=== PATIENT | female | born 1940 | race Caucasian/White ===

== ENCOUNTER 2022-11-11 03:11 | Observation (INO) | payer MEDICARE, SELFPAY ==
[2022-11-11] VITALS (31 sets, daily range): BP systolic 125–215; BP diastolic 50–88; PULSE 70–85; RESP 12–20; TEMP 35.8–36.8; O2SAT 92–98; BMI 27.1
--- NOTE | ~2022-11-11 | XR_ITS ---
EXAMINATION: XR knee RT min 4V DATE: 11/11/2022 03:37 INDICATION: Right knee injury and pain. TECHNIQUE: 4 views of right knee were obtained. COMPARISON: None. FINDINGS: Bone alignment is normal. No fracture. There is severe osteoarthritis of medial and patello femoral compartments and moderate osteoarthritis of lateral compartment. There is a large knee joint effusion. IMPRESSION: 1. Severe right knee osteoarthritis. 2. Large right knee joint effusion. Reviewed, dictated and finalized at location E.
--- NOTE | ~2022-11-11 | CT_ITS ---
EXAMINATION: CT knee RT wo con DATE: 11/11/2022 04:10 INDICATION: Right knee pain. TECHNIQUE: Computed tomography (CT) of the right knee was performed without intravenous contrast. Aut omated exposure control and iterative reconstruction technique were employed. The dose-length product was 524.06 mGy-cm. COMPARISON: Right knee radiographs 11/11/2022 FINDINGS: Bone alignment is normal. No fracture. There is severe osteoarthritis of medial and patello femoral compartments and moderate osteoarthritis of lateral compartment. There is a large knee joint effusion. There are dystrophic calcifications of the joint capsule. IMPRESSION: 1. Severe right knee osteoarthritis. 2. Large right knee joint effusion. Reviewed, dictated and finalized at location E.
--- NOTE | 2022-11-11 03:40 | ED.GENADULT ---
HPI - General Adult General Chief complaint: Extremity Injury, Lower Stated complaint: RIGHT KNEE PAIN S/P FALL 2 DAYS AGO Time Seen by Provider: 11/11/22 03:14 History of Present Illness HPI narrative: 81-year-old female presented to the emergency department for evaluation of right knee pain. Patient reports 2 days ago patient was getting in the car and twisted her right knee. Patient states she did hear a popping sound. Patient reports since then she has had increased difficulty with ambulation. Patient denies any other pain or injury. Related Data Home Medications Medication Instructions Recorded Confirmed cholecalciferol (vitamin D3) 25 25 mcg PO DAILY 09/13/21 11/11/22 mcg (1,000 unit) capsule clonidine HCl 0.1 mg tablet 0.1 mg PO BID 09/13/21 11/11/22 metformin 500 mg tablet 500 mg PO BID 09/13/21 11/11/22 meclizine 12.5 mg tablet 12.5 mg PO PRN PRN dizziness 11/11/22 11/11/22 Allergies Allergy/AdvReac Type Severity Reaction Status Date / Time No Known Allergies Allergy Verified 08/21/22 13:58 Review of Systems Review of Systems: All systems reviewed & are unremarkable except as noted in HPI and below PMFSH Past Medical History Medical History Arthritis Diabetes Hypertension Surgical History Surgical History History of parotidectomy Status post complete hysterectomy Family History Family History Mother Diabetes mellitus Hypertension Cancer Social History Social History (Updated 11/11/22 @ 09:29 by Angus Ramirez MD) Social History: Lifelong nonsmoker. Rare alcohol use. No drug use. Lives with her . She wishes to be a DNR. Smoking status: Never smoker Tobacco type: cigarettes Alcohol intake: current Substance use: never Lack of Transportation: No Lack of Food: Sometimes True Current Housing: I Have Housing Concerned About Future Housing: No Difficulty Paying Gas/Electric Bills: YES Difficulty Paying for Meds: No Currently Unemployed: No Education: High School Diploma/GED Difficulty w/ Childcare or Family Care: No Spiritual care concerns: No Exam Narrative: APPEARANCE: Well appearing, no pain, no distress, well-nourished. HEAD: normocephalic, atraumatic. EYES: PERRLA/EOMI, conjunctivae clear. NOSE: Normal no drainage NECK: Supple. No adenopathy, no masses. RESPIRATORY: Airway patent, respirations nonlabored. Clear to auscultation bilaterally, no rales, rhonchi, wheezing. CARDIOVASCULAR: Regular rate and rhythm without murmurs rubs or gallops. ABDOMINAL: Soft, nontender, nondistended, normal bowel sounds MUSCULOSKELETAL: Right knee effusion with tenderness, no deformity, no erythema. Neurovascular intact NEURO: Alert. Cranial nerves II through XII intact. Grossly intact SKIN: Warm, dry. Normal Color Course Course Emergency Course: 81-year-old female complaining of right knee pain. X-rays were negative for acute fracture or dislocation. Patient was placed in a knee immobilizer and ambulated with a walker. Patient was unable to ambulate and is requesting admission. Ordered to evaluate for occult fracture. Patient is having some hypertension but patient was doing her morning meds. Patient was treated with her home dose of lisinopril, felodipine, metoprolol and clonidine. Patient's blood pressure was significantly improved with her morning meds. Patient will need to be admitted due to inability to ambulate. Hospitalist prefers to wait for the CT scan to be resulted. CT showed no acute fracture or dislocation. Case was discussed with the hospitalist and patient was accepted for admission. Patient and family were updated on the results of the x-ray and CT. All questions concerns were addressed and patient was resting company at time of admission. Vital Signs Vital
--- NOTE | 2022-11-11 03:58 | PC.NURSE ---
knee immobilizer placed on patient, patient unable to bear weight on right knee and walk; notified
[2022-11-11] MEDS: HYDROcodone/acetaminophen (*CRX) 5-325 MG TABLET 1 TAB PO ×2 (04:12→14:17)
[2022-11-11] MEDS: FELODIPINE 5 MG TAB CR PO (04:38)
[2022-11-11] MEDS: lisinopriL 20 MG TABLET PO (04:38)
[2022-11-11] MEDS: cloNIDine HCL 0.1 MG TABLET PO ×2 (04:39→17:11)
[2022-11-11] MEDS: METOPROLOL SUCCINATE EXT REL 100 MG TABCR PO (04:39)
[2022-11-11 04:41] LABS: Basophils Percent Auto 0.3 % (0.2-1.2); Eosinophils Percent Auto 0.1 % (0-4.4); Hematocrit 35.1 % (37.0-47.0); Hemoglobin 11.2 g/dL (12.0-15.0); Immature Granulocyte Absolute 0.03 K/mm3 (0.00-0.031); Immature Granulocyte Percent A 0.3 % (0-0.5); Lymphocytes Absolute Auto 0.76 K/mm3 (0.9-3.2); Lymphocytes Percent Auto 8.1 % (18.3-44.2); Mean Corpuscular HGB Conc 31.9 g/dl (32-36); Mean Corpuscular Hemoglobin 28.9 pg (26-34); Mean Corpuscular Volume 90.5 fl (80-100); Mean Platelet Volume 10.3 fl (7.4-10.4); Monocytes Absolute Auto 0.9 K/mm3 (0.1-0.6); Monocytes Percent Auto 9.3 % (2.6-8.5); Neutrophils Absolute Auto 7.7 K/mm3 (1.3-6.7); Neutrophils Percent Auto 81.9 % (45.5-73.1); Platelet Count Result 224 k/mm3 (150-375); Red Blood Count 3.88 M/mm3 (4.2-5.4); White Blood Count 9.4 K/mm3 (4.5-10.0)
[2022-11-11 04:52] LABS: Alanine Aminotransferase 14 U/L (6-35); Albumin Level 4.1 g/dL (3.5-5.1); Alkaline Phosphatase 81 U/L (38-126); Anion Gap 8 mmol/L (8-16); Aspartate Amino Transferase 22 U/L (14-36); Bilirubin,Total 0.7 mg/dL (0.2-1.3); Blood Urea Nitrogen 22 mg/dL (7-17); Calcium 8.8 mg/dL (8.4-10.2); Carbon Dioxide 25 mmol/L (22-30); Chloride 105 mmol/L (98-107); Estimated CRCL calculation 52 ml/min; Estimated Glomerular Filt Rate > 60; Glucose 171 mg/dL (65-110); INR 1.1; Potassium 4.1 mmol/L (3.4-5.0); Prothrombin Time 14.6 Seconds (11.1-14.7); Sodium 138 mmol/L (137-145)
[2022-11-11 04:53] LABS: Partial Thromboplastin Time 23.9 SECONDS (22.3-36.8)
--- NOTE | 2022-11-11 08:03 | ADMGEN ---
This patient, Aria Garcia, was admitted to Medical Room 252-01. Patient/family oriented to hospital policies and general routines including ID bracelet, bed and alarms, visiting hours, pain management, procedures, bathroom and other care routines, personal items, smoking policy, room service/diet, and visiting hours. Information on how to activate the Rapid Response Team has been discussed. Patient/Family are encouraged to report perceived risks to care and to ask questions if they do not understand what they are told or what they should do.
--- NOTE | 2022-11-11 08:05 | PM.IMHP ---
H&P: HPI History of Present Illness Date/Time: 11/11/22 08:05 Chief Complaint: Knee pain after a fall Narrative: 81yo female with DM, HTN and osteoarthritis presents to the emergency department for evaluation of right knee pain.? Patient fell while trying to get up into a car on 11/09. She was at the [employer] to get her license. Patient has chronic bilateral knee osteoarthritis right worse than left. She normally has to step up with her left leg because of the pain. Patient however used her right leg when stepping up onto the running board of the car when she fell. She is vague on the details but states that she went straight down . She does not remember how she landed but possibly on her knees. She does complain of right recinos pain as well as right knee pain. She denies any other joint pain. There was no head injury or loss of consciousness. She did not have any lightheadedness, dizziness, chest pain or palpitations prior to the event. She was able to get herself up and actually finished the evaluation and was able to get her license. She normally walks with a cane. She states that she has chronic vertigo but she describes this as feeling off balanced. She denies any chronic room spinning or lightheadedness symptoms. She did well initially but her knee pain symptoms worsened that evening and throughout the day on 11/10. She was using a walker to ambulate but even then it was becoming difficult. On the early morning babysitter hours, patient was trying to be up to void when she had difficulty getting to the bathroom because of the right knee pain. No numbness or tingling in the hands or feet. No fever or chills. She has urine incontinence which is chronic but no dysuria, hematuria or frequency. Patient presented to the emergency room for evaluation. In the ED, blood pressure was as high as 215/88. Lab values were unrevealing. Knee x-ray shows severe right knee osteoarthritis with large right knee joint effusion. CT of the right knee shows similar findings. No fractures noted. Patient was placed in a knee immobilizer and it was attempted to walk her with a walker but she was unable to ambulate. She was given 1 dose of her home medications and her blood pressure did improve. She did receive one dose of [place]. She was admitted for further care. Review of Systems Review of Systems: All systems reviewed & are unremarkable except as noted in HPI and below PMFSH Past Medical History Medical History Arthritis Diabetes Hypertension Surgical History Surgical History History of parotidectomy Status post complete hysterectomy Family History Family History Mother Diabetes mellitus Hypertension Cancer Social History Social History (Updated 11/11/22 @ 09:29 by Angus Ramirez MD) Social History: Lifelong nonsmoker. Rare alcohol use. No drug use. Lives with her . She wishes to be a DNR. Smoking status: Never smoker Tobacco type: cigarettes Alcohol intake: current Substance use: never Lack of Transportation: No Lack of Food: Sometimes True Current Housing: I Have Housing Concerned About Future Housing: No Difficulty Paying Gas/Electric Bills: YES Difficulty Paying for Meds: No Currently Unemployed: No Education: High School Diploma/GED Difficulty w/ Childcare or Family Care: No Spiritual care concerns: No Meds Home Medications and Allergies Home Medications Medication Instructions Recorded Confirmed Type cholecalciferol (vitamin D3) 25 25 mcg PO DAILY 09/13/21 11/11/22 History mcg (1,000 unit) capsule clonidine HCl 0.1 mg tablet 0.1 mg PO BID 09/13/21 11/11/22 History metformin 500 mg tablet 500 mg PO BID 09/13/21 11/11/22 History metoprolol succinate 100 mg 100 mg PO DAILY #90 tabs 05/22/22 11/11/22 Rx t
--- NOTE | 2022-11-11 08:09 | PCPTNOTE ---
patient has ortho consult. Has ortho consult will wait until seen by them for potential weightbearing status.
[2022-11-11 09:06] LABS: Glucose Point of Care 151 mg/dl (65-105)
--- NOTE | 2022-11-11 10:52 | PCPTNOTE ---
talked to nurse and patient and they agree better to wait until after the knee aspiration, planned for tomorrow.
[2022-11-11] MEDS: ROSUVASTATIN 5 MG TABLET PO (11:55)
[2022-11-11] MEDS: CHOLECALCIFEROL 1,000 UNITS TABLET 1000 UNITS PO (11:56)
[2022-11-11] MEDS: metFORMIN HCL 500 MG TABLET PO ×2 (11:56→17:11)
[2022-11-11 12:11] LABS: Glucose Point of Care 177 mg/dl (65-105)
--- NOTE | 2022-11-11 13:37 | PCOTNOTE ---
Spoke with RN and reported to wait until after ortho consult and the knee aspiration, planned for tomorrow 11/12.
[2022-11-11 17:07] LABS: Glucose Point of Care 162 mg/dl (65-105)
[2022-11-11 20:16] LABS: Glucose Point of Care 180 mg/dl (65-105)
[2022-11-12 05:16] VITALS: BP 203/60; PULSE 66; RESP 19; TEMP 36.4; O2SAT 98
[2022-11-12 05:48] VITALS: BP 182/62
[2022-11-12] MEDS: HYDROcodone/acetaminophen (*CRX) 5-325 MG TABLET 1 TAB PO (06:26)
--- NOTE | 2022-11-12 07:14 | PCOTNOTE ---
Will complete OT evaluation following ortho consult. Will follow.
--- NOTE | 2022-11-12 07:25 | PCPTNOTE ---
Will complete PT evaluation following ortho consult. Will follow.
[2022-11-12 08:35] LABS: Glucose Point of Care 124 mg/dl (65-105)
[2022-11-12] MEDS: CHOLECALCIFEROL 1,000 UNITS TABLET 1000 UNITS PO (08:59)
[2022-11-12] MEDS: metFORMIN HCL 500 MG TABLET PO ×2 (08:59→17:30)
[2022-11-12 09:00] VITALS: PULSE 72
[2022-11-12] MEDS: cloNIDine HCL 0.1 MG TABLET PO ×2 (09:00→17:30)
[2022-11-12] MEDS: METOPROLOL SUCCINATE EXT REL 100 MG TABCR PO (09:00)
[2022-11-12] MEDS: lisinopriL 20 MG TABLET PO (09:00)
[2022-11-12] MEDS: FELODIPINE 5 MG TAB CR PO (09:00)
[2022-11-12] MEDS: ROSUVASTATIN 5 MG TABLET PO (09:01)
--- NOTE | 2022-11-12 10:24 | PM.IMPN ---
Progress Note: A&P Assessment and Plan (1) Acute pain of right knee: Code(s): M25.561 - Pain in right knee Status: Acute Assessment and Plan: Patient with acute right knee pain after a fall. X-ray showing severe right knee OA and large joint effusion. CT right knee showing similar findings and no fracture. WBC normal. Hgb unchanged so doubt hemarthrosis (and fluid not hyperdense by CT). CMP essentially normal. B12 and TSH normal in July. No urinary symptoms to suggest UTI. No evidence of acute infection. Ortho consult with plans for injection. May need placement. Start PT/OT after knee injected. (2) Fall: Code(s): W19.XXXA - Unspecified fall, initial encounter Status: Acute Assessment and Plan: As above. The etiology for her fall is related to her stepping up with the right leg. Continue fall precautions. (3) Hypertension: Code(s): I10 - Essential (primary) hypertension Status: Acute Assessment and Plan: BP elevated at times felt related to pain. Home medications resumed. Continue to follow. (4) Diabetes: Code(s): E11.9 - Type 2 diabetes mellitus without complications Status: Acute Assessment and Plan: A1c 6.6 in July. The patient's blood glucose was reviewed on 11/12 Glucose remains well controlled. Continue AccuCheks covering with sliding scale. Hypoglycemia protocol available as needed. Continue current medications. (5) Arthritis: Code(s): M19.90 - Unspecified osteoarthritis, unspecified site Status: Acute Assessment and Plan: Patient with chronic OA. Symptomatic care. Plan Murmur - defer to PCP DVT prophylaxis - SCDs Code status - DNR Subjective Date/time seen: 11/12/22 10:24 Interval history: 81yo female with DM, HTN and osteoarthritis presents to the emergency department for evaluation of right knee pain.?? Knee pain without change. She feels well. Exam Narrative: AF 97.6 182/62 72 19 98% ra Gen - NARD Chest - CTA bilaterally, nml RR CV - RRR S1/S2 Abd - soft, NT/ND Ext - no pedal edema. right knee edema Psych - normal mood and affect. Skin - warm and dry. Objective Data Vital Signs Vital Signs: Vital Signs - 24 hr 11/11/22 14:00 11/11/22 19:24 11/11/22 20:00 Temperature 98.3 F 96.5 F L Pulse Rate 80 70 Respiratory Rate 20 18 Blood Pressure 179/67 H 133/50 L Pulse Oximetry 97 98 Oxygen Delivery Room Air 11/12/22 05:16 11/12/22 05:48 11/12/22 09:00 Temperature 97.6 F Pulse Rate 66 72 Respiratory Rate 19 Blood Pressure 203/60 H 182/62 H Pulse Oximetry 98 Oxygen Delivery Intake/Output Intake/Output: Intake & Output 11/09/22 11/10/22 11/11/22 11/12/22 23:59 23:59 23:59 23:59 Intake Total 950 640 Output Total 150 100 Balance 800 540 Meds/Results Medications: Active Medications Generic Name Dose Route Start Last Admin Trade Name Freq PRN Reason Stop Dose Admin Acetaminophen 650 mg 11/11/22 14:00 Acetaminophen 325 Mg Tablet PO Q6H PRN Mild Pain (1-3) Or Fever Hydrocodone Bitart/Acetaminophen 1 tab 11/11/22 14:00 11/12/22 06:26 Hydrocodone/Acetaminophen (*Crx) 5-325 Mg Tablet PO 1 tab Q6H PRN Administration Pain Rated 4-6 Clonidine HCl 0.1 mg 11/11/22 17:00 11/12/22 09:00 Clonidine Hcl 0.1 Mg Tablet PO 0.1 mg BID SHANNAN Administration Dextrose 12.5 gm 11/11/22 08:20 Dextrose 50% 25 Gm/50 Ml Syringe IV PUSH PRN PRN Hypoglycemia Protocol Felodipine 5 mg 11/12/22 09:00 11/12/22 09:00 Felodipine 5 Mg Tab Cr PO 5 mg DAILY SHANNAN Administration Glucagon 1 mg 11/11/22 08:20 Glucagon For Inj 1 Mg Vial IM PRN PRN Hypoglycemia Protocol Glucose 15 gm 11/11/22 08:20 Glucose Oral Gel 15 Gm Of Glucse In 37.5 Gm Tube PO PRN PRN Hypoglycemia Protocol Dextrose 1,000 mls @ 100 mls/hr
--- NOTE | 2022-11-12 10:33 | PM.CNOR ---
Assessment and Plan Assessment and plan (1) Acute pain of right knee: Code(s): M25.561 - Pain in right knee Status: Acute (2) Effusion, right knee: Code(s): M25.461 - Effusion, right knee Status: Acute (3) Arthritis of right knee: Code(s): M17.11 - Unilateral primary osteoarthritis, right knee Status: Chronic Plan 81-year-old female who has got radiographically severe arthritis in her right knee. She has a large effusion. I discussed this with her. The knee was aspirated and injected. See note below. She tolerated the aspiration and injection just fine. It was bloody synovial fluid rather than reena hemarthrosis, and there was no fat-fluid level in the aspirate. I suspect that she had effusion and then with this injury bled into her knee causing the symptoms. I told her that she can follow with me in the office as she saw fit. Thank you for the consultation. Procedure note: With the patient's permission and using sterile technique from a superolateral approach and with the patient supine, 80 milliliters of bloody joint fluid was aspirated from the knee. The knee was then injected intra-articularly with 2 milliliters of 1% lidocaine and 20 milligrams of Kenalog without incident. Sterile dressing was applied. History of Present Illness HPI Consult date: 11/12/22 Chief complaint: Right Knee Pain Narrative: 81-year-old female who has got pain and swelling in her right knee. She had a mishap a few days ago coming down hard on the right knee. It gradually started to swell to the point where she was so uncomfortable that she came to the emergency room. Has arthritis in the knee but it is manageable with [id number] analgesics. Review of Systems Constitutional: Constitutional: Denies anorexia Eyes: Eyes: Denies irritation and Denies loss of vision ENT: Denies Normal hearing present ( Hard of hearing) Cardiovascular: Cardiovascular: Denies chest pain and Denies dyspnea on exertion Respiratory: Respiratory: Denies cough and Denies dyspnea on exertion Gastrointestinal: Gastrointestinal: Denies abdominal pain and Denies bloating Genitourinary: Genitourinary: Denies dysuria Musculoskeletal: Musculoskeletal: Reports as per HPI Integumentary/Breasts: Skin/Breast: Denies skin ulcer Neurologic: Denies Normal hearing present and Denies loss of vision Hematologic/Lymphatic: Hematologic/Lymphatic: Denies easy bleeding [facility] Past Medical History Medical History (Updated 11/12/22 @ 10:37 by Enrrique Pope MD) Arthritis Arthritis of right knee Diabetes Hypertension Surgical History Surgical History History of parotidectomy Status post complete hysterectomy Family History Family History Mother Diabetes mellitus Hypertension Cancer Social History Social History Social History: Lifelong nonsmoker. Rare alcohol use. No drug use. Lives with her . She wishes to be a DNR. Smoking status: Never smoker Tobacco type: cigarettes Alcohol intake: current Substance use: never Lack of Transportation: No Lack of Food: Sometimes True Current Housing: I Have Housing Concerned About Future Housing: No Difficulty Paying Gas/Electric Bills: YES Difficulty Paying for Meds: No Currently Unemployed: No Education: High School Diploma/GED Difficulty w/ Childcare or Family Care: No Spiritual care concerns: No Meds Home Medications and Allergies Home Medications Medication Instructions Recorded Confirmed Type cholecalciferol (vitamin D3) 25 25 mcg PO DAILY 09/13/21 11/11/22 History mcg (1,000 unit) capsule clonidine HCl 0.1 mg tablet 0.1 mg PO BID 09/13/21 11/11/22 History metformin 500 mg tablet 500 mg PO BID 09/13/21 11/11/22 History metoprolol succina
[2022-11-12 11:59] LABS: Glucose Point of Care 120 mg/dl (65-105)
[2022-11-12 14:00] VITALS: BP 139/52; PULSE 68; RESP 16; TEMP 37.1; O2SAT 95
[2022-11-12 16:55] LABS: Glucose Point of Care 157 mg/dl (65-105)
[2022-11-12] MEDS: LIDOCAINE HCL 1% LOCAL INJ 10 ML VIAL INFILTRATE (17:31)
[2022-11-12] MEDS: TRIAMCINOLONE ACET INJ SUSP 50 MG/5 ML VIAL 10 MG XX (17:32)
--- NOTE | 2022-11-12 17:53 | PC.NURSE ---
Pt is A&O 4 female. Pt has participated and contributed in plan of care. Pt had knee aspirated today and tolerated well. Pt has reported no pain and has tolerated ambulation since then. Pt does not express any needs at this time. Pt anticipating working with therapy tomorrow. Will continue to monitor pt.
[2022-11-12 19:55] VITALS: BP 142/56; PULSE 63; RESP 16; TEMP 36.6; O2SAT 100
[2022-11-12 20:00] VITALS: PULSE 63; RESP 16; O2SAT 100
[2022-11-12 20:54] LABS: Glucose Point of Care 207 mg/dl (65-105)
[2022-11-13 06:38] VITALS: BP 154/59; PULSE 65; RESP 16; TEMP 36.9; O2SAT 95
[2022-11-13 08:23] LABS: Glucose Point of Care 132 mg/dl (65-105)
[2022-11-13] MEDS: FELODIPINE 5 MG TAB CR PO (08:41)
[2022-11-13] MEDS: cloNIDine HCL 0.1 MG TABLET PO (08:41)
[2022-11-13] MEDS: lisinopriL 20 MG TABLET PO (08:41)
[2022-11-13] MEDS: metFORMIN HCL 500 MG TABLET PO (08:41)
[2022-11-13] MEDS: ROSUVASTATIN 5 MG TABLET PO (08:41)
[2022-11-13] MEDS: CHOLECALCIFEROL 1,000 UNITS TABLET 1000 UNITS PO (08:41)
[2022-11-13 08:42] VITALS: PULSE 78
[2022-11-13] MEDS: METOPROLOL SUCCINATE EXT REL 100 MG TABCR PO (08:42)
--- NOTE | 2022-11-13 12:13 | PM.DS ---
DS: Admitting Diagnosis Discharge Date 11/13/22 Admitting Diagnosis Knee pain DS: Discharge Diagnosis Discharge Diagnosis (1) Acute pain of right knee: Code(s): M25.561 - Pain in right knee Status: Acute (2) Fall: Code(s): W19.XXXA - Unspecified fall, initial encounter Status: Acute (3) Hypertension: Code(s): I10 - Essential (primary) hypertension Status: Acute (4) Diabetes: Code(s): E11.9 - Type 2 diabetes mellitus without complications Status: Acute (5) Arthritis: Code(s): M19.90 - Unspecified osteoarthritis, unspecified site Status: Acute DS: Summary Hospital Course Reason for hospitalization: 81yo female with DM, HTN and osteoarthritis presents to the emergency department for evaluation of right knee pain.?Please see H&P for details Hospital Course: Patient with acute right knee pain after a fall. X-ray showing severe right knee OA and large joint effusion. CT right knee showing similar findings and no fracture. WBC normal. Hgb unchanged so doubt hemarthrosis (and fluid not hyperdense by CT).? CMP essentially normal. B12 and TSH normal in July. No urinary symptoms to suggest UTI. No evidence of acute infection. Ortho consulted and patient underwent arthrocentesis with removal of fluid and steroid injection. She was started on PT/OT. She states her pain has resolved. She was walking to the bathroom independently. Therapist recommended outpatient therapy but patient states she feels fine and declines this for now. She was told that she can call her doctor to have this arranged if she changes her mind later. She overall did well and was able to be discharged home on 11/13/2022. Status at Discharge Cognitive/behavioral status at discharge: stable Time Spent with Patient Time attestation: Total time spent providing and/or coordinating discharge services: 32 minutes Time spent: Greater than 30 minutes Exam Narrative: AF 98.5 154/59 78 16 95% ra Gen - NARD Chest - CTA bilaterally, nml RR CV - RRR S1/S2 Abd - soft, NT/ND Ext - no pedal edema. Psych - normal mood and affect. Skin - warm and dry. DS: Data Data Completed and Pending Labs on day of discharge: Labs from last 24 hours 11/13/22 11/12/22 11/12/22 08:14 20:22 16:51 POC Capillary Glucose 132 H 207 H 157 H Discharge Plan Discharge Attending physician on discharge: Angus Ramirez Consulting providers: Enrrique Pope Discharging Clinician: Angus Ramirez Anticipated Discharge Date/Time: 11/13/22 12:18 Patient Disposition: Home, Self-Care Activity: as tolerated Diet: diabetic Discharge Instructions: You can follow-up with Dr. Pope as needed. [phone] Check blood pressure 1 to 2 times a day. Record and bring into your doctor for review. Call your doctor if your blood pressure is greater than 180/110. Walk with cane or walker. Take precautions to avoid falls. Rise slowly from a lying or sitting position. Pause before standing or walking. Contact your doctor or call 911 and come to the Emergency Room if you have fevers or other worrisome symptoms. Avoid NSAIDs (ibuprofen, naproxen, Aleve). Tylenol is safe to take. Follow-up with your primary care provider in 1-2 weeks. Please call for appointment. Thank you for using [facility] for your health care needs. Patient Instructions: Antibiotic Form Stand Alone Forms: General Discharge Information Follow-up/Referrals: Brent Martínez, DO [Primary Care Provider] - Call for Appointment Discharge Medications: Continued clonidine HCl 0.1 mg tablet 0.1 mg PO BID Rx Instructions: Take one tablet twice a day metformin 500 mg tablet 500 mg PO BID cholecalciferol (vitamin D3) 25 mcg (1,000 unit) capsule 25 mcg PO DAILY meclizine 12.5 mg tablet 12.5 mg PO PRN PRN (Reason: dizziness) metoprolol succinate 100 mg table
--- NOTE | 2022-11-13 13:07 | PCPTNOTE ---
Addendum entered by Guera Chappell, PT 11/13/22 13:07: the student, [Araseli Hahn], Original Note: On 11/13/22, the student, [ ], provided care and completed [facility] documentation on this patient. I have reviewed the student's documentation and agree with the findings.
== END 2022-11-13 12:40 | disposition home or self-care (01) ==
LOC: ANHED 06:12 → ANH2MED 07:50
PROVIDERS: Internal Medicine; Admitting Provider Internal Medicine; Emergency Provider Emergency Medicine; PCP Internal Medicine; Visit Provider Internal Medicine
DX: M25.561 Pain in right knee (principal); W19.XXXA Unspecified fall, initial encounter; I10 Essential (primary) hypertension; E11.9 Type 2 diabetes mellitus without complications; M17.0 Bilateral primary osteoarthritis of knee; M25.461 Effusion, right knee; F10.90 Alcohol use, unspecified, uncomplicated; Z79.84 Long term (current) use of oral hypoglycemic drugs; Z79.899 Other long term (current) drug therapy; Z83.3 Family history of diabetes mellitus; Z82.49 Family history of ischemic heart disease and other diseases of the circulatory system
CPT/HCPCS: 20610; 36415; 73564; 73700; 80053; 82948; 85025; 85610; 85730; 97161; 97165; 99285; A9270; G0378; J3301

== ENCOUNTER 2023-02-01 12:34 | Outpatient (CLI) | payer MEDICARE, SELFPAY ==
[2023-02-01 13:07] LABS: Appearance Urine Turbid (Clear); Bacteria Urine 4+ /hpf; Bilirubin Urine Negative (Negative); Blood Urine 1+ (Negative); Color Urine Yellow (Yellow); Glucose Urine UA Negative (Negative); Ketones Urine Trace mg/dL (Negative); Leukocyte Esterase Ur 3+ LEU/UL (Negative); Nitrate Urine Positive (Negative); Protein Urine Trace mg/dL (Negative); RBC Urine 0-2 /hpf (0-2); Specific Grav Ur 1.018 (1.001-1.035); Squamous Epithelial Cell Urine Occasional /hpf (Few); WBC Urine >100 /hpf; pH Urine 5.5 (5.0-9.0)
[2023-02-01 14:17] LABS: Add Urine Microscopic? YES
== END 2023-02-01 12:35 | disposition home or self-care (01) ==
PROVIDERS: PCP Internal Medicine; Visit Provider Internal Medicine
DX: R30.0 Dysuria (principal)
CPT/HCPCS: 81001; 87077; 87086; 87186

== ENCOUNTER 2023-04-04 13:37 | Outpatient (CLI) | payer MEDICARE, SELFPAY ==
--- NOTE | 2023-04-04 13:59 | ECHO_ITS ---
Patient Info Name: Aria Garcia Age: 82 years : 1940 Gender: Female Ht: 66 in Wt: 175 lbs BSA: 1.94 m2 HR: 71 bpm BP: 210 / 91 mmHg Technical Quality: Fair Exam Date: 04/04/2023 2:27 PM Exam Location: [facility] Patient Status: Outpatient Admit Date: 04/04/2023 Staff Ordering Physician: Brent Martínez DO E Commerce Developer: Zehra Davis RDCS Attending Provider: Brent Martínez DO Referring Physician: Mauricio LYON; Exam Type: CA echo doppler color flow Study Info Indications R01.1 - Cardiac murmur, unspecified Complete two-dimensional, color flow and Doppler transthoracic echocardiogram is performed. Summary 1. Complete two-dimensional, color flow and Doppler transthoracic echocardiogram is performed. 2. Left ventricular chamber dimension is mildly enlarged. 3. Left ventricular systolic function is normal, estimated at 60-65%. 4. The left ventricular diastolic function is abnormal. 5. E/e' 19 is elevated. 6. Global longitudinal strain is abnormal at -15.6%. 7. Left atrial chamber dimension is moderately enlarged. 8. There is moderate aortic valve sclerosis. 9. There is very mild aortic valve stenosis with a peak velocity of 157 cm/s, mean gradient of 6 mmHg, and aortic valve area of 2.1 cm2. 10. The mitral valve has moderately calcified annulus. 11. There is trace mitral valve regurgitation. 12. There is trace tricuspid valve regurgitation. 13. Mild pulmonary hypertension, estimated pulmonary arterial systolic pressure is 48 mmHg. Left Ventricle E/e' 19 is elevated. Global longitudinal strain is abnormal at -15.6%. Left ventricular chamber dimension is mildly enlarged. Left ventricular systolic function is normal, estimated at 60-65%. The left ventricular diastolic function is abnormal. Right Ventricle Right ventricular systolic function is normal and with normal TAPSE 2.6 cm. Right ventricular chamber dimension is normal. Left Atria Left atrial chamber dimension is moderately enlarged. Right Atria Right atrial chamber dimension is normal. Aortic Valve There is very mild aortic valve stenosis with a peak velocity of 157 cm/s, mean gradient of 6 mmHg, and aortic valve area of 2.1 cm2. The aortic valve is trileaflet. There is moderate aortic valve sclerosis. There is no aortic valve regurgitation. Pulmonic Valve There is no pulmonic regurgitation. Mitral Valve The mitral valve has moderately calcified annulus. There is no mitral valve stenosis. There is trace mitral valve regurgitation. Tricuspid Valve There is trace tricuspid valve regurgitation. Mild pulmonary hypertension, estimated pulmonary arterial systolic pressure is 48 mmHg. Pericardium/Pleural There is no pericardial effusion. Inferior Vena Cava Normal inferior vena cava with >50% collapse upon inspiration consistent with normal right atrial pressure, 5 mmHg. Aorta The aortic root size at the sinus of Valsalva is normal. Left Ventricular Outflow Tract Name Value Normal LVOT 2D LVOT Diameter 2.0 cm LVOT Doppler LVOT Peak Gradient 4 mmHg LVOT Mean Gradient 2 mmHg LVOT VTI 25 cm LVOT VTI/AV VTI
== END 2023-04-04 13:38 | disposition home or self-care (01) ==
PROVIDERS: PCP Internal Medicine; Visit Provider Internal Medicine
DX: R01.1 Cardiac murmur, unspecified (principal); I35.8 Other nonrheumatic aortic valve disorders
CPT/HCPCS: 93306

== ENCOUNTER 2023-05-13 00:29 | Day surgery (SDC) | payer MEDICARE, SELFPAY ==
[2023-05-01 11:22] VITALS: BMI 27.8
--- NOTE | 2023-05-08 09:49 | SUR.PREOP ---
Patient called regarding upcoming procedure. Reviewed preop instructions, appointment times, and procedure prep.
[2023-05-13 13:01] VITALS: BP 154/71; PULSE 74; RESP 20; TEMP 36.2; O2SAT 100
[2023-05-13] MEDS: LACTATED RINGERS 1,000 ML 150 ML IV CONT (13:21)
[2023-05-13 13:27] LABS: Glucose Point of Care 124 mg/dl (65-105)
--- NOTE | 2023-05-13 13:33 | WPDANESEPPF ---
Anes - Initial Pre Proc Eval Procedure: Operation Date: 05/13/23 14:30 Proposed Procedures p Colonoscopy - Florentin Luna MD Date/Time: 05/13/23 13:33 Surgeon: Florentin Luna MD Pre Op Diagnosis: other fecal abnormalities Patient Data Age: 82 Gender: F Height: 1.69 m Weight: 78.1 kg Last Vital Signs Temp 97.1 F L 05/13/23 13:01 Pulse 74 05/13/23 13:01 Resp 20 05/13/23 13:01 BP 154/71 H 05/13/23 13:01 Pulse Ox 100 05/13/23 13:01 O2 Del Method Room Air 05/13/23 13:01 Allergies Allergy/AdvReac Type Severity Reaction Status Date / Time No Known Allergies Allergy Verified 05/13/23 13:01 Home Medications Medication Instructions Recorded Confirmed Type cholecalciferol (vitamin D3) 25 25 mcg PO DAILY 09/13/21 05/01/23 History mcg (1,000 unit) capsule metoprolol succinate 100 mg 100 mg PO DAILY #90 tabs 05/22/22 05/01/23 Rx tablet,extended release 24 hr metformin 500 mg tablet 500 mg PO BID #180 tabs 12/07/22 05/01/23 Rx felodipine 5 mg tablet,extended 5 mg PO DAILY #90 tabs 02/16/23 05/01/23 Rx release 24 hr lisinopril 20 mg tablet 20 mg PO DAILY #90 tabs 03/04/23 05/01/23 Rx rosuvastatin 5 mg tablet 5 mg PO DAILY #90 tabs 03/04/23 05/01/23 Rx clonidine HCl 0.1 mg tablet 0.1 mg PO BID #180 tabs 03/08/23 05/01/23 Rx Laboratory Tests 05/13/23 13:25 POC Capillary Glucose 124 H mg/dl (65-105) Patient hx anesthesia problems: none Family hx anesthesia problems: none Results Review: All pre-operative results and documents have been reviewed as part of the pre-operative evaluation. [facility] Past Medical History Medical History Arthritis Arthritis of right knee Diabetes Hypertension Surgical History Surgical History History of parotidectomy Status post complete hysterectomy Family History Family History Mother Diabetes mellitus Hypertension Cancer Social History Social History Social History: Lifelong nonsmoker. Rare alcohol use. No drug use. Lives with her . She wishes to be a DNR. Smoking status: Never smoker Tobacco type: cigarettes Alcohol intake: never Substance use: never Substance use type: does not use Lack of Transportation: No Lack of Food: Sometimes True Current Housing: I Have Housing Concerned About Future Housing: No Difficulty Paying Gas/Electric Bills: YES Difficulty Paying for Meds: No Currently Unemployed: No Education: High School Diploma/GED Difficulty w/ Childcare or Family Care: No Living arrangements: with family Spiritual care concerns: No Anes - Eval Final PreProcedure Day of Procedure 05/13/23 13:33 Patient weight: normal Heart: regular rate and rhythm Lungs: clear to auscultation Airway: Mallampati scale class II Neurological: alert and oriented Last oral intake: >/= 8 hours ASA classification: III Emergent: no Anesthetic plan: proceed Anesthesia type and monitoring: general GIVS and standard monitoring Results Review: All pre-operative results and documents have been reviewed as part of the pre-operative evaluation. Informed Consent: The patient's anesthetic plan and its attendant risks and benefits were discussed with the patient/family/POA. Questions were solicited and answers provided to the satisfaction of the patient/family/POA.
--- NOTE | 2023-05-13 13:36 | PM.HPGS ---
History of Present Illness History of Present Illness Consent: Risks, benefits, and alternatives have been discussed and questions answered. Patient agrees to proceed with procedure. Chief complaint: other fecal abnormalities Narrative: Aria Garcia is a 82 year old female with + cologuard, had colonoscopy but more than 10 years ago- does not remember exactly how long ago. Review of Systems Constitutional: Constitutional: Denies headache(s) and Denies weakness Eyes: Eyes: Denies blurry vision ENT: Reports Normal hearing present, Denies headache(s) and Denies neck pain Cardiovascular: Cardiovascular: Denies chest pain and Denies dyspnea Respiratory: Respiratory: Denies dyspnea Gastrointestinal: Gastrointestinal: Reports no additional gastrointestinal complaints Genitourinary: Genitourinary: Denies dysuria Musculoskeletal: Musculoskeletal: Denies neck pain Integumentary/Breasts: Skin/Breast: Denies dry skin Neurologic: Reports Normal hearing present, Denies headache(s) and Denies weakness Psychiatric: Psychiatric: Denies anxiety Endocrine: Endocrine: Denies change in body appearance Hematologic/Lymphatic: Hematologic/Lymphatic: Denies easy bleeding Allergic/Immunologic: Allergic/Immunologic: Denies urticaria PMFSH Past Medical History Medical History (Updated 05/13/23 @ 13:36 by Florentin Luna MD) Arthritis Arthritis of right knee Diabetes Hypertension Positive colorectal cancer screening using Cologuard test Surgical History Surgical History History of parotidectomy Status post complete hysterectomy Family History Family History Mother Diabetes mellitus Hypertension Cancer Social History Social History Social History: Lifelong nonsmoker. Rare alcohol use. No drug use. Lives with her . She wishes to be a DNR. Smoking status: Never smoker Tobacco type: cigarettes Alcohol intake: never Substance use: never Substance use type: does not use Lack of Transportation: No Lack of Food: Sometimes True Current Housing: I Have Housing Concerned About Future Housing: No Difficulty Paying Gas/Electric Bills: YES Difficulty Paying for Meds: No Currently Unemployed: No Education: High School Diploma/GED Difficulty w/ Childcare or Family Care: No Living arrangements: with family Spiritual care concerns: No Meds Home Medications and Allergies Home Medications Medication Instructions Recorded Confirmed Type cholecalciferol (vitamin D3) 25 25 mcg PO DAILY 09/13/21 05/01/23 History mcg (1,000 unit) capsule metoprolol succinate 100 mg 100 mg PO DAILY #90 tabs 05/22/22 05/01/23 Rx tablet,extended release 24 hr metformin 500 mg tablet 500 mg PO BID #180 tabs 12/07/22 05/01/23 Rx felodipine 5 mg tablet,extended 5 mg PO DAILY #90 tabs 02/16/23 05/01/23 Rx release 24 hr lisinopril 20 mg tablet 20 mg PO DAILY #90 tabs 03/04/23 05/01/23 Rx rosuvastatin 5 mg tablet 5 mg PO DAILY #90 tabs 03/04/23 05/01/23 Rx clonidine HCl 0.1 mg tablet 0.1 mg PO BID #180 tabs 03/08/23 05/01/23 Rx Allergies Allergy/AdvReac Type Severity Reaction Status Date / Time No Known Allergies Allergy Verified 05/13/23 13:01 Vital Signs Vital Signs - 24 hr 05/13/23 13:01 Temperature 97.1 F L Pulse Rate 74 Respiratory Rate 20 Blood Pressure 154/71 H Pulse Oximetry 100 Oxygen Delivery Room Air Exam Const: General: comfortable and no acute distress HENMT: Face/Nose/Sinus: Normal nares present Eyes: General: appearance normal, both eyes and all related structures Neck: Neck: no JVD Resp: Auscultation: clear to auscultation bilaterally Cardio: Rate: regular rate Rhythm: regular rhythm GI: Inspection: non-distended GI Palp: Yes Soft to palpation Skin: General skin exam: no
--- NOTE | 2023-05-13 13:59 | SUR.OPER ---
unable to retrieve sigmoid polyp. Dr Johnson made aware no orders received.
[2023-05-13 14:01] VITALS: BP 144/55; PULSE 68; RESP 33; O2SAT 97
[2023-05-13 14:11] VITALS: BP 164/60; PULSE 69; RESP 18; O2SAT 99
[2023-05-13 14:21] VITALS: BP 179/74; PULSE 70; RESP 20; O2SAT 100
== END 2023-05-13 14:26 | disposition home or self-care (01) ==
PROVIDERS: PCP Internal Medicine; Visit Provider Internal Medicine Gastroenterology
PROC: 0DJD8ZZ Inspection of Lower Intestinal Tract, Via Natural or Artificial Opening Endoscopic (ICD-10-PCS; CPT 45378; principal; 2023-05-13 14:30)
DX: D12.2 Benign neoplasm of ascending colon (principal); K63.5 Polyp of colon; E11.9 Type 2 diabetes mellitus without complications; I10 Essential (primary) hypertension; Z66 Do not resuscitate
CPT/HCPCS: 45380; 45385; 82948; 88305; J2001; J2704; J7120

== ENCOUNTER 2025-03-29 12:03 | Emergency (ER) | payer MEDICARE, SELFPAY ==
--- NOTE | ~2025-03-29 | XR_ITS ---
EXAMINATION: XR chest 2V, 03/29/2025 13:10 CDT HISTORY: sob, cough COMPARISON: No comparisons available. Technique: 2 views obtained. Findings: The lungs are clear, no effusion. No pneumothorax. Heart is normal size. Mediastinal and hilar contours are within normal limits. Bony thorax no acute abnormality. Impression: No acute cardiopulmonary abnormality. Reviewed, dictated and finalized at location P. Impression: No acute cardiopulmonary abnormality.
[2025-03-29 12:37] VITALS: BP 267/97; PULSE 73; RESP 16; TEMP 36.9; O2SAT 99
--- NOTE | 2025-03-29 12:44 | ECG_ITS ---
Test Date: 2025-03-29 12:49:20 Measurements Intervals [place] Rate: 72 P: 32 IA: 155 QRS: 12 QRSD: 125 T: 6 QT: 393 QTc: 433 Interpretive Statements SINUS RHYTHM RIGHT BUNDLE BRANCH BLOCK BASELINE ARTIFACT- V5 ABNORMAL ECG No previous ECG available for comparison Electronically Signed On 03-29-2025 15:41:04 CDT by Jay Rodriguez D.O.
--- NOTE | 2025-03-29 12:45 | PC.NURSE ---
EFRAIN Camargo notified of pt. htn in triage.
[2025-03-29 13:08] LABS: Hematocrit 35.6 % (37.0-47.0); Hemoglobin 11.4 g/dL (12.0-15.0); Immature Granulocyte Percent A 0.8 % (0-0.5); Lymphocytes Absolute Auto 0.95 K/mm3 (0.9-3.2); Mean Corpuscular HGB Conc 32.0 g/dl (32-36); Mean Corpuscular Hemoglobin 28.9 pg (26-34); Mean Corpuscular Volume 90.4 fl (80-100); Nucleated Red Blood Cells Absolute Auto 0.000 K/mm3 (0.0-0.012); Nucleated Red Blood Cells Perc 0.0 % (0.0-0.2); Platelet Count Result 215 k/mm3 (150-375); Red Blood Count 3.94 M/mm3 (4.2-5.4); White Blood Count 11.7 K/mm3 (4.5-10.0)
[2025-03-29 13:25] LABS: Alanine Aminotransferase 14 U/L (6-35); Albumin Level 4.4 g/dL (3.5-5.1); Alkaline Phosphatase 112 U/L (38-126); Anion Gap 11 mmol/L (4-12); Aspartate Amino Transferase 25 U/L (14-36); Bilirubin,Total 1.0 mg/dL (0.2-1.3); Blood Urea Nitrogen 20 mg/dL (7-17); Calcium 9.5 mg/dL (8.4-10.2); Carbon Dioxide 23 mmol/L (22-30); Chloride 104 mmol/L (98-107); Estimated Glomerular Filt Rate 56; Glucose 156 mg/dL (65-110); Potassium 3.9 mmol/L (3.4-5.0); Sodium 138 mmol/L (137-145); Total Protein 8.4 g/dL (6.3-8.2)
[2025-03-29 13:41] LABS: Influenza A QL RT-PCR Negative (Negative); Influenza B QL RT-PCR Negative (Negative); RSV RNA, RT-PCR Negative (Negative); SARS-CoV-2 RNA PCR Negative (Negative)
[2025-03-29 14:30] VITALS: PULSE 82; RESP 19; TEMP 36.7; O2SAT 98
[2025-03-29 15:00] VITALS: O2SAT 100
--- NOTE | 2025-03-29 15:01 | PC.NURSE ---
Notified EDP of patients BP.
[2025-03-29 15:43] VITALS: PULSE 74; RESP 16
[2025-03-29] MEDS: IPRATROPIUM 0.5 MG/ALBUTEROL SULFATE 2.5 MG (BASE) AMPUL.NEB 3 ML INHALATION (15:43)
[2025-03-29 16:06] VITALS: BP 250/92; PULSE 77; RESP 17; O2SAT 100
--- NOTE | 2025-03-29 17:08 | ED.GENADULT ---
HPI - General Adult General Chief complaint: Upper Respiratory Infection Stated complaint: productive cough Time Seen by Provider: 03/29/25 14:45 History of Present Illness HPI narrative: Patient is an 84-year-old female who presents ER with sinus congestion. Ongoing for 3 days. Associated with productive cough. Is having trouble swelling to sore throat related to cough and postnasal drip. No chest pain or chest pressure. Patient takes clonidine and lisinopril at home as well as Lasix. She is not taking any of her blood pressure medication for the last week because she has not gone to the pharmacy to fill anything. No chest pain. In no headache or change in vision. No fevers or chills. Related Data Home Medications ?Medication ?Instructions ?Recorded ?Confirmed ?Last Taken ?Type cholecalciferol (vitamin D3) 25 25 mcg PO DAILY 09/13/21 11/20/24 Unknown History mcg (1,000 unit) capsule Allergies Allergy/AdvReac Type Severity Reaction Status Date / Time No Known Allergies Allergy Verified 03/29/25 12:04 Review of Systems Review of Systems: All systems reviewed & are unremarkable except as noted in HPI and below Constitutional: Constitutional: Reports no additional constitutional complaints ENT: Reports system reviewed and no additional complaints, except as documented Cardiovascular: Cardiovascular: Reports no additional cardiovascular complaints Respiratory: Respiratory: Reports no additional respiratory complaints Musculoskeletal: Musculoskeletal: Reports no additional musculoskeletal complaints Neurologic: Reports system reviewed and no additional complaints, except as documented [facility] Past Medical History Medical History Positive colorectal cancer screening using Cologuard test Arthritis of right knee Hypertension Diabetes Arthritis Surgical History Surgical History Status post complete hysterectomy History of parotidectomy Family History Family History Mother Diabetes mellitus Hypertension Cancer Father Heart disease Social History Social History Social History: Lifelong nonsmoker. Rare alcohol use. No drug use. Lives with her . She wishes to be a DNR. Smoking status: Former smoker Tobacco type: cigarettes Second hand tobacco smoke exposure: No Alcohol intake: current Substance use: never Substance use type: does not use Do You Feel Safe in your Home?: Yes Lack of Transportation: No Lack of Food: Sometimes True Current Housing: I Have Housing Concerned About Future Housing: No Difficulty Paying Gas/Electric Bills: YES Difficulty Paying for Meds: No Currently Unemployed: No Education: High School Diploma/GED Difficulty w/ Childcare or Family Care: No Living arrangements: with family Occupation/Education: retired Additional occupation/education comments: Medical records/XR Gender identity (if verbalized by the patient): Female Spiritual care concerns: No Exam Narrative: GENERAL: Well-appearing, well-nourished, and in no acute distress. HEAD: Normocephalic, atraumatic. ENT: Mucous membranes moist. Normal appearing posterior oropharynx. CHEST: Clear to auscultation. No respiratory distress. HEART: Regular rate and rhythm. Normal peripheral pulses. ABDOMEN: Soft, nontender, nondistended. EXTREMITIES: Normal range of motion. No edema. SKIN: Warm, dry, no rash. NEURO: Alert and oriented x3. PSYCH: Normal mood and affect. Course Course Emergency Course: Patient has asymptomatic hypertension that is decreased 50 points after being given a few of her home medications. She still has a metoprolol and Lasix that she may take. She received a breathing treatment which helped with coughing. Discharge home with albuterol. Recommend in sore throat lozenges. No steroids recommend due to elevated blood pressures. Educated importance on taking hypertensive medication as prescribed. Vital Signs Vital signs: Vital Signs Temperature 98.4 F 03/29/25 12:37 Pulse Rate 73 03/29/25 12:37 Respiratory Rate 16 03/29/25 12:37 Blood Pressure 267/97 H 03/29/25 12:37 Pulse Oximetry 99 03/29/25 12:37 Oxygen Delivery Room Air 03/29/25 12:37 Temperature 98.1 F 03/29/25 14:30 Pulse Rate 77 03/29/25 16:06 Respiratory Rate 17 03/29/25 16:06 Blood Pressure 250/92 H 03/29/25 16:06 Pulse Oximetry 100 03/29/25 16:06 Oxygen Delivery Room Air 03/29/25 15:00 Medical Decision Making Vital Signs Vital Signs: Vital Signs Temperature 98.4 F 03/29/25 12:37 Pulse Rate 73 03/29/25 12:37 Respiratory Rate 16 03/29/25 12:37 Blood Pressure 267/97 H 03/29/25 12:37 Pulse Oximetry 99 03/29/25 12:37 Oxygen Delivery Room Air 03/29/25 12:37 Temperature 98.1 F 03/29/25 14:30 Pulse Rate 77 03/29/25 16:06 Respiratory Rate 17 03/29/25 16:06 Blood Pressure 250/92 H 03/29/25 16:06 Pulse Oximetry 100 03/29/25 16:06 Oxygen Delivery Room Air 03/29/25 15:00 Lab Data 03/29/25 12:54 03/29/25 12:54 Labs: Lab Results 03/29/25 Range/Units 12:54 WBC 11.7 H (4.5-10.0) K/mm3 RBC 3.94 L (4.2-5.4) M/mm3 Hgb 11.4 L (12.0-15.0) g/dL Hct 35.6 L (37.0-47.0) % MCV 90.4 (80-100) fl MCH 28.9 (26-34) pg MCHC 32.0 (32-36) g/dl RDW 13.6 (11.5-14.5) % Plt Count 215 (150-375) k/mm3 MPV 10.6 H (7.4-10.4) fl Immature Gran % (Auto) 0.8 H (0-0.5) % Neut % (Auto) 83.3 H (45.5-73.1) % Lymph % (Auto) 8.1 L (18.3-44.2) % Collier % (Auto) 7.4 (2.6-8.5) % Eos % (Auto) 0.1 (0-4.4) % Baso % (Auto) 0.3 (0.2-1.2) % Lymph # (Auto) 0.95 (0.9-3.2) K/mm3 Collier # (Auto) 0.9 H (0.1-0.6) K/mm3 Eos # (Auto) 0.0 (0-0.3) K/mm3 Baso # (Auto) 0.0 (0.0-0.1) K/mm3 Abs Immat Gran (auto) 0.09 H (0.00-0.031) K/mm3 Absolute Neuts (auto) 9.8 H (1.3-6.7) K/mm3 Absolute Nucleated RBC 0.000 (0.0-0.012) K/mm3 Nucleated RBC % 0.0 (0.0-0.2) % Sodium 138 (137-145) mmol/L Potassium 3.9 (3.4-5.0) mmol/L Chloride 104 (98-107) mmol/L Carbon Dioxide 23 (22-30) mmol/L Anion Gap 11 (4-12) mmol/L BUN 20 H (7-17) mg/dL Creatinine 0.94 (0.7-1.0) mg/dL Estim Creat Clear Calc Not Reportable Estimated GFR 56 L (59 - ) Glucose 156 H (65-110) mg/dL Calcium 9.5 (8.4-10.2) mg/dL Total Bilirubin 1.0 (0.2-1.3) mg/dL AST 25 (14-36) U/L ALT 14 (6-35) U/L Alkaline Phosphatase 112 (38-126) U/L Total Protein 8.4 H (6.3-8.2) g/dL Albumin 4.4 (3.5-5.1) g/dL Influenza A (RT-PCR) Negative (Negative) Influenza B (RT-PCR) Negative (Negative) RSV (RT-PCR) Negative (Negative) SARS-CoV-2 RNA (RT-PCR) Negative (Negative) Imaging Data Radiologist's impression: ITS Impressions Chest X-Ray 03/29/25 13:19 Impression: No acute cardiopulmonary abnormality. ECG Data EKG #1: ECG completion date: 03/29/25 ECG completion time: 12:49 EKG Interpretation: normal rate (72), sinus rhythm, widened QRS and RBBB Discharge Plan Discharge Clinical Impression: Hypertension, URI (upper respiratory infection) Patient Disposition: Home Condition: Stable Instructions: Chronic Hypertension (ED), Viral Syndrome (ED) Additional Instructions: As discussed you have a viral illness. Unfortunately there are no specific medications we can give you to make the illness end faster. Antibiotics do not work for viral illnesses. However, you can take Acetaminophen or Ibuprofen to help with fevers and pain. Stay well hydrated and rested. Return to the emergency department if your fevers and chills continue to worse after 5 days, if you develop worsening cough with thick sputum, or are unable to stay hydrated. Contact your primary care provider in the next few days for a re-evaluation and to make sure your symptoms are improving. Take your blood pressure medicine at home. Do not use any [id number] decongestants that contain pseudoephedrine. Patient Language: Ukrainian Prescriptions: New albuterol sulfate 90 mcg/actuation HFA aerosol inhaler 2 puff inhalation QID PRN (Reason: shortness of breath or wheezing) Qty: 8.5 0RF No Action cholecalciferol (vitamin D3) 25 mcg (1,000 unit) capsule 25 mcg PO DAILY clonidine HCl 0.1 mg tablet 0.1 mg PO BID Qty: 180 3RF Rx Instructions: Take one tablet twice a day felodipine 5 mg tablet extended release 24 hr 5 mg PO DAILY Qty: 90 3RF furosemide 20 mg tablet 20 mg PO QAM Qty: 90 1RF lisinopril 20 mg tablet 20 mg PO DAILY Qty: 90 3RF metformin 500 mg tablet 500 mg PO BID Qty: 180 3RF metoprolol succinate 100 mg tablet extended release 24 hr 100 mg PO DAILY Qty: 90 3RF rosuvastatin 5 mg tablet 5 mg PO DAILY Qty: 90 3RF Follow-up/Referrals: Sven Arias DO [Primary Care Provider, Internal Medicine] - 1 Week
[2025-03-29 18:16] VITALS: BP 203/91; PULSE 75; RESP 18; O2SAT 97
== END 2025-03-29 18:52 | disposition home or self-care (01) ==
PROVIDERS: Student in an Organized Health Care Education/Training Program; Emergency Provider Emergency Medicine; PCP Internal Medicine
DX: J06.9 Acute upper respiratory infection, unspecified (principal); I10 Essential (primary) hypertension; Z20.822 Contact with and (suspected) exposure to COVID-19; R94.31 Abnormal electrocardiogram [ECG] [EKG]; M19.90 Unspecified osteoarthritis, unspecified site; E11.9 Type 2 diabetes mellitus without complications
CPT/HCPCS: 36415; 71046; 80053; 85025; 87637; 93005; 94640; 99284; A9270

== ENCOUNTER 2025-03-30 09:05 | Inpatient (IN) | payer MEDICARE, SELFPAY ==
[2025-03-30] VITALS (26 sets, daily range): BP systolic 149–204; BP diastolic 63–100; PULSE 71–136; RESP 14–27; TEMP 36.6–37.5; O2SAT 92–98; BMI 27.5
--- NOTE | ~2025-03-30 | CT_ITS ---
EXAMINATION:CT diagnostic chest w con DATE: 03/30/2025 13:37 INDICATION: Cough. TECHNIQUE: Computed tomography (CT) of the chest was performed with 75 mL Omnipaque 350 intravenous contrast. Automated exposure control and iterative reconstruction technique were employed. The dose-length product (DLP) was 202.95 mGy-cm. COMPARISON: Chest 2 views 03/29/2025 FINDINGS: There are patchy airspace and groundglass opacities in right middle lobe and right lower lobe, consistent with pneumonia. There is minimal atelectasis in left lung. No pleural effusion. Cardiomegaly is noted. There is a trace pericardial effusion. There are cysts in the kidneys measuring up to 6.0 cm on the left. 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 There is moderate thoracic spondylosis. IMPRESSION: 1. Pneumonia involving right middle lobe and right lower lobe. Reviewed, dictated and finalized at location E.
--- NOTE | 2025-03-30 12:16 | ED.NAVMDI ---
HPI - Nausea/Vomiting/Diarrhea General Chief complaint: Nausea/Vomiting/Diarrhea Stated complaint: n/v Time Seen by Provider: 03/30/25 11:58 Source: patient Mode of arrival: EMS Limitations: no limitations History of Present Illness HPI Narrative: Patient presents with nausea and vomiting x3 days. Has also had a productive cough of clear /white sputum, seemingly every 5-10 minutes. No hemoptysis. Subjective low grade fever; temperature not measured. Seen in the ED yesterday and diagnosed with a viral illness. Negative CXR. No underlying GI or respiratory conditions. Feels like she is unable to swallow given the sputum. Can't take her meds as a result and has had decreased PO intake. Does not feel SOB or have CP. Bowel movements last night and this AM. Does not think bloody; not black. No sick contacts. Having chills. Stool has been a little loose. Concerned for dehydration. No abdominal pain. Related Data Home Medications ?Medication ?Instructions ?Recorded ?Confirmed ?Last Taken ?Type cholecalciferol (vitamin D3) 25 25 mcg PO DAILY 09/13/21 03/30/25 Unknown History mcg (1,000 unit) capsule Allergies Allergy/AdvReac Type Severity Reaction Status Date / Time No Known Allergies Allergy Verified 03/30/25 16:59 [facility] Past Medical History Medical History Primary osteoarthritis of knees, bilateral Arthritis Hyperlipidemia Positive colorectal cancer screening using Cologuard test Hypertension Diabetes Surgical History Surgical History Status post complete hysterectomy History of parotidectomy Family History Family History Mother Diabetes mellitus Hypertension Cancer Father Heart disease Social History Social History Social History: Lifelong nonsmoker. Rare alcohol use. No drug use. Lives with her . She wishes to be a DNR. Smoking packs per day: 1 Smoking cigarettes per day: 20.0 Years smoked: 3 Smoking pack-years: 3.00 Smoking status: Former smoker Tobacco type: cigarettes Second hand tobacco smoke exposure: No Additional smoking assessment comments: quit Alcohol intake: never Substance use: never Substance use type: does not use Do You Feel Safe in your Home?: Yes Lack of Transportation: No Lack of Food: Never True Current Housing: I Have Housing Concerned About Future Housing: No Difficulty Paying Gas/Electric Bills: No Difficulty Paying for Meds: No Currently Unemployed: No Education: High School Diploma/GED Difficulty w/ Childcare or Family Care: No Living arrangements: with family Occupation/Education: retired Additional occupation/education comments: Medical records/XR Gender identity (if verbalized by the patient): Female Spiritual care concerns: No Exam Const: General: cooperative, well developed, alert, awake, Physically active and well groomed; No anxious, combative, confusion, diaphoretic, intoxicated appearing or obese Limitations: no limitations HENMT: Head: normal to inspection, normocephalic, atraumatic and no acral cyanosis Ears: hearing grossly normal bilaterally Face and sinus: normal facial exam Mouth: No trismus Eyes: Periorbital: periorbital findings normal Conjunctivae: conjunctivae normal Neck: Neck: no meningeal signs and no torticollis Resp: Effort & Inspection: able to speak in complete sentences and no use of accessory muscles Auscultation: other (coarse b/l breath sounds with significant upper and lower airway secretions) Cardio: Rate: regular rate, not bradycardic and not tachycardic Rhythm: regular rhythm Skin: General skin exam: normal color and no ecchymosis Neuro: General: oriented to person, oriented to place, oriented to time and moves all extremities Speech: normal speech, No Expressive aphasia present and No Receptive aphasia present Psych: Appearance: grossly normal Mental Status: mental status grossly normal Affect: normal affect Attitude: cooperative Thought process: Normal thought process present Course Vital Signs Vital signs: Vital Signs Temperature 97.9 F 03/30/25 09:09 Pulse Rate 79 03/30/25 09:09 Respiratory Rate 20 03/30/25 09:09 Blood Pressure 166/63 H 03/30/25 09:09 Pulse Oximetry 97 03/30/25 09:09 Oxygen Delivery Room Air 03/30/25 09:09 Temperature 98.2 F 04/02/25 20:00 Pulse Rate 96 04/02/25 20:00 Respiratory Rate 17 04/02/25 20:00 Blood Pressure 154/78 H 04/02/25 20:00 Pulse Oximetry 97 04/02/25 20:00 Oxygen Delivery Room Air 04/02/25 20:00 Fraction of Inspired Oxygen 21 03/30/25 13:18 MDM - Nausea/Vomiting/Diarrhea MDM Narrative Medical decision making narrative: Patient presents with nausea and vomiting of 3 days duration. Has had a cough productive of clear/white sputum. Seen yesterday and diagnosed with viral illness. Negative CXR> In the emergency department she is afebrile vital signs notable for hypertension. She has a leukocytosis and a normocytic anemia. Both were present yesterday although the leukocytosis is slightly worsened. Given negative chest x-ray yesterday, will proceed with CT imaging. Will defer CTA imaging as otherwise patient appears low risk for pulmonary embolism given absence of shortness of breath, chest pain, not tachycardic, and not hypoxic on room air. Mild elevation in creatinine. Patient had been given 500 cc IV fluids after she was unable to initially urinate. Tessalon Perles, glycopyrrolate, and ondansetron are ordered in addition to albuterol treatment. BNP is elevated without prior for comparison. It is greater than 5000. Some abnormalities on urinalysis however without marked signs of infection. Microscopic hematuria, possibly due to a traumatic insertion given the patient required straight catheterization. CURB-65 score Confusion (No 0, Yes +1): 0 BUN >19mg/dl (No 0, Yes +1): 1 RR >/= 30 (No 0, Yes +1): 0 SBP <90mmHg or DBP </=60mmHg (No 0, Yes +1): 0 Age >/=65 (No 0, Yes +1) 1 2?points Moderate risk group: 6.8% 30-day mortality. Consider inpatient treatment or outpatient with close followup. == Suspect/probable simple pneumonia [versus complex = aspiration, gram negative, staphylococcal, legionnaire's, TB, fungal, empyema, abscess] Patient was given the option discharge that patient follow-up versus admission and she would prefer to be admitted. This is reasonable given her age and the fact that she has now presented to the emergency department twice within a short time period. Also, because she now has tachycardia and the degree of her secretions and how coarse she was. 1 dose Lasix ordered for the BNP although does not appear volume overloaded. IP Score - predicts risk for CAP d/t drug-resistant pathogens Antibiotic use within 60 days (No 0, Yes +2): 0 terminal press operator care resident (No 0, Yes +2):0 Tube feeding (No 0, Yes +2)0 Prior drug-resistant pneumonia Dx within 1 year (No 0, Yes +2)0 Hospitalization within 60 days (No 0, Yes +1):0 Chronic pulmonary disease (No 0, Yes +1):0 Poor functional status (No 0, Yes +1):0 H2 cathy or PPI within 14 days (No 0, Yes +1):0 Active wound care at time of admission (No 0, Yes +1):0 MRSA colonization within 1 year (No 0, Yes +1):0 Total: 0 Given this will be an inpatient/floor patient, will start ceftriaxone for potential drug resistant strep + doxycycline (given low DRIP). IV ceftriaxone was ordered. Initially ordered p.o. doxycycline however she had difficulty swallowing this and thus this was changed IV. Spoke with Josefina BORDEN who accepts admission. Requests blood cultures (ordered) and recommends medical-surgical bed with telemetry given patient remains tachycardic. Differential Diagnosis Differential diagnosis: Likely gastroenteritis, drug-induced nausea and vomiting, dehydration and other (viral syndrome; pneumonia; esophageal stricture; malignancy) Medical Records Attestation: I reviewed the patient's medical records. Medical records narrative: Viral swab negative yesterday Lab Data 04/02/25 06:28 04/02/25 06:28 Labs: Lab Results 03/30/25 03/30/25 03/30/25 Range/Units 12:05 12:53 15:32 WBC 14.7 H (4.5-10.0) K/mm3 RBC 3.83 L (4.2-5.4) M/mm3 Hgb 11.0 L (12.0-15.0) g/dL Hct 34.7 L (37.0-47.0) % MCV 90.6 (80-100) fl MCH 28.7 (26-34) pg MCHC 31.7 L (32-36) g/dl RDW 13.7 (11.5-14.5) % Plt Count 212 (150-375) k/mm3 MPV 10.8 H (7.4-10.4) fl Immature Gran % (Auto) 0.3 (0-0.5) % Neut % (Auto) 87.6 H (45.5-73.1) % Lymph % (Auto) 4.7 L (18.3-44.2) % [place] % (Auto) 7.2 (2.6-8.5) % Eos % (Auto) 0.0 (0-4.4) % Baso % (Auto) 0.2 (0.2-1.2) % Lymph # (Auto) 0.69 L (0.9-3.2) K/mm3 [place] # (Auto) 1.1 H (0.1-0.6) K/mm3 Eos # (Auto) 0.0 (0-0.3) K/mm3 Baso # (Auto) 0.0 (0.0-0.1) K/mm3 Abs Immat Gran (auto) 0.05 H (0.00-0.031) K/mm3 Absolute Neuts (auto) 12.8 H (1.3-6.7) K/mm3 Absolute Nucleated RBC 0.000 (0.0-0.012) K/mm3 Nucleated RBC % 0.0 (0.0-0.2) % PT (11.1-14.7) Seconds INR APTT (22.3-36.8) Seconds Sodium 138 (137-145) mmol/L Potassium 3.4 (3.4-5.0) mmol/L Chloride 104 (98-107) mmol/L Carbon Dioxide 23 (22-30) mmol/L Anion Gap 11 (4-12) mmol/L BUN 28 H (7-17) mg/dL Creatinine 1.09 H (0.7-1.0) mg/dL Estim Creat Clear Calc 31 ml/min Estimated GFR 48 L (59 - ) Glucose 199 H (65-110) mg/dL POC Capillary Glucose (65-105) mg/dl Hemoglobin A1c (<5.7) % Lactic Acid (0.7-2.0) mmol/L Calcium 9.4 (8.4-10.2) mg/dL Phosphorus (2.5-4.5) mg/dL Magnesium (1.6-2.3) mg/dL Total Bilirubin 1.1 (0.2-1.3) mg/dL AST 33 (14-36) U/L ALT 18 (6-35) U/L Alkaline Phosphatase 96 (38-126) U/L NT-Pro-B Natriuret Pep 5380 H (19.9-100) pg/mL Total Protein 7.7 (6.3-8.2) g/dL Albumin 4.0 (3.5-5.1) g/dL Lipase 35 (23-300) U/L Procalcitonin 12.0 ng/mL Urine Color Dark yellow (Yellow) Urine Appearance Cloudy H (Clear) Urine pH 5.0 (5.0-9.0) Ur Specific [place] 1.025 (1.001-1.035) Urine Protein 2+ H (Negative) mg/dL Urine Glucose (UA) 1+ H (Negative) mg/dL Urine Ketones 1+ H (Negative) mg/dL Ur Blood (Man) Negative (Negative) Urine Nitrate Negative (Negative) Urine Bilirubin Negative (Negative) Urine Urobilinogen 1.0 (<2.0) mg/dL Add Ur Microanalysis Reviewed Leukocyte Esterase Rfl Negative (Negative) ASH/UL Urine RBC 3-5 H (0-2) /hpf Urine WBC 0-5 (0-3) /hpf Ur Squamous Epith Cells Occasional (Few) /hpf Urine Bacteria None seen /hpf Urine Casts >20 Granular Casts Present (None) /lpf 03/30/25 03/30/25 03/30/25 Range/Units 16:24 16:40 18:50 WBC (4.5-10.0) K/mm3 RBC (4.2-5.4) M/mm3 Hgb (12.0-15.0) g/dL Hct (37.0-47.0) % MCV (80-100) fl MCH (26-34) pg MCHC (32-36) g/dl RDW (11.5-14.5) % Plt Count (150-375) k/mm3 MPV (7.4-10.4) fl Immature Gran % (Auto) (0-0.5) % Neut % (Auto) (45.5-73.1) % Lymph % (Auto) (18.3-44.2) % [place] % (Auto) (2.6-8.5) % Eos % (Auto) (0-4.4) % Baso % (Auto) (0.2-1.2) % Lymph # (Auto) (0.9-3.2) K/mm3 [place] # (Auto) (0.1-0.6) K/mm3 Eos # (Auto) (0-0.3) K/mm3 Baso # (Auto) (0.0-0.1) K/mm3 Abs Immat Gran (auto) (0.00-0.031) K/mm3 Absolute Neuts (auto) (1.3-6.7) K/mm3 Absolute Nucleated RBC (0.0-0.012) K/mm3 Nucleated RBC % (0.0-0.2) % PT (11.1-14.7) Seconds INR APTT (22.3-36.8) Seconds Sodium (137-145) mmol/L Potassium (3.4-5.0) mmol/L Chloride (98-107) mmol/L Carbon Dioxide (22-30) mmol/L Anion Gap (4-12) mmol/L BUN (7-17) mg/dL Creatinine (0.7-1.0) mg/dL Estim Creat Clear Calc ml/min Estimated GFR (59 - ) Glucose (65-110) mg/dL POC Capillary Glucose 180 H (65-105) mg/dl Hemoglobin A1c (<5.7) % Lactic Acid 2.3 H 1.7 (0.7-2.0) mmol/L Calcium (8.4-10.2) mg/dL Phosphorus (2.5-4.5) mg/dL Magnesium (1.6-2.3) mg/dL Total Bilirubin (0.2-1.3) mg/dL AST (14-36) U/L ALT (6-35) U/L Alkaline Phosphatase (38-126) U/L NT-Pro-B Natriuret Pep (19.9-100) pg/mL Total Protein (6.3-8.2) g/dL Albumin (3.5-5.1) g/dL Lipase (23-300) U/L Procalcitonin ng/mL Urine Color (Yellow) Urine Appearance (Clear) Urine pH (5.0-9.0) Ur Specific [place] (1.001-1.035) Urine Protein (Negative) mg/dL Urine Glucose (UA) (Negative) mg/dL Urine Ketones (Negative) mg/dL Ur Blood (Man) (Negative) Urine Nitrate (Negative) Urine Bilirubin (Negative) Urine Urobilinogen (<2.0) mg/dL Add Ur Microanalysis Leukocyte Esterase Rfl (Negative) ASH/UL Urine RBC (0-2) /hpf Urine WBC (0-3) /hpf Ur Squamous Epith Cells (Few) /hpf Urine Bacteria /hpf Urine Casts Granular Casts (None) /lpf 03/30/25 03/31/25 03/31/25 Range/Units 19:53 05:15 06:52 WBC 8.8 (4.5-10.0) K/mm3 RBC 3.98 L (4.2-5.4) M/mm3 Hgb 11.4 L (12.0-15.0) g/dL Hct 35.6 L (37.0-47.0) % MCV 89.4 (80-100) fl MCH 28.6 (26-34) pg MCHC 32.0 (32-36) g/dl RDW 13.9 (11.5-14.5) % Plt Count 205 (150-375) k/mm3 MPV 10.3 (7.4-10.4) fl Immature Gran % (Auto) 0.1 (0-0.5) % Neut % (Auto) 83.3 H (45.5-73.1) % Lymph % (Auto) 7.2 L (18.3-44.2) % [place] % (Auto) 9.2 H (2.6-8.5) % Eos % (Auto) 0.0 (0-4.4) % Baso % (Auto) 0.2 (0.2-1.2) % Lymph # (Auto) 0.64 L (0.9-3.2) K/mm3 [place] # (Auto) 0.8 H (0.1-0.6) K/mm3 Eos # (Auto) 0.0 (0-0.3) K/mm3 Baso # (Auto) 0.0 (0.0-0.1) K/mm3 Abs Immat Gran (auto) 0.01 (0.00-0.031) K/mm3 Absolute Neuts (auto) 7.4 H (1.3-6.7) K/mm3 Absolute Nucleated RBC 0.000 (0.0-0.012) K/mm3 Nucleated RBC % 0.0 (0.0-0.2) % PT 16.0 H (11.1-14.7) Seconds INR 1.3 APTT 29.3 (22.3-36.8) Seconds Sodium 138 (137-145) mmol/L Potassium 3.5 (3.4-5.0) mmol/L Chloride 106 (98-107) mmol/L Carbon Dioxide 21 L (22-30) mmol/L Anion Gap 11 (4-12) mmol/L BUN 30 H (7-17) mg/dL Creatinine 0.99 (0.7-1.0) mg/dL Estim Creat Clear Calc 34 ml/min Estimated GFR 53 L (59 - ) Glucose 200 H (65-110) mg/dL POC Capillary Glucose 174 H (65-105) mg/dl Hemoglobin A1c 6.4 H (<5.7) % Lactic Acid (0.7-2.0) mmol/L Calcium 9.2 (8.4-10.2) mg/dL Phosphorus 3.7 (2.5-4.5) mg/dL Magnesium 1.8 (1.6-2.3) mg/dL Total Bilirubin (0.2-1.3) mg/dL AST (14-36) U/L ALT (6-35) U/L Alkaline Phosphatase (38-126) U/L NT-Pro-B Natriuret Pep (19.9-100) pg/mL Total Protein (6.3-8.2) g/dL Albumin (3.5-5.1) g/dL Lipase (23-300) U/L Procalcitonin ng/mL Urine Color (Yellow) Urine Appearance (Clear) Urine pH (5.0-9.0) Ur Specific [place] (1.001-1.035) Urine Protein (Negative) mg/dL Urine Glucose (UA) (Negative) mg/dL Urine Ketones (Negative) mg/dL Ur Blood (Man) (Negative) Urine Nitrate (Negative) Urine Bilirubin (Negative) Urine Urobilinogen (<2.0) mg/dL Add Ur Microanalysis Leukocyte Esterase Rfl (Negative) ASH/UL Urine RBC (0-2) /hpf Urine WBC (0-3) /hpf Ur Squamous Epith Cells (Few) /hpf Urine Bacteria /hpf Urine Casts Granular Casts (None) /lpf 03/31/25 03/31/25 Range/Units 07:57 11:28 WBC (4.5-10.0) K/mm3 RBC (4.2-5.4) M/mm3 Hgb (12.0-15.0) g/dL Hct (37.0-47.0) % MCV (80-100) fl MCH (26-34) pg MCHC (32-36) g/dl RDW (11.5-14.5) % Plt Count (150-375) k/mm3 MPV (7.4-10.4) fl Immature Gran % (Auto) (0-0.5) % Neut % (Auto) (45.5-73.1) % Lymph % (Auto) (18.3-44.2) % [place] % (Auto) (2.6-8.5) % Eos % (Auto) (0-4.4) % Baso % (Auto) (0.2-1.2) % Lymph # (Auto) (0.9-3.2) K/mm3 [place] # (Auto) (0.1-0.6) K/mm3 Eos # (Auto) (0-0.3) K/mm3 Baso # (Auto) (0.0-0.1) K/mm3 Abs Immat Gran (auto) (0.00-0.031) K/mm3 Absolute Neuts (auto) (1.3-6.7) K/mm3 Absolute Nucleated RBC (0.0-0.012) K/mm3 Nucleated RBC % (0.0-0.2) % PT (11.1-14.7) Seconds INR APTT (22.3-36.8) Seconds Sodium (137-145) mmol/L Potassium (3.4-5.0) mmol/L Chloride (98-107) mmol/L Carbon Dioxide (22-30) mmol/L Anion Gap (4-12) mmol/L BUN (7-17) mg/dL Creatinine (0.7-1.0) mg/dL Estim Creat Clear Calc ml/min Estimated GFR (59 - ) Glucose (65-110) mg/dL POC Capillary Glucose 180 H 163 H (65-105) mg/dl Hemoglobin A1c (<5.7) % Lactic Acid (0.7-2.0) mmol/L Calcium (8.4-10.2) mg/dL Phosphorus (2.5-4.5) mg/dL Magnesium (1.6-2.3) mg/dL Total Bilirubin (0.2-1.3) mg/dL AST (14-36) U/L ALT (6-35) U/L Alkaline Phosphatase (38-126) U/L NT-Pro-B Natriuret Pep (19.9-100) pg/mL Total Protein (6.3-8.2) g/dL Albumin (3.5-5.1) g/dL Lipase (23-300) U/L Procalcitonin ng/mL Urine Color (Yellow) Urine Appearance (Clear) Urine pH (5.0-9.0) Ur Specific [place] (1.001-1.035) Urine Protein (Negative) mg/dL Urine Glucose (UA) (Negative) mg/dL Urine Ketones (Negative) mg/dL Ur Blood (Man) (Negative) Urine Nitrate (Negative) Urine Bilirubin (Negative) Urine Urobilinogen (<2.0) mg/dL Add Ur Microanalysis Leukocyte Esterase Rfl (Negative) ASH/UL Urine RBC (0-2) /hpf Urine WBC (0-3) /hpf Ur Squamous Epith Cells (Few) /hpf Urine Bacteria /hpf Urine Casts Granular Casts (None) /lpf Imaging Data Radiologist's impression: IMPRESSION: 1. Pneumonia involving right middle lobe and right lower lobe. Discharge Plan Discharge Clinical Impression: Increased tracheal secretions, Leukocytosis, Normocytic anemia, Elevated brain natriuretic peptide (BNP) level, Abnormal urinalysis Nausea and vomiting Qualifiers: Vomiting type: unspecified Qualified Code(s): R11.2 - Nausea with vomiting, unspecified Pneumonia involving right lung Qualifiers: Pneumonia type: due to unspecified organism Lung location: unspecified part of lung Qualified Code(s): J18.9 - Pneumonia, unspecified organism Patient Disposition: Still a Patient Condition: Stable Time of Disposition: 14:59
[2025-03-30] MEDS: SODIUM CHLORIDE 0.9% IV 500 ML 999 ML IV CONT ×2 (12:17→14:18)
[2025-03-30 12:31] LABS: Hematocrit 34.7 % (37.0-47.0); Hemoglobin 11.0 g/dL (12.0-15.0); Immature Granulocyte Percent A 0.3 % (0-0.5); Lymphocytes Absolute Auto 0.69 K/mm3 (0.9-3.2); Mean Corpuscular HGB Conc 31.7 g/dl (32-36); Mean Corpuscular Hemoglobin 28.7 pg (26-34); Mean Corpuscular Volume 90.6 fl (80-100); Nucleated Red Blood Cells Absolute Auto 0.000 K/mm3 (0.0-0.012); Nucleated Red Blood Cells Perc 0.0 % (0.0-0.2); Platelet Count Result 212 k/mm3 (150-375); Red Blood Count 3.83 M/mm3 (4.2-5.4); White Blood Count 14.7 K/mm3 (4.5-10.0)
[2025-03-30 12:43] LABS: Alanine Aminotransferase 18 U/L (6-35); Albumin Level 4.0 g/dL (3.5-5.1); Alkaline Phosphatase 96 U/L (38-126); Anion Gap 11 mmol/L (4-12); Aspartate Amino Transferase 33 U/L (14-36); Bilirubin,Total 1.1 mg/dL (0.2-1.3); Blood Urea Nitrogen 28 mg/dL (7-17); Calcium 9.4 mg/dL (8.4-10.2); Carbon Dioxide 23 mmol/L (22-30); Chloride 104 mmol/L (98-107); Estimated CRCL calculation 31 ml/min; Estimated Glomerular Filt Rate 48; Glucose 199 mg/dL (65-110); Lipase 35 U/L (23-300); Potassium 3.4 mmol/L (3.4-5.0); Sodium 138 mmol/L (137-145); Total Protein 7.7 g/dL (6.3-8.2)
[2025-03-30] MEDS: BENZONATATE 100 MG CAPSULE PO (13:02)
[2025-03-30] MEDS: ALBUTEROL SULFATE NEB 2.5 MG/3 ML INH INHALATION (13:18)
[2025-03-30 13:26] LABS: Add Urine Microscopic? YES; Appearance Urine Cloudy (Clear); Glucose Urine UA 1+ mg/dL (Negative); Leukocyte Esterase Ur Negative LEU/UL (Negative); Need Manual Microscopic Reviewed; Nitrate Urine Negative (Negative); Non Pathogenic Casts >20; Specific Grav Ur 1.025 (1.001-1.035)
[2025-03-30 13:26] LABS: NT Pro B Type Natriuretic Pept 5380 pg/mL (19.9-100)
[2025-03-30] MEDS: ONDANSETRON INJ 4 MG/2 ML VIAL IV PUSH (13:44)
[2025-03-30] MEDS: GLYCOPYRROLATE INJ (*SP) 0.2 MG/ML VIAL IV PUSH (13:49)
[2025-03-30] MEDS: cefTRIAXone 1 GM in SODIUM CHLORIDE 0.9% IV 50 ML 100 ML IVPB (14:57)
[2025-03-30] MEDS: FUROSEMIDE INJ 40 MG/4 ML VIAL 20 MG IV PUSH (14:58)
--- NOTE | 2025-03-30 15:01 | PM.IMHP ---
H&P: HPI History of Present Illness Date/Time: 03/30/25 15:01 Chief Complaint: Nausea/Vomiting, Cough Narrative: 84 y/o F with PMH of diabetes and hypertension presents here with nausea, vomiting, cough, and low-grade fever. The patient presents here from home via EMS on 03/30 for further evaluation of nausea, vomiting, cough, and low-grade fever. She reports her symptoms started approximately 4 days ago. She was initially evaluated at [place] her on 03/29. At that time she reported productive cough, sore throat, and a postnasal drip. CXR showed no acute cardiopulmonary abnormality. She received a breathing treatment which she report improved her cough. She was diagnosed with a viral illness and was discharged home with an albuterol inhaler. Returning today as she developed new symptoms including nausea, vomiting, diarrhea x1, and low-grade fever. Max T at home unknown. She denies associated chest pain, shortness of breath, or abdominal pain. Patient found to be significantly hypertensive this evening with a systolic pressure in the 200s, she is unsure if she took her home antihypertensive medications this morning. Initial VS at presentation: 97.9? F, HR 79, RR 20, 166/63, and 97% on RA. HR now 112. ED workup showed: WBC 14.7, hemoglobin 11.0, no significant electrolyte derangements, creatinine 1.09 and GFR 48, glucose 199, BNP 5380, and UA had a cloudy appearance with 2+ protein/1+ glucose/1+ ketones/3-[address] showed pneumonia involving the right middle lobe and right lower lobe. Review of Systems Review of Systems: All systems reviewed & are unremarkable except as noted in HPI and below [facility] Past Medical History Medical History Primary osteoarthritis of knees, bilateral Arthritis Hyperlipidemia Positive colorectal cancer screening using Cologuard test Hypertension Diabetes Surgical History Surgical History Status post complete hysterectomy History of parotidectomy Family History Family History Mother Diabetes mellitus Hypertension Cancer Father Heart disease Social History Social History Social History: Lifelong nonsmoker. Rare alcohol use. No drug use. Lives with her . She wishes to be a DNR. Smoking packs per day: 1 Smoking cigarettes per day: 20.0 Years smoked: 3 Smoking pack-years: 3.00 Smoking status: Former smoker Tobacco type: cigarettes Second hand tobacco smoke exposure: No Additional smoking assessment comments: quit 1959' Alcohol intake: never Substance use: never Substance use type: does not use Do You Feel Safe in your Home?: Yes Lack of Transportation: No Lack of Food: Never True Current Housing: I Have Housing Concerned About Future Housing: No Difficulty Paying Gas/Electric Bills: No Difficulty Paying for Meds: No Currently Unemployed: No Education: High School Diploma/GED Difficulty w/ Childcare or Family Care: No Living arrangements: with family Occupation/Education: retired Additional occupation/education comments: Medical records/XR Gender identity (if verbalized by the patient): Female Spiritual care concerns: No Meds Home Medications and Allergies Home Medications ?Medication ?Instructions ?Recorded ?Confirmed ?Type cholecalciferol (vitamin D3) 25 25 mcg PO DAILY 09/13/21 03/30/25 History mcg (1,000 unit) capsule clonidine HCl 0.1 mg tablet 0.1 mg PO BID #180 tabs 09/01/24 03/30/25 Rx felodipine 5 mg tablet,extended 5 mg PO DAILY #90 tabs 09/01/24 03/30/25 Rx release 24 hr furosemide 20 mg tablet 20 mg PO QAM #90 tabs 09/01/24 03/30/25 Rx lisinopril 20 mg tablet 20 mg PO DAILY #90 tabs 09/01/24 03/30/25 Rx metformin 500 mg tablet 500 mg PO BID #180 tabs 09/01/24 03/30/25 Rx metoprolol succinate 100 mg 100 mg PO DAILY #90 tabs 09/01/24 03/30/25 Rx tablet,extended release 24 hr rosuvastatin 5 mg tablet 5 mg PO DAILY #90 tabs 09/01/24 03/30/25 Rx albuterol sulfate 90 mcg/actuation 2 puff inhalation QID PRN 03/29/25 03/30/25 Rx aerosol inhaler shortness of breath or wheezing #8.5 grams Allergies Allergy/AdvReac Type Severity Reaction Status Date / Time No Known Allergies Allergy Verified 03/30/25 16:59 Vital Signs Vital Signs - 24 hr 03/30/25 09:09 03/30/25 10:56 03/30/25 11:04 Temperature 97.9 F Pulse Rate 79 90 Respiratory Rate 20 19 Blood Pressure 166/63 H 191/71 H Pulse Oximetry 97 97 97 Oxygen Delivery Room Air Fraction of Inspired Oxygen 03/30/25 11:05 03/30/25 11:32 03/30/25 12:06 Temperature Pulse Rate 88 71 90 Respiratory Rate 15 18 15 Blood Pressure 187/63 H Pulse Oximetry 97 96 96 Oxygen Delivery Fraction of Inspired Oxygen 03/30/25 12:15 03/30/25 12:37 03/30/25 12:45 Temperature Pulse Rate 86 71 84 Respiratory Rate 17 16 18 Blood Pressure Pulse Oximetry 96 96 97 Oxygen Delivery Fraction of Inspired Oxygen 03/30/25 13:02 03/30/25 13:18 03/30/25 13:18 Temperature Pulse Rate 89 77 Respiratory Rate 22 H 24 H Blood Pressure 149/76 H Pulse Oximetry 92 Oxygen Delivery Room Air Fraction of Inspired Oxygen 21 03/30/25 13:24 03/30/25 13:55 03/30/25 14:06 Temperature Pulse Rate 86 136 H 131 H Respiratory Rate 25 H 22 H 27 H Blood Pressure Pulse Oximetry 95 96 Oxygen Delivery Fraction of Inspired Oxygen 03/30/25 14:15 03/30/25 14:30 03/30/25 14:45 Temperature Pulse Rate 121 H 118 H 112 H Respiratory Rate 21 H 15 16 Blood Pressure Pulse Oximetry 98 93 94 Oxygen Delivery Fraction of Inspired Oxygen Exam Const: General: comfortable and no acute distress Other: , female, elderly, ill-appearing HENMT: Face/Nose/Sinus: Normal nares present Mouth: Yes moist mucous membranes Other: + HUSLIA Eyes: General: appearance normal, both eyes and all related structures Sclera: sclerae normal Pupils: Equal, round and reactive pupils present EOM: EOMs intact bilaterally Resp: Effort & Inspection: normal respiratory effort Other: Faint crackles in the right lung base, no wheezing. Cardio: Rate: regular rate Rhythm: regular rhythm Other: Pounding heart, no ectopy murmur or rub GI: Other: Abdomen soft, nondistended, nontender. Normoactive bowel sounds in all quadrants. Skin: General skin exam: normal color and no rashes or lesions noted Wounds: no wounds Neuro: Speech: normal speech Motor exam (neuro): 5/5 motor strength present throughout Sensory Exam: normal sensation Other: Alert to self, year, type of building. Appears foggy - takes prolonged time to answer, cannot remember what specific hospital she is at etc. Extrem: Other: Tenderness to the BLE with trace non-pitting edema, symmetric. Psych: Mental Status: mental status grossly normal Affect: normal affect Other: Fair to poor insight and judgment at present. H&P: Results Labs Labs: Short CBC 03/30/25 Range/Units 12:05 WBC 14.7 H (4.5-10.0) K/mm3 Hgb 11.0 L (12.0-15.0) g/dL Hct 34.7 L (37.0-47.0) % Plt Count 212 (150-375) k/mm3 BMP 03/30/25 12:05 Sodium 138 Potassium 3.4 Chloride 104 Carbon Dioxide 23 BUN 28 H Creatinine 1.09 H Glucose 199 H Calcium 9.4 Liver Function 03/30/25 Range/Units 12:05 Total Bilirubin 1.1 (0.2-1.3) mg/dL AST 33 (14-36) U/L ALT 18 (6-35) U/L Alkaline Phosphatase 96 (38-126) U/L Albumin 4.0 (3.5-5.1) g/dL Urine 03/30/25 Range/Units 12:53 Urine Color Dark yellow (Yellow) Urine Appearance Cloudy H (Clear) Urine pH 5.0 (5.0-9.0) Ur Specific [place] 1.025 (1.001-1.035) Urine Protein 2+ H (Negative) mg/dL Urine Glucose (UA) 1+ H (Negative) mg/dL Assessment and Plan Assessment and plan (1) Sepsis: Qualifiers: Sepsis acute organ dysfunction status: without acute organ dysfunction Sepsis type: sepsis due to unspecified organism Qualified Code(s): A41.9 - Sepsis, unspecified organism Code(s): A41.9 - Sepsis, unspecified organism Status: Acute Assessment and Plan: Patient met SIRS criteria due to HR greater than 90 and WBC greater than 12. No hypoxia or hypotension noted. Chest CT concerning for right-sided pneumonia. Started on community-acquired coverage. Initially given 2L of fluid that was accompanied by a 1 time dose of Lasix due to an elevated BNP. Planned to check lactic, procalcitonin, and blood cultures. UA showed no indication of infection. - started on ceftriaxone and doxycycline on 03/30 - blood cultures drawn on 03/30, follow - CXR obtained day prior on 03/29, showed no acute cardiopulmonary abnormality. Chest CT done on 03/30 showed pneumonia involving the right middle lobe and right lower lobe. - monitor hemodynamic stability, telemetry monitoring, trend O2 sat (2) Pneumonia involving right lung: Qualifiers: Lung location: unspecified part of lung Pneumonia type: due to unspecified organism Qualified Code(s): J18.9 - Pneumonia, unspecified organism Code(s): J18.9 - Pneumonia, unspecified organism Status: Acute Assessment and Plan: CXR day prior showed no acute abnormalities, however CT done on 03/30 showed pneumonia involving the right middle lobe and right lower lobe. Reporting associated nausea, vomiting, low-grade fever, cough, and rhinorrhea/secretions. Did meet criteria for SIRS/sepsis, blood cultures were obtained. - ceftriaxone and doxycycline started on 03/30, continued - supportive care: Mucinex elida, Tessalon Perles p.r.n., DuoNebs p.r.n., Tylenol p.r.n. - encourage IS - check viral PCR (3) Nausea and vomiting: Qualifiers: Vomiting type: unspecified Qualified Code(s): R11.2 - Nausea with vomiting, unspecified Code(s): R11.2 - Nausea with vomiting, unspecified Status: Acute Assessment and Plan: Likely due to postnasal drip/secretions. Mucinex started >> later refused on the floor - antiemetics p.r.n. - given 2 L bolus in ED, will hold off on further fluids due to elevated BNP (4) Elevated brain natriuretic peptide (BNP) level: Code(s): R79.89 - Other specified abnormal findings of blood chemistry Status: Acute Assessment and Plan: BNP 5380 upon admission on 03/30. Chart review showed last echo was completed in 2022. Showed an EF of 60 65% and abnormal diastolic function, global longitudinal strain at 15.6%, trace to moderate valvular disease noted, mild pulmonary hypertension. - monitor I&Os and daily weights - given IV fluids in the ED, monitor toleration. Additionally given 20 of Lasix IV due to the elevated BNP in the ED. - update echo (5) Diabetes: Qualifiers: Diabetes mellitus complication status: without complication Diabetes mellitus longterm insulin use: without longterm use Diabetes mellitus type: type 2 Qualified Code(s): E11.9 - Type 2 diabetes mellitus without complications Code(s): E11.9 - Type 2 diabetes mellitus without complications Status: Chronic Assessment and Plan: History of type 2 diabetes on oral medications. Glucose upon admission was 199. - hypoglycemia protocol - POC blood glucose ACHS - home medication: Previously on metformin, states she is not taking it at this time - correct regimen ordered - low dose TIDWM, based off BMI - A1C 7.1% on 08/28/2024, update (6) Hypertension: Qualifiers: Hypertension type: primary hypertension Qualified Code(s): I10 - Essential (primary) hypertension Code(s): I10 - Essential (primary) hypertension Status: Chronic Assessment and Plan: - chronic, initially hypertensive but stable. Arrived to the floor with a systolic in the 200s. Patient is unsure if she took her home antihypertensive medications this morning. - continue home medications: Lisinopril, metoprolol ER - hydralazine p.r.n. for BP greater than 180/90 - monitor (7) Hyperlipidemia: Qualifiers: Hyperlipidemia type: unspecified Qualified Code(s): E78.5 - Hyperlipidemia, unspecified Code(s): E78.5 - Hyperlipidemia, unspecified Status: Chronic Assessment and Plan: - continue rosuvastatin Plan Diet: Diabetic GI Prophylaxis: N/a DVT Prophylaxis: Lovenox SQ IV fluids: 2L bolus Lines/Tubes: Peripheral IV Code Status: Full code Quality VTE Prophylaxis VTE prophylaxis: pharmacologic ordered Hospitalist [facility] Advance Care Plan I have confirmed that the patient's Advanced Care Plan is present, code status is documented, or surrogate decision maker is listed in patient medical record.: Yes Medication Reconciliation I have utilized all available resources to obtain, update and review the patients current medications (includes all prescriptions, OTC, herbals, cannabis, and nutritional supplements).: Yes
--- NOTE | 2025-03-30 15:22 | PC.NURSE ---
BSR completed with AR RN; patient started with IV abx and external catheter explained and placed at that time.
[2025-03-30] MEDS: DOXYCYCLINE IV 100 MG in SODIUM CHLORIDE 0.9% IV 100 ML IVPB (15:52)
[2025-03-30 16:06] LABS: Procalcitonin 12.0 ng/mL
--- NOTE | 2025-03-30 16:56 | ADMGEN ---
This patient, Aria Garcia, was admitted to 3 Med Surg Room 302-01. Patient/family oriented to hospital policies and general routines including ID bracelet, bed and alarms, visiting hours, pain management, procedures, bathroom and other care routines, personal items, smoking policy, room service/diet, and visiting hours. Information on how to activate the Rapid Response Team has been discussed. Patient/Family are encouraged to report perceived risks to care and to ask questions if they do not understand what they are told or what they should do. Report received from Lynn
[2025-03-30] MEDS: ACETAMINOPHEN 325 MG TABLET 650 MG PO (20:09)
[2025-03-30] MEDS: METOPROLOL TARTRATE INJ 5 MG/5 ML VIAL IV PUSH (23:31)
--- NOTE | 2025-03-30 23:47 | PC.NURSE ---
Addendum entered by Cindi Sarabia RN 03/31/25 08:01: 0430: pt's urine output from [facility] 500. 0645: bladder scan per hospitalist order, 780. Hospitalist ordered to hold on pt transfer and place a eklly. kelly placed 0700: urine output from the [place] 700. Hospitalist ordered pt transfer to IMU, Room 212. 0728: called IMU and report given. Pt transferred to IMU by the day shift RN. Addendum entered by Cindi Sarabia RN 03/31/25 07:56: 0600: received order to give MG So4 IV and Potassium PO. Pt took half of potassium liquid form and refused the rest despite an effort by the charge nurse Lilly and myself. Pt very uncooperative despite the explanation from the nurse staff. Addendum entered by Cindi Sarabia RN 03/31/25 07:53: 0553: waiting for hospitalist to come to the bedside. Sent a message regarding Pt's no improvement in HR. Hospitalist responded she will see pt shortly. Addendum entered by Cindi Sarabia RN 03/31/25 07:51: 0420: Pt HR started going up to 130s to 140s. Hospitaist Dr Tyler notified. Hospitalist ordered 3 doses of 5mg Metoprolol IV to be given every 10 minutes (after checking BP) if pt HR remains elevated. 0440: first dose given no improvement 0507: second dose given with no improvement 0521: third dose given with no improvement. Pt very uncooperative throughout the process. 0530: order received from Dr Tyler to give 10mg IV Metoprolol. Dr Tyler said I will come to see pt at bedside. Pt with no improvement Original Note: 2020: pt hypertensive with SBP 204. Pt asymptomatic. PRN Hydralazine given. Pt education given on the use of Incentive spirometry and Mucinex med. Pt refused Mucinex and use of Spirometry. Pt states I am tired and just want to get some rest. 2030: Pt BP 181/76. Hospitalist aware. continue to monitor. Pt denies any symptom 2322: Pt HR started going up to 120s-140s. Hospitalist notified. STAT Metoprolol IV given 2349: HR 70s to 80s.
[2025-03-31] VITALS (22 sets, daily range): BP systolic 120–184; BP diastolic 47–108; PULSE 88–145; RESP 16–24; TEMP 36.6–37.4; O2SAT 96–100
--- NOTE | 2025-03-31 | ECHO_ITS ---
Patient Info Name: Aria Garcia Age: 84 years : 1940 Gender: Female Ht: 66 in Wt: 169 lbs BSA: 1.91 m2 HR: 126 bpm BP: 135 / 94 mmHg Technical Quality: Good Exam Date: 03/31/2025 10:22 AM Patient Status: I Admit Date: 03/30/2025 Exam Type: CA echo doppler color flow Complete two-dimensional, color flow and Doppler transthoracic echocardiogram is performed. Staff Referring Physician: Janene Paulson [employer]: Sulma Boyer Attending Provider: Eriberto Clemens MD Summary 1. Complete two-dimensional, color flow and Doppler transthoracic echocardiogram is performed. 2. Left ventricular chamber dimension is normal. 3. Left ventricular systolic function is normal, estimated at 55-60. 4. There is moderate concentric increased left ventricular wall thickness. 5. The left ventricular diastolic function is abnormal. 6. E/e' 16 is elevated. 7. Left atrial chamber dimension is mildly enlarged. 8. There is moderate aortic valve sclerosis. 9. There is mild aortic valve stenosis with a peak velocity of 209 cm/s, mean gradient of 7 mmHg, and aortic valve area of 1.7 cm2. 10. The mitral valve has a moderately calcified annulus. 11. There is mild tricuspid valve regurgitation. 12. No pulmonary hypertension, estimated pulmonary arterial systolic pressure is 36 mmHg. Left Ventricle E/e' 16 is elevated. Left ventricular chamber dimension is normal. Left ventricular systolic function is normal, estimated at 55-60. There is moderate concentric increased left ventricular wall thickness. The left ventricular diastolic function is abnormal. Right Ventricle Right ventricular chamber dimension is normal. Right ventricular systolic function is normal. Left Atria Left atrial chamber dimension is mildly enlarged. Right Atria Right atrial chamber dimension is normal. Aortic Valve The aortic valve is trileaflet. There is moderate aortic valve sclerosis. There is mild aortic valve stenosis with a peak velocity of 209 cm/s, mean gradient of 7 mmHg, and aortic valve area of 1.7 cm2. There is no aortic valve regurgitation. Pulmonic Valve There is no pulmonic regurgitation. Mitral Valve The mitral valve has a moderately calcified annulus. There is no mitral valve stenosis. There is no mitral valve regurgitation. Tricuspid Valve There is mild tricuspid valve regurgitation. No pulmonary hypertension, estimated pulmonary arterial systolic pressure is 36 mmHg. Pericardium/Pleural There is no pericardial effusion. Inferior Vena Cava Normal inferior vena cava with >50% collapse upon inspiration consistent with normal right atrial pressure, 5 mmHg. Aorta The aortic root size at the sinus of Valsalva is normal. Left Ventricular Outflow Tract Name Value Normal LVOT 2D LVOT Diameter 1.8 cm LVOT Doppler LVOT Peak Velocity 126 cm/s LVOT Peak Gradient 6 mmHg LVOT Mean Gradient 3 mmHg LVOT VTI 23 cm LVOT VTI/AV VTI Ratio 0.6 LVOT Stroke Volume 61 ml LVOT CO 8.2 l/min LVOT CI 4.3 l/min/m2 Pulmonic Valve Name Value Normal RVOT Doppler RVOT Peak Velocity 68 cm/s RVOT Peak Gradient 2 mmHg PV Doppler PV Peak Velocity 91 cm/s PV Peak Gradient 3 mmHg Mitral Valve Name Value Normal MV Diastolic Function MV E Peak Velocity 101 cm/s MV A Peak Velocity 88 cm/s MV E/A 1.2 MV Decel Time (PW) 107 ms MV Annular TDI MV E/e' (Septal) 17.4 MV E/e' (Lateral) 16.3 MV E/e' (Average) 16.9 Tricuspid Valve Name Value Normal TV Regurgitation Doppler TR Peak Velocity 277 cm/s TR Peak Gradient 31 mmHg Estimated PAP/RSVP RA Pressure 5 mmHg <=5 PA Systolic Pressure 36 mmHg <36 RV Systolic Pressure 36 mmHg <36 TV Annular TDI TV Lateral Kayla s' Velocity 9.0 cm/s >=9.5 Aortic Valve Name Value Normal AV Doppler AV Peak Velocity 209 cm/s AV Peak Gradient 13 mmHg AV Mean Gradient 7 mmHg AV VTI 37 cm AV Area (Cont Eq VTI) 1.7 cm2 >=3.0 AV Area (Cont Eq Willis) 1.6 cm2 AV DI (Willis) 0.60 AV Regurgitation 2D LVOT Area 2.7 cm2 Ventricles Name Value Normal LV Dimensions 2D/MM IVS Diastolic Thickness (2D) 0.8 cm 0.6-1.0 LVID Diastole (2D) 3.8 cm 3.8-5.2 LVIW Diastolic Thickness (2D) 1.1 cm 0.6-0.9 LVID Systole (2D) 2.4 cm 2.2-3.5 LVOT Diameter 1.8 cm LV Mass (2D Cubed) 110.18 g 67.00-162.00 LV Mass Index (2D Cubed) 58 g/m2 43-95 Relative Wall Thickness (2D) 0.60 <=0.42 LV Fractional Shortening/Ejection Fraction 2D/MM LV Fractional Shortening (2D) 37 % 27-45 LV EF (2D Teichholz) 67 % LV Diastolic Volume (4C MOD) 71 ml LV EF (4C MOD) 58 % LV Diastolic Volume (2C MOD) 65 ml LV EF (2C MOD) 60 % LV Diastolic Volume (BP MOD) 68 ml 46-106 LV Diastolic Volume Index (BP MOD) 36 ml/m2 29-61 LV Systolic Volume (BP MOD) 30 ml 14-42 LV Systolic Volume Index (BP MOD) 16 ml/m2 8-24 LV EF (BP MOD) 56 % 54-74 LV Diastolic Length (4C) 7.5 cm LV Systolic Length (4C) 6.7 cm LV Stroke Volume (4C MOD) 41 ml Atria Name Value Normal LA Dimensions LA Volume (4C A-L) 68 ml LA Volume (BP A-L) 52 ml RA Dimensions RA Systolic Major [place] Length (4C) 5.2 cm 2.2-2.8 RA Area (4C) 12.1 cm2 <=18.0 Report Signatures
[2025-03-31] MEDS: DOXYCYCLINE IV 100 MG in SODIUM CHLORIDE 0.9% IV 100 ML IVPB ×2 (04:31→15:47)
--- NOTE | 2025-03-31 04:41 | ECG_ITS ---
Test Date: 2025-03-31 04:50:52 Measurements Intervals [place] Rate: 131 P: 0 KS: 0 QRS: -7 QRSD: 124 T: -17 QT: 321 QTc: 475 Interpretive Statements ATRIAL FIBRILLATION WITH RAPID VENTRICULAR RESPONSE RIGHT BUNDLE BRANCH BLOCK MARKED ST DEPRESSION IN ANTEROLAT/INF LEADS, CONSIDER ISCHEMIA OR RATE RELATED ABNORMAL ECG Compared to ECG 03/29/2025 12:49:20 ST (T wave) deviation now present POSSIBLE ISCHEMIA NOW PRESENT Sinus rhythm no longer present Electronically Signed On 03-31-2025 06:24:49 CDT by Jay Rodriguez D.O.
[2025-03-31] MEDS: METOPROLOL TARTRATE INJ 5 MG/5 ML VIAL IV PUSH ×3 (04:46→05:21)
--- NOTE | 2025-03-31 05:03 | PM.EVENT ---
Event Note Event Note Event Note: 03/31/2025 at 04:45 Nursing staff called because the patient heart rate was sustaining in the 140s. The patient had been tachycardic and hypertensive earlier in the evening and had received 1 dose of IV Lopressor. At that time her heart rate had come down. Nursing staff reported the patient's heart rate look like he was sinus tachycardia on monitors. I gave an additional 1 dose of IV Lopressor. A stat EKG was ordered which was more consistent with AFib RVR. Patient does not have a known history of AFib. EKG also demonstrated marked ST depression which I suspect is rate dependent. Will give IV Lopressor 5 mg Q 10 minutes up to 3 doses and then re-evaluate patient's condition. If AFib RVR persist the patient will need to be transferred to IMU. Will check stat electrolyte panel, magnesium level, and troponin.
[2025-03-31 05:22] LABS: Hematocrit 35.6 % (37.0-47.0); Hemoglobin 11.4 g/dL (12.0-15.0); Immature Granulocyte Percent A 0.1 % (0-0.5); Lymphocytes Absolute Auto 0.64 K/mm3 (0.9-3.2); Mean Corpuscular HGB Conc 32.0 g/dl (32-36); Mean Corpuscular Hemoglobin 28.6 pg (26-34); Mean Corpuscular Volume 89.4 fl (80-100); Nucleated Red Blood Cells Absolute Auto 0.000 K/mm3 (0.0-0.012); Nucleated Red Blood Cells Perc 0.0 % (0.0-0.2); Platelet Count Result 205 k/mm3 (150-375); Red Blood Count 3.98 M/mm3 (4.2-5.4); White Blood Count 8.8 K/mm3 (4.5-10.0)
[2025-03-31] MEDS: METOPROLOL TARTRATE INJ 5 MG/5 ML VIAL 10 MG IV PUSH (05:38)
[2025-03-31 05:44] LABS: Anion Gap 11 mmol/L (4-12); Blood Urea Nitrogen 30 mg/dL (7-17); Calcium 9.2 mg/dL (8.4-10.2); Carbon Dioxide 21 mmol/L (22-30); Chloride 106 mmol/L (98-107); Estimated CRCL calculation 34 ml/min; Estimated Glomerular Filt Rate 53; Glucose 200 mg/dL (65-110); Magnesium 1.8 mg/dL (1.6-2.3); Sodium 138 mmol/L (137-145)
[2025-03-31 05:52] LABS: Potassium 3.5 mmol/L (3.4-5.0)
[2025-03-31 05:56] LABS: Hemoglobin A1C 6.4 % (<5.7)
[2025-03-31] MEDS: POTASSIUM CHLORIDE 20 MEQ PACKET (FOR LIQUID) 40 MEQ PO (06:13)
[2025-03-31] MEDS: MAGNESIUM SULF 2 GM/WATER 50ML 2 GM/50 ML BAG IVPB (06:13)
[2025-03-31 07:10] LABS: INR 1.3; Prothrombin Time 16.0 Seconds (11.1-14.7)
[2025-03-31 07:11] LABS: Partial Thromboplastin Time 29.3 Seconds (22.3-36.8)
[2025-03-31] MEDS: dilTIAZem 100 MG/100 ML 100 MG/100 ML BAG IV CONT (07:50)
[2025-03-31] MEDS: HEPARIN SOD/D5W 100 UNITS/ML 25,000 UNITS/250 ML BAG 12 UNITS IV CONT (08:23)
[2025-03-31] MEDS: ROSUVASTATIN 5 MG TABLET PO (08:28)
[2025-03-31] MEDS: guaiFENesin 12 HR 600 MG TABCR PO ×2 (08:29→20:03)
[2025-03-31] MEDS: METOPROLOL SUCCINATE EXT REL 100 MG TABCR PO (08:29)
--- NOTE | 2025-03-31 08:32 | PM.IMPN ---
Progress Note: A&P Assessment and Plan (1) Sepsis: Qualifiers: Sepsis acute organ dysfunction status: without acute organ dysfunction Sepsis type: sepsis due to unspecified organism Qualified Code(s): A41.9 - Sepsis, unspecified organism Code(s): A41.9 - Sepsis, unspecified organism Status: Acute Assessment and Plan: Patient met SIRS criteria due to HR greater than 90 and WBC greater than 12. No hypoxia or hypotension noted. Chest CT concerning for right-sided pneumonia. Started on community-acquired coverage. Initially given 2L of fluid that was accompanied by a 1 time dose of Lasix due to an elevated BNP. Planned to check lactic, procalcitonin, and blood cultures. UA showed no indication of infection. - started on ceftriaxone and doxycycline on 03/30 - blood cultures drawn on 03/30, follow - CXR obtained day prior on 03/29, showed no acute cardiopulmonary abnormality. Chest CT done on 03/30 showed pneumonia involving the right middle lobe and right lower lobe. - monitor hemodynamic stability, telemetry monitoring, trend O2 sat 03/31: -Lactic decreasing, 2.3-->1.7 now WDL -Procalcitonin WDL -Pt denies CP, SOB, or palpitations. (2) Pneumonia involving right lung: Qualifiers: Lung location: unspecified part of lung Pneumonia type: due to unspecified organism Qualified Code(s): J18.9 - Pneumonia, unspecified organism Code(s): J18.9 - Pneumonia, unspecified organism Status: Acute Assessment and Plan: CXR day prior showed no acute abnormalities, however CT done on 03/30 showed pneumonia involving the right middle lobe and right lower lobe. Reporting associated nausea, vomiting, low-grade fever, cough, and rhinorrhea/secretions. Did meet criteria for SIRS/sepsis, blood cultures were obtained. - ceftriaxone and doxycycline started on 03/30, continued - supportive care: Mucinex elida, Tessalon Perles p.r.n., DuoNebs p.r.n., Tylenol p.r.n. - encourage IS - check viral PCR 03/31: -Pt denies CP, SOB, or palpitations. -Continue abx -Viral PCR all negative (3) Nausea and vomiting: Qualifiers: Vomiting type: unspecified Qualified Code(s): R11.2 - Nausea with vomiting, unspecified Code(s): R11.2 - Nausea with vomiting, unspecified Status: Acute Assessment and Plan: Likely due to postnasal drip/secretions. Mucinex started >> later refused on the floor - antiemetics p.r.n. - given 2 L bolus in ED, will hold off on further fluids due to elevated BNP 03/31: Denies N/V today (4) Elevated brain natriuretic peptide (BNP) level: Code(s): R79.89 - Other specified abnormal findings of blood chemistry Status: Acute Assessment and Plan: BNP 5380 upon admission on 03/30. Chart review showed last echo was completed in 2022. Showed an EF of 60 65% and abnormal diastolic function, global longitudinal strain at 15.6%, trace to moderate valvular disease noted, mild pulmonary hypertension. - monitor I&Os and daily weights - given IV fluids in the ED, monitor toleration. Additionally given 20 of Lasix IV due to the elevated BNP in the ED. - update echo 03/31: -Echo performed, Left ventricular systolic function is normal, estimated at 55-60. -Pt denies CP, SOB, or palpitations. (5) Diabetes: Qualifiers: Diabetes mellitus complication status: without complication Diabetes mellitus assistant terminal manager insulin use: without correction use Diabetes mellitus type: type 2 Qualified Code(s): E11.9 - Type 2 diabetes mellitus without complications Code(s): E11.9 - Type 2 diabetes mellitus without complications Status: Chronic Assessment and Plan: History of type 2 diabetes on oral medications. Glucose upon admission was 199. - hypoglycemia protocol - POC blood glucose ACHS - home medication: Previously on metformin, states she is not taking it at this time - correct regimen ordered - low dose TIDWM, based off BMI - A1C 7.1% on 08/28/2024, update 03/31: -A1c: 6.4 -Continue on inpt medication regimen (6) Hypertension: Qualifiers: Hypertension type: primary hypertension Qualified Code(s): I10 - Essential (primary) hypertension Code(s): I10 - Essential (primary) hypertension Status: Chronic Assessment and Plan: - chronic, initially hypertensive but stable. Arrived to the floor with a systolic in the 200s. Patient is unsure if she took her home antihypertensive medications this morning. - continue home medications: Lisinopril, metoprolol ER - hydralazine p.r.n. for BP greater than 180/90 - monitor 03/31: -BPs overnight and this AM starting to normalize, will continue to monitor & with home meds (7) Hyperlipidemia: Qualifiers: Hyperlipidemia type: unspecified Qualified Code(s): E78.5 - Hyperlipidemia, unspecified Code(s): E78.5 - Hyperlipidemia, unspecified Status: Chronic Assessment and Plan: - continue rosuvastatin 03/31: -Lipid panel 08/2024 WDL (8) Atrial fibrillation with RVR: Code(s): I48.91 - Unspecified atrial fibrillation Status: Acute Assessment and Plan: 03/31 acute episode: On review of the patient's controller repairer and tester has looks like the patient is likely been in AFib for at least on and off since around 22:00. She has been in AFib RVR since around 11 with variable rate is between the low 100s up to 160. Patient received a dose of IV Lopressor earlier in the evening with improvement in her heart rate down into the 90s to low 100s. But on review of the controller repairer and tester it looks like the patient had actually been jumping up intermittently into the 110-130 throughout the evening until they called when she was persistently in the 130s -150. The patient received 3 serial doses of IV Lopressor without response. Although blood Lopressor did bring blood pressures down. An additional 10 mg of Lopressor was given while he was in route to see the patient. Again patient's heart rate did not improved. I did review the patient's chart and her potassium was 3.5 and magnesium was lower limit of normal. I have ordered 2 g of magnesium sulfate and 40 mEq potassium chloride rider. Patient will be transferred to IMU and placed on a Cardizem drip at 5 mg an hour. Will continue home metoprolol succinate 100 mg. Will start patient on a heparin drip per protocol. Echocardiogram has been ordered. 03/31: -Cardizem & heparin gtt -Echo obtained: Left ventricular systolic function is normal, estimated at 55-60. -Tele 115 bpm (9) Urinary retention: Code(s): R33.9 - Retention of urine, unspecified Status: Acute Assessment and Plan: 03/31 acute episode: The patient has acute urinary retention with 1.2 L of urine output. I was initially hopeful that decompressing the patient's bladder with Phillips catheter may improve her heart rate. However tachycardia persisted. Patient is not on any medications that could cause urinary retention. Nursing driven protocols been ordered for Phillips catheter management. 03/31: -Phillips in place (10) Hypokalemia: Code(s): E87.6 - Hypokalemia Status: Acute Assessment and Plan: 03/31: 3.5 today, not tolerating oral K -->Ordered K 20meq IV today, will redraw in AM Plan Diet: Diabetic GI Prophylaxis: N/a DVT Prophylaxis: Lovenox SQ IV fluids: N/A IV meds: Cardizem drip, hep gtt Lines/Tubes: Peripheral IV Code Status: Full code Pending: Dilt titration to PO per rate, rate stability Time Spent With Patient Time: 35 Subjective Date/time seen: 03/31/25 1042 Interval history: Pt resting in bed with and son at the bedside. Pt orientated x4. Updated her on the plan for her IV cardiac medications as well as the heparin gtt. Pt denies CP or SOB. Review of Systems Review of Systems: All systems reviewed & are unremarkable except as noted in HPI and below Exam Narrative: +SOLOMON, appears foggy - takes prolonged time to answer. Faint crackles in the right lung base. Tenderness to the BLE with trace non-pitting edema, symm. Const: General: comfortable and no acute distress Other: , female, elderly, ill-appearing HENMT: Face/Nose/Sinus: Normal nares present Mouth: Yes moist mucous membranes Other: + SOLOMON Eyes: General: appearance normal, both eyes and all related structures Sclera: sclerae normal Pupils: Equal, round and reactive pupils present EOM: EOMs intact bilaterally Resp: Effort & Inspection: normal respiratory effort Other: Faint crackles in the right lung base, no wheezing. Cardio: Rate: tachycardic Rhythm: regular rhythm Other: Pounding heart, no ectopy murmur or rub GI: Other: Abdomen soft, nondistended, nontender. Normoactive bowel sounds in all quadrants. Skin: General skin exam: normal color and no rashes or lesions noted Wounds: no wounds Neuro: Cranial nerves: Yes Equal, round and reactive pupils present Speech: normal speech Motor exam (neuro): 5/5 motor strength present throughout Sensory Exam: normal sensation Other: Alert to person, place, situation. Appears foggy - takes prolonged time to answer, cannot remember what specific hospital she is at etc. Extrem: Other: Tenderness to the BLE with trace non-pitting edema, symmetric. Psych: Mental Status: mental status grossly normal Affect: normal affect Other: Fair to poor insight and judgment at present. Objective Data Vital Signs Vital Signs: Vital Signs - 24 hr 03/30/25 09:09 03/30/25 10:56 03/30/25 11:04 Temperature 97.9 F Pulse Rate 79 90 Respiratory Rate 20 19 Blood Pressure 166/63 H 191/71 H Pulse Oximetry 97 97 97 Oxygen Delivery Room Air Fraction of Inspired Oxygen 03/30/25 11:05 03/30/25 11:32 03/30/25 12:06 Temperature Pulse Rate 88 71 90 Respiratory Rate 15 18 15 Blood Pressure 187/63 H Pulse Oximetry 97 96 96 Oxygen Delivery Fraction of Inspired Oxygen 03/30/25 12:15 03/30/25 12:37 03/30/25 12:45 Temperature Pulse Rate 86 71 84 Respiratory Rate 17 16 18 Blood Pressure Pulse Oximetry 96 96 97 Oxygen Delivery Fraction of Inspired Oxygen 03/30/25 13:02 03/30/25 13:18 03/30/25 13:18 Temperature Pulse Rate 89 77 Respiratory Rate 22 H 24 H Blood Pressure 149/76 H Pulse Oximetry 92 Oxygen Delivery Room Air Fraction of Inspired Oxygen 21 03/30/25 13:24 03/30/25 13:55 03/30/25 14:06 Temperature Pulse Rate 86 136 H 131 H Respiratory Rate 25 H 22 H 27 H Blood Pressure Pulse Oximetry 95 96 Oxygen Delivery Fraction of Inspired Oxygen 03/30/25 14:15 03/30/25 14:30 03/30/25 14:45 Temperature Pulse Rate 121 H 118 H 112 H Respiratory Rate 21 H 15 16 Blood Pressure Pulse Oximetry 98 93 94 Oxygen Delivery Fraction of Inspired Oxygen 03/30/25 15:01 03/30/25 20:00 03/30/25 20:09 Temperature 99.5 F Pulse Rate 116 H 109 H Respiratory Rate 21 H Blood Pressure 175/79 H Pulse Oximetry 95 Oxygen Delivery Fraction of Inspired Oxygen 03/30/25 20:10 03/30/25 20:19 03/30/25 21:39 Temperature 98.7 F Pulse Rate 100 Respiratory Rate 14 Blood Pressure 204/86 H 181/76 H Pulse Oximetry 96 Oxygen Delivery Fraction of Inspired Oxygen 03/30/25 22:00 03/30/25 23:28 03/30/25 23:31 Temperature 98.7 F Pulse Rate 100 132 H 123 H Respiratory Rate 14 Blood Pressure 166/100 H Pulse Oximetry 96 Oxygen Delivery Fraction of Inspired Oxygen 03/31/25 00:00 03/31/25 04:27 03/31/25 04:33 Temperature 98.6 F 98.6 F Pulse Rate 88 94 94 Respiratory Rate 18 18 Blood Pressure 184/85 H 184/85 H Pulse Oximetry 98 97 Oxygen Delivery Fraction of Inspired Oxygen 03/31/25 04:46 03/31/25 05:01 03/31/25 05:21 Temperature Pulse Rate 144 H 131 H Respiratory Rate Blood Pressure 152/107 H 142/102 H Pulse Oximetry Oxygen Delivery Fraction of Inspired Oxygen 03/31/25 05:34 03/31/25 05:38 03/31/25 05:41 Temperature Pulse Rate 142 H 140 H Respiratory Rate Blood Pressure 148/108 H 146/99 H Pulse Oximetry Oxygen Delivery Fraction of Inspired Oxygen 03/31/25 05:48 03/31/25 07:50 03/31/25 08:00 Temperature 98.3 F Pulse Rate 138 H 142 H 139 H Respiratory Rate 16 Blood Pressure 135/94 H 138/85 138/85 Pulse Oximetry 97 Oxygen Delivery Fraction of Inspired Oxygen Intake/Output Intake/Output: Intake & Output 03/28/25 03/29/25 03/30/25 03/31/25 23:59 23:59 23:59 23:59 Intake Total 1050 0 Output Total 1700 Balance 1050 -1700 Meds/Results Medications: Active Medications Generic Name Dose Route Start Last Admin Trade Name Freq PRN Reason Stop Dose Admin Acetaminophen 650 mg 03/30/25 14:58 03/30/25 20:09 Acetaminophen 325 Mg Tablet PO 650 mg Q6H PRN Administration fever or pain 1-3 Albuterol/Ipratropium 3 ml 03/30/25 14:58 Ipratropium 0.5 Mg/Albuterol Sulfate 2.5 Mg (Base) Ampul.Neb 3 Ml INHALATION Q6H PRN Wheezing Benzonatate 100 mg 03/30/25 14:58 Benzonatate 100 Mg Capsule PO TID PRN Cough Dextrose 12.5 gm 03/30/25 15:12 Dextrose 50% 25 Gm/50 Ml Syringe IV PUSH PRN PRN Hypoglycemia Protocol Glucagon 1 mg 03/30/25 15:12 Glucagon For Inj 1 Mg Vial IM PRN PRN Hypoglycemia Protocol Glucose 15 gm 03/30/25 15:12 Glucose Oral Gel 15 Gm Of Glucse In 37.5 Gm Tube PO PRN PRN Hypoglycemia Protocol Guaifenesin 600 mg 03/30/25 21:00 03/30/25 21:35 Guaifenesin 12 Hr 600 Mg Tabcr PO Not Given Q12HR ELIDA Heparin Sodium (Porcine) 5,500 units 03/31/25 07:00 Heparin Sodium 5,000 Units/Ml Vial IV PUSH PRN PRN aPTT less than 55 seconds Heparin Sodium (Porcine) 2,500 units 03/31/25 07:00 Heparin Sodium 5,000 Units/Ml Vial IV PUSH PRN PRN aPTT 55 - 70 seconds Hydralazine HCl 10 mg 03/30/25 19:59 03/31/25 05:24 Hydralazine Hcl 20 Mg/Ml Vial IV PUSH 10 mg Q8H PRN Administration Blood Pressure - High, >180/90 Ceftriaxone Sodium 1 gm/ 50 mls @ 100 mls/hr 03/31/25 14:00 Sodium Chloride IVPB Q24H ELIDA Doxycycline Hyclate 100 mg/ 100 mls @ 100 mls/hr 03/31/25 04:00 03/31/25 04:31 Sodium Chloride IVPB 04/04/25 16:59 100 mls/hr Q12H ELIDA Administration Dextrose 1,000 mls @ 100 mls/hr 03/30/25 15:12 Dextrose 5% 1,000 Ml IVPB PRN PRN Hypoglycemia Protocol Heparin Sodium/Dextrose 25,000 units in 250 mls @ 12 mls/hr 03/31/25 07:00 Heparin Sodium/D5w 100 Units/Ml IV CONT .[id number] ELIDA Protocol 1,200 UNITS/HR Diltiazem HCl 100 mg in 100 mls @ 5 mls/hr 03/31/25 07:30 03/31/25 07:50 Cardizem 100 Mg/100 Ml IV CONT 5 mg/hr .Q20H ELIDA 5 mls/hr 5 MG/HR Administration Insulin Aspart 2 - 5 units 03/30/25 17:00 03/30/25 18:04 Insulin Aspart (*Bkc) 100 Units/Ml SUB-Q Not Given TIDWM [facility] Protocol Lisinopril 20 mg 03/31/25 09:00 Lisinopril 20 Mg Tablet PO DAILY [facility] Metoprolol Succinate 100 mg 03/31/25 09:00 Metoprolol Succinate Ext Rel 100 Mg Tabcr PO DAILY [facility] Ondansetron HCl 4 mg 03/30/25 14:59 Ondansetron Inj 4 Mg/2 Ml Vial IV PUSH Q4H PRN Nausea Perflutren Lipid Microsphere 0 ml 03/30/25 15:12 Perflutren Lipid Microspheres 1.5 Ml Vial Diluted To 10 Ml Total Volume IV PUSH 04/02/25 15:15 ONCE PRN adequate visualization Protocol Rosuvastatin Calcium 5 mg 03/31/25 09:00 Rosuvastatin 5 Mg Tablet PO DAILY [facility] Radiology Results: ITS Impressions Chest CT 03/30/25 13:41 IMPRESSION: 1. Pneumonia involving right middle lobe and right lower lobe. Labs Labs: Laboratory Results - last 24 hr 03/30/25 03/30/25 03/30/25 12:05 12:53 15:32 WBC 14.7 H RBC 3.83 L Hgb 11.0 L Hct 34.7 L MCV 90.6 MCH 28.7 MCHC 31.7 L RDW 13.7 Plt Count 212 MPV 10.8 H Immature Gran % (Auto) 0.3 Neut % (Auto) 87.6 H Lymph % (Auto) 4.7 L Charles % (Auto) 7.2 Eos % (Auto) 0.0 Baso % (Auto) 0.2 Lymph # (Auto) 0.69 L Charles # (Auto) 1.1 H Eos # (Auto) 0.0 Baso # (Auto) 0.0 Abs Immat Gran (auto) 0.05 H Absolute Neuts (auto) 12.8 H Absolute Nucleated RBC 0.000 Nucleated RBC % 0.0 PT INR APTT Sodium 138 Potassium 3.4 Chloride 104 Carbon Dioxide 23 Anion Gap 11 BUN 28 H Creatinine 1.09 H Estim Creat Clear Calc 31 Estimated GFR 48 L Glucose 199 H POC Capillary Glucose Hemoglobin A1c Lactic Acid Calcium 9.4 Phosphorus Magnesium Total Bilirubin 1.1 AST 33 ALT 18 Alkaline Phosphatase 96 NT-Pro-B Natriuret Pep 5380 H Total Protein 7.7 Albumin 4.0 Lipase 35 Procalcitonin 12.0 Urine Color Dark yellow Urine Appearance Cloudy H Urine pH 5.0 Ur Specific Palmer 1.025 Urine Protein 2+ H Urine Glucose (UA) 1+ H Urine Ketones 1+ H Ur Blood (Man) Negative Urine Nitrate Negative Urine Bilirubin Negative Urine Urobilinogen 1.0 Add Ur Microanalysis Reviewed Leukocyte Esterase Rfl Negative Urine RBC 3-5 H Urine WBC 0-5 Ur Squamous Epith Cells Occasional Urine Bacteria None seen Urine Casts >20 Granular Casts Present 03/30/25 03/30/25 03/30/25 16:24 16:40 18:50 WBC RBC Hgb Hct MCV MCH MCHC RDW Plt Count MPV Immature Gran % (Auto) Neut % (Auto) Lymph % (Auto) Charles % (Auto) Eos % (Auto) Baso % (Auto) Lymph # (Auto) Charles # (Auto) Eos # (Auto) Baso # (Auto) Abs Immat Gran (auto) Absolute Neuts (auto) Absolute Nucleated RBC Nucleated RBC % PT INR APTT Sodium Potassium Chloride Carbon Dioxide Anion Gap BUN Creatinine Estim Creat Clear Calc Estimated GFR Glucose POC Capillary Glucose 180 H Hemoglobin A1c Lactic Acid 2.3 H 1.7 Calcium Phosphorus Magnesium Total Bilirubin AST ALT Alkaline Phosphatase NT-Pro-B Natriuret Pep Total Protein Albumin Lipase Procalcitonin Urine Color Urine Appearance Urine pH Ur Specific Palmer Urine Protein Urine Glucose (UA) Urine Ketones Ur Blood (Man) Urine Nitrate Urine Bilirubin Urine Urobilinogen Add Ur Microanalysis Leukocyte Esterase Rfl Urine RBC Urine WBC Ur Squamous Epith Cells Urine Bacteria Urine Casts Granular Casts 03/30/25 03/31/25 03/31/25 19:53 05:15 06:52 WBC 8.8 RBC 3.98 L Hgb 11.4 L Hct 35.6 L MCV 89.4 MCH 28.6 MCHC 32.0 RDW 13.9 Plt Count 205 MPV 10.3 Immature Gran % (Auto) 0.1 Neut % (Auto) 83.3 H Lymph % (Auto) 7.2 L Charles % (Auto) 9.2 H Eos % (Auto) 0.0 Baso % (Auto) 0.2 Lymph # (Auto) 0.64 L Charles # (Auto) 0.8 H Eos # (Auto) 0.0 Baso # (Auto) 0.0 Abs Immat Gran (auto) 0.01 Absolute Neuts (auto) 7.4 H Absolute Nucleated RBC 0.000 Nucleated RBC % 0.0 PT 16.0 H INR 1.3 APTT 29.3 Sodium 138 Potassium 3.5 Chloride 106 Carbon Dioxide 21 L Anion Gap 11 BUN 30 H Creatinine 0.99 Estim Creat Clear Calc 34 Estimated GFR 53 L Glucose 200 H POC Capillary Glucose 174 H Hemoglobin A1c 6.4 H Lactic Acid Calcium 9.2 Phosphorus 3.7 Magnesium 1.8 Total Bilirubin AST ALT Alkaline Phosphatase NT-Pro-B Natriuret Pep Total Protein Albumin Lipase Procalcitonin Urine Color Urine Appearance Urine pH Ur Specific Palmer Urine Protein Urine Glucose (UA) Urine Ketones Ur Blood (Man) Urine Nitrate Urine Bilirubin Urine Urobilinogen Add Ur Microanalysis Leukocyte Esterase Rfl Urine RBC Urine WBC Ur Squamous Epith Cells Urine Bacteria Urine Casts Granular Casts 03/31/25 07:57 WBC RBC Hgb Hct MCV MCH MCHC RDW Plt Count MPV Immature Gran % (Auto) Neut % (Auto) Lymph % (Auto) Charles % (Auto) Eos % (Auto) Baso % (Auto) Lymph # (Auto) Charles # (Auto) Eos # (Auto) Baso # (Auto) Abs Immat Gran (auto) Absolute Neuts (auto) Absolute Nucleated RBC Nucleated RBC % PT INR APTT Sodium Potassium Chloride Carbon Dioxide Anion Gap BUN Creatinine Estim Creat Clear Calc Estimated GFR Glucose POC Capillary Glucose 180 H Hemoglobin A1c Lactic Acid Calcium Phosphorus Magnesium Total Bilirubin AST ALT Alkaline Phosphatase NT-Pro-B Natriuret Pep Total Protein Albumin Lipase Procalcitonin Urine Color Urine Appearance Urine pH Ur Specific Palmer Urine Protein Urine Glucose (UA) Urine Ketones Ur Blood (Man) Urine Nitrate Urine Bilirubin Urine Urobilinogen Add Ur Microanalysis Leukocyte Esterase Rfl Urine RBC Urine WBC Ur Squamous Epith Cells Urine Bacteria Urine Casts Granular Casts Quality VTE Prophylaxis VTE prophylaxis: pharmacologic ordered
--- NOTE | 2025-03-31 12:01 | PC.NURSE ---
Phoned 0715 AM to notify of patient transfer an update of condition.
[2025-03-31] MEDS: cefTRIAXone 1 GM in SODIUM CHLORIDE 0.9% IV 50 ML 100 ML IVPB (13:50)
[2025-03-31] MEDS: KCL 20MEQ/0.9% SOD CHL 1,000 ML 100 ML IV CONT ×2 (13:52→23:56)
[2025-03-31 18:50] LABS: Partial Thromboplastin Time 156.7 Seconds (22.3-36.8)
[2025-04-01] VITALS (21 sets, daily range): BP systolic 111–157; BP diastolic 55–97; PULSE 77–129; RESP 18–20; TEMP 36.6–37; O2SAT 96–99
[2025-04-01] MEDS: dilTIAZem 100 MG/100 ML 100 MG/100 ML BAG IV CONT ×2 (02:00→16:41)
[2025-04-01 02:46] LABS: Hematocrit 31.6 % (37.0-47.0); Hemoglobin 9.8 g/dL (12.0-15.0); Immature Granulocyte Percent A 0.2 % (0-0.5); Lymphocytes Absolute Auto 0.90 K/mm3 (0.9-3.2); Mean Corpuscular HGB Conc 31.0 g/dl (32-36); Mean Corpuscular Hemoglobin 28.6 pg (26-34); Mean Corpuscular Volume 92.1 fl (80-100); Nucleated Red Blood Cells Absolute Auto 0.000 K/mm3 (0.0-0.012); Nucleated Red Blood Cells Perc 0.0 % (0.0-0.2); Platelet Count Result 209 k/mm3 (150-375); Red Blood Count 3.43 M/mm3 (4.2-5.4); White Blood Count 8.5 K/mm3 (4.5-10.0)
[2025-04-01 02:59] LABS: Partial Thromboplastin Time 108.0 Seconds (22.3-36.8)
[2025-04-01 03:17] LABS: Alanine Aminotransferase 12 U/L (6-35); Albumin Level 3.2 g/dL (3.5-5.1); Alkaline Phosphatase 79 U/L (38-126); Anion Gap 6 mmol/L (4-12); Aspartate Amino Transferase 21 U/L (14-36); Bilirubin,Total 0.4 mg/dL (0.2-1.3); Blood Urea Nitrogen 48 mg/dL (7-17); Calcium 8.8 mg/dL (8.4-10.2); Carbon Dioxide 19 mmol/L (22-30); Chloride 112 mmol/L (98-107); Estimated CRCL calculation 30 ml/min; Estimated Glomerular Filt Rate 45; Glucose 140 mg/dL (65-110); Magnesium 2.6 mg/dL (1.6-2.3); Potassium 3.9 mmol/L (3.4-5.0); Sodium 137 mmol/L (137-145); Total Protein 6.5 g/dL (6.3-8.2)
[2025-04-01] MEDS: DOXYCYCLINE IV 100 MG in SODIUM CHLORIDE 0.9% IV 100 ML IVPB ×2 (04:53→16:31)
--- NOTE | 2025-04-01 08:13 | PM.IMPN ---
Progress Note: A&P Assessment and Plan (1) Sepsis: Qualifiers: Sepsis acute organ dysfunction status: without acute organ dysfunction Sepsis type: sepsis due to unspecified organism Qualified Code(s): A41.9 - Sepsis, unspecified organism Code(s): A41.9 - Sepsis, unspecified organism Status: Acute Assessment and Plan: Patient met SIRS criteria due to HR greater than 90 and WBC greater than 12. No hypoxia or hypotension noted. Chest CT concerning for right-sided pneumonia. Started on community-acquired coverage. Initially given 2L of fluid that was accompanied by a 1 time dose of Lasix due to an elevated BNP. Planned to check lactic, procalcitonin, and blood cultures. UA showed no indication of infection. - started on ceftriaxone and doxycycline on 03/30 - blood cultures drawn on 03/30, follow - CXR obtained day prior on 03/29, showed no acute cardiopulmonary abnormality. Chest CT done on 03/30 showed pneumonia involving the right middle lobe and right lower lobe. - monitor hemodynamic stability, telemetry monitoring, trend O2 sat 03/31: -Lactic decreasing, 2.3-->1.7 now WDL -Procalcitonin WDL -Pt denies CP, SOB, or palpitations. 04/01: -Continues to deny CP, SOB, palpitations. VSS. WBC WDL. (2) Pneumonia involving right lung: Qualifiers: Lung location: unspecified part of lung Pneumonia type: due to unspecified organism Qualified Code(s): J18.9 - Pneumonia, unspecified organism Code(s): J18.9 - Pneumonia, unspecified organism Status: Acute Assessment and Plan: CXR day prior showed no acute abnormalities, however CT done on 03/30 showed pneumonia involving the right middle lobe and right lower lobe. Reporting associated nausea, vomiting, low-grade fever, cough, and rhinorrhea/secretions. Did meet criteria for SIRS/sepsis, blood cultures were obtained. - ceftriaxone and doxycycline started on 03/30, continued - supportive care: Mucinex elida, Tessalon Perles p.r.n., DuoNebs p.r.n., Tylenol p.r.n. - encourage IS - check viral PCR 03/31: -Pt denies CP, SOB, or palpitations. -Continue abx -Viral PCR all negative 04/01: -Clear lungs today. Continue abx. Pt reports feeling better overall. (3) Nausea and vomiting: Qualifiers: Vomiting type: unspecified Qualified Code(s): R11.2 - Nausea with vomiting, unspecified Code(s): R11.2 - Nausea with vomiting, unspecified Status: Acute Assessment and Plan: Likely due to postnasal drip/secretions. Mucinex started >> later refused on the floor - antiemetics p.r.n. - given 2 L bolus in ED, will hold off on further fluids due to elevated BNP 03/31: Denies N/V today 04/01: Continues to deny (4) Elevated brain natriuretic peptide (BNP) level: Code(s): R79.89 - Other specified abnormal findings of blood chemistry Status: Acute Assessment and Plan: BNP 5380 upon admission on 03/30. Chart review showed last echo was completed in 2022. Showed an EF of 60 65% and abnormal diastolic function, global longitudinal strain at 15.6%, trace to moderate valvular disease noted, mild pulmonary hypertension. - monitor I&Os and daily weights - given IV fluids in the ED, monitor toleration. Additionally given 20 of Lasix IV due to the elevated BNP in the ED. - update echo 03/31: -Echo performed, Left ventricular systolic function is normal, estimated at 55-60. -Pt denies CP, SOB, or palpitations. 04/01: Continues to deny CP, SOB, or palpitations. (5) Diabetes: Qualifiers: Diabetes mellitus complication status: without complication Diabetes mellitus care home insulin use: without terminal makeup operator use Diabetes mellitus type: type 2 Qualified Code(s): E11.9 - Type 2 diabetes mellitus without complications Code(s): E11.9 - Type 2 diabetes mellitus without complications Status: Chronic Assessment and Plan: History of type 2 diabetes on oral medications. Glucose upon admission was 199. - hypoglycemia protocol - POC blood glucose ACHS - home medication: Previously on metformin, states she is not taking it at this time - correct regimen ordered - low dose TIDWM, based off BMI - A1C 7.1% on 08/28/2024, update 03/31: -A1c: 6.4 -Continue on inpt medication regimen (6) Hypertension: Qualifiers: Hypertension type: primary hypertension Qualified Code(s): I10 - Essential (primary) hypertension Code(s): I10 - Essential (primary) hypertension Status: Chronic Assessment and Plan: - chronic, initially hypertensive but stable. Arrived to the floor with a systolic in the 200s. Patient is unsure if she took her home antihypertensive medications this morning. - continue home medications: Lisinopril, metoprolol ER - hydralazine p.r.n. for BP greater than 180/90 - monitor 03/31: -BPs overnight and this AM starting to normalize, will continue to monitor & with home meds (7) Hyperlipidemia: Qualifiers: Hyperlipidemia type: unspecified Qualified Code(s): E78.5 - Hyperlipidemia, unspecified Code(s): E78.5 - Hyperlipidemia, unspecified Status: Chronic Assessment and Plan: - continue rosuvastatin 03/31: -Lipid panel 08/2024 WDL (8) Atrial fibrillation with RVR: Code(s): I48.91 - Unspecified atrial fibrillation Status: Acute Assessment and Plan: 03/31 acute episode: On review of the patient's awake overnight monitor has looks like the patient is likely been in AFib for at least on and off since around 22:00. She has been in AFib RVR since around 11 with variable rate is between the low 100s up to 160. Patient received a dose of IV Lopressor earlier in the evening with improvement in her heart rate down into the 90s to low 100s. But on review of the awake overnight monitor it looks like the patient had actually been jumping up intermittently into the 110-130 throughout the evening until they called when she was persistently in the 130s -150. The patient received 3 serial doses of IV Lopressor without response. Although blood Lopressor did bring blood pressures down. An additional 10 mg of Lopressor was given while he was in route to see the patient. Again patient's heart rate did not improved. I did review the patient's chart and her potassium was 3.5 and magnesium was lower limit of normal. I have ordered 2 g of magnesium sulfate and 40 mEq potassium chloride rider. Patient will be transferred to IMU and placed on a Cardizem drip at 5 mg an hour. Will continue home metoprolol succinate 100 mg. Will start patient on a heparin drip per protocol. Echocardiogram has been ordered. 03/31: -Cardizem & heparin gtt -Echo obtained: Left ventricular systolic function is normal, estimated at 55-60. -Tele 115 bpm 04/01: -Initially increase cardizem from 5mg/hr to 10mg/hr due to persistent afib in the 110-120's. -Per cards, cardizem eventually decreased back to 5mg/hr later in the day with a planned increase in metop from 100 to 150mg daily. (9) Urinary retention: Code(s): R33.9 - Retention of urine, unspecified Status: Acute Assessment and Plan: 03/31 acute episode: The patient has acute urinary retention with 1.2 L of urine output. I was initially hopeful that decompressing the patient's bladder with Phillips catheter may improve her heart rate. However tachycardia persisted. Patient is not on any medications that could cause urinary retention. Nursing driven protocols been ordered for Phillips catheter management. 03/31: -Phillips in place (10) Hypokalemia: Code(s): E87.6 - Hypokalemia Status: Acute Assessment and Plan: 03/31: 3.5 today, not tolerating oral K -->Ordered K 20meq IV today, will redraw in AM 04/01: K 3/9 today, will continue to monitor. Plan Diet: Diabetic GI Prophylaxis: N/a DVT Prophylaxis: Lovenox SQ IV fluids: N/A IV meds: Cardizem drip, hep gtt Lines/Tubes: Peripheral IV Code Status: Full code Pending: Dilt to metop Time Spent With Patient Time: 35 Subjective Date/time seen: 04/01/25 1010 Interval history: Pt resting in bed with and pt advocate at the bedside. Pt orientated x4. Updated her on the plan for cards consult to manage afib. Pt reports that her throat is feeling better today. Continues to deny SOB/CP/palpitations. Reports able to eat food today. Review of Systems Review of Systems: All systems reviewed & are unremarkable except as noted in HPI and below Exam Narrative: +[place] Const: General: comfortable and no acute distress Other: , female, elderly HENMT: Face/Nose/Sinus: Normal nares present Mouth: Yes moist mucous membranes Other: + [place] Eyes: General: appearance normal, both eyes and all related structures Sclera: sclerae normal Pupils: Equal, round and reactive pupils present EOM: EOMs intact bilaterally Resp: Effort & Inspection: normal respiratory effort Other: Faint crackles in the right lung base, no wheezing. Cardio: Rate: tachycardic Rhythm: abnormal rhythm regularly irregular Other: Intermittently tachycardic, TELE 90 GI: Other: Abdomen soft, nondistended, nontender. Normoactive bowel sounds in all quadrants. Skin: General skin exam: normal color and no rashes or lesions noted Wounds: no wounds Neuro: Cranial nerves: Yes Equal, round and reactive pupils present Speech: normal speech Motor exam (neuro): 5/5 motor strength present throughout Sensory Exam: normal sensation Other: Alert to person, place, situation. Extrem: Other: Tenderness to the BLE with trace non-pitting edema, symmetric. Psych: Mental Status: mental status grossly normal Affect: normal affect Objective Data Vital Signs Vital Signs: Vital Signs - 24 hr 03/31/25 08:29 03/31/25 09:33 03/31/25 10:00 Temperature Pulse Rate 145 H Respiratory Rate Blood Pressure 129/64 Pulse Oximetry 96 Oxygen Delivery Room Air 03/31/25 10:00 03/31/25 10:00 03/31/25 12:00 Temperature 97.9 F Pulse Rate 121 H 136 H 108 H Respiratory Rate 24 H Blood Pressure 129/64 148/85 H Pulse Oximetry 97 Oxygen Delivery 03/31/25 12:00 03/31/25 12:00 03/31/25 14:00 Temperature Pulse Rate 125 H 125 H Respiratory Rate Blood Pressure 148/85 H 139/73 Pulse Oximetry Oxygen Delivery 03/31/25 14:00 03/31/25 14:00 03/31/25 16:00 Temperature Pulse Rate 121 H 117 H 108 H Respiratory Rate Blood Pressure Pulse Oximetry Oxygen Delivery 03/31/25 16:00 03/31/25 16:00 03/31/25 18:00 Temperature 98.1 F Pulse Rate 130 H 121 H 100 Respiratory Rate 20 Blood Pressure 120/62 Pulse Oximetry 97 Oxygen Delivery 03/31/25 18:00 03/31/25 18:00 03/31/25 20:00 Temperature 99.4 F Pulse Rate 124 H 117 H Respiratory Rate 20 Blood Pressure 128/85 128/82 Pulse Oximetry 100 Oxygen Delivery 03/31/25 20:00 03/31/25 20:00 03/31/25 20:00 Temperature Pulse Rate 117 H 109 H Respiratory Rate Blood Pressure 128/82 Pulse Oximetry Oxygen Delivery Room Air 03/31/25 22:00 03/31/25 22:00 03/31/25 22:00 Temperature Pulse Rate 112 H 112 H 112 H Respiratory Rate Blood Pressure 146/47 H 146/47 H Pulse Oximetry 98 Oxygen Delivery 03/31/25 23:42 04/01/25 00:00 04/01/25 00:00 Temperature 97.8 F Pulse Rate 102 H 112 H Respiratory Rate 20 Blood Pressure 147/66 H 138/58 L Pulse Oximetry 99 Oxygen Delivery Room Air 04/01/25 00:00 04/01/25 02:00 04/01/25 02:00 Temperature Pulse Rate 93 115 H 115 H Respiratory Rate Blood Pressure 153/95 H 153/95 H Pulse Oximetry Oxygen Delivery 04/01/25 02:00 04/01/25 02:00 04/01/25 03:39 Temperature 97.8 F Pulse Rate 115 H 115 H 112 H Respiratory Rate 20 Blood Pressure 153/95 H 157/84 H Pulse Oximetry 99 Oxygen Delivery 04/01/25 04:00 04/01/25 04:00 04/01/25 04:00 Temperature Pulse Rate 100 112 H Respiratory Rate Blood Pressure 157/84 H Pulse Oximetry Oxygen Delivery Room Air 04/01/25 06:00 04/01/25 06:00 04/01/25 06:00 Temperature Pulse Rate 112 H 112 H 112 H Respiratory Rate Blood Pressure 145/75 H 145/75 H Pulse Oximetry Oxygen Delivery 04/01/25 07:58 Temperature 97.8 F Pulse Rate 129 H Respiratory Rate 20 Blood Pressure 154/97 H Pulse Oximetry 99 Oxygen Delivery Intake/Output Intake/Output: Intake & Output 03/29/25 03/30/25 03/31/25 04/01/25 23:59 23:59 23:59 23:59 Intake Total 1050 2058.2 619.2 Output Total 2150 300 Balance 1050 -91.8 319.2 Meds/Results Medications: Active Medications Generic Name Dose Route Start Last Admin Trade Name Freq PRN Reason Stop Dose Admin Acetaminophen 650 mg 03/30/25 14:58 03/30/25 20:09 Acetaminophen 325 Mg Tablet PO 650 mg Q6H PRN Administration fever or pain 1-3 Albuterol/Ipratropium 3 ml 03/30/25 14:58 Ipratropium 0.5 Mg/Albuterol Sulfate 2.5 Mg (Base) Ampul.Neb 3 Ml INHALATION Q6H PRN Wheezing Benzonatate 100 mg 03/30/25 14:58 Benzonatate 100 Mg Capsule PO TID PRN Cough Dextrose 12.5 gm 03/30/25 15:12 Dextrose 50% 25 Gm/50 Ml Syringe IV PUSH PRN PRN Hypoglycemia Protocol Glucagon 1 mg 03/30/25 15:12 Glucagon For Inj 1 Mg Vial IM PRN PRN Hypoglycemia Protocol Glucose 15 gm 03/30/25 15:12 Glucose Oral Gel 15 Gm Of Glucse In 37.5 Gm Tube PO PRN PRN Hypoglycemia Protocol Guaifenesin 600 mg 03/30/25 21:00 03/31/25 20:03 Guaifenesin 12 Hr 600 Mg Tabcr PO 600 mg Q12HR ELIDA Administration Heparin Sodium (Porcine) 5,500 units 03/31/25 07:00 Heparin Sodium 5,000 Units/Ml Vial IV PUSH PRN PRN aPTT less than 55 seconds Heparin Sodium (Porcine) 2,500 units 03/31/25 07:00 Heparin Sodium 5,000 Units/Ml Vial IV PUSH PRN PRN aPTT 55 - 70 seconds Hydralazine HCl 10 mg 03/30/25 19:59 03/31/25 05:24 Hydralazine Hcl 20 Mg/Ml Vial IV PUSH 10 mg Q8H PRN Administration Blood Pressure - High, >180/90 Ceftriaxone Sodium 1 gm/ 50 mls @ 100 mls/hr 03/31/25 14:00 03/31/25 13:50 Sodium Chloride IVPB 100 mls/hr Q24H ELIDA Administration Doxycycline Hyclate 100 mg/ 100 mls @ 100 mls/hr 03/31/25 04:00 04/01/25 05:53 Sodium Chloride IVPB 04/04/25 16:59 Infused Q12H ELIDA Infusion Dextrose 1,000 mls @ 100 mls/hr 03/30/25 15:12 Dextrose 5% 1,000 Ml IVPB PRN PRN Hypoglycemia Protocol Heparin Sodium/Dextrose 25,000 units in 250 mls @ 9 mls/hr 03/31/25 07:00 04/01/25 03:00 Heparin Sodium/D5w 100 Units/Ml IV CONT 900 units/hr .Q24H ELIDA 9 mls/hr Protocol Titration 900 UNITS/HR Diltiazem HCl 100 mg in 100 mls @ 5 mls/hr 03/31/25 07:30 04/01/25 06:00 Cardizem 100 Mg/100 Ml IV CONT 5 mg/hr .Q20H ELIDA 5 mls/hr 5 MG/HR Infusion Potassium Chloride/Sodium Chloride 1,000 mls @ 100 mls/hr 03/31/25 12:55 03/31/25 23:56 Kcl 20 Meq/Ns IV CONT 100 mls/hr .Q10H ELIDA Administration Insulin Aspart 2 - 5 units 03/30/25 17:00 04/01/25 08:07 Insulin Aspart (*Bkc) 100 Units/Ml SUB-Q Not Given TIDWM ELIDA Protocol Lisinopril 20 mg 03/31/25 09:00 03/31/25 08:29 Lisinopril 20 Mg Tablet PO 20 mg DAILY ELIDA Administration Metoprolol Succinate 100 mg 03/31/25 09:00 03/31/25 08:29 Metoprolol Succinate Ext Rel 100 Mg Tabcr PO 100 mg DAILY ELIDA Administration Ondansetron HCl 4 mg 03/30/25 14:59 Ondansetron Inj 4 Mg/2 Ml Vial IV PUSH Q4H PRN Nausea Perflutren Lipid Microsphere 0 ml 03/30/25 15:12 Perflutren Lipid Microspheres 1.5 Ml Vial Diluted To 10 Ml Total Volume IV PUSH 04/02/25 15:15 ONCE PRN adequate visualization Protocol Phenol 1 spray 03/31/25 10:16 Phenol/Sod Pheno [place] (*Bkc) MUCOUS MEM PRN PRN Sore Throat Rosuvastatin Calcium 5 mg 03/31/25 09:00 03/31/25 08:28 Rosuvastatin 5 Mg Tablet PO 5 mg DAILY ELIDA Administration Radiology Results: ITS Impressions Chest CT 03/30/25 13:41 IMPRESSION: 1. Pneumonia involving right middle lobe and right lower lobe. Labs Labs: Laboratory Results - last 24 hr 03/31/25 03/31/25 03/31/25 11:28 16:00 17:19 WBC RBC Hgb Hct MCV MCH MCHC RDW Plt Count MPV Immature Gran % (Auto) Neut % (Auto) Lymph % (Auto) [place] % (Auto) Eos % (Auto) Baso % (Auto) Lymph # (Auto) [place] # (Auto) Eos # (Auto) Baso # (Auto) Abs Immat Gran (auto) Absolute Neuts (auto) Absolute Nucleated RBC Nucleated RBC % APTT Sodium Potassium Chloride Carbon Dioxide Anion Gap BUN Creatinine Estim Creat Clear Calc Estimated GFR Glucose POC Capillary Glucose 163 H 128 H 169 H Calcium Magnesium Total Bilirubin AST ALT Alkaline Phosphatase Total Protein Albumin 03/31/25 03/31/25 04/01/25 18:30 19:51 02:28 WBC 8.5 RBC 3.43 L Hgb 9.8 L Hct 31.6 L MCV 92.1 MCH 28.6 MCHC 31.0 L RDW 14.1 Plt Count 209 MPV 10.3 Immature Gran % (Auto) 0.2 Neut % (Auto) 81.2 H Lymph % (Auto) 10.6 L [place] % (Auto) 7.9 Eos % (Auto) 0.0 Baso % (Auto) 0.1 L Lymph # (Auto) 0.90 [place] # (Auto) 0.7 H Eos # (Auto) 0.0 Baso # (Auto) 0.0 Abs Immat Gran (auto) 0.02 Absolute Neuts (auto) 6.9 H Absolute Nucleated RBC 0.000 Nucleated RBC % 0.0 APTT 156.7 H 108.0 H Sodium 137 Potassium 3.9 Chloride 112 H Carbon Dioxide 19 L Anion Gap 6 BUN 48 H D Creatinine 1.14 H Estim Creat Clear Calc 30 Estimated GFR 45 L Glucose 140 H POC Capillary Glucose 164 H Calcium 8.8 Magnesium 2.6 H Total Bilirubin 0.4 AST 21 ALT 12 Alkaline Phosphatase 79 Total Protein 6.5 Albumin 3.2 L 04/01/25 07:14 WBC RBC Hgb Hct MCV MCH MCHC RDW Plt Count MPV Immature Gran % (Auto) Neut % (Auto) Lymph % (Auto) [place] % (Auto) Eos % (Auto) Baso % (Auto) Lymph # (Auto) [place] # (Auto) Eos # (Auto) Baso # (Auto) Abs Immat Gran (auto) Absolute Neuts (auto) Absolute Nucleated RBC Nucleated RBC % APTT Sodium Potassium Chloride Carbon Dioxide Anion Gap BUN Creatinine Estim Creat Clear Calc Estimated GFR Glucose POC Capillary Glucose 122 H Calcium Magnesium Total Bilirubin AST ALT Alkaline Phosphatase Total Protein Albumin Quality VTE Prophylaxis VTE prophylaxis: pharmacologic ordered
[2025-04-01] MEDS: dilTIAZem 100 MG/100 ML 100 MG/100 ML BAG 10 MG IV CONT (08:45)
[2025-04-01] MEDS: HEPARIN SOD/D5W 100 UNITS/ML 25,000 UNITS/250 ML BAG 9 UNITS IV CONT (09:03)
[2025-04-01] MEDS: METOPROLOL SUCCINATE EXT REL 100 MG TABCR PO (09:05)
[2025-04-01] MEDS: guaiFENesin 12 HR 600 MG TABCR PO ×2 (09:06→20:13)
[2025-04-01] MEDS: ROSUVASTATIN 5 MG TABLET PO (09:06)
[2025-04-01 09:44] LABS: Partial Thromboplastin Time 81.1 Seconds (22.3-36.8)
--- NOTE | 2025-04-01 09:50 | PM.CNCAR ---
Assessment and Plan Assessment and plan (1) Atrial fibrillation with RVR: Code(s): I48.91 - Unspecified atrial fibrillation Status: Acute Assessment and Plan: This is a new diagnosis. Discussed the diagnosis of atrial fibrillation with the patient including pathophysiology, management strategies including rate versus rhythm control, and risks/complications of atrial fibrillation. For now, we will proceed with a rate control strategy. Decrease diltiazem drip 5 mg an hour Increase metoprolol to 150 mg daily Will attempt to avoid dual AV vasile agents She is currently on heparin drip for anticoagulation which can be shifted to DOAC today [id number] (age, gender, HTN, diabetes) Echo reviewed (2) Aortic stenosis: Code(s): I35.0 - Nonrheumatic aortic (valve) stenosis Status: Acute Assessment and Plan: Mild. Outpatient surveillance (3) Renal artery stenosis: Code(s): I70.1 - Atherosclerosis of renal artery Status: Acute Assessment and Plan: Follows at [facility] (4) Hyperlipidemia: Qualifiers: Hyperlipidemia type: unspecified Qualified Code(s): E78.5 - Hyperlipidemia, unspecified Code(s): E78.5 - Hyperlipidemia, unspecified Status: Chronic Assessment and Plan: Continue statin (5) Hypertension: Qualifiers: Hypertension type: primary hypertension Qualified Code(s): I10 - Essential (primary) hypertension Code(s): I10 - Essential (primary) hypertension Status: Chronic Assessment and Plan: At goal (6) Pneumonia involving right lung: Qualifiers: Lung location: unspecified part of lung Pneumonia type: due to unspecified organism Qualified Code(s): J18.9 - Pneumonia, unspecified organism Code(s): J18.9 - Pneumonia, unspecified organism Status: Acute Assessment and Plan: On abx. Management per hospitalist. History of Present Illness History of Present Illness Consult date/time: 04/01/25 09:50 Requesting physician: [place]ia Zavaleta APRN Consult reason: atrial fibrillation Reason For Visit: pneumonia Narrative: Aria Garcia is an 84-year-old female with hypertension, hyperlipidemia, type 2 diabetes mellitus, and dementia. This is a patient who presented to the hospital with complaints of nausea, vomiting, and fever. Cardiology is consulted for atrial fibrillation with rapid ventricular response. She denies any history of atrial fibrillation. She denies any palpitations, chest pain, shortness of breath. She is currently on a diltiazem drip in addition to metoprolol which is a home medication. She has been started on a heparin drip for anticoagulation. She does not have any active complaints at the time of my evaluation-states she is feeling much better and is eager to go home. Review of Systems Review of Systems: All systems reviewed & are unremarkable except as noted in HPI and below PMFSH Past Medical History Medical History Primary osteoarthritis of knees, bilateral Arthritis Hyperlipidemia Positive colorectal cancer screening using Cologuard test Hypertension Diabetes Surgical History Surgical History Status post complete hysterectomy History of parotidectomy Family History Family History Mother Diabetes mellitus Hypertension Cancer Father Heart disease Social History Social History Social History: Lifelong nonsmoker. Rare alcohol use. No drug use. Lives with her . She wishes to be a DNR. Smoking packs per day: 1 Smoking cigarettes per day: 20.0 Years smoked: 3 Smoking pack-years: 3.00 Smoking status: Former smoker Tobacco type: cigarettes Second hand tobacco smoke exposure: No Additional smoking assessment comments: quit Alcohol intake: never Substance use: never Substance use type: does not use Do You Feel Safe in your Home?: Yes Lack of Transportation: No Lack of Food: Never True Current Housing: I Have Housing Concerned About Future Housing: No Difficulty Paying Gas/Electric Bills: No Difficulty Paying for Meds: No Currently Unemployed: No Education: High School Diploma/GED Difficulty w/ Childcare or Family Care: No Living arrangements: with family Occupation/Education: retired Additional occupation/education comments: Medical records/XR Gender identity (if verbalized by the patient): Female Spiritual care concerns: No Meds Home Medications and Allergies Home Medications ?Medication ?Instructions ?Recorded ?Confirmed ?Type cholecalciferol (vitamin D3) 25 25 mcg PO DAILY 09/13/21 03/30/25 History mcg (1,000 unit) capsule clonidine HCl 0.1 mg tablet 0.1 mg PO BID #180 tabs 09/01/24 03/30/25 Rx felodipine 5 mg tablet,extended 5 mg PO DAILY #90 tabs 09/01/24 03/30/25 Rx release 24 hr furosemide 20 mg tablet 20 mg PO QAM #90 tabs 09/01/24 03/30/25 Rx lisinopril 20 mg tablet 20 mg PO DAILY #90 tabs 09/01/24 03/31/25 Rx metformin 500 mg tablet 500 mg PO BID #180 tabs 09/01/24 03/30/25 Rx metoprolol succinate 100 mg 100 mg PO DAILY #90 tabs 09/01/24 03/30/25 Rx tablet,extended release 24 hr rosuvastatin 5 mg tablet 5 mg PO DAILY #90 tabs 09/01/24 03/30/25 Rx albuterol sulfate 90 mcg/actuation 2 puff inhalation QID PRN 03/29/25 03/30/25 Rx aerosol inhaler shortness of breath or wheezing #8.5 grams Allergies Allergy/AdvReac Type Severity Reaction Status Date / Time No Known Allergies Allergy Verified 03/30/25 16:59 Vital Signs Vital Signs - 24 hr 03/31/25 10:00 03/31/25 10:00 03/31/25 10:00 Temperature Pulse Rate 121 H 136 H Respiratory Rate Blood Pressure 129/64 129/64 Pulse Oximetry Oxygen Delivery 03/31/25 12:00 03/31/25 12:00 03/31/25 12:00 Temperature 36.6 C Pulse Rate 108 H 125 H 125 H Respiratory Rate 24 H Blood Pressure 148/85 H 148/85 H Pulse Oximetry 97 Oxygen Delivery 03/31/25 14:00 03/31/25 14:00 03/31/25 14:00 Temperature Pulse Rate 121 H 117 H Respiratory Rate Blood Pressure 139/73 Pulse Oximetry Oxygen Delivery 03/31/25 16:00 03/31/25 16:00 03/31/25 16:00 Temperature 36.7 C Pulse Rate 108 H 130 H 121 H Respiratory Rate 20 Blood Pressure 120/62 Pulse Oximetry 97 Oxygen Delivery 03/31/25 18:00 03/31/25 18:00 03/31/25 18:00 Temperature Pulse Rate 100 124 H Respiratory Rate Blood Pressure 128/85 Pulse Oximetry Oxygen Delivery 03/31/25 20:00 03/31/25 20:00 03/31/25 20:00 Temperature 37.4 C Pulse Rate 117 H 117 H Respiratory Rate 20 Blood Pressure 128/82 128/82 Pulse Oximetry 100 Oxygen Delivery Room Air 03/31/25 20:00 03/31/25 22:00 03/31/25 22:00 Temperature Pulse Rate 109 H 112 H 112 H Respiratory Rate Blood Pressure 146/47 H 146/47 H Pulse Oximetry 98 Oxygen Delivery 03/31/25 22:00 03/31/25 23:42 04/01/25 00:00 Temperature 36.6 C Pulse Rate 112 H 102 H Respiratory Rate 20 Blood Pressure 147/66 H Pulse Oximetry 99 Oxygen Delivery Room Air 04/01/25 00:00 04/01/25 00:00 04/01/25 02:00 Temperature Pulse Rate 112 H 93 115 H Respiratory Rate Blood Pressure 138/58 L 153/95 H Pulse Oximetry Oxygen Delivery 04/01/25 02:00 04/01/25 02:00 04/01/25 02:00 Temperature Pulse Rate 115 H 115 H 115 H Respiratory Rate Blood Pressure 153/95 H 153/95 H Pulse Oximetry Oxygen Delivery 04/01/25 03:39 04/01/25 04:00 04/01/25 04:00 Temperature 36.6 C Pulse Rate 112 H 100 Respiratory Rate 20 Blood Pressure 157/84 H Pulse Oximetry 99 Oxygen Delivery Room Air 04/01/25 04:00 04/01/25 06:00 04/01/25 06:00 Temperature Pulse Rate 112 H 112 H 112 H Respiratory Rate Blood Pressure 157/84 H 145/75 H Pulse Oximetry Oxygen Delivery 04/01/25 06:00 04/01/25 07:58 04/01/25 08:45 Temperature 36.6 C Pulse Rate 112 H 129 H 103 H Respiratory Rate 20 Blood Pressure 145/75 H 154/97 H 154/97 H Pulse Oximetry 99 Oxygen Delivery 04/01/25 09:05 Temperature Pulse Rate 93 Respiratory Rate Blood Pressure Pulse Oximetry Oxygen Delivery Exam Const: General: comfortable, no acute distress, alert and awake Orientation/consciousness: patient oriented x3 HENMT: Head: normal to inspection Eyes: General: appearance normal, both eyes and all related structures Pupils: Equal, round and reactive pupils present Neck: Neck: normal visual inspection, supple and no JVD Carotids: normal carotid upstroke Resp: Effort & Inspection: normal respiratory effort Auscultation: clear to auscultation bilaterally Cardio: Rate: regular rate Rhythm: abnormal rhythm regularly irregular Heart sounds: S1 normal heart sound present, S2 normal heart sound present and no murmurs GI: Auscultation: normal bowel sounds Skin: General skin exam: normal color Neuro: General: patient oriented x3 Cranial nerves: Yes Equal, round and reactive pupils present Extrem: General: normal to inspection Other: No edema Psych: Appearance: grossly normal Mental Status: mental status grossly normal Results Labs and Meds 04/01/25 02:28 04/01/25 02:28 Lab results: Cardiac Enzymes 04/01/25 Range/Units 02:28 AST 21 (14-36) U/L Coagulation 03/31/25 04/01/25 04/01/25 Range/Units 18:30 02:28 09:13 APTT 156.7 H 108.0 H 81.1 H (22.3-36.8) Seconds CBC 04/01/25 Range/Units 02:28 WBC 8.5 (4.5-10.0) K/mm3 RBC 3.43 L (4.2-5.4) M/mm3 Hgb 9.8 L (12.0-15.0) g/dL Hct 31.6 L (37.0-47.0) % Plt Count 209 (150-375) k/mm3 Lymph # (Auto) 0.90 (0.9-3.2) K/mm3 [place] # (Auto) 0.7 H (0.1-0.6) K/mm3 Eos # (Auto) 0.0 (0-0.3) K/mm3 Baso # (Auto) 0.0 (0.0-0.1) K/mm3 Comprehensive Metabolic Panel 04/01/25 Range/Units 02:28 Sodium 137 (137-145) mmol/L Potassium 3.9 (3.4-5.0) mmol/L Chloride 112 H (98-107) mmol/L Carbon Dioxide 19 L (22-30) mmol/L BUN 48 H D (7-17) mg/dL Creatinine 1.14 H (0.7-1.0) mg/dL Glucose 140 H (65-110) mg/dL Calcium 8.8 (8.4-10.2) mg/dL AST 21 (14-36) U/L ALT 12 (6-35) U/L Alkaline Phosphatase 79 (38-126) U/L Total Protein 6.5 (6.3-8.2) g/dL Albumin 3.2 L (3.5-5.1) g/dL Intake and Output 03/31/25 04/01/25 04/01/25 23:59 07:59 15:59 Intake Total 1800.0 657.5 50 Output Total 450 300 Balance 1350.0 357.5 50 Intake: IV 1200.0 257.5 Heparin Sod/D5w 100 Units/ml 25 60.0 108.3 ,000 units In 250 ml @ 900 UNITS/HR 9 mls/hr IV CONT .Q24H SHANNAN Rx#:[id number] KCl 20Meq/0.9% Sod Chl 1,000 ml 1000 @ 100 mls/hr IV CONT .Q10H SHANNAN Rx#:[id number] dilTIAZem 100 MG/100 ML 100 mg 40 49.2 In 100 ml @ 5 MG/HR 5 mls/hr IV CONT .Q20H SHANNAN Rx#:[id number] Doxycycline IV 100 mg In Sodium 100 100 Chloride 0.9% IV 100 ml @ 100 mls/hr IVPB Q12H SHANNAN Rx#: [id number] Oral 600 400 50 Output: Catheter Urine 450 300 External/Condom 450 300 Patient Weight 04/01/25 23:59 Weight 76.1 kg
[2025-04-01] MEDS: cefTRIAXone 1 GM in SODIUM CHLORIDE 0.9% IV 50 ML 100 ML IVPB (13:36)
[2025-04-01] MEDS: APIXABAN 5 MG TABLET PO (16:40)
[2025-04-02] VITALS (15 sets, daily range): BP systolic 99–183; BP diastolic 60–112; PULSE 78–119; RESP 16–29; TEMP 36.7–37.1; O2SAT 94–100
[2025-04-02] MEDS: DOXYCYCLINE IV 100 MG in SODIUM CHLORIDE 0.9% IV 100 ML IVPB (05:10)
--- NOTE | 2025-04-02 05:35 | PC.NURSE ---
0020: assembly line upholsterer showed that the patient had removed her telemetry leads. This RN reported to bedside in which the patient stated I am removing this monitor, going home to shower, and I''l come back. This RN redirected the patient and replaced the tele stickers. Stickers were removed again, and this RN and tye reported to bedside. At this time the patient was yelling, cussing, and hitting. The patient requested my nurses supervisor. This RN called the conduit worker. The patient requested security and they were called. conduit worker reported to bedside. This RN, Lynn PINTO, and Betty rolled the patient and placed the telemetry stickers on her back. The patient called her family and stated to them they are holding me hostage, I am in a barn, get here now.. Security reported to bedside. Patient able to answer all orientation questions appropriately. This RN contacted Gamal, patients spouse, and him and the son Tab reported to bedside. The patient continued to tell us I am going to go home, find the pistol and shoot Gamal. I want to kill myself. Let me . I am not happy living anymore. I am going to find a bridge on my way home to jump off. I want to divorce Gamal. I will bring a gun to this hospital. Luciana QUIJANO came to bedside and spoke with patient. Krysta, warehouse assembly worker, came to bedside and spoke with patient.Patient pulled out IV. Patient slamming items and threatening to hit family. Patient requesting a consent to sign to give permission for treatment. This RN provided a consent to treat and the patient refused to sign it, then later signed it with the wrong name and said see that isn't a legal document, goodluck. The family stated Do whatever you have to do to treat her. You have our permission to give her all medications, labs, and any tests needed.. Patient placed on SI precautions with a sitter. at bedside.
[2025-04-02 06:51] LABS: Hematocrit 30.6 % (37.0-47.0); Hemoglobin 9.7 g/dL (12.0-15.0); Immature Granulocyte Percent A 0.4 % (0-0.5); Lymphocytes Absolute Auto 1.46 K/mm3 (0.9-3.2); Mean Corpuscular HGB Conc 31.7 g/dl (32-36); Mean Corpuscular Hemoglobin 28.9 pg (26-34); Mean Corpuscular Volume 91.1 fl (80-100); Nucleated Red Blood Cells Absolute Auto 0.000 K/mm3 (0.0-0.012); Nucleated Red Blood Cells Perc 0.0 % (0.0-0.2); Platelet Count Result 228 k/mm3 (150-375); Red Blood Count 3.36 M/mm3 (4.2-5.4); White Blood Count 9.9 K/mm3 (4.5-10.0)
[2025-04-02 07:10] LABS: Alanine Aminotransferase 25 U/L (6-35); Albumin Level 3.1 g/dL (3.5-5.1); Alkaline Phosphatase 92 U/L (38-126); Anion Gap 8 mmol/L (4-12); Aspartate Amino Transferase 44 U/L (14-36); Bilirubin,Total 0.5 mg/dL (0.2-1.3); Blood Urea Nitrogen 44 mg/dL (7-17); Calcium 8.6 mg/dL (8.4-10.2); Carbon Dioxide 19 mmol/L (22-30); Chloride 112 mmol/L (98-107); Estimated CRCL calculation 36 ml/min; Estimated Glomerular Filt Rate 58; Glucose 120 mg/dL (65-110); Magnesium 2.4 mg/dL (1.6-2.3); Potassium 3.6 mmol/L (3.4-5.0); Sodium 139 mmol/L (137-145); Total Protein 6.3 g/dL (6.3-8.2)
[2025-04-02] MEDS: dilTIAZem 100 MG/100 ML 100 MG/100 ML BAG IV CONT (07:22)
--- NOTE | 2025-04-02 07:27 | PC.NURSE ---
This patient, Aria Garcia, was transferred to ICU-2 on 04/02/25 at 0655. Personal belongings sent with patient. Report given to Fabiana PINTO. Appropriate documentation sent with patient.
[2025-04-02] MEDS: APIXABAN 5 MG TABLET PO ×2 (08:21→20:09)
[2025-04-02] MEDS: METOPROLOL SUCCINATE EXT REL 100 MG TABCR PO (08:22)
[2025-04-02] MEDS: guaiFENesin 12 HR 600 MG TABCR PO ×2 (08:22→20:09)
[2025-04-02] MEDS: ROSUVASTATIN 5 MG TABLET PO (08:49)
--- NOTE | 2025-04-02 09:04 | PM.PNCARD ---
Progress Note: A&P Assessment and Plan (1) Atrial fibrillation with RVR: Code(s): I48.91 - Unspecified atrial fibrillation Status: Acute Assessment and Plan: This is a new diagnosis. Discussed the diagnosis of atrial fibrillation with the patient including pathophysiology, management strategies including rate versus rhythm control, and risks/complications of atrial fibrillation. For now, we will proceed with a rate control strategy. On diltiazem drip 5 mg an hour - wean off for heart rates <100 Increase metoprolol to 150 mg daily Will attempt to avoid dual AV vasile agents She is currently on heparin drip for anticoagulation which can be shifted to DOAC today [id number] (age, gender, HTN, diabetes) Echo reviewed (2) Aortic stenosis: Code(s): I35.0 - Nonrheumatic aortic (valve) stenosis Status: Acute Assessment and Plan: Mild. Outpatient surveillance (3) Renal artery stenosis: Code(s): I70.1 - Atherosclerosis of renal artery Status: Acute Assessment and Plan: Follows at [facility] (4) Hyperlipidemia: Qualifiers: Hyperlipidemia type: unspecified Qualified Code(s): E78.5 - Hyperlipidemia, unspecified Code(s): E78.5 - Hyperlipidemia, unspecified Status: Chronic Assessment and Plan: Continue statin (5) Hypertension: Qualifiers: Hypertension type: primary hypertension Qualified Code(s): I10 - Essential (primary) hypertension Code(s): I10 - Essential (primary) hypertension Status: Chronic Assessment and Plan: At goal (6) Pneumonia involving right lung: Qualifiers: Lung location: unspecified part of lung Pneumonia type: due to unspecified organism Qualified Code(s): J18.9 - Pneumonia, unspecified organism Code(s): J18.9 - Pneumonia, unspecified organism Status: Acute Assessment and Plan: On abx. Management per hospitalist. Subjective Date/time seen: 04/02/25 09:04 Interval history: Cardiology follow up visit Date of service 04/02/2025: She feels well this morning and does not have any specific complaints. She was moved to ICU level of care because of suicidal and homicidal threats. She remains in atrial fibrillation heart rate generally 100- 120 beats per minute. She does not feel any palpitations, shortness of breath, chest pain. Review of Systems Review of Systems: All systems reviewed & are unremarkable except as noted in HPI and below Exam Const: General: comfortable, no acute distress, alert and awake Orientation/consciousness: patient oriented x3 HENMT: Head: normal to inspection Eyes: General: appearance normal, both eyes and all related structures Pupils: Equal, round and reactive pupils present Neck: Neck: normal visual inspection, supple and no JVD Carotids: normal carotid upstroke Resp: Effort & Inspection: normal respiratory effort Auscultation: clear to auscultation bilaterally Cardio: Rate: tachycardic Rhythm: abnormal rhythm regularly irregular Heart sounds: S1 normal heart sound present, S2 normal heart sound present and no murmurs GI: Auscultation: normal bowel sounds Skin: General skin exam: normal color Neuro: General: patient oriented x3 Cranial nerves: Yes Equal, round and reactive pupils present Extrem: General: normal to inspection Other: No edema Psych: Appearance: grossly normal Mental Status: mental status grossly normal Objective Data Vital Signs Vital Signs: Vital Signs - 24 hr 04/01/25 09:05 04/01/25 10:00 04/01/25 10:00 Temperature 36.9 C Pulse Rate 93 77 81 Respiratory Rate 18 Blood Pressure 117/55 L Pulse Oximetry 98 Oxygen Delivery 04/01/25 10:00 04/01/25 11:26 04/01/25 12:00 Temperature 36.9 C Pulse Rate 84 92 85 Respiratory Rate 18 Blood Pressure 142/73 H Pulse Oximetry 98 Oxygen Delivery 04/01/25 12:00 04/01/25 13:37 04/01/25 14:00 Temperature Pulse Rate 85 90 86 Respiratory Rate Blood Pressure Pulse Oximetry Oxygen Delivery 04/01/25 14:00 04/01/25 16:00 04/01/25 16:00 Temperature 36.8 C Pulse Rate 87 90 97 Respiratory Rate 18 Blood Pressure 130/66 Pulse Oximetry 96 Oxygen Delivery 04/01/25 16:00 04/01/25 16:41 04/01/25 16:41 Temperature Pulse Rate 97 94 94 Respiratory Rate Blood Pressure Pulse Oximetry Oxygen Delivery 04/01/25 18:00 04/01/25 18:00 04/01/25 18:00 Temperature Pulse Rate 83 87 94 Respiratory Rate Blood Pressure 111/55 L Pulse Oximetry Oxygen Delivery 04/01/25 20:00 04/01/25 20:00 04/01/25 20:00 Temperature Pulse Rate 84 84 Respiratory Rate Blood Pressure 131/67 Pulse Oximetry Oxygen Delivery Room Air 04/01/25 20:22 04/01/25 22:00 04/01/25 22:00 Temperature 36.8 C Pulse Rate 94 114 H 83 Respiratory Rate 18 Blood Pressure 131/67 139/76 Pulse Oximetry 98 98 Oxygen Delivery 04/01/25 22:00 04/01/25 23:47 04/02/25 00:00 Temperature 37.0 C Pulse Rate 114 H 94 Respiratory Rate 18 Blood Pressure 139/76 139/60 Pulse Oximetry 99 Oxygen Delivery Room Air 04/02/25 00:00 04/02/25 00:00 04/02/25 02:00 Temperature Pulse Rate 86 86 108 H Respiratory Rate 16 Blood Pressure 139/60 162/88 H Pulse Oximetry 98 Oxygen Delivery 04/02/25 02:00 04/02/25 02:00 04/02/25 04:00 Temperature Pulse Rate 108 H 108 H Respiratory Rate Blood Pressure 162/88 H Pulse Oximetry Oxygen Delivery Room Air 04/02/25 04:00 04/02/25 04:00 04/02/25 04:00 Temperature 36.8 C Pulse Rate 104 H 104 H 103 H Respiratory Rate 16 Blood Pressure 160/92 H 160/92 H Pulse Oximetry 100 Oxygen Delivery 04/02/25 06:00 04/02/25 06:00 04/02/25 06:00 Temperature Pulse Rate 96 96 96 Respiratory Rate Blood Pressure 157/97 H 157/97 H Pulse Oximetry Oxygen Delivery 04/02/25 07:22 04/02/25 07:22 04/02/25 08:00 Temperature 37.1 C Pulse Rate 100 100 105 H Respiratory Rate 21 H Blood Pressure 177/101 H 177/101 H 155/70 H Pulse Oximetry Oxygen Delivery 04/02/25 08:00 04/02/25 08:00 04/02/25 08:00 Temperature Pulse Rate 99 119 H Respiratory Rate Blood Pressure Pulse Oximetry Oxygen Delivery Room Air 04/02/25 08:22 Temperature Pulse Rate 116 H Respiratory Rate Blood Pressure Pulse Oximetry Oxygen Delivery Intake/Output Intake/Output: Intake & Output 03/30/25 03/31/25 04/01/25 04/02/25 23:59 23:59 23:59 23:59 Intake Total 1050 2108.2 1757.5 176.6 Output Total 2150 700 400 Balance 1050 -41.8 1057.5 -223.4 Meds/Results Medications: Active Medications Generic Name Dose Route Start Last Admin Trade Name Freq PRN Reason Stop Dose Admin Acetaminophen 650 mg 03/30/25 14:58 03/30/25 20:09 Acetaminophen 325 Mg Tablet PO 650 mg Q6H PRN Administration fever or pain 1-3 Albuterol/Ipratropium 3 ml 03/30/25 14:58 Ipratropium 0.5 Mg/Albuterol Sulfate 2.5 Mg (Base) Ampul.Neb 3 Ml INHALATION Q6H PRN Wheezing Apixaban 5 mg 04/01/25 17:00 04/02/25 08:21 Apixaban 5 Mg Tablet PO 5 mg Q12HR SHANNAN Administration Benzonatate 100 mg 03/30/25 14:58 Benzonatate 100 Mg Capsule PO TID PRN Cough Dextrose 12.5 gm 03/30/25 15:12 Dextrose 50% 25 Gm/50 Ml Syringe IV PUSH PRN PRN Hypoglycemia Protocol Furosemide 40 mg 04/02/25 09:00 Furosemide 40 Mg Tablet PO DAILY SHANNAN Glucagon 1 mg 03/30/25 15:12 Glucagon For Inj 1 Mg Vial IM PRN PRN Hypoglycemia Protocol Glucose 15 gm 03/30/25 15:12 Glucose Oral Gel 15 Gm Of Glucse In 37.5 Gm Tube PO PRN PRN Hypoglycemia Protocol Guaifenesin 600 mg 03/30/25 21:00 04/02/25 08:22 Guaifenesin 12 Hr 600 Mg Tabcr PO 600 mg Q12HR SHANNAN Administration Hydralazine HCl 10 mg 03/30/25 19:59 03/31/25 05:24 Hydralazine Hcl 20 Mg/Ml Vial IV PUSH 10 mg Q8H PRN Administration Blood Pressure - High, >180/90 Ceftriaxone Sodium 1 gm/ 50 mls @ 100 mls/hr 03/31/25 14:00 04/01/25 13:36 Sodium Chloride IVPB 100 mls/hr Q24H SHANNAN Administration Doxycycline Hyclate 100 mg/ 100 mls @ 100 mls/hr 03/31/25 04:00 04/02/25 06:10 Sodium Chloride IVPB 04/04/25 16:59 Infused Q12H SHANNAN Infusion Dextrose 1,000 mls @ 100 mls/hr 03/30/25 15:12 Dextrose 5% 1,000 Ml IVPB PRN PRN Hypoglycemia Protocol Diltiazem HCl 100 mg in 100 mls @ 5 mls/hr 04/01/25 08:30 04/02/25 08:00 Cardizem 100 Mg/100 Ml IV CONT 5 mg/hr .Q20H SHANNAN 5 mls/hr 5 MG/HR Infusion Insulin Aspart 2 - 5 units 03/30/25 17:00 04/02/25 08:31 Insulin Aspart (*Bkc) 100 Units/Ml SUB-Q Not Given TIDWM SHANNAN Protocol Lisinopril 20 mg 03/31/25 09:00 04/02/25 08:22 Lisinopril 20 Mg Tablet PO 20 mg DAILY SHANNAN Administration Metoprolol Succinate 100 mg 03/31/25 09:00 04/02/25 08:22 Metoprolol Succinate Ext Rel 100 Mg Tabcr PO 100 mg DAILY SHANNAN Administration Ondansetron HCl 4 mg 03/30/25 14:59 Ondansetron Inj 4 Mg/2 Ml Vial IV PUSH Q4H PRN Nausea Perflutren Lipid Microsphere 0 ml 03/30/25 15:12 Perflutren Lipid Microspheres 1.5 Ml Vial Diluted To 10 Ml Total Volume IV PUSH 04/02/25 15:15 ONCE PRN adequate visualization Protocol Phenol 1 spray 03/31/25 10:16 Phenol/Sod Pheno [place] (*Bkc) MUCOUS MEM PRN PRN Sore Throat Potassium Bicarbonate 50 meq 04/02/25 08:59 Potassium Bicarbonate 25 Meq Tabef PO 04/02/25 09:00 ONCE ONE Rosuvastatin Calcium 5 mg 03/31/25 09:00 04/02/25 08:49 Rosuvastatin 5 Mg Tablet PO 5 mg DAILY SHANNAN Administration Radiology Results: ITS Impressions Chest CT 03/30/25 13:41 IMPRESSION: 1. Pneumonia involving right middle lobe and right lower lobe. Labs Labs: Laboratory Results - last 24 hr 04/01/25 04/01/25 04/01/25 09:13 11:19 15:42 WBC RBC Hgb Hct MCV MCH MCHC RDW Plt Count MPV Immature Gran % (Auto) Neut % (Auto) Lymph % (Auto) [place] % (Auto) Eos % (Auto) Baso % (Auto) Lymph # (Auto) [place] # (Auto) Eos # (Auto) Baso # (Auto) Abs Immat Gran (auto) Absolute Neuts (auto) Absolute Nucleated RBC Nucleated RBC % APTT 81.1 H Sodium Potassium Chloride Carbon Dioxide Anion Gap BUN Creatinine Estim Creat Clear Calc Estimated GFR Glucose POC Capillary Glucose 140 H 152 H Calcium Magnesium Total Bilirubin AST ALT Alkaline Phosphatase Total Protein Albumin 04/01/25 04/02/25 04/02/25 20:37 06:28 08:30 WBC 9.9 RBC 3.36 L Hgb 9.7 L Hct 30.6 L MCV 91.1 MCH 28.9 MCHC 31.7 L RDW 13.9 Plt Count 228 MPV 10.2 Immature Gran % (Auto) 0.4 Neut % (Auto) 77.2 H Lymph % (Auto) 14.8 L [place] % (Auto) 6.7 Eos % (Auto) 0.7 Baso % (Auto) 0.2 Lymph # (Auto) 1.46 [place] # (Auto) 0.7 H Eos # (Auto) 0.1 Baso # (Auto) 0.0 Abs Immat Gran (auto) 0.04 H Absolute Neuts (auto) 7.6 H Absolute Nucleated RBC 0.000 Nucleated RBC % 0.0 APTT Sodium 139 Potassium 3.6 Chloride 112 H Carbon Dioxide 19 L Anion Gap 8 BUN 44 H Creatinine 0.92 Estim Creat Clear Calc 36 Estimated GFR 58 L Glucose 120 H POC Capillary Glucose 176 H 119 H Calcium 8.6 Magnesium 2.4 H Total Bilirubin 0.5 AST 44 H ALT 25 Alkaline Phosphatase 92 Total Protein 6.3 Albumin 3.1 L Quality VTE Prophylaxis VTE prophylaxis: pharmacologic ordered
[2025-04-02] MEDS: FUROSEMIDE 40 MG TABLET PO (09:27)
[2025-04-02] MEDS: POTASSIUM CHLORIDE 20 MEQ ER TABLET 40 MEQ PO (09:37)
--- NOTE | 2025-04-02 10:13 | P.PNIM_ITS ---
Progress Note: A&P Assessment and Plan (1) Sepsis: Qualifiers: Sepsis type: sepsis due to unspecified organism Sepsis acute organ dysfunction status: without acute organ dysfunction Qualified Code(s): A41.9 - Sepsis, unspecified organism Code(s): A41.9 - Sepsis, unspecified organism Status: Acute Assessment and Plan: Patient met sepsis criteria due to HR greater than 90 and WBC greater than 12. No hypoxia or hypotension noted. Chest CT concerning for right-sided pneumonia. Started on community-acquired coverage. Initially given 2L of fluid that was accompanied by a 1 time dose of Lasix due to an elevated BNP. Lactic acid was 2.3 which has improved to 1.7 procalcitonin 12 blood cultures pending at this time. UA showed no indication of infection. Viral PCR negative - started on ceftriaxone and doxycycline on 03/30. I will switch to p.o. Augmentin (2) Pneumonia involving right lung: Qualifiers: Lung location: unspecified part of lung Pneumonia type: due to unspecified organism Qualified Code(s): J18.9 - Pneumonia, unspecified organism Code(s): J18.9 - Pneumonia, unspecified organism Status: Acute Assessment and Plan: On room air see above (3) Nausea and vomiting: Qualifiers: Vomiting type: unspecified Qualified Code(s): R11.2 - Nausea with vomiting, unspecified Code(s): R11.2 - Nausea with vomiting, unspecified Status: Acute Assessment and Plan: Resolved (4) Elevated brain natriuretic peptide (BNP) level: Code(s): R79.89 - Other specified abnormal findings of blood chemistry Status: Acute Assessment and Plan: BNP 5380 upon admission on 03/30. Chart review showed last echo was completed in 2022. Showed an EF of 60 65% and abnormal diastolic function, global longitudinal strain at 15.6%, trace to moderate valvular disease noted, mild pulmonary hypertension. - monitor I&Os and daily weights - given IV fluids in the ED, monitor toleration. Additionally she was give given 20 of Lasix IV due to the elevated BNP in the ED. - update echo 03/31: -Echo performed, Left ventricular systolic function is normal, estimated at 55- 60. -Pt denies CP, SOB, or palpitations. 04/01: Continues to deny CP, SOB, or palpitations. (5) Diabetes: Qualifiers: Diabetes mellitus type: type 2 Diabetes mellitus equipment operator intermodal yard insulin use: without equipment operator intermodal yard use Diabetes mellitus complication status: without complication Qualified Code(s): E11.9 - Type 2 diabetes mellitus without complications Code(s): E11.9 - Type 2 diabetes mellitus without complications Status: Chronic Assessment and Plan: History of type 2 diabetes on oral medications. Glucose upon admission was 199. - hypoglycemia protocol - POC blood glucose ACHS - home medication: Previously on metformin, states she is not taking it at this time - correct regimen ordered - low dose TIDWM, based off BMI - A1C 7.1% on 08/28/2024, update 03/31: -A1c: 6.4 -Continue on inpt medication regimen (6) Hypertension: Qualifiers: Hypertension type: primary hypertension Qualified Code(s): I10 - Essential (primary) hypertension Code(s): I10 - Essential (primary) hypertension Status: Chronic Assessment and Plan: - chronic, initially hypertensive but stable. Arrived to the floor with a systolic in the 200s. Patient is unsure if she took her home antihypertensive medications this morning. - continue home medications: Lisinopril, metoprolol ER. Increase metoprolol to 150 -add p.r.n. labetalol - monitor (7) Hyperlipidemia: Qualifiers: Hyperlipidemia type: unspecified Qualified Code(s): E78.5 - Hyperlipidemia, unspecified Code(s): E78.5 - Hyperlipidemia, unspecified Status: Chronic Assessment and Plan: - continue rosuvastatin 03/31: -Lipid panel 08/2024 WDL (8) Atrial fibrillation with RVR: Code(s): I48.91 - Unspecified atrial fibrillation Status: Acute Assessment and Plan: 03/31 acute episode: On review of the patient's pvc monitor has looks like the patient is likely been in AFib for at least on and off since around 22:00. She has been in AFib RVR since around 11 with variable rate is between the low 100s up to 160. Patient received a dose of IV Lopressor earlier in the evening with improvement in her heart rate down into the 90s to low 100s. But on review of the pvc monitor it looks like the patient had actually been jumping up intermittently into the 110-130 throughout the evening until they called when she was persistently in the 130s -150. The patient received 3 serial doses of IV Lopressor without response. Although blood Lopressor did bring blood pressures down. An additional 10 mg of Lopressor was given while he was in route to see the patient. Again patient's heart rate did not improved. I did review the patient's chart and her potassium was 3.5 and magnesium was lower limit of normal. I have ordered 2 g of magnesium sulfate and 40 mEq potassium chloride rider. Patient will be transferred to IMU and placed on a Cardizem drip at 5 mg an hour. Will continue home metoprolol succinate 100 mg. Will start patient on a heparin drip per protocol. Echocardiogram has been ordered. 03/31: -Cardizem & heparin gtt -Echo obtained: Left ventricular systolic function is normal, estimated at 55- 60. -Tele 115 bpm 04/01: -Initially increase cardizem from 5mg/hr to 10mg/hr due to persistent afib in the 110-120's. -Per cards, cardizem eventually decreased back to 5mg/hr later in the day with a planned increase in metop from 100 to 150mg daily. 04/02 currently on Cardizem at 5 milligram/hour. I will increase metoprolol to 150 mg p.o. daily and try to wean off diltiazem infusion. On Eliquis which will be continued (9) Urinary retention: Code(s): R33.9 - Retention of urine, unspecified Status: Acute Assessment and Plan: 03/31 acute episode: The patient has acute urinary retention with 1.2 L of urine output. I was initially hopeful that decompressing the patient's bladder with Phillips catheter may improve her heart rate. However tachycardia persisted. Patient is not on any medications that could cause urinary retention. Nursing driven protocols been ordered for Phillips catheter management. 03/31: -Phillips in place (10) Hypokalemia: Code(s): E87.6 - Hypokalemia Status: Acute Assessment and Plan: Replacement or (11) Suicide ideation: Code(s): R45.851 - Suicidal ideations Status: Acute Assessment and Plan: 04/02 patient was transferred overnight and placed on suicide watch. Patient had argument with nursing staff in which she claimed that she was going to shoot herself and her with a pistol. This morning when I spoke to the patient she states that she had argument with the nurse and was angry and was saying mean things for no purpose. She felt that she was going to be operated upon and was asking nurse to sign the release form which she wore. She states she has guns at home but has never bothered to use them. Patient denies any suicidal or homicidal ideation at this time. She states she has never thought or considered about hurting herself or her . She has a good relationship with her . She has never been diagnosed with depression and has never been on any antidepressants. Her was at bedside is also surprised with the events of this morning. He states that she is normally happy at home and functional as much as she can be do physical disabilities. She uses a cane to go to the stores and ER. She Move around the house and watch TV. He is a Royer and has guns but states that his has never shown any interest and his guns. He has not noticed any evidence of her being depressed, sad or expressing suicidal or homicidal ideations prior to this. Patient states that she was be angry and with nursing staff and had a disagreement and said these things which he she did not mean. She feels better now. She is clear that she does not feel sad or depressed and has no interest in hurting herself or anyone else. After discussing nurses staff it appears the patient did had some confusion at night and delirium may have played some role. At this time I will discontinue suicide precautions and continue monitoring. Patient may need intervention for delirium. Will try to minimize and prevent delirium by awaiting sedatives and orientation Plan Diet: Diabetic GI Prophylaxis: N/a DVT Prophylaxis: Lovenox SQ IV fluids: N/A IV meds: Cardizem drip, Lines/Tubes: Peripheral IV Code Status: Full code Subjective Date/time seen: 04/02/25 Overnight events reviewed. Patient is afebrile. Continues to be in AFib with controlled ventricular rate and on diltiazem infusion at 5 milligram/hour. She denies any complaints. Overnight patient was transferred to ICU room as an [facility] patient for suicide precautions. Patient had argument with nursing staff in which she claimed that she was going to shoot herself and her with a pistol. This morning when I spoke to the patient she states that she had argument with the nurse and was angry and was saying mean things for no purpose she felt that she was going to be operated upon and was asking nurse to sign the release. She states she has guns at home but has never bothered to use them. Patient denies any suicidal or homicidal ideation at this time. She states she has never thought are considered about hurting herself or her . She has a good relationship with her . She has never been diagnosed with depression has has never been on any antidepressants. Her was at bedside is also surprised with the event of this morning he states that she is normally happy at home and functional as much as she can be. She uses a cane to go to the store or move around the house and watch TV. He is a Roy[place] and has guns but states that his has never interest and his guns. He has not noticed any evidence of her being depressed sad or expressing suicidal or homicidal ideations. Patient states that she was be angry and with nursing staff and had a disagreement and said these things which he had not been. She is clear that she does not feel sad or depressed and has no interest in hurting herself or anyone else. After discussing nurses staff it appears the patient did had some confusion at night and may be delirious. Physically she denies any complaints. Patient denies fever, chest pain, shortness of breath, cough, nausea vomiting, abdominal pain,, diarrhea, headache or constipation. All other systems were reviewed and were negative. Review of Systems Review of Systems: All systems reviewed & are unremarkable except as noted in HPI and below (HPI) Objective Data Vital Signs Vital Signs: Vital Signs - 24 hr 04/01/25 11:26 04/01/25 12:00 04/01/25 12:00 Temperature 36.9 C Pulse Rate 92 85 85 Respiratory Rate 18 Blood Pressure 142/73 H Pulse Oximetry 98 Oxygen Delivery 04/01/25 13:37 04/01/25 14:00 04/01/25 14:00 Temperature Pulse Rate 90 86 87 Respiratory Rate Blood Pressure Pulse Oximetry Oxygen Delivery 04/01/25 16:00 04/01/25 16:00 04/01/25 16:00 Temperature 36.8 C Pulse Rate 90 97 97 Respiratory Rate 18 Blood Pressure 130/66 Pulse Oximetry 96 Oxygen Delivery 04/01/25 16:41 04/01/25 16:41 04/01/25 18:00 Temperature Pulse Rate 94 94 83 Respiratory Rate Blood Pressure Pulse Oximetry Oxygen Delivery 04/01/25 18:00 04/01/25 18:00 04/01/25 20:00 Temperature Pulse Rate 87 94 Respiratory Rate Blood Pressure 111/55 L Pulse Oximetry Oxygen Delivery Room Air 04/01/25 20:00 04/01/25 20:00 04/01/25 20:22 Temperature 36.8 C Pulse Rate 84 84 94 Respiratory Rate 18 Blood Pressure 131/67 131/67 Pulse Oximetry 98 Oxygen Delivery 04/01/25 22:00 04/01/25 22:00 04/01/25 22:00 Temperature Pulse Rate 114 H 83 114 H Respiratory Rate Blood Pressure 139/76 139/76 Pulse Oximetry 98 Oxygen Delivery 04/01/25 23:47 04/02/25 00:00 04/02/25 00:00 Temperature 37.0 C Pulse Rate 94 86 Respiratory Rate 18 Blood Pressure 139/60 Pulse Oximetry 99 Oxygen Delivery Room Air 04/02/25 00:00 04/02/25 02:00 04/02/25 02:00 Temperature Pulse Rate 86 108 H 108 H Respiratory Rate 16 Blood Pressure 139/60 162/88 H Pulse Oximetry 98 Oxygen Delivery 04/02/25 02:00 04/02/25 04:00 04/02/25 04:00 Temperature 36.8 C Pulse Rate 108 H 104 H Respiratory Rate 16 Blood Pressure 162/88 H 160/92 H Pulse Oximetry 100 Oxygen Delivery Room Air 04/02/25 04:00 04/02/25 04:00 04/02/25 06:00 Temperature Pulse Rate 104 H 103 H 96 Respiratory Rate Blood Pressure 160/92 H Pulse Oximetry Oxygen Delivery 04/02/25 06:00 04/02/25 06:00 04/02/25 07:22 Temperature Pulse Rate 96 96 100 Respiratory Rate Blood Pressure 157/97 H 157/97 H 177/101 H Pulse Oximetry Oxygen Delivery 04/02/25 07:22 04/02/25 08:00 04/02/25 08:00 Temperature 37.1 C Pulse Rate 100 105 H 99 Respiratory Rate 21 H Blood Pressure 177/101 H 155/70 H Pulse Oximetry Oxygen Delivery 04/02/25 08:00 04/02/25 08:00 04/02/25 08:22 Temperature Pulse Rate 119 H 116 H Respiratory Rate Blood Pressure Pulse Oximetry Oxygen Delivery Room Air 04/02/25 10:00 04/02/25 10:00 04/02/25 10:00 Temperature Pulse Rate 116 H 103 H 107 H Respiratory Rate 29 H Blood Pressure 183/86 H 183/86 H Pulse Oximetry Oxygen Delivery Intake/Output Intake/Output: Intake & Output 03/30/25 03/31/25 04/01/25 04/02/25 23:59 23:59 23:59 23:59 Intake Total 1050 2108.2 1757.5 186.6 Output Total 2150 700 400 Balance 1050 -41.8 1057.5 -213.4 Meds/Results Medications: Active Medications Generic Name Dose Route Start Last Admin Trade Name Freq PRN Reason Stop Dose Admin Acetaminophen 650 mg 03/30/25 14:58 03/30/25 20:09 Acetaminophen 325 Mg Tablet PO 650 mg Q6H PRN Administration fever or pain 1-3 Albuterol/Ipratropium 3 ml 03/30/25 14:58 Ipratropium 0.5 Mg/Albuterol Sulfate 2.5 Mg (Base) Ampul.Neb 3 Ml INHALATION Q6H PRN Wheezing Apixaban 5 mg 04/01/25 17:00 04/02/25 08:21 Apixaban 5 Mg Tablet PO 5 mg Q12HR SHANNAN Administration Benzonatate 100 mg 03/30/25 14:58 Benzonatate 100 Mg Capsule PO TID PRN Cough Dextrose 12.5 gm 03/30/25 15:12 Dextrose 50% 25 Gm/50 Ml Syringe IV PUSH PRN PRN Hypoglycemia Protocol Furosemide 40 mg 04/02/25 09:00 04/02/25 09:27 Furosemide 40 Mg Tablet PO 40 mg DAILY SHANNAN Administration Glucagon 1 mg 03/30/25 15:12 Glucagon For Inj 1 Mg Vial IM PRN PRN Hypoglycemia Protocol Glucose 15 gm 03/30/25 15:12 Glucose Oral Gel 15 Gm Of Glucse In 37.5 Gm Tube PO PRN PRN Hypoglycemia Protocol Guaifenesin 600 mg 03/30/25 21:00 04/02/25 08:22 Guaifenesin 12 Hr 600 Mg Tabcr PO 600 mg Q12HR SHANNAN Administration Hydralazine HCl 10 mg 03/30/25 19:59 03/31/25 05:24 Hydralazine Hcl 20 Mg/Ml Vial IV PUSH 10 mg Q8H PRN Administration Blood Pressure - High, >180/90 Ceftriaxone Sodium 1 gm/ 50 mls @ 100 mls/hr 03/31/25 14:00 04/01/25 13:36 Sodium Chloride IVPB 100 mls/hr Q24H SHANNAN Administration Doxycycline Hyclate 100 mg/ 100 mls @ 100 mls/hr 03/31/25 04:00 04/02/25 06:10 Sodium Chloride IVPB 04/04/25 16:59 Infused Q12H SHANNAN Infusion Dextrose 1,000 mls @ 100 mls/hr 03/30/25 15:12 Dextrose 5% 1,000 Ml IVPB PRN PRN Hypoglycemia Protocol Diltiazem HCl 100 mg in 100 mls @ 5 mls/hr 04/01/25 08:30 04/02/25 10:00 Cardizem 100 Mg/100 Ml IV CONT 5 mg/hr .Q20H SHANNAN 5 mls/hr 5 MG/HR Infusion Insulin Aspart 2 - 5 units 03/30/25 17:00 04/02/25 08:31 Insulin Aspart (*Bkc) 100 Units/Ml SUB-Q Not Given TIDWM [facility] Protocol Lisinopril 20 mg 03/31/25 09:00 04/02/25 08:22 Lisinopril 20 Mg Tablet PO 20 mg DAILY SHANNAN Administration Metoprolol Succinate 150 mg 04/03/25 09:00 Metoprolol Succinate Ext Rel 50 Mg Tabcr PO DAILY SHANNAN Metoprolol Succinate 50 mg 04/02/25 10:12 Metoprolol Succinate Ext Rel 50 Mg Tabcr PO 04/02/25 10:13 ONCE ONE Ondansetron HCl 4 mg 03/30/25 14:59 Ondansetron Inj 4 Mg/2 Ml Vial IV PUSH Q4H PRN Nausea Perflutren Lipid Microsphere 0 ml 03/30/25 15:12 Perflutren Lipid Microspheres 1.5 Ml Vial Diluted To 10 Ml Total Volume IV PUSH 04/02/25 15:15 ONCE PRN adequate visualization Protocol Phenol 1 spray 03/31/25 10:16 Phenol/Sod Pheno [place] (*Bkc) MUCOUS MEM PRN PRN Sore Throat Rosuvastatin Calcium 5 mg 03/31/25 09:00 04/02/25 08:49 Rosuvastatin 5 Mg Tablet PO 5 mg DAILY SHANNAN Administration Radiology Results: ITS Impressions Chest CT 03/30/25 13:41 IMPRESSION: 1. Pneumonia involving right middle lobe and right lower lobe. Labs Labs: Laboratory Results - last 24 hr 04/01/25 04/01/25 04/01/25 11:19 15:42 20:37 WBC RBC Hgb Hct MCV MCH MCHC RDW Plt Count MPV Immature Gran % (Auto) Neut % (Auto) Lymph % (Auto) [place] % (Auto) Eos % (Auto) Baso % (Auto) Lymph # (Auto) [place] # (Auto) Eos # (Auto) Baso # (Auto) Abs Immat Gran (auto) Absolute Neuts (auto) Absolute Nucleated RBC Nucleated RBC % Sodium Potassium Chloride Carbon Dioxide Anion Gap BUN Creatinine Estim Creat Clear Calc Estimated GFR Glucose POC Capillary Glucose 140 H 152 H 176 H Calcium Magnesium Total Bilirubin AST ALT Alkaline Phosphatase Total Protein Albumin 04/02/25 04/02/25 06:28 08:30 WBC 9.9 RBC 3.36 L Hgb 9.7 L Hct 30.6 L MCV 91.1 MCH 28.9 MCHC 31.7 L RDW 13.9 Plt Count 228 MPV 10.2 Immature Gran % (Auto) 0.4 Neut % (Auto) 77.2 H Lymph % (Auto) 14.8 L [place] % (Auto) 6.7 Eos % (Auto) 0.7 Baso % (Auto) 0.2 Lymph # (Auto) 1.46 [place] # (Auto) 0.7 H Eos # (Auto) 0.1 Baso # (Auto) 0.0 Abs Immat Gran (auto) 0.04 H Absolute Neuts (auto) 7.6 H Absolute Nucleated RBC 0.000 Nucleated RBC % 0.0 Sodium 139 Potassium 3.6 Chloride 112 H Carbon Dioxide 19 L Anion Gap 8 BUN 44 H Creatinine 0.92 Estim Creat Clear Calc 36 Estimated GFR 58 L Glucose 120 H POC Capillary Glucose 119 H Calcium 8.6 Magnesium 2.4 H Total Bilirubin 0.5 AST 44 H ALT 25 Alkaline Phosphatase 92 Total Protein 6.3 Albumin 3.1 L Quality VTE Prophylaxis VTE prophylaxis: pharmacologic ordered
[2025-04-02] MEDS: METOPROLOL SUCCINATE EXT REL 50 MG TABCR PO (10:42)
[2025-04-02] MEDS: DOXYCYCLINE HYCLATE 100 MG TABLET PO (20:09)
[2025-04-03] VITALS (40 sets, daily range): BP systolic 123–181; BP diastolic 64–145; PULSE 82–167; RESP 14–31; TEMP 36.5–37.1; O2SAT 91–97
--- NOTE | 2025-04-03 01:19 | P.PNCROSS_ITS ---
Event Note Event Note Event Note: The patient is becoming confused and combative with staff every night. 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 Will give IM Zyprexa x1 as the patient is so agitated at this point that she will not take oral meds. Then will start Zyprexa p.o. at night starting tomorrow. The patient was evaluated at bedside and was overtly agitated. She was screaming and striking out at staff. Soft wrist restraints were applied.
[2025-04-03] MEDS: OLANZapine 5 MG, WATER, STERILE FOR INJECTION 2.1 ML IM (01:40)
[2025-04-03] MEDS: dilTIAZem 100 MG/100 ML 100 MG/100 ML BAG 10 MG IV CONT (02:59)
[2025-04-03] MEDS: HALOPERIDOL LACTATE 5 MG/ML VIAL 2.5 MG IV PUSH (03:05)
[2025-04-03 04:58] LABS: Hematocrit 35.4 % (37.0-47.0); Hemoglobin 11.1 g/dL (12.0-15.0); Immature Granulocyte Percent A 0.7 % (0-0.5); Lymphocytes Absolute Auto 1.00 K/mm3 (0.9-3.2); Mean Corpuscular HGB Conc 31.4 g/dl (32-36); Mean Corpuscular Hemoglobin 28.7 pg (26-34); Mean Corpuscular Volume 91.5 fl (80-100); Nucleated Red Blood Cells Absolute Auto 0.000 K/mm3 (0.0-0.012); Nucleated Red Blood Cells Perc 0.0 % (0.0-0.2); Platelet Count Result 261 k/mm3 (150-375); Red Blood Count 3.87 M/mm3 (4.2-5.4); White Blood Count 10.7 K/mm3 (4.5-10.0)
[2025-04-03 05:23] LABS: Alanine Aminotransferase 25 U/L (6-35); Albumin Level 3.4 g/dL (3.5-5.1); Alkaline Phosphatase 91 U/L (38-126); Anion Gap 9 mmol/L (4-12); Aspartate Amino Transferase 32 U/L (14-36); Bilirubin,Total 0.7 mg/dL (0.2-1.3); Blood Urea Nitrogen 32 mg/dL (7-17); Calcium 8.8 mg/dL (8.4-10.2); Carbon Dioxide 20 mmol/L (22-30); Chloride 109 mmol/L (98-107); Estimated CRCL calculation 40 ml/min; Estimated Glomerular Filt Rate > 60; Glucose 153 mg/dL (65-110); Magnesium 2.0 mg/dL (1.6-2.3); Potassium 3.7 mmol/L (3.4-5.0); Sodium 138 mmol/L (137-145); Total Protein 6.9 g/dL (6.3-8.2)
[2025-04-03] MEDS: APIXABAN 5 MG TABLET PO ×2 (09:16→20:05)
[2025-04-03] MEDS: DOXYCYCLINE HYCLATE 100 MG TABLET PO ×2 (09:16→20:05)
[2025-04-03] MEDS: FUROSEMIDE 40 MG TABLET PO (09:16)
[2025-04-03] MEDS: ROSUVASTATIN 5 MG TABLET PO (09:16)
[2025-04-03] MEDS: guaiFENesin 12 HR 600 MG TABCR PO ×2 (09:16→20:05)
[2025-04-03] MEDS: METOPROLOL SUCCINATE EXT REL 50 MG TABCR 150 MG PO (09:16)
--- NOTE | 2025-04-03 10:26 | P.PNIM_ITS ---
Progress Note: A&P Assessment and Plan (1) Sepsis: Qualifiers: Sepsis acute organ dysfunction status: without acute organ dysfunction Sepsis type: sepsis due to unspecified organism Qualified Code(s): A41.9 - S epsis, unspecified organism Code(s): A41.9 - Sepsis, unspecified organism Status: Acute Assessment and Plan: Patient met sepsis criteria due to HR greater than 90 and WBC greater than 12. No hypoxia or hypotension noted. Chest CT concerning for right-sided pneumonia. Started on community-acquired coverage. Initially given 2L of fluid that was accompanied by a 1 time dose of Lasix due to an elevated BNP. Lactic acid was 2.3 which has improved to 1.7 procalcitonin 12 blood cultures pending at this time. UA showed no indication of infection. Viral PCR negative - started on ceftriaxone and doxycycline on 03/30. Patient was switched to p.o. Augmentin which will be continued (2) Pneumonia involving right lung: Qualifiers: Lung location: unspecified part of lung Pneumonia type: due to unspecified organism Qualified Code(s): J18.9 - Pneumonia, unspecified organism Code(s): J18.9 - Pneumonia, unspecified organism Status: Acute Assessment and Plan: On room air see above (3) Nausea and vomiting: Qualifiers: Vomiting type: unspecified Qualified Code(s): R11.2 - Nausea with vomiting, unspecified Code(s): R11.2 - Nausea with vomiting, unspecified Status: Acute Assessment and Plan: Resolved (4) Elevated brain natriuretic peptide (BNP) level: Code(s): R79.89 - Other specified abnormal findings of blood chemistry Status: Acute Assessment and Plan: BNP 5380 upon admission on 03/30. Chart review showed last echo was completed in 2022. Showed an EF of 60 65% and abnormal diastolic function, global longitudinal strain at 15.6%, trace to moderate valvular disease noted, mild pulmonary hypertension. - monitor I&Os and daily weights - given IV fluids in the ED, monitor toleration. Additionally she was give given 20 of Lasix IV due to the elevated BNP in the ED. - update echo 03/31: -Echo performed, Left ventricular systolic function is normal, estimated at 55- 60. -Pt denies CP, SOB, or palpitations. 04/01: Continues to deny CP, SOB, or palpitations. Continue Lasix (5) Diabetes: Qualifiers: Diabetes mellitus complication status: without complication Diabetes mellitus skilled nursing insulin use: without marine oil terminal superintendent use Diabetes mellitus type: type 2 Qualified Code(s): E11.9 - Type 2 diabetes mellitus without complications Code(s): E11.9 - Type 2 diabetes mellitus without complications Status: Chronic Assessment and Plan: History of type 2 diabetes on oral medications. Glucose upon admission was 199. - hypoglycemia protocol - POC blood glucose ACHS - home medication: Previously on metformin, states she is not taking it at this time - correct regimen ordered - low dose TIDWM, based off BMI - A1C 7.1% on 08/28/2024, update 03/31: -A1c: 6.4 -Continue on inpt medication regimen (6) Hypertension: Qualifiers: Hypertension type: primary hypertension Qualified Code(s): I10 - Essential (primary) hypertension Code(s): I10 - Essential (primary) hypertension Status: Chronic Assessment and Plan: - chronic, initially hypertensive but stable. Arrived to the floor with a systolic in the 200s. Patient is unsure if she took her home antihypertensive medications this morning. - continue home medications: Lisinopril, metoprolol ER. Increase metoprolol to 150 -and p.r.n. labetalol - monitor (7) Hyperlipidemia: Qualifiers: Hyperlipidemia type: unspecified Qualified Code(s): E78.5 - Hyperlipidemia, unspecified Code(s): E78.5 - Hyperlipidemia, unspecified Status: Chronic Assessment and Plan: - continue rosuvastatin 03/31: -Lipid panel 08/2024 WDL (8) Atrial fibrillation with RVR: Code(s): I48.91 - Unspecified atrial fibrillation Status: Acute Assessment and Plan: 03/31 acute episode: On review of the patient's environmental monitoring technician has looks like the patient is likely been in AFib for at least on and off since around 22:00. She has been in AFib RVR since around 11 with variable rate is between the low 100s up to 160. Patient received a dose of IV Lopressor earlier in the evening with improvement in her heart rate down into the 90s to low 100s. But on review of the environmental monitoring technician it looks like the patient had actually been jumping up intermittently into the 110-130 throughout the evening until they called when she was persistently in the 130s -150. The patient received 3 serial doses of IV Lopressor without response. Although blood Lopressor did bring blood pressures down. An additional 10 mg of Lopressor was given while he was in route to see the patient. Again patient's heart rate did not improved. I did review the patient's chart and her potassium was 3.5 and magnesium was lower limit of normal. I have ordered 2 g of magnesium sulfate and 40 mEq potassium chloride rider. Patient will be transferred to IMU and placed on a Cardizem drip at 5 mg an hour. Will continue home metoprolol succinate 100 mg. Will start patient on a heparin drip per protocol. Echocardiogram has been ordered. 03/31: -Cardizem & heparin gtt -Echo obtained: Left ventricular systolic function is normal, estimated at 55- 60. -Tele 115 bpm 04/01: -Initially increase cardizem from 5mg/hr to 10mg/hr due to persistent afib in th e 110-120's. -Per cards, cardizem eventually decreased back to 5mg/hr later in the day with a planned increase in metop from 100 to 150mg daily. 04/02 currently on Cardizem at 5 milligram/hour. I will increase metoprolol to 150 mg p.o. daily and try to wean off diltiazem infusion. On Eliquis which will be continued 04/03 overnight ventricular rate is elevated likely contributed by agitation. C ontinue p.o. metoprolol continue Cardizem infusion continue apixaban Will discuss with Cardiology regarding further increasing the dose of metoprolol Management of delirium as below (9) Urinary retention: Code(s): R33.9 - Retention of urine, unspecified Status: Acute Assessment and Plan: 03/31 acute episode: The patient has acute urinary retention with 1.2 L of urine output. I was initially hopeful that decompressing the patient's bladder with Phillips catheter may improve her heart rate. However tachycardia persisted. Patient is not on any medications that could cause urinary retention. Nursing driven protocols been ordered for Phillips catheter management. 03/31: -Phillips in place (10) Hypokalemia: Code(s): E87.6 - Hypokalemia Status: Acute Assessment and Plan: Replacement ordered (11) Suicide ideation: Code(s): R45.851 - Suicidal ideations Status: Acute Assessment and Plan: 04/02 patient was transferred overnight and placed on suicide watch. Patient had argument with nursing staff in which she claimed that she was going to shoot herself and her with a pistol. This morning when I spoke to the patient she states that she had argument with the nurse and was angry and was saying mean things for no purpose. She felt that she was going to be operated upon and was asking nurse to sign the release form which she wore. She states she has guns at home but has never bothered to use them. Patient denies any suicidal or homicidal ideation at this time. She states she has never thought or considered about hurting herself or her . She has a good relationship with her . She has never been diagnosed with depression and has never been on any antidepressants. Her was at bedside is also surprised with the events of this morning. He states that she is normally happy at home and functional as much as she can be do physical disabilities. She uses a cane to go to the stores and ER. She Move around the house and watch TV. He is a Royer and has guns but states that his has never shown any interest and his guns. He has not noticed any evidence of her being depressed, sad or expressing suicidal or homicidal ideations prior to this. Patient states that she was be angry and with nursing staff and had a disagreement and said these things which he she did not mean. She feels better now. She is clear that she does not feel sad or depressed and has no interest in hurting herself or anyone else. After discussing nurses staff it appears the patient did had some confusion at night and delirium may have played some role. At this time I will discontinue suicide precautions and continue monitoring. Patient may need intervention for delirium. Will try to minimize and prevent delirium by awaiting sedatives and orientation (12) Delirium: Code(s): R41.0 - Disorientation, unspecified Status: Acute Assessment and Plan: Overnight patient was agitated and confused. Had to be physically restrained. She was given Haldol and Zyprexa. I will start patient on Seroquel at night Plan Diet: Diabetic DVT Prophylaxis: Eliquis Lines/Tubes: Peripheral IV Code Status: Full code Subjective Date/time seen: 04/03/25 Overnight patient was agitated and had to be physically restrained. She also was given IV Haldol and Zyprexa. Her ventricular rate was elevated Drowsy this morning after administration of those medication but arousable but confused. Unable to provide any history but nodes no to pain or shortness of breath. Review of system is not obtainable. She is only partially oriented. She moves all 4 extremities. PACs on lines and tubes. She was able to eat her breakfast with help of the nurse. Review of Systems Review of Systems: All systems reviewed & are unremarkable except as noted in HPI and below (HPI) Exam Narrative: General: Pt is alert awake and in NAD Lungs/Chest: Trachea central Clear BS B/L, No crackles or wheezing. Cardiac: RRR. Normal S1 S2. No murmurs Circulation: Pedal pulses are intact and symmetrical. Abdomen: Normal bowel sounds.. Soft. NT. ND. Extremities: No clubbing, cyanosis or edema. Warm : Phillips in place Neurologic: Physically restrained, confused, oriented x1, drowsy but arousable. , moves all 4 extremities, PERRL Skin: No Rash Objective Data Vital Signs Vital Signs: Vital Signs - 24 hr 04/02/25 10:36 04/02/25 10:42 04/02/25 10:50 Temperature Pulse Rate 95 Respiratory Rate Blood Pressure Pulse Oximetry Oxygen Delivery Room Air Room Air 04/02/25 12:00 04/02/25 12:00 04/02/25 12:00 Temperature 37.0 C Pulse Rate 93 84 78 Respiratory Rate 16 Blood Pressure 132/78 132/78 Pulse Oximetry 96 Oxygen Delivery 04/02/25 14:00 04/02/25 14:00 04/02/25 14:00 Temperature Pulse Rate 81 81 85 Respiratory Rate 17 Blood Pressure 159/84 H 159/84 H Pulse Oximetry 96 Oxygen Delivery 04/02/25 16:00 04/02/25 16:00 04/02/25 16:00 Temperature 36.7 C Pulse Rate 85 103 H 91 Respiratory Rate 25 H Blood Pressure 159/84 H 137/112 H Pulse Oximetry 95 Oxygen Delivery 04/02/25 18:00 04/02/25 18:00 04/02/25 18:00 Temperature Pulse Rate 101 H 114 H 114 H Respiratory Rate 28 H Blood Pressure 138/95 H 138/95 H Pulse Oximetry 96 Oxygen Delivery 04/02/25 20:00 04/02/25 20:00 04/02/25 20:00 Temperature 36.8 C Pulse Rate 91 91 Respiratory Rate 17 Blood Pressure 154/78 H 154/78 H Pulse Oximetry 97 Oxygen Delivery Room Air 04/02/25 20:00 04/02/25 22:00 04/02/25 22:00 Temperature Pulse Rate 96 99 99 Respiratory Rate Blood Pressure 99/69 L Pulse Oximetry Oxygen Delivery 04/02/25 22:00 04/03/25 00:00 04/03/25 00:00 Temperature 36.8 C Pulse Rate 109 H 114 H Respiratory Rate 18 Blood Pressure 99/69 L 128/96 H Pulse Oximetry 94 Oxygen Delivery Room Air 04/03/25 00:00 04/03/25 00:00 04/03/25 01:40 Temperature 36.8 C Pulse Rate 138 H 154 H 140 H Respiratory Rate 14 20 Blood Pressure 128/96 H 174/127 H Pulse Oximetry 97 92 Oxygen Delivery 04/03/25 01:55 04/03/25 02:00 04/03/25 02:00 Temperature Pulse Rate 139 H 140 H 137 H Respiratory Rate 22 H 22 H Blood Pressure 170/112 H 170/112 H Pulse Oximetry 93 92 Oxygen Delivery 04/03/25 02:04 04/03/25 02:10 04/03/25 02:25 Temperature Pulse Rate 140 H 137 H 136 H Respiratory Rate 26 H 26 H Blood Pressure 170/112 H 181/145 H 159/111 H Pulse Oximetry 91 91 Oxygen Delivery 04/03/25 02:40 04/03/25 02:55 04/03/25 02:59 Temperature Pulse Rate 137 H 144 H 167 H Respiratory Rate 22 H Blood Pressure 149/99 H 149/99 H 142/109 H Pulse Oximetry 96 Oxygen Delivery 04/03/25 02:59 04/03/25 03:05 04/03/25 03:20 Temperature Pulse Rate 167 H 140 H 119 H Respiratory Rate 31 H 24 H Blood Pressure 142/109 H 142/109 H 154/88 H Pulse Oximetry 92 92 Oxygen Delivery 04/03/25 03:35 04/03/25 03:40 04/03/25 03:50 Temperature Pulse Rate 112 H 122 H 115 H Respiratory Rate 28 H 22 H 23 H Blood Pressure 139/118 H 157/129 H 145/97 H Pulse Oximetry 92 92 93 Oxygen Delivery 04/03/25 04:00 04/03/25 04:00 04/03/25 04:00 Temperature 37.1 C Pulse Rate 119 H 134 H Respiratory Rate 18 Blood Pressure 147/77 H 147/77 H Pulse Oximetry 95 Oxygen Delivery Room Air 04/03/25 04:00 04/03/25 04:05 04/03/25 04:40 Temperature Pulse Rate 133 H 113 H 125 H Respiratory Rate 21 H 25 H Blood Pressure 164/88 H 148/108 H Pulse Oximetry 93 95 Oxygen Delivery 04/03/25 05:05 04/03/25 06:00 04/03/25 06:00 Temperature Pulse Rate 129 H 126 H 123 H Respiratory Rate 25 H 24 H Blood Pressure 149/112 H 155/91 H Pulse Oximetry 94 93 Oxygen Delivery 04/03/25 06:04 04/03/25 06:05 04/03/25 09:16 Temperature Pulse Rate 126 H 113 H 131 H Respiratory Rate 24 H Blood Pressure 132/118 H 155/91 H Pulse Oximetry 96 Oxygen Delivery Intake/Output Intake/Output: Intake & Output 03/31/25 04/01/25 04/02/25 04/03/25 23:59 23:59 23:59 23:59 Intake Total 2108.2 1757.5 486.6 106.2 Output Total 2150 700 1350 850 Balance -41.8 1057.5 -863.4 -743.8 Meds/Results Medications: Active Medications Generic Name Dose Route Start Last Admin Trade Name Freq PRN Reason Stop Dose Admin Acetaminophen 650 mg 03/30/25 14:58 03/30/25 20:09 Acetaminophen 325 Mg Tablet PO 650 mg Q6H PRN Administration fever or pain 1-3 Albuterol/Ipratropium 3 ml 03/30/25 14:58 Ipratropium 0.5 Mg/Albuterol Sulfate 2.5 Mg (Base) Ampul.Neb 3 Ml INHALATION Q6H PRN Wheezing Amoxicillin/Clavulanate Potassium 1 tablet 04/02/25 21:00 04/03/25 09:16 Amoxicillin/Clavulanate K 875-125 Mg Tab PO 04/07/25 20:59 1 tablet Q12HR SHANNAN Administration Apixaban 5 mg 04/01/25 17:00 04/03/25 09:16 Apixaban 5 Mg Tablet PO 5 mg Q12HR SHANNAN Administration Benzonatate 100 mg 03/30/25 14:58 Benzonatate 100 Mg Capsule PO TID PRN Cough Dextrose 12.5 gm 03/30/25 15:12 Dextrose 50% 25 Gm/50 Ml Syringe IV PUSH PRN PRN Hypoglycemia Protocol Doxycycline Hyclate 100 mg 04/02/25 21:00 04/03/25 09:16 Doxycycline Hyclate 100 Mg Tablet PO 04/05/25 23:59 100 mg Q12HR SHANNAN Administration Furosemide 40 mg 04/02/25 09:00 04/03/25 09:16 Furosemide 40 Mg Tablet PO 40 mg DAILY SHANNAN Administration Glucagon 1 mg 03/30/25 15:12 Glucagon For Inj 1 Mg Vial IM PRN PRN Hypoglycemia Protocol Glucose 15 gm 03/30/25 15:12 Glucose Oral Gel 15 Gm Of Glucse In 37.5 Gm Tube PO PRN PRN Hypoglycemia Protocol Guaifenesin 600 mg 03/30/25 21:00 04/03/25 09:16 Guaifenesin 12 Hr 600 Mg Tabcr PO 600 mg Q12HR SHANNAN Administration Dextrose 1,000 mls @ 100 mls/hr 03/30/25 15:12 Dextrose 5% 1,000 Ml IVPB PRN PRN Hypoglycemia Protocol Diltiazem HCl 100 mg in 100 mls @ 10 mls/hr 04/01/25 08:30 04/03/25 06:04 Cardizem 100 Mg/100 Ml IV CONT 10 mg/hr .Q10H SHANNAN 10 mls/hr 10 MG/HR Infusion Insulin Aspart 2 - 5 units 03/30/25 17:00 04/03/25 09:06 Insulin Aspart (*Bkc) 100 Units/Ml SUB-Q Not Given TIDWM SHANNAN Protocol Labetalol HCl 20 mg 04/02/25 10:21 Labetalol Hcl Inj 100 Mg/20 Ml Vial IV PUSH Q4H PRN SBP > 160 and HR> 60 -1st choice Lisinopril 20 mg 03/31/25 09:00 04/03/25 09:16 Lisinopril 20 Mg Tablet PO 20 mg DAILY SHANNAN Administration Metoprolol Succinate 150 mg 04/03/25 09:00 04/03/25 09:16 Metoprolol Succinate Ext Rel 50 Mg Tabcr PO 150 mg DAILY SHANNAN Administration Olanzapine 2.5 mg 04/03/25 21:00 Olanzapine 2.5 Mg Tablet PO QHS SHANNAN Ondansetron HCl 4 mg 03/30/25 14:59 Ondansetron Inj 4 Mg/2 Ml Vial IV PUSH Q4H PRN Nausea Phenol 1 spray 03/31/25 10:16 Phenol/Sod Pheno [place] (*Bkc) MUCOUS MEM PRN PRN Sore Throat Rosuvastatin Calcium 5 mg 03/31/25 09:00 04/03/25 09:16 Rosuvastatin 5 Mg Tablet PO 5 mg DAILY SHANNAN Administration Radiology Results: ITS Impressions Chest CT 03/30/25 13:41 IMPRESSION: 1. Pneumonia involving right middle lobe and right lower lobe. Labs Labs: Laboratory Results - last 24 hr 04/02/25 04/02/25 04/02/25 11:36 16:01 19:47 WBC RBC Hgb Hct MCV MCH MCHC RDW Plt Count MPV Immature Gran % (Auto) Neut % (Auto) Lymph % (Auto) [place] % (Auto) Eos % (Auto) Baso % (Auto) Lymph # (Auto) [place] # (Auto) Eos # (Auto) Baso # (Auto) Abs Immat Gran (auto) Absolute Neuts (auto) Absolute Nucleated RBC Nucleated RBC % Sodium Potassium Chloride Carbon Dioxide Anion Gap BUN Creatinine Estim Creat Clear Calc Estimated GFR Glucose POC Capillary Glucose 153 H 163 H 202 H Calcium Magnesium Total Bilirubin AST ALT Alkaline Phosphatase Total Protein Albumin 04/03/25 04/03/25 04:52 09:05 WBC 10.7 H RBC 3.87 L Hgb 11.1 L Hct 35.4 L MCV 91.5 MCH 28.7 MCHC 31.4 L RDW 13.7 Plt Count 261 MPV 9.8 Immature Gran % (Auto) 0.7 H Neut % (Auto) 83.0 H Lymph % (Auto) 9.3 L [place] % (Auto) 6.5 Eos % (Auto) 0.3 Baso % (Auto) 0.2 Lymph # (Auto) 1.00 [place] # (Auto) 0.7 H Eos # (Auto) 0.0 Baso # (Auto) 0.0 Abs Immat Gran (auto) 0.07 H Absolute Neuts (auto) 8.9 H Absolute Nucleated RBC 0.000 Nucleated RBC % 0.0 Sodium 138 Potassium 3.7 Chloride 109 H Carbon Dioxide 20 L Anion Gap 9 BUN 32 H D Creatinine 0.83 Estim Creat Clear Calc 40 Estimated GFR > 60 Glucose 153 H POC Capillary Glucose 151 H Calcium 8.8 Magnesium 2.0 Total Bilirubin 0.7 AST 32 ALT 25 Alkaline Phosphatase 91 Total Protein 6.9 Albumin 3.4 L Quality VTE Prophylaxis VTE prophylaxis: pharmacologic ordered
[2025-04-03] MEDS: dilTIAZem 100 MG/100 ML 100 MG/100 ML BAG IV CONT (16:45)
[2025-04-04] VITALS (29 sets, daily range): BP systolic 89–171; BP diastolic 53–114; PULSE 78–133; RESP 21–28; TEMP 36.6–37.3; O2SAT 92–100
[2025-04-04 07:51] LABS: Hematocrit 32.9 % (37.0-47.0); Hemoglobin 10.6 g/dL (12.0-15.0); Immature Granulocyte Percent A 0.5 % (0-0.5); Lymphocytes Absolute Auto 0.84 K/mm3 (0.9-3.2); Mean Corpuscular HGB Conc 32.2 g/dl (32-36); Mean Corpuscular Hemoglobin 28.6 pg (26-34); Mean Corpuscular Volume 88.7 fl (80-100); Nucleated Red Blood Cells Absolute Auto 0.000 K/mm3 (0.0-0.012); Nucleated Red Blood Cells Perc 0.0 % (0.0-0.2); Platelet Count Result 275 k/mm3 (150-375); Red Blood Count 3.71 M/mm3 (4.2-5.4); White Blood Count 11.1 K/mm3 (4.5-10.0)
[2025-04-04] MEDS: HYDROcodone/acetaminophen (*CRX) 5-325 MG TABLET 1 TAB PO (08:00)
[2025-04-04] MEDS: APIXABAN 5 MG TABLET PO ×2 (08:01→19:58)
[2025-04-04] MEDS: guaiFENesin 12 HR 600 MG TABCR PO ×2 (08:01→19:57)
[2025-04-04] MEDS: DOXYCYCLINE HYCLATE 100 MG TABLET PO ×2 (08:02→19:57)
[2025-04-04] MEDS: METOPROLOL SUCCINATE EXT REL 50 MG TABCR 150 MG PO (08:06)
[2025-04-04 08:12] LABS: Alanine Aminotransferase 21 U/L (6-35); Albumin Level 3.1 g/dL (3.5-5.1); Alkaline Phosphatase 82 U/L (38-126); Anion Gap 9 mmol/L (4-12); Aspartate Amino Transferase 30 U/L (14-36); Bilirubin,Total 0.8 mg/dL (0.2-1.3); Blood Urea Nitrogen 24 mg/dL (7-17); Calcium 8.5 mg/dL (8.4-10.2); Carbon Dioxide 21 mmol/L (22-30); Chloride 107 mmol/L (98-107); Estimated CRCL calculation 46 ml/min; Estimated Glomerular Filt Rate > 60; Glucose 145 mg/dL (65-110); Magnesium 1.8 mg/dL (1.6-2.3); Potassium 3.6 mmol/L (3.4-5.0); Sodium 137 mmol/L (137-145); Total Protein 6.4 g/dL (6.3-8.2)
[2025-04-04] MEDS: ROSUVASTATIN 5 MG TABLET PO (09:00)
[2025-04-04] MEDS: FUROSEMIDE 40 MG TABLET PO (09:00)
--- NOTE | 2025-04-04 09:18 | P.PNIM_ITS ---
Progress Note: A&P Assessment and Plan (1) Atrial fibrillation with RVR: Code(s): I48.91 - Unspecified atrial fibrillation Status: Acute Assessment and Plan: 03/31 acute episode: On review of the patient's campus monitor has looks like the patient is likely been in AFib for at least on and off since around 22:00. She has been in AFib RVR since around 11 with variable rate is between the low 100s up to 160. Patient received a dose of IV Lopressor earlier in the evening with improvement in her heart rate down into the 90s to low 100s. But on review of the campus monitor it looks like the patient had actually been jumping up intermittently into the 110-130 throughout the evening until they called when she was persistently in the 130s -150. The patient received 3 serial doses of IV Lopressor without response. Although blood Lopressor did bring blood pressures down. An additional 10 mg of Lopressor was given while he was in route to see the patient. Again patient's heart rate did not improved. I did review the patient's chart and her potassium was 3.5 and magnesium was lower limit of normal. I have ordered 2 g of magnesium sulfate and 40 mEq potassium chloride rider. Patient will be transferred to IMU and placed on a Cardizem drip at 5 mg an hour. Will continue home metoprolol succinate 100 mg. Will start patient on a heparin drip per protocol. Echocardiogram has been ordered. 03/31: -Cardizem & heparin gtt -Echo obtained: Left ventricular systolic function is normal, estimated at 55- 60. -Tele 115 bpm 04/01: -Initially increase cardizem from 5mg/hr to 10mg/hr due to persistent afib in the 110-120's. -Per cards, cardizem eventually decreased back to 5mg/hr later in the day with a planned increase in metop from 100 to 150mg daily. 04/02 currently on Cardizem at 5 milligram/hour. On metoprolol XL 150 mg p.o. daily and try to wean off diltiazem infusion. On Eliquis which will be continued Will discuss with Cardiology regarding adding Cardizem p.o. (2) Sepsis: Qualifiers: Sepsis type: sepsis due to unspecified organism Sepsis acute organ dysfunction status: without acute organ dysfunction Qualified Code(s): A41.9 - Sepsis, unspecified organism Code(s): A41.9 - Sepsis, unspecified organism Status: Acute Assessment and Plan: Patient met sepsis criteria at the time of presentation due to HR greater than 90 and WBC greater than 12. No hypoxia or hypotension noted. Chest CT concerning for right-sided pneumonia. Started on community-acquired coverage. Initially given 2L of fluid that was accompanied by a 1 time dose of Lasix due to an elevated BNP. Lactic acid was 2.3 which has improved to 1.7 procalcitonin 12 blood cultures negative UA showed no indication of infection. Viral PCR negative - started on ceftriaxone and doxycycline on 03/30 and patient was switched to p.o.. Augmentin (3) Pneumonia involving right lung: Qualifiers: Lung location: unspecified part of lung Pneumonia type: due to unspecif ied organism Qualified Code(s): J18.9 - Pneumonia, unspecified organism Code(s): J18.9 - Pneumonia, unspecified organism Status: Acute Assessment and Plan: On room air see above (4) Nausea and vomiting: Qualifiers: Vomiting type: unspecified Qualified Code(s): R11.2 - Nausea with vomiting, unspecified Code(s): R11.2 - Nausea with vomiting, unspecified Status: Acute Assessment and Plan: Resolved (5) Elevated brain natriuretic peptide (BNP) level: Code(s): R79.89 - Other specified abnormal findings of blood chemistry Status: Acute Assessment and Plan: BNP 5380 upon admission on 03/30. Chart review showed last echo was completed in 2022. Showed an EF of 60 65% and abnormal diastolic function, global longitudinal strain at 15.6%, trace to moderate valvular disease noted, mild pulmonary hypertension. - monitor I&Os and daily weights - given IV fluids in the ED, monitor toleration. Additionally she was give given 20 of Lasix IV due to the elevated BNP in the ED. - update echo 03/31: -Echo performed, Left ventricular systolic function is normal, estimated at 55- 60. -Pt denies CP, SOB, or palpitations. 04/01: Continues to deny CP, SOB, or palpitations. On p.o. Lasix (6) Diabetes: Qualifiers: Diabetes mellitus type: type 2 Diabetes mellitus assisted insulin use: without truck terminal manager use Diabetes mellitus complication status: without complication Qualified Code(s): E11.9 - Type 2 diabetes mellitus without complications Code(s): E11.9 - Type 2 diabetes mellitus without complications Status: Chronic Assessment and Plan: History of type 2 diabetes on oral medications. Glucose upon admission was 199. - hypoglycemia protocol - POC blood glucose ACHS - home medication: Previously on metformin, states she is not taking it at this time - correct regimen ordered - low dose TIDWM, based off BMI - A1C 7.1% on 08/28/2024, update 03/31: -A1c: 6.4 -Continue on inpt medication regimen (7) Hypertension: Qualifiers: Hypertension type: primary hypertension Qualified Code(s): I10 - Essential (primary) hypertension Code(s): I10 - Essential (primary) hypertension Status: Chronic Assessment and Plan: - chronic, initially hypertensive but stable. Arrived to the floor with a systolic in the 200s. Patient is unsure if she took her home antihypertensive medications this morning. - continue home medications: Lisinopril, metoprolol ER. Currently on metoprolol at 150 -continue p.r.n. labetalol - monitor (8) Hyperlipidemia: Qualifiers: Hyperlipidemia type: unspecified Qualified Code(s): E78.5 - Hyperlipidemia, unspecified Code(s): E78.5 - Hyperlipidemia, unspecified Status: Chronic Assessment and Plan: - continue rosuvastatin 03/31: -Lipid panel 08/2024 WDL (9) Urinary retention: Code(s): R33.9 - Retention of urine, unspecified Status: Acute Assessment and Plan: 03/31 acute episode: The patient has acute urinary retention with 1.2 L of urine output. I was initially hopeful that decompressing the patient's bladder with Phillips catheter may improve her heart rate. However tachycardia persisted. Patient is not on any medications that could cause urinary retention. Nursing driven protocols been ordered for Phillips catheter management. 03/31: -Phillips in place (10) Hypokalemia: Code(s): E87.6 - Hypokalemia Status: Acute Assessment and Plan: Replacement or (11) Suicide ideation: Code(s): R45.851 - Suicidal ideations Status: Acute Assessment and Plan: 04/02 patient was transferred overnight and placed on suicide watch. Patient had argument with nursing staff in which she claimed that she was going to shoot herself and her with a pistol. This morning when I spoke to the patient she states that she had argument with the nurse and was angry and was saying mean things for no purpose. She felt that she was going to be operated upon and was asking nurse to sign the release form which she wore. She states she has guns at home but has never bothered to use them. Patient denies any suicidal or homicidal ideation at this time. She states she has never thought or considered about hurting herself or her . She has a good relationship with her . She has never been diagnosed with depression and has never been on any antidepressants. Her was at bedside is also surprised with the events of this morning. He states that she is normally happy at home and functional as much as she can be do physical disabilities. She uses a cane to go to the stores and ER. She Move around the house and watch TV. He is a Royer and has guns but states that his has never shown any interest and his guns. He has not noticed any evidence of her being depressed, sad or expressing suicidal or homicidal ideations prior to this. Patient states that she was be angry and with nursing staff and had a disagreement and said these things which he she did not mean. She feels better now. She is clear that she does not feel sad or depressed and has no interest in hurting herself or anyone else. After discussing nurses staff it appears the patient did had some confusion at night and delirium may have played some role. At this time I will discontinue suicide precautions and continue monitoring. Patient may need intervention for delirium. Will try to minimize and prevent delirium by awaiting sedatives and orientation (12) Delirium: Code(s): R41.0 - Disorientation, unspecified Status: Acute Assessment and Plan: Improved with Seroquel. Continue Plan Diet: Diabetic GI Prophylaxis: N/a DVT Prophylaxis: Lovenox SQ IV fluids: N/A IV meds: Cardizem drip, Lines/Tubes: Peripheral IV Code Status: Full code Subjective Date/time seen: 04/04/25 Overnight events reviewed. Afebrile On room air. Continues to be in AFib with RVR. Overnight the ventricular rate was well controlled but heart rate elevated this morning when phlebotomy was trying to draw blood. She complains of pain in her knees and legs which is chronic. She denies any other complaints. Patient denies fever, chest pain, shortness of breath, cough, nausea vomiting, abdominal pain,, diarrhea, headache or constipation. All other systems were reviewed and were negative Telemetry shows atrial fibrillation Blood pressure slightly elevated. Review of Systems Review of Systems: All systems reviewed & are unremarkable except as noted in HPI and below (HPI) Exam Narrative: General: Pt is alert awake and in NAD Lungs/Chest: Trachea central Clear BS B/L, No crackles or wheezing. Cardiac: RRR. Normal S1 S2. No murmurs Circulation: Pedal pulses are intact and symmetrical. Abdomen: Normal bowel sounds.. Soft. NT. ND. Extremities: No clubbing, cyanosis or edema. Warm : Phillips in place Neurologic: Physically restrained, confused, oriented x1, drowsy but arousable. , moves all 4 extremities, PERRL Skin: No Rash Objective Data Vital Signs Vital Signs: Vital Signs - 24 hr 04/03/25 10:00 04/03/25 10:00 04/03/25 10:00 Temperature Pulse Rate 93 101 H 93 Respiratory Rate 23 H Blood Pressure 135/75 135/75 Pulse Oximetry Oxygen Delivery 04/03/25 10:01 04/03/25 10:34 04/03/25 11:00 Temperature Pulse Rate 96 86 95 Respiratory Rate 23 H 23 H Blood Pressure 135/75 135/75 Pulse Oximetry 93 Oxygen Delivery 04/03/25 11:01 04/03/25 12:00 04/03/25 12:00 Temperature Pulse Rate 92 96 Respiratory Rate 23 H Blood Pressure 123/102 H 147/86 H Pulse Oximetry 97 97 Oxygen Delivery Room Air 04/03/25 12:00 04/03/25 12:01 04/03/25 14:00 Temperature 36.5 C Pulse Rate 106 H 85 84 Respiratory Rate 24 H 23 H Blood Pressure 147/86 H 125/88 Pulse Oximetry 97 Oxygen Delivery 04/03/25 14:00 04/03/25 14:00 04/03/25 16:00 Temperature Pulse Rate 99 94 94 Respiratory Rate Blood Pressure 167/81 H 125/88 Pulse Oximetry Oxygen Delivery 04/03/25 16:00 04/03/25 16:00 04/03/25 16:00 Temperature Pulse Rate 84 96 Respiratory Rate 20 Blood Pressure 149/77 H Pulse Oximetry 93 93 Oxygen Delivery Room Air 04/03/25 16:45 04/03/25 18:00 04/03/25 18:00 Temperature Pulse Rate 83 95 95 Respiratory Rate 21 H Blood Pressure 149/77 H 168/93 H Pulse Oximetry 96 Oxygen Delivery 04/03/25 20:00 04/03/25 20:00 04/03/25 20:00 Temperature 36.9 C Pulse Rate 98 101 H 101 H Respiratory Rate 25 H Blood Pressure 155/92 H 155/92 H Pulse Oximetry 94 Oxygen Delivery 04/03/25 20:00 04/03/25 22:00 04/03/25 22:00 Temperature Pulse Rate 82 82 Respiratory Rate 25 H Blood Pressure 130/64 Pulse Oximetry 94 97 Oxygen Delivery Room Air 04/03/25 22:00 04/04/25 00:00 04/04/25 00:00 Temperature Pulse Rate 82 117 H 100 Respiratory Rate Blood Pressure 130/64 156/82 H Pulse Oximetry Oxygen Delivery 04/04/25 00:00 04/04/25 00:00 04/04/25 02:00 Temperature 36.9 C Pulse Rate 117 H 103 H Respiratory Rate 24 H 24 H Blood Pressure 156/82 H 143/94 H Pulse Oximetry 95 95 Oxygen Delivery Room Air 04/04/25 02:00 04/04/25 02:00 04/04/25 04:00 Temperature Pulse Rate 103 H 103 H Respiratory Rate Blood Pressure 143/94 H Pulse Oximetry 96 Oxygen Delivery Room Air 04/04/25 04:00 04/04/25 04:00 04/04/25 04:00 Temperature 36.7 C Pulse Rate 100 100 100 Respiratory Rate 27 H Blood Pressure 111/84 111/84 Pulse Oximetry 100 Oxygen Delivery 04/04/25 06:00 04/04/25 06:00 04/04/25 06:00 Temperature 36.8 C Pulse Rate 107 H 107 H 107 H Respiratory Rate 27 H Blood Pressure 158/88 H 158/88 H Pulse Oximetry 92 Oxygen Delivery 04/04/25 07:00 04/04/25 07:45 04/04/25 07:46 Temperature Pulse Rate 122 H 124 H 124 H Respiratory Rate Blood Pressure 171/89 H 162/114 H Pulse Oximetry Oxygen Delivery 04/04/25 08:00 04/04/25 08:00 04/04/25 08:00 Temperature 37.2 C Pulse Rate 133 H 115 H Respiratory Rate 28 H Blood Pressure 127/66 127/66 Pulse Oximetry 98 98 Oxygen Delivery Room Air 04/04/25 08:00 04/04/25 08:06 04/04/25 09:00 Temperature Pulse Rate 113 H 104 H 112 H Respiratory Rate Blood Pressure 135/64 Pulse Oximetry Oxygen Delivery 04/04/25 09:04 Temperature Pulse Rate 124 H Respiratory Rate Blood Pressure 135/64 Pulse Oximetry Oxygen Delivery Intake/Output Intake/Output: Intake & Output 04/01/25 04/02/25 04/03/25 04/04/25 23:59 23:59 23:59 23:59 Intake Total 1757.5 486.6 501.6 105 Output Total 700 1350 2150 300 Balance 1057.5 -863.4 -1648.4 -195 Meds/Results Medications: Active Medications Generic Name Dose Route Start Last Admin Trade Name Freq PRN Reason Stop Dose Admin Acetaminophen 650 mg 03/30/25 14:58 03/30/25 20:09 Acetaminophen 325 Mg Tablet PO 650 mg Q6H PRN Administration fever or pain 1-3 Hydrocodone Bitart/Acetaminophen 1 tab 04/04/25 07:39 04/04/25 08:00 Hydrocodone/Acetaminophen (*Crx) 5-325 Mg Tablet PO 1 tab Q4H PRN Administration Pain Rated 4-6 Hydrocodone Bitart/Acetaminophen 1 tab 04/04/25 07:39 Hydrocodone/Acetaminophen (*Crx) 10-325 Mg Tablet PO Q4H PRN Pain Rated 7-10 Albuterol/Ipratropium 3 ml 03/30/25 14:58 Ipratropium 0.5 Mg/Albuterol Sulfate 2.5 Mg (Base) Ampul.Neb 3 Ml INHALATION Q6H PRN Wheezing Amoxicillin/Clavulanate Potassium 1 tablet 04/02/25 21:00 04/04/25 08:00 Amoxicillin/Clavulanate K 875-125 Mg Tab PO 04/07/25 20:59 1 tablet Q12HR SHANNAN Administration Apixaban 5 mg 04/01/25 17:00 04/04/25 08:01 Apixaban 5 Mg Tablet PO 5 mg Q12HR SHANNAN Administration Benzonatate 100 mg 03/30/25 14:58 Benzonatate 100 Mg Capsule PO TID PRN Cough Dextrose 12.5 gm 03/30/25 15:12 Dextrose 50% 25 Gm/50 Ml Syringe IV PUSH PRN PRN Hypoglycemia Protocol Doxycycline Hyclate 100 mg 04/02/25 21:00 04/04/25 08:02 Doxycycline Hyclate 100 Mg Tablet PO 04/05/25 23:59 100 mg Q12HR SHANNAN Administration Furosemide 40 mg 04/02/25 09:00 04/03/25 09:16 Furosemide 40 Mg Tablet PO 40 mg DAILY SHANNAN Administration Glucagon 1 mg 03/30/25 15:12 Glucagon For Inj 1 Mg Vial IM PRN PRN Hypoglycemia Protocol Glucose 15 gm 03/30/25 15:12 Glucose Oral Gel 15 Gm Of Glucse In 37.5 Gm Tube PO PRN PRN Hypoglycemia Protocol Guaifenesin 600 mg 03/30/25 21:00 04/04/25 08:01 Guaifenesin 12 Hr 600 Mg Tabcr PO 600 mg Q12HR SHANNAN Administration Dextrose 1,000 mls @ 100 mls/hr 03/30/25 15:12 Dextrose 5% 1,000 Ml IVPB PRN PRN Hypoglycemia Protocol Diltiazem HCl 100 mg in 100 mls @ 5 mls/hr 04/03/25 16:05 04/04/25 09:00 Cardizem 100 Mg/100 Ml IV CONT 5 mg/hr .Q20H SHANNAN 5 mls/hr 5 MG/HR Infusion Insulin Aspart 2 - 5 units 03/30/25 17:00 04/04/25 07:51 Insulin Aspart (*Bkc) 100 Units/Ml SUB-Q Not Given TIDWM SHANNAN Protocol Labetalol HCl 20 mg 04/02/25 10:21 04/04/25 07:46 Labetalol Hcl Inj 100 Mg/20 Ml Vial IV PUSH 20 mg Q4H PRN Administration SBP > 160 and HR> 60 -1st choice Lisinopril 20 mg 03/31/25 09:00 04/03/25 09:16 Lisinopril 20 Mg Tablet PO 20 mg DAILY SHANNAN Administration Metoprolol Succinate 150 mg 04/03/25 09:00 04/04/25 08:06 Metoprolol Succinate Ext Rel 50 Mg Tabcr PO 150 mg DAILY SHANNAN Administration Ondansetron HCl 4 mg 03/30/25 14:59 Ondansetron Inj 4 Mg/2 Ml Vial IV PUSH Q4H PRN Nausea Phenol 1 spray 03/31/25 10:16 Phenol/Sod Pheno Frierson Conley (*Bkc) MUCOUS MEM PRN PRN Sore Throat Quetiapine Fumarate 25 mg 04/03/25 21:00 04/03/25 20:05 Quetiapine Fumarate 25 Mg Tablet PO 25 mg HS SHANNAN Administration Rosuvastatin Calcium 5 mg 03/31/25 09:00 04/03/25 09:16 Rosuvastatin 5 Mg Tablet PO 5 mg DAILY SHANNAN Administration Radiology Results: ITS Impressions Chest CT 03/30/25 13:41 IMPRESSION: 1. Pneumonia involving right middle lobe and right lower lobe. Labs Labs: Laboratory Results - last 24 hr 04/03/25 04/03/25 04/03/25 11:58 16:46 20:10 WBC RBC Hgb Hct MCV MCH MCHC RDW Plt Count MPV Immature Gran % (Auto) Neut % (Auto) Lymph % (Auto) [place] % (Auto) Eos % (Auto) Baso % (Auto) Lymph # (Auto) [place] # (Auto) Eos # (Auto) Baso # (Auto) Abs Immat Gran (auto) Absolute Neuts (auto) Absolute Nucleated RBC Nucleated RBC % Sodium Potassium Chloride Carbon Dioxide Anion Gap BUN Creatinine Estim Creat Clear Calc Estimated GFR Glucose POC Capillary Glucose 160 H 167 H 138 H Calcium Magnesium Total Bilirubin AST ALT Alkaline Phosphatase Total Protein Albumin 04/04/25 04/04/25 07:34 07:46 WBC 11.1 H RBC 3.71 L Hgb 10.6 L Hct 32.9 L MCV 88.7 MCH 28.6 MCHC 32.2 RDW 13.5 Plt Count 275 MPV 9.7 Immature Gran % (Auto) 0.5 Neut % (Auto) 83.7 H Lymph % (Auto) 7.6 L [place] % (Auto) 7.1 Eos % (Auto) 0.9 Baso % (Auto) 0.2 Lymph # (Auto) 0.84 L [place] # (Auto) 0.8 H Eos # (Auto) 0.1 Baso # (Auto) 0.0 Abs Immat Gran (auto) 0.06 H Absolute Neuts (auto) 9.3 H Absolute Nucleated RBC 0.000 Nucleated RBC % 0.0 Sodium 137 Potassium 3.6 Chloride 107 Carbon Dioxide 21 L Anion Gap 9 BUN 24 H Creatinine 0.71 Estim Creat Clear Calc 46 Estimated GFR > 60 Glucose 145 H POC Capillary Glucose 134 H Calcium 8.5 Magnesium 1.8 Total Bilirubin 0.8 AST 30 ALT 21 Alkaline Phosphatase 82 Total Protein 6.4 Albumin 3.1 L Quality VTE Prophylaxis VTE prophylaxis: pharmacologic ordered
[2025-04-04] MEDS: dilTIAZem 100 MG/100 ML 100 MG/100 ML BAG IV CONT (11:23)
[2025-04-04] MEDS: POTASSIUM CHLORIDE 10 MEQ ER TABLET PO (16:45)
[2025-04-04] MEDS: METOPROLOL TARTRATE 50 MG TAB 100 MG PO (19:58)
[2025-04-05] VITALS (23 sets, daily range): BP systolic 92–174; BP diastolic 40–151; PULSE 83–132; RESP 21–30; TEMP 36.3–36.8; O2SAT 92–99; BMI 23.5
[2025-04-05 04:28] LABS: Hematocrit 31.3 % (37.0-47.0); Hemoglobin 10.1 g/dL (12.0-15.0); Immature Granulocyte Percent A 0.9 % (0-0.5); Lymphocytes Absolute Auto 1.35 K/mm3 (0.9-3.2); Mean Corpuscular HGB Conc 32.3 g/dl (32-36); Mean Corpuscular Hemoglobin 28.9 pg (26-34); Mean Corpuscular Volume 89.4 fl (80-100); Nucleated Red Blood Cells Absolute Auto 0.000 K/mm3 (0.0-0.012); Nucleated Red Blood Cells Perc 0.0 % (0.0-0.2); Platelet Count Result 270 k/mm3 (150-375); Red Blood Count 3.50 M/mm3 (4.2-5.4); White Blood Count 12.8 K/mm3 (4.5-10.0)
[2025-04-05 04:52] LABS: Alanine Aminotransferase 22 U/L (6-35); Albumin Level 2.8 g/dL (3.5-5.1); Alkaline Phosphatase 83 U/L (38-126); Anion Gap 6 mmol/L (4-12); Aspartate Amino Transferase 31 U/L (14-36); Bilirubin,Total 0.5 mg/dL (0.2-1.3); Blood Urea Nitrogen 35 mg/dL (7-17); Calcium 8.4 mg/dL (8.4-10.2); Carbon Dioxide 27 mmol/L (22-30); Chloride 104 mmol/L (98-107); Estimated CRCL calculation 32 ml/min; Estimated Glomerular Filt Rate 50; Glucose 165 mg/dL (65-110); Magnesium 1.8 mg/dL (1.6-2.3); Potassium 3.3 mmol/L (3.4-5.0); Sodium 137 mmol/L (137-145); Total Protein 6.0 g/dL (6.3-8.2)
[2025-04-05] MEDS: POTASSIUM CHLORIDE 20 MEQ PACKET (FOR LIQUID) 40 MEQ FEED TUBE ×2 (07:59→15:24)
[2025-04-05] MEDS: METOPROLOL TARTRATE 50 MG TAB 100 MG PO ×2 (08:00→20:18)
[2025-04-05] MEDS: ROSUVASTATIN 5 MG TABLET PO (08:00)
[2025-04-05] MEDS: DOXYCYCLINE HYCLATE 100 MG TABLET PO ×2 (08:00→20:19)
[2025-04-05] MEDS: POTASSIUM CHLORIDE 10 MEQ ER TABLET PO (08:00)
[2025-04-05] MEDS: guaiFENesin 12 HR 600 MG TABCR PO ×2 (08:00→20:19)
[2025-04-05] MEDS: APIXABAN 5 MG TABLET PO ×2 (08:00→20:19)
--- NOTE | 2025-04-05 08:28 | P.PNIM_ITS ---
Progress Note: A&P Assessment and Plan (1) Atrial fibrillation with RVR: Code(s): I48.91 - Unspecified atrial fibrillation Status: Acute Assessment and Plan: 03/31 acute episode: On review of the patient's healthcare financial analyst has looks like the patient is likely been in AFib for at least on and off since around 22:00. She has been in AFib RVR since around 11 with variable rate is between the low 100s up to 160. Patient received a dose of IV Lopressor earlier in the evening with improvement in her heart rate down into the 90s to low 100s. But on review of the healthcare financial analyst it looks like the patient had actually been jumping up intermittently into the 110-130 throughout the evening until they called when she was persistently in the 130s -150. The patient received 3 serial doses of IV Lopressor without response. Although blood Lopressor did bring blood pressures down. An additional 10 mg of Lopressor was given while he was in route to see the patient. Again patient's heart rate did not improved. I did review the patient's chart and her potassium was 3.5 and magnesium was lower limit of normal. I have ordered 2 g of magnesium sulfate and 40 mEq potassium chloride rider. Patient will be transferred to IMU and placed on a Cardizem drip at 5 mg an hour. Will continue home metoprolol succinate 100 mg. Will start patient on a heparin drip per protocol. Echocardiogram has been ordered. 03/31: -Cardizem & heparin gtt -Echo obtained: Left ventricular systolic function is normal, estimated at 55- 60. -Tele 115 bpm 04/01: -Initially increase cardizem from 5mg/hr to 10mg/hr due to persistent afib in the 110-120's. -Per cards, cardizem eventually decreased back to 5mg/hr later in the day with a planned increase in metop from 100 to 150mg daily. 04/04 currently on Cardizem at 5 milligram/hour. On metoprolol XL 150 mg p.o. daily and try to wean off diltiazem infusion. On Eliquis which will be continued Will discuss with Cardiology regarding adding Cardizem p.o. 04/05 AFib remains poorly controlled. Patient is on metoprolol which was changed to twice a day by Cardiology. She continues to be on Cardizem infusion. This morning she was at 2.5 and I increased it to 5 milligram/hour. I will discuss with Cardiology regarding adding p.o. Cardizem along with her Toprol. She is on Eliquis which will be continued. (2) Sepsis: Qualifiers: Sepsis type: sepsis due to unspecified organism Sepsis acute organ dysfunction status: without acute organ dysfunction Qualified Code(s): A41.9 - Sepsis, unspecified organism Code(s): A41.9 - Sepsis, unspecified organism Status: Acute Assessment and Plan: Patient met sepsis criteria at the time of presentation due to HR greater than 90 and WBC greater than 12. No hypoxia or hypotension noted. Chest CT concerning for right-sided pneumonia. Started on community-acquired coverage. Initially given 2L of fluid that was accompanied by a 1 time dose of Lasix due to an elevated BNP. Lactic acid was 2.3 which has improved to 1.7 procalcitonin 12 blood cultures negative UA showed no indication of infection. Viral PCR negative - started on ceftriaxone and doxycycline on 03/30 and patient was switched to p.o.. Augmentin (3) Pneumonia involving right lung: Qualifiers: Lung location: unspecified part of lung Pneumonia type: due to unspecified organism Qualified Code(s): J18.9 - Pneumonia, unspecified organism Code(s): J18.9 - Pneumonia, unspecified organism Status: Acute Assessment and Plan: On room air see above (4) Nausea and vomiting: Qualifiers: Vomiting type: unspecified Qualified Code(s): R11.2 - Nausea with vomiting, unspecified Code(s): R11.2 - Nausea with vomiting, unspecified Status: Acute Assessment and Plan: Resolved (5) Elevated brain natriuretic peptide (BNP) level: Code(s): R79.89 - Other specified abnormal findings of blood chemistry Status: Acute Assessment and Plan: BNP 5380 upon admission on 03/30. Chart review showed last echo was completed in 2022. Showed an EF of 60 65% and abnormal diastolic function, global longitudinal strain at 15.6%, trace to moderate valvular disease noted, mild pulmonary hypertension. - monitor I&Os and daily weights - given IV fluids in the ED, monitor toleration. Additionally she was give given 20 of Lasix IV due to the elevated BNP in the ED. - update echo 03/31: -Echo performed, Left ventricular systolic function is normal, estimated at 55- 60. -Pt denies CP, SOB, or palpitations. 04/01: Continues to deny CP, SOB, or palpitations. Hold Lasix (6) Diabetes: Qualifiers: Diabetes mellitus type: type 2 Diabetes mellitus cement mason helper insulin use: without cement mason helper use Diabetes mellitus complication status: without complication Qualified Code(s): E11.9 - Type 2 diabetes mellitus without complications Code(s): E11.9 - Type 2 diabetes mellitus without complications Status: Chronic Assessment and Plan: History of type 2 diabetes on oral medications. Glucose upon admission was 199. - hypoglycemia protocol - POC blood glucose ACHS - home medication: Previously on metformin, states she is not taking it at this time - correct regimen ordered - low dose TIDWM, based off BMI - A1C 7.1% on 08/28/2024, update 03/31: -A1c: 6.4 -Continue on inpt medication regimen (7) Hypertension: Qualifiers: Hypertension type: primary hypertension Qualified Code(s): I10 - Essential (primary) hypertension Code(s): I10 - Essential (primary) hypertension Status: Chronic Assessment and Plan: - chronic, initially hypertensive but stable. Arrived to the floor with a systolic in the 200s. Patient is unsure if she took her home antihypertensive medications this morning. - continue home medications: metoprolol ER. Currently on metoprolol at 100 b.i.d. -continue p.r.n. labetalol -hold lisinopril due to elevated creatinine and labile blood pressure - monitor (8) Hyperlipidemia: Qualifiers: Hyperlipidemia type: unspecified Qualified Code(s): E78.5 - Hyperlipidemia, unspecified Code(s): E78.5 - Hyperlipidemia, unspecified Status: Chronic Assessment and Plan: - continue rosuvastatin 03/31: -Lipid panel 08/2024 WDL (9) Urinary retention: Code(s): R33.9 - Retention of urine, unspecified Status: Acute Assessment and Plan: 03/31 acute episode: The patient has acute urinary retention with 1.2 L of urine output. I was initially hopeful that decompressing the patient's bladder with Phillips catheter may improve her heart rate. However tachycardia persisted. Patient is not on any medications that could cause urinary retention. Nursing driven protocols been ordered for Phillips catheter management. 03/31: -Phillips in place (10) Hypokalemia: Code(s): E87.6 - Hypokalemia Status: Acute Assessment and Plan: Replacement ordered (11) Suicide ideation: Code(s): R45.851 - Suicidal ideations Status: Acute Assessment and Plan: 04/02 patient was transferred overnight and placed on suicide watch. Patient had argument with nursing staff in which she claimed that she was going to shoot herself and her with a pistol. This morning when I spoke to the patient she states that she had argument with the nurse and was angry and was saying mean things for no purpose. She felt that she was going to be operated upon and was asking nurse to sign the release form which she wore. She states she has guns at home but has never bothered to use them. Patient denies any suicidal or homicidal ideation at this time. She states she has never thought or considered about hurting herself or her . She has a good relationship with her . She has never been diagnosed with depression and has never been on any antidepressants. Her was at bedside is also surprised with the events of this morning. He states that she is normally happy at home and functional as much as she can be do physical disabilities. She uses a cane to go to the stores and ER. She Move around the house and watch TV. He is a Royer and has guns but states that his has never shown any interest and his guns. He has not noticed any evidence of her being depressed, sad or expressing suicidal or homicidal ideations prior to this. Patient states that she was be angry and with nursing staff and had a disagreement and said these things which he she did not mean. She feels better now. She is clear that she does not feel sad or depressed and has no interest in hurting herself or anyone else. After discussing nurses staff it appears the patient did had some confusion at night and delirium may have played some role. At this time I will discontinue suicide precautions and continue monitoring. Patient may need intervention for delirium. Will try to minimize and prevent delirium by awaiting sedatives and orientation (12) Delirium: Code(s): R41.0 - Disorientation, unspecified Status: Acute Assessment and Plan: Improved with Seroquel. Continue (13) Elevated serum creatinine: Code(s): R79.89 - Other specified abnormal findings of blood chemistry Status: Acute Assessment and Plan: Creatinine increased to 1.05 Hold Lasix and lisinopril 250 mL 5% albumin bolus Monitor urine output electrolytes and creatinine Plan Diet: Diabetic GI Prophylaxis: N/a DVT Prophylaxis: Eliquis IV fluids: N/A IV meds: Cardizem drip, Lines/Tubes: Peripheral IV Code Status: Full code Subjective Date/time seen: 04/05/25 Patient is sleeping and was aroused. Denies any complaints. Feels better. Calm. His nurse reports no agitation overnight although she was confused. She pulled out her IV. AFib on the telemetry with intermittent RVR. She is on Cardizem at 2.5 mg. We have metoprolol was changed to twice a day by Cardiology yesterday. Her blood pressure and heart rate has been labile. Review of Systems Review of Systems: All systems reviewed & are unremarkable except as noted in HPI and below (HPI) Exam Narrative: General: Pt is alert awake and in NAD Lungs/Chest: Trachea central Clear BS B/L, No crackles or wheezing. Cardiac: RRR. Normal S1 S2. No murmurs Circulation: Pedal pulses are intact and symmetrical. Abdomen: Normal bowel sounds.. Soft. NT. ND. Extremities: No clubbing, cyanosis or edema. Warm : Phillips in place Neurologic: Physically restrained, confused, oriented x1, drowsy but arousable. , moves all 4 extremities, PERRL Skin: No Rash Objective Data Vital Signs Vital Signs: Vital Signs - 24 hr 04/04/25 09:00 04/04/25 09:04 04/04/25 10:00 Temperature Pulse Rate 112 H 124 H 133 H Respiratory Rate Blood Pressure 135/64 135/64 91/58 L Pulse Oximetry Oxygen Delivery Fraction of Inspired Oxygen 04/04/25 10:00 04/04/25 10:00 04/04/25 11:00 Temperature Pulse Rate 126 H 119 H 103 H Respiratory Rate 27 H Blood Pressure 91/58 L 119/67 Pulse Oximetry 96 Oxygen Delivery Fraction of Inspired Oxygen 04/04/25 11:23 04/04/25 11:23 04/04/25 12:00 Temperature Pulse Rate 97 97 Respiratory Rate Blood Pressure 120/62 120/62 Pulse Oximetry 96 Oxygen Delivery Room Air Fraction of Inspired Oxygen 04/04/25 12:00 04/04/25 12:00 04/04/25 12:00 Temperature 37.0 C Pulse Rate 102 H 119 H 119 H Respiratory Rate 25 H Blood Pressure 121/71 121/71 Pulse Oximetry 97 Oxygen Delivery Fraction of Inspired Oxygen 04/04/25 13:00 04/04/25 14:00 04/04/25 14:00 Temperature Pulse Rate 119 H 93 114 H Respiratory Rate 23 H Blood Pressure 131/76 139/85 Pulse Oximetry 98 Oxygen Delivery Fraction of Inspired Oxygen 04/04/25 14:00 04/04/25 15:00 04/04/25 15:37 Temperature 37.3 C Pulse Rate 120 H 102 H Respiratory Rate Blood Pressure 139/85 123/70 Pulse Oximetry Oxygen Delivery Fraction of Inspired Oxygen 04/04/25 16:00 04/04/25 16:00 04/04/25 16:00 Temperature Pulse Rate 101 H 92 Respiratory Rate 27 H Blood Pressure 135/71 135/71 Pulse Oximetry 98 97 Oxygen Delivery Room Air Fraction of Inspired Oxygen 04/04/25 16:00 04/04/25 17:00 04/04/25 18:00 Temperature Pulse Rate 110 H 122 H 102 H Respiratory Rate Blood Pressure 134/90 Pulse Oximetry Oxygen Delivery Fraction of Inspired Oxygen 04/04/25 18:00 04/04/25 18:00 04/04/25 19:43 Temperature 37.1 C Pulse Rate 105 H 97 92 Respiratory Rate 25 H 24 H Blood Pressure 103/58 L 103/58 L Pulse Oximetry 97 95 Oxygen Delivery Room Air Fraction of Inspired Oxygen 21 04/04/25 19:58 04/04/25 20:00 04/04/25 20:00 Temperature 36.6 C Pulse Rate 107 H 93 93 Respiratory Rate 21 H Blood Pressure 123/67 Pulse Oximetry 99 Oxygen Delivery Fraction of Inspired Oxygen 04/04/25 20:00 04/04/25 20:55 04/04/25 22:00 Temperature Pulse Rate 93 78 Respiratory Rate 28 H Blood Pressure 123/67 89/55 L Pulse Oximetry 99 98 Oxygen Delivery Room Air Fraction of Inspired Oxygen 04/04/25 22:00 04/04/25 22:00 04/04/25 22:33 Temperature Pulse Rate 78 78 78 Respiratory Rate Blood Pressure 89/55 L 104/53 L Pulse Oximetry Oxygen Delivery Fraction of Inspired Oxygen 04/04/25 23:46 04/05/25 00:00 04/05/25 00:00 Temperature 36.6 C Pulse Rate 101 H 101 H Respiratory Rate 27 H Blood Pressure 96/40 L Pulse Oximetry 98 98 Oxygen Delivery Room Air Fraction of Inspired Oxygen 04/05/25 00:00 04/05/25 02:00 04/05/25 02:00 Temperature Pulse Rate 101 H 98 98 Respiratory Rate Blood Pressure 96/40 L 92/46 L 92/46 L Pulse Oximetry Oxygen Delivery Fraction of Inspired Oxygen 04/05/25 02:00 04/05/25 02:53 04/05/25 03:35 Temperature Pulse Rate 98 102 H 95 Respiratory Rate Blood Pressure 114/74 125/70 Pulse Oximetry Oxygen Delivery Fraction of Inspired Oxygen 04/05/25 04:00 04/05/25 04:00 04/05/25 04:00 Temperature 36.6 C Pulse Rate 83 83 83 Respiratory Rate 23 H Blood Pressure 138/89 138/89 Pulse Oximetry 99 Oxygen Delivery Fraction of Inspired Oxygen 04/05/25 04:00 04/05/25 05:00 04/05/25 06:00 Temperature Pulse Rate 109 H 113 H Respiratory Rate Blood Pressure 134/119 H Pulse Oximetry 99 Oxygen Delivery Room Air Fraction of Inspired Oxygen 04/05/25 06:00 04/05/25 06:00 04/05/25 06:07 Temperature Pulse Rate 113 H 113 H 103 H Respiratory Rate 22 H Blood Pressure 174/151 H 174/151 H Pulse Oximetry 99 Oxygen Delivery Fraction of Inspired Oxygen 04/05/25 06:23 04/05/25 06:25 04/05/25 07:43 Temperature Pulse Rate 106 H 106 H 123 H Respiratory Rate Blood Pressure 126/80 126/80 138/101 H Pulse Oximetry Oxygen Delivery Fraction of Inspired Oxygen 04/05/25 08:00 04/05/25 08:00 Temperature 36.6 C Pulse Rate 120 H 114 H Respiratory Rate 23 H Blood Pressure 147/75 H Pulse Oximetry Oxygen Delivery Fraction of Inspired Oxygen Intake/Output Intake/Output: Intake & Output 04/02/25 04/03/25 04/04/25 04/05/25 23:59 23:59 23:59 23:59 Intake Total 486.6 501.6 772.8 72.9 Output Total 1350 2150 800 250 Balance -863.4 -1648.4 -27.2 -177.1 Meds/Results Medications: Active Medications Generic Name Dose Route Start Last Admin Trade Name Freq PRN Reason Stop Dose Admin Acetaminophen 650 mg 03/30/25 14:58 03/30/25 20:09 Acetaminophen 325 Mg Tablet PO 650 mg Q6H PRN Administration fever or pain 1-3 Hydrocodone Bitart/Acetaminophen 1 tab 04/04/25 07:39 04/04/25 08:00 Hydrocodone/Acetaminophen (*Crx) 5-325 Mg Tablet PO 1 tab Q4H PRN Administration Pain Rated 4-6 Hydrocodone Bitart/Acetaminophen 1 tab 04/04/25 07:39 Hydrocodone/Acetaminophen (*Crx) 10-325 Mg Tablet PO Q4H PRN Pain Rated 7-10 Albuterol/Ipratropium 3 ml 03/30/25 14:58 Ipratropium 0.5 Mg/Albuterol Sulfate 2.5 Mg (Base) Ampul.Neb 3 Ml INHALATION Q6H PRN Wheezing Amoxicillin/Clavulanate Potassium 1 tablet 04/02/25 21:00 04/05/25 08:00 Amoxicillin/Clavulanate K 875-125 Mg Tab PO 04/07/25 20:59 1 tablet Q12HR SHANNAN Administration Apixaban 5 mg 04/01/25 17:00 04/05/25 08:00 Apixaban 5 Mg Tablet PO 5 mg Q12HR SHANNAN Administration Benzonatate 100 mg 03/30/25 14:58 Benzonatate 100 Mg Capsule PO TID PRN Cough Dextrose 12.5 gm 03/30/25 15:12 Dextrose 50% 25 Gm/50 Ml Syringe IV PUSH PRN PRN Hypoglycemia Protocol Doxycycline Hyclate 100 mg 04/02/25 21:00 04/05/25 08:00 Doxycycline Hyclate 100 Mg Tablet PO 04/05/25 23:59 100 mg Q12HR SHANNAN Administration Glucagon 1 mg 03/30/25 15:12 Glucagon For Inj 1 Mg Vial IM PRN PRN Hypoglycemia Protocol Glucose 15 gm 03/30/25 15:12 Glucose Oral Gel 15 Gm Of Glucse In 37.5 Gm Tube PO PRN PRN Hypoglycemia Protocol Guaifenesin 600 mg 03/30/25 21:00 04/05/25 08:00 Guaifenesin 12 Hr 600 Mg Tabcr PO 600 mg Q12HR SHANNAN Administration Dextrose 1,000 mls @ 100 mls/hr 03/30/25 15:12 Dextrose 5% 1,000 Ml IVPB PRN PRN Hypoglycemia Protocol Diltiazem HCl 100 mg in 100 mls @ 5 mls/hr 04/03/25 16:05 04/05/25 07:43 Cardizem 100 Mg/100 Ml IV CONT 5 mg/hr .Q20H SHANNAN 5 mls/hr 5 MG/HR Infusion Albumin Human 250 mls @ 62.5 mls/hr 04/05/25 08:00 Albumin Human 5% IV CONT 04/05/25 11:59 .Q4H ONE Insulin Aspart 2 - 5 units 03/30/25 17:00 04/05/25 07:51 Insulin Aspart (*Bkc) 100 Units/Ml SUB-Q Not Given TIDWM [facility] Protocol Labetalol HCl 20 mg 04/02/25 10:21 04/05/25 06:07 Labetalol Hcl Inj 100 Mg/20 Ml Vial IV PUSH 20 mg Q4H PRN Administration SBP > 160 and HR> 60 -1st choice Metoprolol Tartrate 100 mg 04/04/25 21:00 04/05/25 08:00 Metoprolol Tartrate 50 Mg Tab PO 100 mg Q12HR SHANNAN Administration Ondansetron HCl 4 mg 03/30/25 14:59 Ondansetron Inj 4 Mg/2 Ml Vial IV PUSH Q4H PRN Nausea Phenol 1 spray 03/31/25 10:16 Phenol/Sod Pheno [place] (*Bkc) MUCOUS MEM PRN PRN Sore Throat Potassium Chloride 10 meq 04/05/25 08:00 04/05/25 08:00 Potassium Chloride 10 Meq Er Tablet PO 10 meq DAILY@0800 SHANNAN Administration Potassium Chloride 40 meq 04/05/25 08:00 04/05/25 07:59 Potassium Chloride 20 Meq Packet (For Liquid) FEED TUBE 04/05/25 14:01 40 meq Q6H SHANNAN Administration Quetiapine Fumarate 25 mg 04/03/25 21:00 04/04/25 19:57 Quetiapine Fumarate 25 Mg Tablet PO 25 mg HS SHANNAN Administration Rosuvastatin Calcium 5 mg 03/31/25 09:00 04/05/25 08:00 Rosuvastatin 5 Mg Tablet PO 5 mg DAILY SHANNAN Administration Radiology Results: ITS Impressions Chest CT 03/30/25 13:41 IMPRESSION: 1. Pneumonia involving right middle lobe and right lower lobe. Labs Labs: Laboratory Results - last 24 hr 04/04/25 04/04/25 04/04/25 11:13 16:47 20:03 WBC RBC Hgb Hct MCV MCH MCHC RDW Plt Count MPV Immature Gran % (Auto) Neut % (Auto) Lymph % (Auto) Centre % (Auto) Eos % (Auto) Baso % (Auto) Lymph # (Auto) Centre # (Auto) Eos # (Auto) Baso # (Auto) Abs Immat Gran (auto) Absolute Neuts (auto) Absolute Nucleated RBC Nucleated RBC % Sodium Potassium Chloride Carbon Dioxide Anion Gap BUN Creatinine Estim Creat Clear Calc Estimated GFR Glucose POC Capillary Glucose 191 H 179 H 238 H Calcium Magnesium Total Bilirubin AST ALT Alkaline Phosphatase Total Protein Albumin 04/05/25 04/05/25 03:34 07:26 WBC 12.8 H RBC 3.50 L Hgb 10.1 L Hct 31.3 L MCV 89.4 MCH 28.9 MCHC 32.3 RDW 13.6 Plt Count 270 MPV 10.2 Immature Gran % (Auto) 0.9 H Neut % (Auto) 78.6 H Lymph % (Auto) 10.5 L Centre % (Auto) 9.5 H Eos % (Auto) 0.4 Baso % (Auto) 0.1 L Lymph # (Auto) 1.35 Centre # (Auto) 1.2 H Eos # (Auto) 0.1 Baso # (Auto) 0.0 Abs Immat Gran (auto) 0.11 H Absolute Neuts (auto) 10.1 H Absolute Nucleated RBC 0.000 Nucleated RBC % 0.0 Sodium 137 Potassium 3.3 L Chloride 104 Carbon Dioxide 27 Anion Gap 6 BUN 35 H D Creatinine 1.05 H Estim Creat Clear Calc 32 Estimated GFR 50 L Glucose 165 H POC Capillary Glucose 159 H Calcium 8.4 Magnesium 1.8 Total Bilirubin 0.5 AST 31 ALT 22 Alkaline Phosphatase 83 Total Protein 6.0 L Albumin 2.8 L Quality VTE Prophylaxis VTE prophylaxis: pharmacologic ordered
[2025-04-05] MEDS: ALBUMIN HUMAN 5% 250 ML IV CONT (09:05)
--- NOTE | 2025-04-05 10:04 | P.PNCA_ITS ---
Progress Note: A&P Assessment and Plan (1) Atrial fibrillation with RVR: Code(s): I48.91 - Unspecified atrial fibrillation Status: Acute Assessment and Plan: This is a new diagnosis. Discussed the diagnosis of atrial fibrillation with the patient including pathophysiology, management strategies including rate versus rhythm control, and risks/complications of atrial fibrillation. For now, we will proceed with a rate control strategy. * She remains on diltiazem over the weekend. Her heart rate remains elevated, but overall improved with metoprolol tartrate 100 mg q.12 hours. Will discontinue diltiazem drip since she does not appear to be benefiting from it. * Give digoxin 125 mcg IV push now. Will observe her heart rate response and likely schedule p.o. digoxin * Continue metoprolol tartrate 100 mg q.12 hours * [id number] (age, gender, HTN, diabetes)-continue anticoagulation with Eliquis 5 mg q.12 hours. * Echo reviewed (2) Aortic stenosis: Code(s): I35.0 - Nonrheumatic aortic (valve) stenosis Status: Acute Assessment and Plan: Mild. Outpatient surveillance (3) Renal artery stenosis: Code(s): I70.1 - Atherosclerosis of renal artery Status: Acute Assessment and Plan: Follows at [place] (4) Hyperlipidemia: Code(s): E78.5 - Hyperlipidemia, unspecified Status: Chronic Assessment and Plan: Continue statin (5) Hypertension: Code(s): I10 - Essential (primary) hypertension Status: Chronic Assessment and Plan: At goal (6) Pneumonia involving right lung: Qualifiers: Lung location: unspecified part of lung Pneumonia type: due to unspecified organism Qualified Code(s): J18.9 - Pneumonia, unspecified organism Code(s): J18.9 - Pneumonia, unspecified organism Status: Acute Assessment and Plan: On abx. Management per hospitalist. Subjective Date/time seen: 04/05/25 10:04 Interval history: Cardiology follow up visit Date of service 04/02/2025: She feels well this morning and does not have any specific complaints. She was moved to ICU level of care because of suicidal and homicidal threats. She remains in atrial fibrillation heart rate generally 100- 120 beats per minute. She does not feel any palpitations, shortness of breath, chest pain. Date of service 04/05/2025: Feels okay. She is fatigued. She remains in atrial fibrillation with rapid ventricular response, rates variable but up to the 130s at times. She does not have any palpitations, chest pain, shortness of breath. Review of Systems Review of Systems: All systems reviewed & are unremarkable except as noted in HPI and below Exam Const: General: comfortable, no acute distress, alert and awake Orien tation/consciousness: patient oriented x3 HENMT: Head: normal to inspection Eyes: General: appearance normal, both eyes and all related structures Pupils: Equal, round and reactive pupils present Neck: Neck: normal visual inspection, supple and no JVD Carotids: normal carotid upstroke Resp: Effort & Inspection: normal respiratory effort Auscultation: clear to auscultation bilaterally Cardio: Rate: tachycardic Rhythm: abnormal rhythm regularly irregular Heart sounds: S1 normal heart sound present, S2 normal heart sound present and Murmur heart sound present systolic GI: Auscultation: normal bowel sounds Skin: General skin exam: normal color Neuro: General: patient oriented x3 Cranial nerves: Yes Equal, round and reactive pupils present Extrem: General: normal to inspection Other: No edema Psych: Appearance: grossly normal Mental Status: mental status grossly normal Objective Data Vital Signs Vital Signs: Vital Signs - 24 hr 04/04/25 11:00 04/04/25 11:23 04/04/25 11:23 Temperature Pulse Rate 103 H 97 97 Respiratory Rate Blood Pressure 119/67 120/62 120/62 Pulse Oximetry Oxygen Delivery Fraction of Inspired Oxygen 04/04/25 12:00 04/04/25 12:00 04/04/25 12:00 Temperature 37.0 C Pulse Rate 102 H 119 H Respiratory Rate 25 H Blood Pressure 121/71 Pulse Oximetry 96 97 Oxygen Delivery Room Air Fraction of Inspired Oxygen 04/04/25 12:00 04/04/25 13:00 04/04/25 14:00 Temperature Pulse Rate 119 H 119 H 93 Respiratory Rate Blood Pressure 121/71 131/76 Pulse Oximetry Oxygen Delivery Fraction of Inspired Oxygen 04/04/25 14:00 04/04/25 14:00 04/04/25 15:00 Temperature Pulse Rate 114 H 120 H 102 H Respiratory Rate 23 H Blood Pressure 139/85 139/85 123/70 Pulse Oximetry 98 Oxygen Delivery Fraction of Inspired Oxygen 04/04/25 15:37 04/04/25 16:00 04/04/25 16:00 Temperature 37.3 C Pulse Rate 101 H Respiratory Rate 27 H Blood Pressure 135/71 Pulse Oximetry 98 97 Oxygen Delivery Room Air Fraction of Inspired Oxygen 04/04/25 16:00 04/04/25 16:00 04/04/25 17:00 Temperature Pulse Rate 92 110 H 122 H Respiratory Rate Blood Pressure 135/71 134/90 Pulse Oximetry Oxygen Delivery Fraction of Inspired Oxygen 04/04/25 18:00 04/04/25 18:00 04/04/25 18:00 Temperature 37.1 C Pulse Rate 102 H 105 H 97 Respiratory Rate 25 H Blood Pressure 103/58 L 103/58 L Pulse Oximetry 97 Oxygen Delivery Fraction of Inspired Oxygen 04/04/25 19:43 04/04/25 19:58 04/04/25 20:00 Temperature Pulse Rate 92 107 H 93 Respiratory Rate 24 H Blood Pressure Pulse Oximetry 95 Oxygen Delivery Room Air Fraction of Inspired Oxygen 21 04/04/25 20:00 04/04/25 20:00 04/04/25 20:55 Temperature 36.6 C Pulse Rate 93 93 Respiratory Rate 21 H Blood Pressure 123/67 123/67 Pulse Oximetry 99 99 Oxygen Delivery Room Air Fraction of Inspired Oxygen 04/04/25 22:00 04/04/25 22:00 04/04/25 22:00 Temperature Pulse Rate 78 78 78 Respiratory Rate 28 H Blood Pressure 89/55 L 89/55 L Pulse Oximetry 98 Oxygen Delivery Fraction of Inspired Oxygen 04/04/25 22:33 04/04/25 23:46 04/05/25 00:00 Temperature 36.6 C Pulse Rate 78 101 H Respiratory Rate 27 H Blood Pressure 104/53 L 96/40 L Pulse Oximetry 98 98 Oxygen Delivery Room Air Fraction of Inspired Oxygen 04/05/25 00:00 04/05/25 00:00 04/05/25 02:00 Temperature Pulse Rate 101 H 101 H 98 Respiratory Rate Blood Pressure 96/40 L 92/46 L Pulse Oximetry Oxygen Delivery Fraction of Inspired Oxygen 04/05/25 02:00 04/05/25 02:00 04/05/25 02:53 Temperature Pulse Rate 98 98 102 H Respiratory Rate Blood Pressure 92/46 L 114/74 Pulse Oximetry Oxygen Delivery Fraction of Inspired Oxygen 04/05/25 03:35 04/05/25 04:00 04/05/25 04:00 Temperature 36.6 C Pulse Rate 95 83 83 Respiratory Rate 23 H Blood Pressure 125/70 138/89 Pulse Oximetry 99 Oxygen Delivery Fraction of Inspired Oxygen 04/05/25 04:00 04/05/25 04:00 04/05/25 05:00 Temperature Pulse Rate 83 109 H Respiratory Rate Blood Pressure 138/89 134/119 H Pulse Oximetry 99 Oxygen Delivery Room Air Fraction of Inspired Oxygen 04/05/25 06:00 04/05/25 06:00 04/05/25 06:00 Temperature Pulse Rate 113 H 113 H 113 H Respiratory Rate 22 H Blood Pressure 174/151 H 174/151 H Pulse Oximetry 99 Oxygen Delivery Fraction of Inspired Oxygen 04/05/25 06:07 04/05/25 06:23 04/05/25 06:25 Temperature Pulse Rate 103 H 106 H 106 H Respiratory Rate Blood Pressure 126/80 126/80 Pulse Oximetry Oxygen Delivery Fraction of Inspired Oxygen 04/05/25 07:43 04/05/25 08:00 04/05/25 08:00 Temperature 36.6 C Pulse Rate 123 H 120 H 114 H Respiratory Rate 23 H Blood Pressure 138/101 H 147/75 H Pulse Oximetry Oxygen Delivery Fraction of Inspired Oxygen 04/05/25 08:00 04/05/25 08:00 Temperature Pulse Rate 132 H Respiratory Rate Blood Pressure Pulse Oximetry Oxygen Delivery Room Air Fraction of Inspired Oxygen Intake/Output Intake/Output: Intake & Output 04/02/25 04/03/25 04/04/25 04/05/25 23:59 23:59 23:59 23:59 Intake Total 486.6 501.6 772.8 192.9 Output Total 1350 2150 800 250 Balance -863.4 -1648.4 -27.2 -57.1 Meds/Results Medications: Active Medications Generic Name Dose Route Start Last Admin Trade Name Freq PRN Reason Stop Dose Admin Acetaminophen 650 mg 03/30/25 14:58 03/30/25 20:09 Acetaminophen 325 Mg Tablet PO 650 mg Q6H PRN Administration fever or pain 1-3 Hydrocodone Bitart/Acetaminophen 1 tab 04/04/25 07:39 04/04/25 08:00 Hydrocodone/Acetaminophen (*Crx) 5-325 Mg Tablet PO 1 tab Q4H PRN Administration Pain Rated 4-6 Hydrocodone Bitart/Acetaminophen 1 tab 04/04/25 07:39 Hydrocodone/Acetaminophen (*Crx) 10-325 Mg Tablet PO Q4H PRN Pain Rated 7-10 Albuterol/Ipratropium 3 ml 03/30/25 14:58 Ipratropium 0.5 Mg/Albuterol Sulfate 2.5 Mg (Base) Ampul.Neb 3 Ml INHALATION Q6H PRN Wheezing Amoxicillin/Clavulanate Potassium 1 tablet 04/02/25 21:00 04/05/25 08:00 Amoxicillin/Clavulanate K 875-125 Mg Tab PO 04/07/25 20:59 1 tablet Q12HR SHANNAN Administration Apixaban 5 mg 04/01/25 17:00 04/05/25 08:00 Apixaban 5 Mg Tablet PO 5 mg Q12HR SHANNAN Administration Benzonatate 100 mg 03/30/25 14:58 Benzonatate 100 Mg Capsule PO TID PRN Cough Dextrose 12.5 gm 03/30/25 15:12 Dextrose 50% 25 Gm/50 Ml Syringe IV PUSH PRN PRN Hypoglycemia Protocol Doxycycline Hyclate 100 mg 04/02/25 21:00 04/05/25 08:00 Doxycycline Hyclate 100 Mg Tablet PO 04/05/25 23:59 100 mg Q12HR SHANNAN Administration Glucagon 1 mg 03/30/25 15:12 Glucagon For Inj 1 Mg Vial IM PRN PRN Hypoglycemia Protocol Glucose 15 gm 03/30/25 15:12 Glucose Oral Gel 15 Gm Of Glucse In 37.5 Gm Tube PO PRN PRN Hypoglycemia Protocol Guaifenesin 600 mg 03/30/25 21:00 04/05/25 08:00 Guaifenesin 12 Hr 600 Mg Tabcr PO 600 mg Q12HR SHANNAN Administration Dextrose 1,000 mls @ 100 mls/hr 03/30/25 15:12 Dextrose 5% 1,000 Ml IVPB PRN PRN Hypoglycemia Protocol Albumin Human 250 mls @ 62.5 mls/hr 04/05/25 08:00 04/05/25 09:05 Albumin Human 5% IV CONT 04/05/25 11:59 62.5 mls/hr .Q4H ONE Administration Insulin Aspart 2 - 5 units 03/30/25 17:00 04/05/25 07:51 Insulin Aspart (*Bkc) 100 Units/Ml SUB-Q Not Given TIDWM [facility] Protocol Labetalol HCl 20 mg 04/02/25 10:21 04/05/25 06:07 Labetalol Hcl Inj 100 Mg/20 Ml Vial IV PUSH 20 mg Q4H PRN Administration SBP > 160 and HR> 60 -1st choice Metoprolol Tartrate 100 mg 04/04/25 21:00 04/05/25 08:00 Metoprolol Tartrate 50 Mg Tab PO 100 mg Q12HR SHANNAN Administration Ondansetron HCl 4 mg 03/30/25 14:59 Ondansetron Inj 4 Mg/2 Ml Vial IV PUSH Q4H PRN Nausea Phenol 1 spray 03/31/25 10:16 Phenol/Sod Pheno [place] (*Bkc) MUCOUS MEM PRN PRN Sore Throat Potassium Chloride 10 meq 04/05/25 08:00 04/05/25 08:00 Potassium Chloride 10 Meq Er Tablet PO 10 meq DAILY@0800 SHANNAN Administration Potassium Chloride 40 meq 04/05/25 08:00 04/05/25 07:59 Potassium Chloride 20 Meq Packet (For Liquid) FEED TUBE 04/05/25 14:01 40 meq Q6H SHANNAN Administration Quetiapine Fumarate 25 mg 04/03/25 21:00 04/04/25 19:57 Quetiapine Fumarate 25 Mg Tablet PO 25 mg HS SHANNAN Administration Rosuvastatin Calcium 5 mg 03/31/25 09:00 04/05/25 08:00 Rosuvastatin 5 Mg Tablet PO 5 mg DAILY SHANNAN Administration Radiology Results: ITS Impressions Chest CT 03/30/25 13:41 IMPRESSION: 1. Pneumonia involving right middle lobe and right lower lobe. Labs Labs: Laboratory Results - last 24 hr 04/04/25 04/04/25 04/04/25 11:13 16:47 20:03 WBC RBC Hgb Hct MCV MCH MCHC RDW Plt Count MPV Immature Gran % (Auto) Neut % (Auto) Lymph % (Auto) [place] % (Auto) Eos % (Auto) Baso % (Auto) Lymph # (Auto) [place] # (Auto) Eos # (Auto) Baso # (Auto) Abs Immat Gran (auto) Absolute Neuts (auto) Absolute Nucleated RBC Nucleated RBC % Sodium Potassium Chloride Carbon Dioxide Anion Gap BUN Creatinine Estim Creat Clear Calc Estimated GFR Glucose POC Capillary Glucose 191 H 179 H 238 H Calcium Magnesium Total Bilirubin AST ALT Alkaline Phosphatase Total Protein Albumin 04/05/25 04/05/25 03:34 07:26 WBC 12.8 H RBC 3.50 L Hgb 10.1 L Hct 31.3 L MCV 89.4 MCH 28.9 MCHC 32.3 RDW 13.6 Plt Count 270 MPV 10.2 Immature Gran % (Auto) 0.9 H Neut % (Auto) 78.6 H Lymph % (Auto) 10.5 L [place] % (Auto) 9.5 H Eos % (Auto) 0.4 Baso % (Auto) 0.1 L Lymph # (Auto) 1.35 [place] # (Auto) 1.2 H Eos # (Auto) 0.1 Baso # (Auto) 0.0 Abs Immat Gran (auto) 0.11 H Absolute Neuts (auto) 10.1 H Absolute Nucleated RBC 0.000 Nucleated RBC % 0.0 Sodium 137 Potassium 3.3 L Chloride 104 Carbon Dioxide 27 Anion Gap 6 BUN 35 H D Creatinine 1.05 H Estim Creat Clear Calc 32 Estimated GFR 50 L Glucose 165 H POC Capillary Glucose 159 H Calcium 8.4 Magnesium 1.8 Total Bilirubin 0.5 AST 31 ALT 22 Alkaline Phosphatase 83 Total Protein 6.0 L Albumin 2.8 L Quality VTE Prophylaxis VTE prophylaxis: pharmacologic ordered
[2025-04-05] MEDS: DIGOXIN INJ 250 MCG/ML 2 ML AMP (*BKC) 125 MCG IV PUSH (10:09)
[2025-04-05] MEDS: POTASSIUM CHLORIDE 20 MEQ ER TABLET PO (10:11)
--- NOTE | 2025-04-05 15:24 | PCPTNOTE ---
Attempted to see patient for PT, however per RN advised not to see patient, patient just got back in bed and needed to rest.
[2025-04-05] MEDS: DIGOXIN INJ 250 MCG/ML 2 ML AMP (*BKC) IV PUSH (16:17)
[2025-04-05] MEDS: METOPROLOL TARTRATE 50 MG TAB PO (22:40)
[2025-04-06] VITALS (14 sets, daily range): BP systolic 110–172; BP diastolic 69–92; PULSE 10–116; RESP 18–31; TEMP 36.6–36.9; O2SAT 97–100
[2025-04-06 03:57] LABS: Hematocrit 30.6 % (37.0-47.0); Hemoglobin 9.8 g/dL (12.0-15.0); Immature Granulocyte Percent A 1.2 % (0-0.5); Lymphocytes Absolute Auto 1.60 K/mm3 (0.9-3.2); Mean Corpuscular HGB Conc 32.0 g/dl (32-36); Mean Corpuscular Hemoglobin 29.2 pg (26-34); Mean Corpuscular Volume 91.1 fl (80-100); Nucleated Red Blood Cells Absolute Auto 0.000 K/mm3 (0.0-0.012); Nucleated Red Blood Cells Perc 0.0 % (0.0-0.2); Platelet Count Result 266 k/mm3 (150-375); Red Blood Count 3.36 M/mm3 (4.2-5.4); White Blood Count 10.1 K/mm3 (4.5-10.0)
[2025-04-06 04:10] LABS: Alanine Aminotransferase 28 U/L (6-35); Albumin Level 2.9 g/dL (3.5-5.1); Alkaline Phosphatase 75 U/L (38-126); Anion Gap 4 mmol/L (4-12); Aspartate Amino Transferase 30 U/L (14-36); Bilirubin,Total 0.5 mg/dL (0.2-1.3); Blood Urea Nitrogen 39 mg/dL (7-17); Calcium 8.5 mg/dL (8.4-10.2); Carbon Dioxide 25 mmol/L (22-30); Chloride 108 mmol/L (98-107); Estimated CRCL calculation 34 ml/min; Estimated Glomerular Filt Rate 54; Glucose 146 mg/dL (65-110); Magnesium 1.8 mg/dL (1.6-2.3); Potassium 4.1 mmol/L (3.4-5.0); Sodium 137 mmol/L (137-145); Total Protein 5.9 g/dL (6.3-8.2)
--- NOTE | 2025-04-06 06:45 | P.CDI_ITS ---
CDI Query Clarification Request BMI: 23.6 Nutritional Diagnostic Statement: Please refer to the comprehensive nutrition assessment for further information. If you agree with diagnosis of Severe protein calorie malnutrition related to chronic loss of appetite as evidenced by weight loss 16%/5 months; intakes <75% needs >1 month; moderate muscle wasting and fat loss.Please specify severity if known: * Mild * Moderate * Severe * Other/Unknown <Lisa Schumacher RN - Last Filed: 04/06/25 06:45> Clarified Diagnosis Clarified Diagnosis: Severe <Rajendra Schilling MD - Last Filed: 04/07/25 07:15>
[2025-04-06] MEDS: MAGNESIUM SULF 2 GM/WATER 50ML 2 GM/50 ML BAG IVPB (08:13)
[2025-04-06] MEDS: guaiFENesin 12 HR 600 MG TABCR PO ×2 (08:17→20:29)
[2025-04-06] MEDS: POTASSIUM CHLORIDE 10 MEQ ER TABLET PO (08:17)
[2025-04-06] MEDS: APIXABAN 5 MG TABLET PO ×2 (08:18→20:29)
[2025-04-06] MEDS: ROSUVASTATIN 5 MG TABLET PO (08:18)
[2025-04-06] MEDS: METOPROLOL TARTRATE 50 MG TAB 100 MG PO (08:18)
--- NOTE | 2025-04-06 08:39 | P.PNCA_ITS ---
Progress Note: A&P Assessment and Plan (1) Atrial fibrillation with RVR: Code(s): I48.91 - Unspecified atrial fibrillation Status: Acute Assessment and Plan: This is a new diagnosis. Discussed the diagnosis of atrial fibrillation with the patient including pathophysiology, management strategies including rate versus rhythm control, and risks/complications of atrial fibrillation. For now, we will proceed with a rate control strategy. * Her heart rate is controlled this morning. Given extra 50mg metoprolol overnight. Will increae metoprolol to 125mg q12h today. * [id number] (age, gender, HTN, diabetes)-continue anticoagulation with Eliquis 5 mg q.12 hours. * If she becomes tachycardic with increased metoprolol dose, can consider ZBIGNIEW/DCCV. (2) Aortic stenosis: Code(s): I35.0 - Nonrheumatic aortic (valve) stenosis Status: Acute Assessment and Plan: Mild. Outpatient surveillance (3) Renal artery stenosis: Code(s): I70.1 - Atherosclerosis of renal artery Status: Acute Assessment and Plan: Follows at [place] (4) Hyperlipidemia: Qualifiers: Hyperlipidemia type: unspecified Qualified Code(s): E78.5 - Hyperlipidemia, unspecified Code(s): E78.5 - Hyperlipidemia, unspecified Status: Chronic Assessment and Plan: Continue statin (5) Hypertension: Qualifiers: Hypertension type: primary hypertension Qualified Code(s): I10 - Essential (primary) hypertension Code(s): I10 - Essential (primary) hypertension Status: Chronic Assessment and Plan: At goal (6) Pneumonia involving right lung: Qualifiers: Lung location: unspecified part of lung Pneumonia type: due to unspecified organism Qualified Code(s): J18.9 - Pneumonia, unspecified organism Code(s): J18.9 - Pneumonia, unspecified organism Status: Acute Assessment and Plan: On abx. Management per hospitalist. Subjective Date/time seen: 04/06/25 08:39 Interval history: Cardiology follow up visit Date of service 04/02/2025: She feels well this morning and does not have any specific complaints. She was moved to ICU level of care because of suicidal and homicidal threats. She remains in atrial fibrillation heart rate generally 100- 120 beats per minute. She does not feel any palpitations, shortness of breath, chest pain. Date of service 04/05/2025: Feels okay. She is fatigued. She remains in atrial fibrillation with rapid ventricular response, rates variable but up to the 130s at times. She does not have any palpitations, chest pain, shortness of breath. Date of service 04/06/2025: Feeling about the same today. Complaining of pain on her backside. No palpitations, shortness of breath, chest pain. Review of Systems Review of Systems: All systems reviewed & are unremarkable except as noted in HPI and below Exam Const: General: comfortable, no acute distress, alert and awake Orie ntation/consciousness: patient oriented x3 HENMT: Head: normal to inspection Eyes: General: appearance normal, both eyes and all related structures Pupils: Equal, round and reactive pupils present Neck: Neck: normal visual inspection, supple and no JVD Carotids: normal carotid upstroke Resp: Effort & Inspection: normal respiratory effort Auscultation: clear to auscultation bilaterally Cardio: Rate: regular rate Rhythm: abnormal rhythm regularly irregular Heart sounds: S1 normal heart sound present, S2 normal heart sound present and Murmur heart sound present systolic GI: Auscultation: normal bowel sounds Skin: General skin exam: normal color Neuro: General: patient oriented x3 Cranial nerves: Yes Equal, round and reactive pupils present Extrem: General: normal to inspection Other: No edema Psych: Appearance: grossly normal Mental Status: mental status grossly normal Objective Data Vital Signs Vital Signs: Vital Signs - 24 hr 04/05/25 10:00 04/05/25 10:00 04/05/25 10:00 Temperature 36.4 C Pulse Rate 131 H 113 H 113 H Respiratory Rate 30 H 22 H Blood Pressure 126/68 126/68 Pulse Oximetry 92 96 Oxygen Delivery Fraction of Inspired Oxygen 04/05/25 10:09 04/05/25 12:00 04/05/25 12:00 Temperature Pulse Rate 113 H 113 H 113 H Respiratory Rate 24 H Blood Pressure Pulse Oximetry 98 Oxygen Delivery Room Air Fraction of Inspired Oxygen 21 04/05/25 12:00 04/05/25 14:00 04/05/25 16:00 Temperature 36.3 C L Pulse Rate 113 H 114 H 124 H Respiratory Rate 24 H 21 H Blood Pressure 93/41 L 127/94 H Pulse Oximetry 98 99 Oxygen Delivery Fraction of Inspired Oxygen 04/05/25 16:00 04/05/25 16:00 04/05/25 16:17 Temperature Pulse Rate 113 H 113 H 126 H Respiratory Rate 24 H Blood Pressure Pulse Oximetry 98 Oxygen Delivery Room Air Fraction of Inspired Oxygen 21 04/05/25 18:00 04/05/25 20:00 04/05/25 20:00 Temperature 36.8 C Pulse Rate 114 H 115 H Respiratory Rate 30 H Blood Pressure 138/113 H Pulse Oximetry 97 Oxygen Delivery Room Air Fraction of Inspired Oxygen 04/05/25 20:00 04/05/25 20:18 04/05/25 22:00 Temperature Pulse Rate 98 106 H 107 H Respiratory Rate Blood Pressure Pulse Oximetry Oxygen Delivery Fraction of Inspired Oxygen 04/05/25 22:40 04/06/25 00:00 04/06/25 00:00 Temperature 36.7 C Pulse Rate 103 H 109 H Respiratory Rate 31 H Blood Pressure 126/85 Pulse Oximetry 97 Oxygen Delivery Room Air Fraction of Inspired Oxygen 04/06/25 00:00 04/06/25 02:00 04/06/25 04:00 Temperature Pulse Rate 114 H 91 Respiratory Rate Blood Pressure Pulse Oximetry Oxygen Delivery Room Air Fraction of Inspired Oxygen 04/06/25 04:00 04/06/25 04:33 04/06/25 04:34 Temperature 36.8 C Pulse Rate 100 93 92 Respiratory Rate 28 H Blood Pressure 172/92 H Pulse Oximetry 97 Oxygen Delivery Fraction of Inspired Oxygen 04/06/25 06:00 04/06/25 08:00 04/06/25 08:18 Temperature 36.7 C Pulse Rate 109 H 97 116 H Respiratory Rate 21 H Blood Pressure 154/87 H Pulse Oximetry 99 Oxygen Delivery Fraction of Inspired Oxygen Intake/Output Intake/Output: Intake & Output 04/03/25 04/04/25 04/05/25 04/06/25 23:59 23:59 23:59 23:59 Intake Total 501.6 772.8 672.9 100 Output Total 2150 800 400 350 Balance -1648.4 -27.2 272.9 -250 Meds/Results Medications: Active Medications Generic Name Dose Route Start Last Admin Trade Name Freq PRN Reason Stop Dose Admin Acetaminophen 650 mg 03/30/25 14:58 03/30/25 20:09 Acetaminophen 325 Mg Tablet PO 650 mg Q6H PRN Administration fever or pain 1-3 Hydrocodone Bitart/Acetaminophen 1 tab 04/04/25 07:39 04/04/25 08:00 Hydrocodone/Acetaminophen (*Crx) 5-325 Mg Tablet PO 1 tab Q4H PRN Administration Pain Rated 4-6 Hydrocodone Bitart/Acetaminophen 1 tab 04/04/25 07:39 Hydrocodone/Acetaminophen (*Crx) 10-325 Mg Tablet PO Q4H PRN Pain Rated 7-10 Albuterol/Ipratropium 3 ml 03/30/25 14:58 Ipratropium 0.5 Mg/Albuterol Sulfate 2.5 Mg (Base) Ampul.Neb 3 Ml INHALATION Q6H PRN Wheezing Amoxicillin/Clavulanate Potassium 1 tablet 04/02/25 21:00 04/06/25 08:17 Amoxicillin/Clavulanate K 875-125 Mg Tab PO 04/07/25 20:59 1 tablet Q12HR SHANNAN Administration Apixaban 5 mg 04/01/25 17:00 04/06/25 08:18 Apixaban 5 Mg Tablet PO 5 mg Q12HR SHANNAN Administration Benzonatate 100 mg 03/30/25 14:58 Benzonatate 100 Mg Capsule PO TID PRN Cough Dextrose 12.5 gm 03/30/25 15:12 Dextrose 50% 25 Gm/50 Ml Syringe IV PUSH PRN PRN Hypoglycemia Protocol Glucagon 1 mg 03/30/25 15:12 Glucagon For Inj 1 Mg Vial IM PRN PRN Hypoglycemia Protocol Glucose 15 gm 03/30/25 15:12 Glucose Oral Gel 15 Gm Of Glucse In 37.5 Gm Tube PO PRN PRN Hypoglycemia Protocol Guaifenesin 600 mg 03/30/25 21:00 04/06/25 08:17 Guaifenesin 12 Hr 600 Mg Tabcr PO 600 mg Q12HR SHANNAN Administration Dextrose 1,000 mls @ 100 mls/hr 03/30/25 15:12 Dextrose 5% 1,000 Ml IVPB PRN PRN Hypoglycemia Protocol Insulin Aspart 2 - 5 units 03/30/25 17:00 04/06/25 08:14 Insulin Aspart (*Bkc) 100 Units/Ml SUB-Q Not Given TIDWM SHANNAN Protocol Labetalol HCl 20 mg 04/02/25 10:21 04/06/25 04:34 Labetalol Hcl Inj 100 Mg/20 Ml Vial IV PUSH 20 mg Q4H PRN Administration SBP > 160 and HR> 60 -1st choice Metoprolol Tartrate 100 mg 04/04/25 21:00 04/06/25 08:18 Metoprolol Tartrate 50 Mg Tab PO 100 mg Q12HR SHANNAN Administration Ondansetron HCl 4 mg 03/30/25 14:59 Ondansetron Inj 4 Mg/2 Ml Vial IV PUSH Q4H PRN Nausea Phenol 1 spray 03/31/25 10:16 Phenol/Sod Pheno [place] (*Bkc) MUCOUS MEM PRN PRN Sore Throat Potassium Chloride 10 meq 04/05/25 08:00 04/06/25 08:17 Potassium Chloride 10 Meq Er Tablet PO 10 meq DAILY@0800 SHANNAN Administration Quetiapine Fumarate 25 mg 04/03/25 21:00 04/05/25 20:19 Quetiapine Fumarate 25 Mg Tablet PO 25 mg HS SHANNAN Administration Rosuvastatin Calcium 5 mg 03/31/25 09:00 04/06/25 08:18 Rosuvastatin 5 Mg Tablet PO 5 mg DAILY SHANNAN Administration Radiology Results: ITS Impressions Chest CT 03/30/25 13:41 IMPRESSION: 1. Pneumonia involving right middle lobe and right lower lobe. Labs Labs: Laboratory Results - last 24 hr 04/05/25 04/05/25 04/05/25 11:28 16:32 20:18 WBC RBC Hgb Hct MCV MCH MCHC RDW Plt Count MPV Immature Gran % (Auto) Neut % (Auto) Lymph % (Auto) [place] % (Auto) Eos % (Auto) Baso % (Auto) Lymph # (Auto) [place] # (Auto) Eos # (Auto) Baso # (Auto) Abs Immat Gran (auto) Absolute Neuts (auto) Absolute Nucleated RBC Nucleated RBC % Sodium Potassium Chloride Carbon Dioxide Anion Gap BUN Creatinine Estim Creat Clear Calc Estimated GFR Glucose POC Capillary Glucose 171 H 184 H 173 H Calcium Magnesium Total Bilirubin AST ALT Alkaline Phosphatase Total Protein Albumin 04/06/25 04/06/25 03:41 07:52 WBC 10.1 H RBC 3.36 L Hgb 9.8 L Hct 30.6 L MCV 91.1 MCH 29.2 MCHC 32.0 RDW 13.8 Plt Count 266 MPV 9.7 Immature Gran % (Auto) 1.2 H Neut % (Auto) 72.8 Lymph % (Auto) 15.8 L [place] % (Auto) 8.4 Eos % (Auto) 1.6 Baso % (Auto) 0.2 Lymph # (Auto) 1.60 [place] # (Auto) 0.9 H Eos # (Auto) 0.2 Baso # (Auto) 0.0 Abs Immat Gran (auto) 0.12 H Absolute Neuts (auto) 7.4 H Absolute Nucleated RBC 0.000 Nucleated RBC % 0.0 Sodium 137 Potassium 4.1 Chloride 108 H Carbon Dioxide 25 Anion Gap 4 BUN 39 H Creatinine 0.98 Estim Creat Clear Calc 34 Estimated GFR 54 L Glucose 146 H POC Capillary Glucose 137 H Calcium 8.5 Magnesium 1.8 Total Bilirubin 0.5 AST 30 ALT 28 Alkaline Phosphatase 75 Total Protein 5.9 L Albumin 2.9 L Quality VTE Prophylaxis VTE prophylaxis: pharmacologic ordered
[2025-04-06] MEDS: METOPROLOL TARTRATE 25 MG TABLET PO (09:13)
--- NOTE | 2025-04-06 10:37 | PC.NURSE ---
Administered 125mg of po metoprolol tartrate. Will insert a one time order of 25mg po metoprolol tartrate to make total 150mg this morning. Rescheduled 150mg start time for tonight 2100. [place] chavez.
--- NOTE | 2025-04-06 10:41 | PC.NURSE ---
Administered 100mg of po metoprolol tartrate. Will insert a one time order of 25mg po metoprolol tartrate to make total 125mg this morning. Rescheduled 125mg start time for tonight 2100. [facility] ch[place].
--- NOTE | 2025-04-06 11:48 | PM.IMPN ---
Progress Note: A&P Assessment and Plan (1) Atrial fibrillation with RVR: Code(s): I48.91 - Unspecified atrial fibrillation Status: Acute Assessment and Plan: 03/31 acute episode: On review of the patient's pipelaying fitter has looks like the patient is likely been in AFib for at least on and off since around 22:00. She has been in AFib RVR since around 11 with variable rate is between the low 100s up to 160. Patient received a dose of IV Lopressor earlier in the evening with improvement in her heart rate down into the 90s to low 100s. But on review of the pipelaying fitter it looks like the patient had actually been jumping up intermittently into the 110-130 throughout the evening until they called when she was persistently in the 130s -150. The patient received 3 serial doses of IV Lopressor without response. Although blood Lopressor did bring blood pressures down. An additional 10 mg of Lopressor was given while he was in route to see the patient. Again patient's heart rate did not improved. I did review the patient's chart and her potassium was 3.5 and magnesium was lower limit of normal. I have ordered 2 g of magnesium sulfate and 40 mEq potassium chloride rider. Patient will be transferred to IMU and placed on a Cardizem drip at 5 mg an hour. Will continue home metoprolol succinate 100 mg. Will start patient on a heparin drip per protocol. Echocardiogram has been ordered. 03/31: -Cardizem & heparin gtt -Echo obtained: Left ventricular systolic function is normal, estimated at 55-60. -Tele 115 bpm 04/01: -Initially increase cardizem from 5mg/hr to 10mg/hr due to persistent afib in the 110-120's. -Per cards, cardizem eventually decreased back to 5mg/hr later in the day with a planned increase in metop from 100 to 150mg daily. 04/04 currently on Cardizem at 5 milligram/hour. On metoprolol XL 150 mg p.o. daily and try to wean off diltiazem infusion. On Eliquis which will be continued Will discuss with Cardiology regarding adding Cardizem p.o. 04/05 AFib remains poorly controlled. Patient is on metoprolol which was changed to twice a day by Cardiology. She continues to be on Cardizem infusion. This morning she was at 2.5 and I increased it to 5 milligram/hour. I will discuss with Cardiology regarding adding p.o. Cardizem along with her Toprol. She is on Eliquis which will be continued. 04/06: Patient remains in AFib, metoprolol increased to 125 mg p.o. q.12 hours by Cardiology. He was also given digoxin on 04/05 with no benefit. Discussed with Cardiology, patient continues to have increased tachycardia on metoprolol, may consider ZBIGNIEW and cardioversion. Remains on Eliquis for anticoagulation (2) Sepsis: Qualifiers: Sepsis type: sepsis due to unspecified organism Sepsis acute organ dysfunction status: without acute organ dysfunction Qualified Code(s): A41.9 - Sepsis, unspecified organism Code(s): A41.9 - Sepsis, unspecified organism Status: Acute Assessment and Plan: Patient met sepsis criteria at the time of presentation due to HR greater than 90 and WBC greater than 12. No hypoxia or hypotension noted. Chest CT concerning for right-sided pneumonia. Started on community-acquired coverage. Initially given 2L of fluid that was accompanied by a 1 time dose of Lasix due to an elevated BNP. Lactic acid was 2.3 which has improved to 1.7 procalcitonin 12 blood cultures negative UA showed no indication of infection. Viral PCR negative -sputum cultures growing Pseudomonas, patient is on room air, could be colonization - started on ceftriaxone and doxycycline on 03/30 and patient was switched to p.o.. Augmentin (3) Pneumonia involving right lung: Qualifiers: Lung location: unspecified part of lung Pneumonia type: due to unspecified organism Qualified Code(s): J18.9 - Pneumonia, unspecified organism Code(s): J18.9 - Pneumonia, unspecified organism Status: Acute Assessment and Plan: On room air see above (4) Nausea and vomiting: Qualifiers: Vomiting type: unspecified Qualified Code(s): R11.2 - Nausea with vomiting, unspecified Code(s): R11.2 - Nausea with vomiting, unspecified Status: Acute Assessment and Plan: Resolved (5) Elevated brain natriuretic peptide (BNP) level: Code(s): R79.89 - Other specified abnormal findings of blood chemistry Status: Acute Assessment and Plan: BNP 5380 upon admission on 03/30. Chart review showed last echo was completed in 2022. Showed an EF of 60 65% and abnormal diastolic function, global longitudinal strain at 15.6%, trace to moderate valvular disease noted, mild pulmonary hypertension. - monitor I&Os and daily weights - given IV fluids in the ED, monitor toleration. Additionally she was give given 20 of Lasix IV due to the elevated BNP in the ED. - update echo 03/31: -Echo performed, Left ventricular systolic function is normal, estimated at 55-60. -Pt denies CP, SOB, or palpitations. 04/01: Continues to deny CP, SOB, or palpitations. Hold Lasix (6) Diabetes: Qualifiers: Diabetes mellitus type: type 2 Diabetes mellitus exterminator helper termite insulin use: without exterminator helper termite use Diabetes mellitus complication status: without complication Qualified Code(s): E11.9 - Type 2 diabetes mellitus without complications Code(s): E11.9 - Type 2 diabetes mellitus without complications Status: Chronic Assessment and Plan: History of type 2 diabetes on oral medications. Glucose upon admission was 199. - hypoglycemia protocol - POC blood glucose ACHS - home medication: Previously on metformin, states she is not taking it at this time - correct regimen ordered - low dose TIDWM, based off BMI - A1C 7.1% on 08/28/2024, update 03/31: -A1c: 6.4 -Continue on inpt medication regimen (7) Hypertension: Qualifiers: Hypertension type: primary hypertension Qualified Code(s): I10 - Essential (primary) hypertension Code(s): I10 - Essential (primary) hypertension Status: Chronic Assessment and Plan: - chronic, initially hypertensive but stable. Arrived to the floor with a systolic in the 200s. Patient is unsure if she took her home antihypertensive medications this morning. - continue home medications: metoprolol ER. Currently on metoprolol at 100 b.i.d. -continue p.r.n. labetalol -hold lisinopril due to elevated creatinine and labile blood pressure - monitor (8) Hyperlipidemia: Qualifiers: Hyperlipidemia type: unspecified Qualified Code(s): E78.5 - Hyperlipidemia, unspecified Code(s): E78.5 - Hyperlipidemia, unspecified Status: Chronic Assessment and Plan: - continue rosuvastatin 03/31: -Lipid panel 08/2024 WDL (9) Urinary retention: Code(s): R33.9 - Retention of urine, unspecified Status: Acute Assessment and Plan: 03/31 acute episode: The patient has acute urinary retention with 1.2 L of urine output. I was initially hopeful that decompressing the patient's bladder with Phillips catheter may improve her heart rate. However tachycardia persisted. Patient is not on any medications that could cause urinary retention. Nursing driven protocols been ordered for Phillips catheter management. 03/31: -Phillips in place (10) Hypokalemia: Code(s): E87.6 - Hypokalemia Status: Acute Assessment and Plan: Potassium has normalized, Will replace magnesium (11) Suicide ideation: Code(s): R45.851 - Suicidal ideations Status: Acute Assessment and Plan: 04/02 patient was transferred overnight and placed on suicide watch. Patient had argument with nursing staff in which she claimed that she was going to shoot herself and her with a pistol. This morning when I spoke to the patient she states that she had argument with the nurse and was angry and was saying mean things for no purpose. She felt that she was going to be operated upon and was asking nurse to sign the release form which she wore. She states she has guns at home but has never bothered to use them. Patient denies any suicidal or homicidal ideation at this time. She states she has never thought or considered about hurting herself or her . She has a good relationship with her . She has never been diagnosed with depression and has never been on any antidepressants. Her was at bedside is also surprised with the events of this morning. He states that she is normally happy at home and functional as much as she can be do physical disabilities. She uses a cane to go to the stores and ER. She Move around the house and watch TV. He is a Royer and has guns but states that his has never shown any interest and his guns. He has not noticed any evidence of her being depressed, sad or expressing suicidal or homicidal ideations prior to this. Patient states that she was be angry and with nursing staff and had a disagreement and said these things which he she did not mean. She feels better now. She is clear that she does not feel sad or depressed and has no interest in hurting herself or anyone else. After discussing nurses staff it appears the patient did had some confusion at night and delirium may have played some role. At this time I will discontinue suicide precautions and continue monitoring. Patient may need intervention for delirium. Will try to minimize and prevent delirium by awaiting sedatives and orientation (12) Delirium: Code(s): R41.0 - Disorientation, unspecified Status: Acute Assessment and Plan: Improved with Seroquel. Continue (13) Elevated serum creatinine: Code(s): R79.89 - Other specified abnormal findings of blood chemistry Status: Acute Assessment and Plan: Creatinine increased to 1.05 Hold Lasix and lisinopril 250 mL 5% albumin bolus Monitor urine output electrolytes and creatinine -creatinine has normalized to 0.98 Plan Diet: Diabetic GI Prophylaxis: N/a DVT Prophylaxis: Eliquis IV fluids: N/A Lines/Tubes: Peripheral IV Code Status: Full code Subjective Date/time seen: 04/06/25 11:48 Interval history: Aria Garcia is an 84-year-old female with hypertension, hyperlipidemia, type 2 diabetes mellitus, and dementia. This is a patient who presented to the hospital with complaints of nausea, vomiting, and fever, was found to be in atrial fibrillation with rapid ventricular response. Sepsis criteria for CT chest scan concerning for right-sided pneumonia. 04/06/2025: Patient being seen for hospitalist team Patient is awake, alert, oriented x1. Remains in AFib, rate controlled. Overnight she required additional dose of beta-cathy as she was in AFib RVR. Hemodynamically stable, on room air with adequate clearance. Urine output has been adequate. Tolerating p.o. diet Review of Systems Review of Systems: All systems reviewed & are unremarkable except as noted in HPI and below (HPI) Exam Narrative: General: Pt is alert awake and in NAD HEENT: Pupils are equal and reactive, sclera is clear, moist oral mucosa Lungs/Chest: Trachea central Clear BS B/L, No crackles or wheezing. Cardiac: RRR. Normal S1 S2. No murmurs Circulation: Pedal pulses are intact and symmetrical. Abdomen: Normal bowel sounds.. Soft. NT. ND. Extremities: No clubbing, cyanosis or edema. Warm : Phillips in place Neurologic: Patient is awake, alert, oriented x1, answers to questions and follows simple commands in all extremities Skin: Bruising noted upper extremity Objective Data Vital Signs Vital Signs: Vital Signs - 24 hr 04/05/25 12:00 04/05/25 12:00 04/05/25 12:00 Temperature Pulse Rate 113 H 113 H 113 H Respiratory Rate 24 H 24 H Blood Pressure 93/41 L Pulse Oximetry 98 98 Oxygen Delivery Room Air Fraction of Inspired Oxygen 21 04/05/25 14:00 04/05/25 16:00 04/05/25 16:00 Temperature 97.3 F L Pulse Rate 114 H 124 H 113 H Respiratory Rate 21 H 24 H Blood Pressure 127/94 H Pulse Oximetry 99 98 Oxygen Delivery Room Air Fraction of Inspired Oxygen 21 04/05/25 16:00 04/05/25 16:17 04/05/25 18:00 Temperature Pulse Rate 113 H 126 H 114 H Respiratory Rate Blood Pressure Pulse Oximetry Oxygen Delivery Fraction of Inspired Oxygen 04/05/25 20:00 04/05/25 20:00 04/05/25 20:00 Temperature 98.2 F Pulse Rate 115 H 98 Respiratory Rate 30 H Blood Pressure 138/113 H Pulse Oximetry 97 Oxygen Delivery Room Air Fraction of Inspired Oxygen 04/05/25 20:18 04/05/25 22:00 04/05/25 22:40 Temperature Pulse Rate 106 H 107 H 103 H Respiratory Rate Blood Pressure Pulse Oximetry Oxygen Delivery Fraction of Inspired Oxygen 04/06/25 00:00 04/06/25 00:00 04/06/25 00:00 Temperature 98.1 F Pulse Rate 109 H 114 H Respiratory Rate 31 H Blood Pressure 126/85 Pulse Oximetry 97 Oxygen Delivery Room Air Fraction of Inspired Oxygen 04/06/25 02:00 04/06/25 04:00 04/06/25 04:00 Temperature Pulse Rate 91 100 Respiratory Rate Blood Pressure Pulse Oximetry Oxygen Delivery Room Air Fraction of Inspired Oxygen 04/06/25 04:33 04/06/25 04:34 04/06/25 06:00 Temperature 98.3 F Pulse Rate 93 92 109 H Respiratory Rate 28 H Blood Pressure 172/92 H Pulse Oximetry 97 Oxygen Delivery Fraction of Inspired Oxygen 04/06/25 08:00 04/06/25 08:00 04/06/25 08:00 Temperature 98.0 F Pulse Rate 97 104 H Respiratory Rate 21 H Blood Pressure 154/87 H Pulse Oximetry 99 Oxygen Delivery Room Air Fraction of Inspired Oxygen 04/06/25 08:18 04/06/25 09:13 04/06/25 10:00 Temperature Pulse Rate 116 H 87 99 Respiratory Rate Blood Pressure Pulse Oximetry Oxygen Delivery Fraction of Inspired Oxygen Intake/Output Intake/Output: Intake & Output 04/03/25 04/04/25 04/05/25 04/06/25 23:59 23:59 23:59 23:59 Intake Total 501.6 772.8 672.9 510 Output Total 2150 800 400 350 Balance -1648.4 -27.2 272.9 160 Meds/Results Medications: Active Medications Generic Name Dose Route Start Last Admin Trade Name Freq PRN Reason Stop Dose Admin Acetaminophen 650 mg 03/30/25 14:58 03/30/25 20:09 Acetaminophen 325 Mg Tablet PO 650 mg Q6H PRN Administration fever or pain 1-3 Hydrocodone Bitart/Acetaminophen 1 tab 04/04/25 07:39 04/04/25 08:00 Hydrocodone/Acetaminophen (*Crx) 5-325 Mg Tablet PO 1 tab Q4H PRN Administration Pain Rated 4-6 Hydrocodone Bitart/Acetaminophen 1 tab 04/04/25 07:39 Hydrocodone/Acetaminophen (*Crx) 10-325 Mg Tablet PO Q4H PRN Pain Rated 7-10 Albuterol/Ipratropium 3 ml 03/30/25 14:58 Ipratropium 0.5 Mg/Albuterol Sulfate 2.5 Mg (Base) Ampul.Neb 3 Ml INHALATION Q6H PRN Wheezing Amoxicillin/Clavulanate Potassium 1 tablet 04/02/25 21:00 04/06/25 08:17 Amoxicillin/Clavulanate K 875-125 Mg Tab PO 04/07/25 20:59 1 tablet Q12HR SHANNAN Administration Apixaban 5 mg 04/01/25 17:00 04/06/25 08:18 Apixaban 5 Mg Tablet PO 5 mg Q12HR SHANNAN Administration Benzonatate 100 mg 03/30/25 14:58 Benzonatate 100 Mg Capsule PO TID PRN Cough Dextrose 12.5 gm 03/30/25 15:12 Dextrose 50% 25 Gm/50 Ml Syringe IV PUSH PRN PRN Hypoglycemia Protocol Glucagon 1 mg 03/30/25 15:12 Glucagon For Inj 1 Mg Vial IM PRN PRN Hypoglycemia Protocol Glucose 15 gm 03/30/25 15:12 Glucose Oral Gel 15 Gm Of Glucse In 37.5 Gm Tube PO PRN PRN Hypoglycemia Protocol Guaifenesin 600 mg 03/30/25 21:00 04/06/25 08:17 Guaifenesin 12 Hr 600 Mg Tabcr PO 600 mg Q12HR SHANNAN Administration Dextrose 1,000 mls @ 100 mls/hr 03/30/25 15:12 Dextrose 5% 1,000 Ml IVPB PRN PRN Hypoglycemia Protocol Insulin Aspart 2 - 5 units 03/30/25 17:00 04/06/25 08:14 Insulin Aspart (*Bkc) 100 Units/Ml SUB-Q Not Given TIDWM [facility] Protocol Labetalol HCl 20 mg 04/02/25 10:21 04/06/25 04:34 Labetalol Hcl Inj 100 Mg/20 Ml Vial IV PUSH 20 mg Q4H PRN Administration SBP > 160 and HR> 60 -1st choice Metoprolol Tartrate 125 mg 04/06/25 21:00 Metoprolol Tartrate 25 Mg Tablet PO Q12HR [facility] Ondansetron HCl 4 mg 03/30/25 14:59 Ondansetron Inj 4 Mg/2 Ml Vial IV PUSH Q4H PRN Nausea Phenol 1 spray 03/31/25 10:16 Phenol/Sod Pheno [place] (*Bkc) MUCOUS MEM PRN PRN Sore Throat Potassium Chloride 10 meq 04/05/25 08:00 04/06/25 08:17 Potassium Chloride 10 Meq Er Tablet PO 10 meq DAILY@0800 SHANNAN Administration Quetiapine Fumarate 25 mg 04/03/25 21:00 04/05/25 20:19 Quetiapine Fumarate 25 Mg Tablet PO 25 mg HS SHANNAN Administration Rosuvastatin Calcium 5 mg 03/31/25 09:00 04/06/25 08:18 Rosuvastatin 5 Mg Tablet PO 5 mg DAILY SHANNAN Administration Radiology Results: ITS Impressions Chest CT 03/30/25 13:41 IMPRESSION: 1. Pneumonia involving right middle lobe and right lower lobe. Labs Labs: Laboratory Results - last 24 hr 04/05/25 04/05/25 04/06/25 16:32 20:18 03:41 WBC 10.1 H RBC 3.36 L Hgb 9.8 L Hct 30.6 L MCV 91.1 MCH 29.2 MCHC 32.0 RDW 13.8 Plt Count 266 MPV 9.7 Immature Gran % (Auto) 1.2 H Neut % (Auto) 72.8 Lymph % (Auto) 15.8 L [place] % (Auto) 8.4 Eos % (Auto) 1.6 Baso % (Auto) 0.2 Lymph # (Auto) 1.60 [place] # (Auto) 0.9 H Eos # (Auto) 0.2 Baso # (Auto) 0.0 Abs Immat Gran (auto) 0.12 H Absolute Neuts (auto) 7.4 H Absolute Nucleated RBC 0.000 Nucleated RBC % 0.0 Sodium 137 Potassium 4.1 Chloride 108 H Carbon Dioxide 25 Anion Gap 4 BUN 39 H Creatinine 0.98 Estim Creat Clear Calc 34 Estimated GFR 54 L Glucose 146 H POC Capillary Glucose 184 H 173 H Calcium 8.5 Magnesium 1.8 Total Bilirubin 0.5 AST 30 ALT 28 Alkaline Phosphatase 75 Total Protein 5.9 L Albumin 2.9 L 04/06/25 04/06/25 07:52 11:42 WBC RBC Hgb Hct MCV MCH MCHC RDW Plt Count MPV Immature Gran % (Auto) Neut % (Auto) Lymph % (Auto) [place] % (Auto) Eos % (Auto) Baso % (Auto) Lymph # (Auto) [place] # (Auto) Eos # (Auto) Baso # (Auto) Abs Immat Gran (auto) Absolute Neuts (auto) Absolute Nucleated RBC Nucleated RBC % Sodium Potassium Chloride Carbon Dioxide Anion Gap BUN Creatinine Estim Creat Clear Calc Estimated GFR Glucose POC Capillary Glucose 137 H 193 H Calcium Magnesium Total Bilirubin AST ALT Alkaline Phosphatase Total Protein Albumin Quality VTE Prophylaxis VTE prophylaxis: pharmacologic ordered
[2025-04-06] MEDS: METOPROLOL TARTRATE 25 MG TABLET 125 MG PO (20:28)
[2025-04-07] VITALS (12 sets, daily range): BP systolic 104–148; BP diastolic 70–94; PULSE 84–125; RESP 22–26; TEMP 36.4–37.4; O2SAT 97–99
[2025-04-07 04:43] LABS: Hematocrit 31.5 % (37.0-47.0); Hemoglobin 9.5 g/dL (12.0-15.0); Immature Granulocyte Percent A 1.2 % (0-0.5); Lymphocytes Absolute Auto 2.06 K/mm3 (0.9-3.2); Mean Corpuscular HGB Conc 30.2 g/dl (32-36); Mean Corpuscular Hemoglobin 28.0 pg (26-34); Mean Corpuscular Volume 92.9 fl (80-100); Nucleated Red Blood Cells Absolute Auto 0.000 K/mm3 (0.0-0.012); Nucleated Red Blood Cells Perc 0.0 % (0.0-0.2); Platelet Count Result 296 k/mm3 (150-375); Red Blood Count 3.39 M/mm3 (4.2-5.4); White Blood Count 9.5 K/mm3 (4.5-10.0)
[2025-04-07 05:04] LABS: Alanine Aminotransferase 40 U/L (6-35); Albumin Level 2.9 g/dL (3.5-5.1); Alkaline Phosphatase 79 U/L (38-126); Anion Gap 4 mmol/L (4-12); Aspartate Amino Transferase 41 U/L (14-36); Bilirubin,Total 0.4 mg/dL (0.2-1.3); Blood Urea Nitrogen 39 mg/dL (7-17); Calcium 8.5 mg/dL (8.4-10.2); Carbon Dioxide 24 mmol/L (22-30); Chloride 108 mmol/L (98-107); Estimated CRCL calculation 35 ml/min; Estimated Glomerular Filt Rate 55; Glucose 133 mg/dL (65-110); Magnesium 2.5 mg/dL (1.6-2.3); Potassium 4.1 mmol/L (3.4-5.0); Sodium 136 mmol/L (137-145); Total Protein 5.9 g/dL (6.3-8.2)
[2025-04-07] MEDS: guaiFENesin 12 HR 600 MG TABCR PO ×2 (08:01→20:19)
[2025-04-07] MEDS: POTASSIUM CHLORIDE 10 MEQ ER TABLET PO (08:01)
[2025-04-07] MEDS: METOPROLOL TARTRATE 25 MG TABLET 125 MG PO (08:01)
[2025-04-07] MEDS: APIXABAN 5 MG TABLET PO ×2 (08:01→20:19)
[2025-04-07] MEDS: ROSUVASTATIN 5 MG TABLET PO (08:02)
--- NOTE | 2025-04-07 08:07 | P.PNIM_ITS ---
Progress Note: A&P Assessment and Plan (1) Atrial fibrillation with RVR: Code(s): I48.91 - Unspecified atrial fibrillation Status: Acute Assessment and Plan: Continue metoprolol 125 mg PO BID Continue Eliquis 5mg PO BID Cardiology will consider (2) Sepsis: Qualifiers: Sepsis acute organ dysfunction status: without acute organ dysfunction Sepsis type: sepsis due to unspecified organism Qualified Code(s): A41.9 - Sepsis, unspecified organism Code(s): A41.9 - Sepsis, unspecified organism Status: Acute Assessment and Plan: Status post ceftriaxone and doxycycline Patient will complete the course of Augmentin 04/07 (3) Pneumonia involving right lung: Qualifiers: Lung location: unspecified part of lung Pneumonia type: due to unspecified organism Qualified Code(s): J18.9 - Pneumonia, unspecified organism Code(s): J18.9 - Pneumonia, unspecified organism Status: Acute Assessment and Plan: On room air see above (4) Nausea and vomiting: Qualifiers: Vomiting type: unspecified Qualified Code(s): R11.2 - Nausea with vomiting, unspecified Code(s): R11.2 - Nausea with vomiting, unspecified Status: Acute Assessment and Plan: Resolved (5) Elevated brain natriuretic peptide (BNP) level: Code(s): R79.89 - Other specified abnormal findings of blood chemistry Status: Acute Assessment and Plan: -Echo performed, Left ventricular systolic function is normal, estimated at 55- 60. -order BNP (6) Diabetes: Qualifiers: Diabetes mellitus complication status: without complication Diabetes mellitus ferry terminal agent insulin use: without chcf use Diabetes mellitus type: type 2 Qualified Code(s): E11.9 - Type 2 diabetes mellitus without complications Code(s): E11.9 - Type 2 diabetes mellitus without complications Status: Chronic Assessment and Plan: Continue sliding scale (7) Hypertension: Qualifiers: Hypertension type: primary hypertension Qualified Code(s): I10 - Essential (primary) hypertension Code(s): I10 - Essential (primary) hypertension Status: Chronic Assessment and Plan: Holding lisinopril due to TIESHA P.r.n. labetalol Continue metoprolol 125 mg p.o. b.i.d. (8) Hyperlipidemia: Qualifiers: Hyperlipidemia type: unspecified Qualified Code(s): E78.5 - Hyperlipidemia, unspecified Code(s): E78.5 - Hyperlipidemia, unspecified Status: Chronic Assessment and Plan: - continue rosuvastatin 03/31: -Lipid panel 08/2024 WDL (9) Urinary retention: Code(s): R33.9 - Retention of urine, unspecified Status: Acute Assessment and Plan: Phillips in place (10) Hypokalemia: Code(s): E87.6 - Hypokalemia Status: Acute Assessment and Plan: Potassium has normalized, Will replace magnesium (11) Suicide ideation: Code(s): R45.851 - Suicidal ideations Status: Acute Assessment and Plan: Patient had episodes of delirium during the hospitalization. Continue to monitor (12) Delirium: Code(s): R41.0 - Disorientation, unspecified Status: Acute Assessment and Plan: Improved with Seroquel. Continue (13) Elevated serum creatinine: Code(s): R79.89 - Other specified abnormal findings of blood chemistry Status: Acute Assessment and Plan: Creatinine increased to 1.05 Hold Lasix and lisinopril 250 mL 5% albumin bolus Monitor urine output electrolytes and creatinine -creatinine has normalized to 0.98 Plan Diet: Diabetic GI Prophylaxis: N/a DVT Prophylaxis: Eliquis IV fluids: N/A Lines/Tubes: Peripheral IV Code Status: Full code Subjective Date/time seen: 04/07/25 08:07 Interval history: Patient has been seen for AFib with RVR and pneumonia. Patient is currently on metoprolol tartrate 125 mg p.o. b.i.d. and Eliquis 5 mg p.o. b.i.d.. Patient will complete the course of Augmentin today Review of Systems Review of Systems: All systems reviewed & are unremarkable except as noted in HPI and below (HPI) Exam Narrative: General: Pt is alert awake and in NAD HEENT: Pupils are equal and reactive, sclera is clear, moist oral mucosa Lungs/Chest: Trachea central Clear BS B/L, No crackles or wheezing. Cardiac: RRR. Normal S1 S2. No murmurs Circulation: Pedal pulses are intact and symmetrical. Abdomen: Normal bowel sounds.. Soft. NT. ND. Extremities: No clubbing, cyanosis or edema. Warm : Phillips in place Neurologic: Patient is awake, alert, oriented x1, answers to questions and follows simple commands in all extremities Skin: Bruising noted upper extremity Const: General: comfortable and no acute distress Other: , female, elderly HENMT: Face/Nose/Sinus: Normal nares present Mouth: Yes moist mucous membranes Other: + [place] Eyes: General: appearance normal, both eyes and all related structures Sclera: sclerae normal Pupils: Equal, round and reactive pupils present EOM: EOMs intact bilaterally Resp: Effort & Inspection: normal respiratory effort Other: Faint crackles in the right lung base, no wheezing. Cardio: Rate: regular rate and tachycardic Rhythm: regular rhythm and abnormal rhythm regularly irregular Other: Intermittently tachycardic, TELE 90 GI: Other: Abdomen soft, nondistended, nontender. Normoactive bowel sounds in all quadrants. Skin: General skin exam: normal color and no rashes or lesions noted Wounds: no wounds Neuro: Cranial nerves: Yes Equal, round and reactive pupils present Speech: normal speech Motor exam (neuro): 5/5 motor strength present throughout Sensory Exam: normal sensation Other: Alert to person, place, situation. Extrem: Other: Tenderness to the BLE with trace non-pitting edema, symmetric. Psych: Mental Status: mental status grossly normal Affect: normal affect Other: Fair to poor insight and judgment at present. Objective Data Vital Signs Vital Signs: Vital Signs - 24 hr 04/06/25 08:18 04/06/25 09:13 04/06/25 10:00 Temperature Pulse Rate 116 H 87 99 Respiratory Rate Blood Pressure Pulse Oximetry Oxygen Delivery 04/06/25 12:00 04/06/25 12:00 04/06/25 12:00 Temperature 97.9 F Pulse Rate 84 88 Respiratory Rate 18 Blood Pressure 110/74 Pulse Oximetry 99 Oxygen Delivery Room Air 04/06/25 16:00 04/06/25 16:00 04/06/25 20:00 Temperature 98.4 F 98.1 F Pulse Rate 96 111 H 10 L Respiratory Rate 20 29 H Blood Pressure 121/69 131/72 Pulse Oximetry 100 99 Oxygen Delivery 04/06/25 20:00 04/06/25 20:00 04/06/25 20:28 Temperature Pulse Rate 102 H 95 Respiratory Rate Blood Pressure Pulse Oximetry Oxygen Delivery Room Air 04/07/25 00:00 04/07/25 00:00 04/07/25 04:00 Temperature 98.4 F Pulse Rate 99 101 H 86 Respiratory Rate 24 H Blood Pressure 133/71 Pulse Oximetry 98 Oxygen Delivery 04/07/25 04:00 04/07/25 08:01 Temperature 98.2 F Pulse Rate 93 115 H Respiratory Rate 26 H Blood Pressure 125/70 Pulse Oximetry 98 Oxygen Delivery Intake/Output Intake/Output: Intake & Output 04/04/25 04/05/25 04/06/25 04/07/25 23:59 23:59 23:59 23:59 Intake Total 772.8 672.9 870 50 Output Total 800 400 700 300 Balance -27.2 272.9 170 -250 Meds/Results Medications: Active Medications Generic Name Dose Route Start Last Admin Trade Name Freq PRN Reason Stop Dose Admin Acetaminophen 650 mg 03/30/25 14:58 03/30/25 20:09 Acetaminophen 325 Mg Tablet PO 650 mg Q6H PRN Administration fever or pain 1-3 Hydrocodone Bitart/Acetaminophen 1 tab 04/04/25 07:39 04/04/25 08:00 Hydrocodone/Acetaminophen (*Crx) 5-325 Mg Tablet PO 1 tab Q4H PRN Administration Pain Rated 4-6 Hydrocodone Bitart/Acetaminophen 1 tab 04/04/25 07:39 Hydrocodone/Acetaminophen (*Crx) 10-325 Mg Tablet PO Q4H PRN Pain Rated 7-10 Albuterol/Ipratropium 3 ml 03/30/25 14:58 Ipratropium 0.5 Mg/Albuterol Sulfate 2.5 Mg (Base) Ampul.Neb 3 Ml INHALATION Q6H PRN Wheezing Amoxicillin/Clavulanate Potassium 1 tablet 04/02/25 21:00 04/07/25 08:01 Amoxicillin/Clavulanate K 875-125 Mg Tab PO 04/07/25 20:59 1 tablet Q12HR SHANNAN Administration Apixaban 5 mg 04/01/25 17:00 04/07/25 08:01 Apixaban 5 Mg Tablet PO 5 mg Q12HR SHANNAN Administration Benzonatate 100 mg 03/30/25 14:58 Benzonatate 100 Mg Capsule PO TID PRN Cough Dextrose 12.5 gm 03/30/25 15:12 Dextrose 50% 25 Gm/50 Ml Syringe IV PUSH PRN PRN Hypoglycemia Protocol Glucagon 1 mg 03/30/25 15:12 Glucagon For Inj 1 Mg Vial IM PRN PRN Hypoglycemia Protocol Glucose 15 gm 03/30/25 15:12 Glucose Oral Gel 15 Gm Of Glucse In 37.5 Gm Tube PO PRN PRN Hypoglycemia Protocol Guaifenesin 600 mg 03/30/25 21:00 04/07/25 08:01 Guaifenesin 12 Hr 600 Mg Tabcr PO 600 mg Q12HR SHANNAN Administration Dextrose 1,000 mls @ 100 mls/hr 03/30/25 15:12 Dextrose 5% 1,000 Ml IVPB PRN PRN Hypoglycemia Protocol Insulin Aspart 2 - 5 units 03/30/25 17:00 04/07/25 07:54 Insulin Aspart (*Bkc) 100 Units/Ml SUB-Q Not Given TIDWM SHANNAN Protocol Labetalol HCl 20 mg 04/02/25 10:21 04/06/25 04:34 Labetalol Hcl Inj 100 Mg/20 Ml Vial IV PUSH 20 mg Q4H PRN Administration SBP > 160 and HR> 60 -1st choice Metoprolol Tartrate 125 mg 04/06/25 21:00 04/07/25 08:01 Metoprolol Tartrate 25 Mg Tablet PO 125 mg Q12HR SHANNAN Administration Ondansetron HCl 4 mg 03/30/25 14:59 Ondansetron Inj 4 Mg/2 Ml Vial IV PUSH Q4H PRN Nausea Phenol 1 spray 03/31/25 10:16 Phenol/Sod Pheno Maunie Conley (*Bkc) MUCOUS MEM PRN PRN Sore Throat Potassium Chloride 10 meq 04/05/25 08:00 04/07/25 08:01 Potassium Chloride 10 Meq Er Tablet PO 10 meq DAILY@0800 SHANNAN Administration Quetiapine Fumarate 25 mg 04/03/25 21:00 04/06/25 20:29 Quetiapine Fumarate 25 Mg Tablet PO 25 mg HS SHANNAN Administration Rosuvastatin Calcium 5 mg 03/31/25 09:00 04/07/25 08:02 Rosuvastatin 5 Mg Tablet PO 5 mg DAILY SHANNAN Administration Radiology Results: ITS Impressions Chest CT 03/30/25 13:41 IMPRESSION: 1. Pneumonia involving right middle lobe and right lower lobe. Labs Labs: Laboratory Results - last 24 hr 04/06/25 04/06/25 04/06/25 11:42 16:39 20:46 WBC RBC Hgb Hct MCV MCH MCHC RDW Plt Count MPV Immature Gran % (Auto) Neut % (Auto) Lymph % (Auto) [place] % (Auto) Eos % (Auto) Baso % (Auto) Lymph # (Auto) [place] # (Auto) Eos # (Auto) Baso # (Auto) Abs Immat Gran (auto) Absolute Neuts (auto) Absolute Nucleated RBC Nucleated RBC % Sodium Potassium Chloride Carbon Dioxide Anion Gap BUN Creatinine Estim Creat Clear Calc Estimated GFR Glucose POC Capillary Glucose 193 H 143 H 194 H Calcium Phosphorus Magnesium Total Bilirubin AST ALT Alkaline Phosphatase Total Protein Albumin 04/07/25 04/07/25 04:15 07:27 WBC 9.5 RBC 3.39 L Hgb 9.5 L Hct 31.5 L MCV 92.9 MCH 28.0 MCHC 30.2 L RDW 13.9 Plt Count 296 MPV 9.9 Immature Gran % (Auto) 1.2 H Neut % (Auto) 65.9 Lymph % (Auto) 21.7 [place] % (Auto) 7.8 Eos % (Auto) 3.0 Baso % (Auto) 0.4 Lymph # (Auto) 2.06 [place] # (Auto) 0.7 H Eos # (Auto) 0.3 Baso # (Auto) 0.0 Abs Immat Gran (auto) 0.11 H Absolute Neuts (auto) 6.3 Absolute Nucleated RBC 0.000 Nucleated RBC % 0.0 Sodium 136 L Potassium 4.1 Chloride 108 H Carbon Dioxide 24 Anion Gap 4 BUN 39 H Creatinine 0.96 Estim Creat Clear Calc 35 Estimated GFR 55 L Glucose 133 H POC Capillary Glucose 134 H Calcium 8.5 Phosphorus 3.6 Magnesium 2.5 H Total Bilirubin 0.4 AST 41 H ALT 40 H Alkaline Phosphatase 79 Total Protein 5.9 L Albumin 2.9 L Quality VTE Prophylaxis VTE prophylaxis: pharmacologic ordered Hospitalist MIPS Advance Care Plan I have confirmed that the patient's Advanced Care Plan is present, code status is documented, or surrogate decision maker is listed in patient medical record.: Yes Medication Reconciliation I have utilized all available resources to obtain, update and review the patients current medications (includes all prescriptions, OTC, herbals, cannabis, and nutritional supplements).: Yes
--- NOTE | 2025-04-07 10:56 | PM.PNCARD ---
Progress Note: A&P Assessment and Plan (1) Atrial fibrillation with RVR: Code(s): I48.91 - Unspecified atrial fibrillation Status: Acute Plan 84-year-old lady with new onset of atrial fibrillation. Despite advancing metoprolol to fairly high dose she is persisting in AFib. Since this is new onset atrial fibrillation I am going to transition her medication to sotalol starting with this evening's dosage in hopes of restoring sinus rhythm. Hoang Vincent MD [facility] Subjective Date/time seen: Date of service: 04/07/25 10:56 Interval history: Cardiology follow up visit Date of service 04/02/2025: She feels well this morning and does not have any specific complaints. She was moved to ICU level of care because of suicidal and homicidal threats. She remains in atrial fibrillation heart rate generally 100- 120 beats per minute. She does not feel any palpitations, shortness of breath, chest pain. Date of service 04/05/2025: Feels okay. She is fatigued. She remains in atrial fibrillation with rapid ventricular response, rates variable but up to the 130s at times. She does not have any palpitations, chest pain, shortness of breath. Date of service 04/06/2025: Feeling about the same today. Complaining of pain on her backside. No palpitations, shortness of breath, chest pain. Date of service 04/07/2025: No specific complaints today, resting in bed, still in atrial fibrillation with heart rate between 90 and 110 Exam Const: General: comfortable, no acute distress, alert and awake Orientation/consciousness: patient oriented x3 HENMT: Head: normal to inspection Eyes: General: appearance normal, both eyes and all related structures Pupils: Equal, round and reactive pupils present Neck: Neck: normal visual inspection, supple and no JVD Carotids: normal carotid upstroke Resp: Effort & Inspection: normal respiratory effort Auscultation: clear to auscultation bilaterally Cardio: Rate: regular rate and tachycardic Rhythm: abnormal rhythm regularly irregular Heart sounds: S1 normal heart sound present, S2 normal heart sound present and Murmur heart sound present systolic GI: Auscultation: normal bowel sounds Skin: General skin exam: normal color Neuro: General: patient oriented x3 Cranial nerves: Yes Equal, round and reactive pupils present Extrem: General: normal to inspection Other: No edema Psych: Appearance: grossly normal Mental Status: mental status grossly normal Objective Data Vital Signs Vital Signs: Vital Signs - 24 hr 04/06/25 12:00 04/06/25 12:00 04/06/25 12:00 Temperature 36.6 C Pulse Rate 84 88 Respiratory Rate 18 Blood Pressure 110/74 Pulse Oximetry 99 Oxygen Delivery Room Air Fraction of Inspired Oxygen 04/06/25 16:00 04/06/25 16:00 04/06/25 20:00 Temperature 36.9 C 36.7 C Pulse Rate 96 111 H 10 L Respiratory Rate 20 29 H Blood Pressure 121/69 131/72 Pulse Oximetry 100 99 Oxygen Delivery Fraction of Inspired Oxygen 04/06/25 20:00 04/06/25 20:00 04/06/25 20:28 Temperature Pulse Rate 102 H 95 Respiratory Rate Blood Pressure Pulse Oximetry Oxygen Delivery Room Air Fraction of Inspired Oxygen 04/07/25 00:00 04/07/25 00:00 04/07/25 04:00 Temperature 36.9 C Pulse Rate 99 101 H 86 Respiratory Rate 24 H Blood Pressure 133/71 Pulse Oximetry 98 Oxygen Delivery Fraction of Inspired Oxygen 04/07/25 04:00 04/07/25 08:00 04/07/25 08:00 Temperature 36.8 C Pulse Rate 93 90 90 Respiratory Rate 26 H 26 H Blood Pressure 125/70 Pulse Oximetry 98 97 Oxygen Delivery Room Air Fraction of Inspired Oxygen 04/07/25 08:00 04/07/25 08:01 Temperature 36.4 C Pulse Rate 90 115 H Respiratory Rate 24 H Blood Pressure 139/75 Pulse Oximetry 97 Oxygen Delivery Fraction of Inspired Oxygen Intake/Output Intake/Output: Intake & Output 04/04/25 04/05/25 04/06/25 04/07/25 23:59 23:59 23:59 23:59 Intake Total 772.8 672.9 870 290 Output Total 800 400 700 300 Balance -27.2 272.9 170 -10 Meds/Results Medications: Active Medications Generic Name Dose Route Start Last Admin Trade Name Freq PRN Reason Stop Dose Admin Acetaminophen 650 mg 03/30/25 14:58 03/30/25 20:09 Acetaminophen 325 Mg Tablet PO 650 mg Q6H PRN Administration fever or pain 1-3 Hydrocodone Bitart/Acetaminophen 1 tab 04/04/25 07:39 04/04/25 08:00 Hydrocodone/Acetaminophen (*Crx) 5-325 Mg Tablet PO 1 tab Q4H PRN Administration Pain Rated 4-6 Hydrocodone Bitart/Acetaminophen 1 tab 04/04/25 07:39 Hydrocodone/Acetaminophen (*Crx) 10-325 Mg Tablet PO Q4H PRN Pain Rated 7-10 Albuterol/Ipratropium 3 ml 03/30/25 14:58 Ipratropium 0.5 Mg/Albuterol Sulfate 2.5 Mg (Base) Ampul.Neb 3 Ml INHALATION Q6H PRN Wheezing Amoxicillin/Clavulanate Potassium 1 tablet 04/02/25 21:00 04/07/25 08:01 Amoxicillin/Clavulanate K 875-125 Mg Tab PO 04/07/25 20:59 1 tablet Q12HR SHANNAN Administration Apixaban 5 mg 04/01/25 17:00 04/07/25 08:01 Apixaban 5 Mg Tablet PO 5 mg Q12HR SHANNAN Administration Benzonatate 100 mg 03/30/25 14:58 Benzonatate 100 Mg Capsule PO TID PRN Cough Dextrose 12.5 gm 03/30/25 15:12 Dextrose 50% 25 Gm/50 Ml Syringe IV PUSH PRN PRN Hypoglycemia Protocol Glucagon 1 mg 03/30/25 15:12 Glucagon For Inj 1 Mg Vial IM PRN PRN Hypoglycemia Protocol Glucose 15 gm 03/30/25 15:12 Glucose Oral Gel 15 Gm Of Glucse In 37.5 Gm Tube PO PRN PRN Hypoglycemia Protocol Guaifenesin 600 mg 03/30/25 21:00 04/07/25 08:01 Guaifenesin 12 Hr 600 Mg Tabcr PO 600 mg Q12HR SHANNAN Administration Dextrose 1,000 mls @ 100 mls/hr 03/30/25 15:12 Dextrose 5% 1,000 Ml IVPB PRN PRN Hypoglycemia Protocol Insulin Aspart 2 - 5 units 03/30/25 17:00 04/07/25 07:54 Insulin Aspart (*Bkc) 100 Units/Ml SUB-Q Not Given TIDWM SHANNAN Protocol Labetalol HCl 20 mg 04/02/25 10:21 04/06/25 04:34 Labetalol Hcl Inj 100 Mg/20 Ml Vial IV PUSH 20 mg Q4H PRN Administration SBP > 160 and HR> 60 -1st choice Ondansetron HCl 4 mg 03/30/25 14:59 Ondansetron Inj 4 Mg/2 Ml Vial IV PUSH Q4H PRN Nausea Phenol 1 spray 03/31/25 10:16 Phenol/Sod Pheno [place] Conley (*Bkc) MUCOUS MEM PRN PRN Sore Throat Potassium Chloride 10 meq 04/05/25 08:00 04/07/25 08:01 Potassium Chloride 10 Meq Er Tablet PO 10 meq DAILY@0800 SHANNAN Administration Quetiapine Fumarate 25 mg 04/03/25 21:00 04/06/25 20:29 Quetiapine Fumarate 25 Mg Tablet PO 25 mg HS SHANNAN Administration Rosuvastatin Calcium 5 mg 03/31/25 09:00 04/07/25 08:02 Rosuvastatin 5 Mg Tablet PO 5 mg DAILY SAHNNAN Administration Sotalol HCl 80 mg 04/07/25 21:00 Sotalol Hcl 80 Mg Tablet PO Q12HR SHANNAN Radiology Results: ITS Impressions Chest CT 03/30/25 13:41 IMPRESSION: 1. Pneumonia involving right middle lobe and right lower lobe. Labs Labs: Laboratory Results - last 24 hr 04/06/25 04/06/25 04/06/25 11:42 16:39 20:46 WBC RBC Hgb Hct MCV MCH MCHC RDW Plt Count MPV Immature Gran % (Auto) Neut % (Auto) Lymph % (Auto) [place] % (Auto) Eos % (Auto) Baso % (Auto) Lymph # (Auto) [place] # (Auto) Eos # (Auto) Baso # (Auto) Abs Immat Gran (auto) Absolute Neuts (auto) Absolute Nucleated RBC Nucleated RBC % Sodium Potassium Chloride Carbon Dioxide Anion Gap BUN Creatinine Estim Creat Clear Calc Estimated GFR Glucose POC Capillary Glucose 193 H 143 H 194 H Calcium Phosphorus Magnesium Total Bilirubin AST ALT Alkaline Phosphatase Total Protein Albumin 04/07/25 04/07/25 04:15 07:27 WBC 9.5 RBC 3.39 L Hgb 9.5 L Hct 31.5 L MCV 92.9 MCH 28.0 MCHC 30.2 L RDW 13.9 Plt Count 296 MPV 9.9 Immature Gran % (Auto) 1.2 H Neut % (Auto) 65.9 Lymph % (Auto) 21.7 [place] % (Auto) 7.8 Eos % (Auto) 3.0 Baso % (Auto) 0.4 Lymph # (Auto) 2.06 [place] # (Auto) 0.7 H Eos # (Auto) 0.3 Baso # (Auto) 0.0 Abs Immat Gran (auto) 0.11 H Absolute Neuts (auto) 6.3 Absolute Nucleated RBC 0.000 Nucleated RBC % 0.0 Sodium 136 L Potassium 4.1 Chloride 108 H Carbon Dioxide 24 Anion Gap 4 BUN 39 H Creatinine 0.96 Estim Creat Clear Calc 35 Estimated GFR 55 L Glucose 133 H POC Capillary Glucose 134 H Calcium 8.5 Phosphorus 3.6 Magnesium 2.5 H Total Bilirubin 0.4 AST 41 H ALT 40 H Alkaline Phosphatase 79 Total Protein 5.9 L Albumin 2.9 L
--- NOTE | 2025-04-07 11:57 | PCPTNOTE ---
Attempted to see patient for PT, however patient was eating lunch.
[2025-04-07] MEDS: SOTALOL HCL 80 MG TABLET PO (20:18)
--- NOTE | 2025-04-07 22:12 | ECG_ITS ---
Test Date: 2025-04-07 22:17:05 Measurements Intervals Felt Rate: 110 P: 0 AK: 0 QRS: -9 QRSD: 122 T: -1 QT: 339 QTc: 460 Interpretive Statements ATRIAL FIBRILLATION WITH RAPID VENTRICULAR RESPONSE RIGHT BUNDLE BRANCH BLOCK BASELINE ARTIFACT- V1, V4, V6 ABNORMAL ECG Compared to ECG 03/31/2025 04:50:52 HEART RATE HAS DECREASED POSSIBLE ISCHEMIA NO LONGER PRESENT Electronically Signed On 04-08-2025 05:14:08 CDT by Jay Rodriguez D.O.
--- NOTE | 2025-04-07 22:31 | PC.NURSE ---
This patient, Aria Garcia, was transferred to [facility] on 04/07/25 at 2223. Personal belongings sent with patient. This RN remained the RN for the patient. Appropriate documentation sent with patient.
[2025-04-08] VITALS (19 sets, daily range): BP systolic 100–152; BP diastolic 49–98; PULSE 61–111; RESP 15–21; TEMP 36.3–36.9; O2SAT 97–100
[2025-04-08 04:03] LABS: Hematocrit 30.6 % (37.0-47.0); Hemoglobin 9.4 g/dL (12.0-15.0); Immature Granulocyte Percent A 0.9 % (0-0.5); Lymphocytes Absolute Auto 2.05 K/mm3 (0.9-3.2); Mean Corpuscular HGB Conc 30.7 g/dl (32-36); Mean Corpuscular Hemoglobin 28.4 pg (26-34); Mean Corpuscular Volume 92.4 fl (80-100); Nucleated Red Blood Cells Absolute Auto 0.000 K/mm3 (0.0-0.012); Nucleated Red Blood Cells Perc 0.0 % (0.0-0.2); Platelet Count Result 291 k/mm3 (150-375); Red Blood Count 3.31 M/mm3 (4.2-5.4); White Blood Count 8.9 K/mm3 (4.5-10.0)
[2025-04-08 04:17] LABS: Alanine Aminotransferase 37 U/L (6-35); Albumin Level 2.7 g/dL (3.5-5.1); Alkaline Phosphatase 90 U/L (38-126); Anion Gap 4 mmol/L (4-12); Aspartate Amino Transferase 34 U/L (14-36); Bilirubin,Total 0.5 mg/dL (0.2-1.3); Blood Urea Nitrogen 36 mg/dL (7-17); Calcium 8.2 mg/dL (8.4-10.2); Carbon Dioxide 23 mmol/L (22-30); Chloride 108 mmol/L (98-107); Estimated CRCL calculation 36 ml/min; Estimated Glomerular Filt Rate 58; Glucose 132 mg/dL (65-110); Magnesium 2.3 mg/dL (1.6-2.3); Potassium 4.3 mmol/L (3.4-5.0); Sodium 135 mmol/L (137-145); Total Protein 5.7 g/dL (6.3-8.2)
--- NOTE | 2025-04-08 08:54 | P.PNIM_ITS ---
Progress Note: A&P Assessment and Plan (1) Atrial fibrillation with RVR: Code(s): I48.91 - Unspecified atrial fibrillation Status: Acute Assessment and Plan: Discontinue metoprolol 125 mg PO BID Started on sotalol 80 mg p.o. b.i.d. Continue Eliquis 5mg PO BID Cardiology following (2) Sepsis: Qualifiers: Sepsis acute organ dysfunction status: without acute organ dysfunction Sepsis type: sepsis due to unspecified organism Qualified Code(s): A41.9 - S epsis, unspecified organism Code(s): A41.9 - Sepsis, unspecified organism Status: Acute Assessment and Plan: Status post ceftriaxone and doxycycline Patient completed the course of Augmentin 04/07 (3) Pneumonia involving right lung: Qualifiers: Lung location: unspecified part of lung Pneumonia type: due to unspecified organism Qualified Code(s): J18.9 - Pneumonia, unspecified organism Code(s): J18.9 - Pneumonia, unspecified organism Status: Acute Assessment and Plan: On room air see above (4) Nausea and vomiting: Qualifiers: Vomiting type: unspecified Qualified Code(s): R11.2 - Nausea with vomiting, unspecified Code(s): R11.2 - Nausea with vomiting, unspecified Status: Acute Assessment and Plan: Resolved (5) Elevated brain natriuretic peptide (BNP) level: Code(s): R79.89 - Other specified abnormal findings of blood chemistry Status: Acute Assessment and Plan: -Echo performed, Left ventricular systolic function is normal, estimated at 55- 60. -order BNP (6) Diabetes: Qualifiers: Diabetes mellitus complication status: without complication Diabetes mellitus senior care insulin use: without senior care use Diabetes mellitus type: type 2 Qualified Code(s): E11.9 - Type 2 diabetes mellitus without complications Code(s): E11.9 - Type 2 diabetes mellitus without complications Status: Chronic Assessment and Plan: Continue sliding scale (7) Hypertension: Qualifiers: Hypertension type: primary hypertension Qualified Code(s): I10 - Essential (primary) hypertension Code(s): I10 - Essential (primary) hypertension Status: Chronic Assessment and Plan: Holding lisinopril due to TIESHA P.r.n. labetalol Continue metoprolol 125 mg p.o. b.i.d. (8) Hyperlipidemia: Qualifiers: Hyperlipidemia type: unspecified Qualified Code(s): E78.5 - Hyperlipidemia, unspecified Code(s): E78.5 - Hyperlipidemia, unspecified Status: Chronic Assessment and Plan: - continue rosuvastatin 03/31: -Lipid panel 08/2024 [facility] (9) Urinary retention: Code(s): R33.9 - Retention of urine, unspecified Status: Acute Assessment and Plan: Phillips in place (10) Hypokalemia: Code(s): E87.6 - Hypokalemia Status: Acute Assessment and Plan: Potassium has normalized, Will replace magnesium (11) Suicide ideation: Code(s): R45.851 - Suicidal ideations Status: Acute Assessment and Plan: Patient had episodes of delirium during the hospitalization. Continue to monitor (12) Delirium: Code(s): R41.0 - Disorientation, unspecified Status: Acute Assessment and Plan: Improved with Seroquel. Continue (13) Elevated serum creatinine: Code(s): R79.89 - Other specified abnormal findings of blood chemistry Status: Acute Assessment and Plan: Creatinine increased to 1.05 Hold Lasix and lisinopril S/p 250 mL 5% albumin bolus Monitor urine output electrolytes and creatinine -creatinine has normalized to 0.98 Plan Diet: Diabetic GI Prophylaxis: N/a DVT Prophylaxis: Eliquis IV fluids: N/A Lines/Tubes: Peripheral IV Code Status: Full code Subjective Date/time seen: 04/08/25 08:54 Interval history: Cardiology switched metoprolol to sotalol starting from yesterday evening. No acute events overnight Review of Systems Review of Systems: All systems reviewed & are unremarkable except as noted in HPI and below (HPI) Exam Narrative: General: Pt is alert awake and in NAD HEENT: Pupils are equal and reactive, sclera is clear, moist oral mucosa Lungs/Chest: Trachea central Clear BS B/L, No crackles or wheezing. Cardiac: RRR. Normal S1 S2. No murmurs Circulation: Pedal pulses are intact and symmetrical. Abdomen: Normal bowel sounds.. Soft. NT. ND. Extremities: No clubbing, cyanosis or edema. Warm : Phillips in place Neurologic: Patient is awake, alert, oriented x1, answers to questions and follows simple commands in all extremities Skin: Bruising noted upper extremity Const: General: comfortable and no acute distress Other: , female, elderly HENMT: Face/Nose/Sinus: Normal nares present Mouth: Yes moist mucous membranes Other: + [place] Eyes: General: appearance normal, both eyes and all related structures Sclera: sclerae normal Pupils: Equal, round and reactive pupils present EOM: EOMs intact bilaterally Resp: Effort & Inspection: normal respiratory effort Other: Faint crackles in the right lung base, no wheezing. Cardio: Rate: regular rate and tachycardic Rhythm: regular rhythm and abnormal rhythm regularly irregular Other: Intermittently tachycardic, TELE 90 GI: Other: Abdomen soft, nondistended, nontender. Normoactive bowel sounds in all quadrants. Skin: General skin exam: normal color and no rashes or lesions noted Wounds: no wounds Neuro: Cranial nerves: Yes Equal, round and reactive pupils present Speech: normal speech Motor exam (neuro): 5/5 motor strength present throughout Sensory Exam: normal sensation Other: Alert to person, place, situation. Extrem: Other: Tenderness to the BLE with trace non-pitting edema, symmetric. Psych: Mental Status: mental status grossly normal Affect: normal affect Other: Fair to poor insight and judgment at present. Objective Data Vital Signs Vital Signs: Vital Signs - 24 hr 04/07/25 12:00 04/07/25 12:00 04/07/25 12:00 Temperature Pulse Rate 84 84 84 Respiratory Rate 24 H 24 H Blood Pressure 104/72 Pulse Oximetry 99 99 Oxygen Delivery Room Air Fraction of Inspired Oxygen 21 04/07/25 14:00 04/07/25 16:00 04/07/25 16:00 Temperature Pulse Rate 102 H 102 H 102 H Respiratory Rate 24 H Blood Pressure Pulse Oximetry 99 Oxygen Delivery Room Air Fraction of Inspired Oxygen 21 04/07/25 16:00 04/07/25 18:00 04/07/25 20:00 Temperature 99.3 F Pulse Rate 102 H 102 H Respiratory Rate 24 H Blood Pressure 137/94 H Pulse Oximetry 99 Oxygen Delivery Room Air Fraction of Inspired Oxygen 04/07/25 20:00 04/07/25 20:00 04/07/25 20:18 Temperature 98.0 F Pulse Rate 111 H 105 H 125 H Respiratory Rate 22 H Blood Pressure 148/82 H Pulse Oximetry 97 Oxygen Delivery Fraction of Inspired Oxygen 04/07/25 21:45 04/07/25 22:00 04/08/25 00:00 Temperature Pulse Rate 108 H Respiratory Rate Blood Pressure Pulse Oximetry 98 Oxygen Delivery Room Air Room Air Fraction of Inspired Oxygen 21 04/08/25 00:00 04/08/25 00:06 04/08/25 02:00 Temperature 98.2 F Pulse Rate 80 108 H 99 Respiratory Rate 21 H Blood Pressure 152/75 H Pulse Oximetry 100 Oxygen Delivery Fraction of Inspired Oxygen 04/08/25 03:26 04/08/25 04:00 04/08/25 04:00 Temperature 98.0 F Pulse Rate 111 H 101 H Respiratory Rate 20 Blood Pressure 103/76 Pulse Oximetry 100 Oxygen Delivery Room Air Fraction of Inspired Oxygen 04/08/25 06:00 04/08/25 08:00 Temperature 97.5 F L Pulse Rate 93 78 Respiratory Rate 18 Blood Pressure 148/77 H Pulse Oximetry 100 Oxygen Delivery Fraction of Inspired Oxygen Intake/Output Intake/Output: Intake & Output 04/05/25 04/06/25 04/07/25 04/08/25 23:59 23:59 23:59 23:59 Intake Total 672.9 870 920 Output Total 400 700 625 350 Balance 272.9 170 295 -350 Meds/Results Medications: Active Medications Generic Name Dose Route Start Last Admin Trade Name Freq PRN Reason Stop Dose Admin Acetaminophen 650 mg 03/30/25 14:58 03/30/25 20:09 Acetaminophen 325 Mg Tablet PO 650 mg Q6H PRN Administration fever or pain 1-3 Hydrocodone Bitart/Acetaminophen 1 tab 04/04/25 07:39 04/04/25 08:00 Hydrocodone/Acetaminophen (*Crx) 5-325 Mg Tablet PO 1 tab Q4H PRN Administration Pain Rated 4-6 Hydrocodone Bitart/Acetaminophen 1 tab 04/04/25 07:39 Hydrocodone/Acetaminophen (*Crx) 10-325 Mg Tablet PO Q4H PRN Pain Rated 7-10 Albuterol/Ipratropium 3 ml 03/30/25 14:58 Ipratropium 0.5 Mg/Albuterol Sulfate 2.5 Mg (Base) Ampul.Neb 3 Ml INHALATION Q6H PRN Wheezing Apixaban 5 mg 04/01/25 17:00 04/07/25 20:19 Apixaban 5 Mg Tablet PO 5 mg Q12HR SHANNAN Administration Benzonatate 100 mg 03/30/25 14:58 Benzonatate 100 Mg Capsule PO TID PRN Cough Dextrose 12.5 gm 03/30/25 15:12 Dextrose 50% 25 Gm/50 Ml Syringe IV PUSH PRN PRN Hypoglycemia Protocol Glucagon 1 mg 03/30/25 15:12 Glucagon For Inj 1 Mg Vial IM PRN PRN Hypoglycemia Protocol Glucose 15 gm 03/30/25 15:12 Glucose Oral Gel 15 Gm Of Glucse In 37.5 Gm Tube PO PRN PRN Hypoglycemia Protocol Guaifenesin 600 mg 03/30/25 21:00 04/07/25 20:19 Guaifenesin 12 Hr 600 Mg Tabcr PO 600 mg Q12HR SHANNAN Administration Dextrose 1,000 mls @ 100 mls/hr 03/30/25 15:12 Dextrose 5% 1,000 Ml IVPB PRN PRN Hypoglycemia Protocol Insulin Aspart 2 - 5 units 03/30/25 17:00 04/08/25 08:08 Insulin Aspart (*Bkc) 100 Units/Ml SUB-Q Not Given [facility] Protocol Labetalol HCl 20 mg 04/02/25 10:21 04/06/25 04:34 Labetalol Hcl Inj 100 Mg/20 Ml Vial IV PUSH 20 mg Q4H PRN Administration SBP > 160 and HR> 60 -1st choice Ondansetron HCl 4 mg 03/30/25 14:59 Ondansetron Inj 4 Mg/2 Ml Vial IV PUSH Q4H PRN Nausea Phenol 1 spray 03/31/25 10:16 Phenol/Sod Pheno [place] (*Bkc) MUCOUS MEM PRN PRN Sore Throat Potassium Chloride 10 meq 04/05/25 08:00 04/07/25 08:01 Potassium Chloride 10 Meq Er Tablet PO 10 meq DAILY@0800 SHANNAN Administration Quetiapine Fumarate 25 mg 04/03/25 21:00 04/07/25 20:19 Quetiapine Fumarate 25 Mg Tablet PO 25 mg HS SHANNAN Administration Rosuvastatin Calcium 5 mg 03/31/25 09:00 04/07/25 08:02 Rosuvastatin 5 Mg Tablet PO 5 mg DAILY SHANNAN Administration Sotalol HCl 80 mg 04/07/25 21:00 04/07/25 20:18 Sotalol Hcl 80 Mg Tablet PO 80 mg Q12HR SHANNAN Administration Radiology Results: ITS Impressions Chest CT 03/30/25 13:41 IMPRESSION: 1. Pneumonia involving right middle lobe and right lower lobe. Labs Labs: Laboratory Results - last 24 hr 04/07/25 04/07/25 04/07/25 11:38 16:43 20:26 WBC RBC Hgb Hct MCV MCH MCHC RDW Plt Count MPV Immature Gran % (Auto) Neut % (Auto) Lymph % (Auto) [place] % (Auto) Eos % (Auto) Baso % (Auto) Lymph # (Auto) [place] # (Auto) Eos # (Auto) Baso # (Auto) Abs Immat Gran (auto) Absolute Neuts (auto) Absolute Nucleated RBC Nucleated RBC % Sodium Potassium Chloride Carbon Dioxide Anion Gap BUN Creatinine Estim Creat Clear Calc Estimated GFR Glucose POC Capillary Glucose 158 H 144 H 156 H Calcium Magnesium Total Bilirubin AST ALT Alkaline Phosphatase Total Protein Albumin 04/08/25 04/08/25 03:30 07:37 WBC 8.9 RBC 3.31 L Hgb 9.4 L Hct 30.6 L MCV 92.4 MCH 28.4 MCHC 30.7 L RDW 13.9 Plt Count 291 MPV 10.0 Immature Gran % (Auto) 0.9 H Neut % (Auto) 64.9 Lymph % (Auto) 23.1 [place] % (Auto) 7.6 Eos % (Auto) 2.9 Baso % (Auto) 0.6 Lymph # (Auto) 2.05 [place] # (Auto) 0.7 H Eos # (Auto) 0.3 Baso # (Auto) 0.1 Abs Immat Gran (auto) 0.08 H Absolute Neuts (auto) 5.8 Absolute Nucleated RBC 0.000 Nucleated RBC % 0.0 Sodium 135 L Potassium 4.3 Chloride 108 H Carbon Dioxide 23 Anion Gap 4 BUN 36 H Creatinine 0.92 Estim Creat Clear Calc 36 Estimated GFR 58 L Glucose 132 H POC Capillary Glucose 114 H Calcium 8.2 L Magnesium 2.3 Total Bilirubin 0.5 AST 34 ALT 37 H Alkaline Phosphatase 90 Total Protein 5.7 L Albumin 2.7 L Quality VTE Prophylaxis VTE prophylaxis: pharmacologic ordered Hospitalist MIPS Advance Care Plan I have confirmed that the patient's Advanced Care Plan is present, code status is documented, or surrogate decision maker is listed in patient medical record.: Yes Medication Reconciliation I have utilized all available resources to obtain, update and review the patients current medications (includes all prescriptions, OTC, herbals, cannabis, and nutritional supplements).: Yes
[2025-04-08] MEDS: POTASSIUM CHLORIDE 10 MEQ ER TABLET PO (09:02)
[2025-04-08] MEDS: guaiFENesin 12 HR 600 MG TABCR PO ×2 (09:03→20:25)
[2025-04-08] MEDS: APIXABAN 5 MG TABLET PO ×2 (09:03→20:26)
[2025-04-08] MEDS: SOTALOL HCL 80 MG TABLET PO ×2 (09:03→20:26)
[2025-04-08] MEDS: ROSUVASTATIN 5 MG TABLET PO (09:03)
--- NOTE | 2025-04-08 09:43 | P.PNCA_ITS ---
Progress Note: A&P Assessment and Plan (1) Atrial fibrillation with RVR: Code(s): I48.91 - Unspecified atrial fibrillation Status: Acute Assessment and Plan: This is a new diagnosis. Discussed the diagnosis of atrial fibrillation with the patient including pathophysiology, management strategies including rate versus rhythm control, and risks/complications of atrial fibrillation. Difficulty with rate control, if remained tachycardic with high dose of metoprolol. She has been started on sotalol * Continue sotalol 80 mg twice daily * QTC following last evening's sotalol dose 460 * Repeat EKG 2 hours post sotalol dosing times 1st 5 doses * Daily BMP and magnesium * [id number] (age, gender, HTN, diabetes)-continue anticoagulation with Eliquis 5 mg q.12 hours. (2) Aortic stenosis: Code(s): I35.0 - Nonrheumatic aortic (valve) stenosis Status: Acute Assessment and Plan: Mild. Outpatient surveillance (3) Renal artery stenosis: Code(s): I70.1 - Atherosclerosis of renal artery Status: Acute Assessment and Plan: Follows at [place] (4) Hyperlipidemia: Qualifiers: Hyperlipidemia type: unspecified Qualified Code(s): E78.5 - Hyperlipidemia, unspecified Code(s): E78.5 - Hyperlipidemia, unspecified Status: Chronic Assessment and Plan: Continue statin (5) Hypertension: Qualifiers: Hypertension type: primary hypertension Qualified Code(s): I10 - Essential (primary) hypertension Code(s): I10 - Essential (primary) hypertension Status: Chronic Assessment and Plan: At goal (6) Pneumonia involving right lung: Qualifiers: Lung location: unspecified part of lung Pneumonia type: due to unspecified organism Qualified Code(s): J18.9 - Pneumonia, unspecified organism Code(s): J18.9 - Pneumonia, unspecified organism Status: Acute Assessment and Plan: On abx. Management per hospitalist. Subjective Date/time seen: 04/08/25 09:43 Interval history: Cardiology follow up visit Date of service 04/02/2025: She feels well this morning and does not have any specific complaints. She was moved to ICU level of care because of suicidal and homicidal threats. She remains in atrial fibrillation heart rate generally 100- 120 beats per minute. She does not feel any palpitations, shortness of breath, chest pain. Date of service 04/05/2025: Feels okay. She is fatigued. She remains in atrial fibrillation with rapid ventricular response, rates variable but up to the 130s at times. She does not have any palpitations, chest pain, shortness of breath. Date of service 04/06/2025: Feeling about the same today. Complaining of pain on her backside. No palpitations, shortness of breath, chest pain. Date of service 04/07/2025: No specific complaints today, resting in bed, still in atrial fibrillation with heart rate between 90 and 110 Date of service 04/08/2025: Feeling very tired this morning but otherwise does not have any complaints. She remains in atrial fibrillation but her heart rate is much better controlled. She does not have any chest pain, palpitations, shortness of breath, swelling. Review of Systems Review of Systems: All systems reviewed & are unremarkable except as noted in HPI and below Exam Const: General: comfortable, no acute distress, alert and awake Orientation/consciousness: patient oriented x3 HENMT: Head: normal to inspection Eyes: General: appearance normal, both eyes and all related structures Pupils: Equal, round and reactive pupils present Neck: Neck: normal visual inspection, supple and no JVD Carotids: normal carotid upstroke Resp: Effort & Inspection: normal respiratory effort Auscultation: clear to auscultation bilaterally Cardio: Rate: regular rate Rhythm: abnormal rhythm regularly irregular Heart sounds: S1 normal heart sound present, S2 normal heart sound present and Murmur heart sound present systolic GI: Auscultation: normal bowel sounds Skin: General skin exam: normal color Neuro: General: patient oriented x3 Cranial nerves: Yes Equal, round and reactive pupils present Extrem: General: normal to inspection Other: No edema Psych: Appearance: grossly normal Mental Status: mental status grossly normal Objective Data Vital Signs Vital Signs: Vital Signs - 24 hr 04/07/25 12:00 04/07/25 12:00 04/07/25 12:00 Temperature Pulse Rate 84 84 84 Respiratory Rate 24 H 24 H Blood Pressure 104/72 Pulse Oximetry 99 99 Oxygen Delivery Room Air Fraction of Inspired Oxygen 21 04/07/25 14:00 04/07/25 16:00 04/07/25 16:00 Temperature Pulse Rate 102 H 102 H 102 H Respiratory Rate 24 H Blood Pressure Pulse Oximetry 99 Oxygen Delivery Room Air Fraction of Inspired Oxygen 21 04/07/25 16:00 04/07/25 18:00 04/07/25 20:00 Temperature 37.4 C Pulse Rate 102 H 102 H Respiratory Rate 24 H Blood Pressure 137/94 H Pulse Oximetry 99 Oxygen Delivery Room Air Fraction of Inspired Oxygen 04/07/25 20:00 04/07/25 20:00 04/07/25 20:18 Temperature 36.7 C Pulse Rate 111 H 105 H 125 H Respiratory Rate 22 H Blood Pressure 148/82 H Pulse Oximetry 97 Oxygen Delivery Fraction of Inspired Oxygen 04/07/25 21:45 04/07/25 22:00 04/08/25 00:00 Temperature Pulse Rate 108 H Respiratory Rate Blood Pressure Pulse Oximetry 98 Oxygen Delivery Room Air Room Air Fraction of Inspired Oxygen 21 04/08/25 00:00 04/08/25 00:06 04/08/25 02:00 Temperature 36.8 C Pulse Rate 80 108 H 99 Respiratory Rate 21 H Blood Pressure 152/75 H Pulse Oximetry 100 Oxygen Delivery Fraction of Inspired Oxygen 04/08/25 03:26 04/08/25 04:00 04/08/25 04:00 Temperature 36.7 C Pulse Rate 111 H 101 H Respiratory Rate 20 Blood Pressure 103/76 Pulse Oximetry 100 Oxygen Delivery Room Air Fraction of Inspired Oxygen 04/08/25 06:00 04/08/25 08:00 04/08/25 09:03 Temperature 36.4 C L Pulse Rate 93 78 98 Respiratory Rate 18 Blood Pressure 148/77 H Pulse Oximetry 100 Oxygen Delivery Fraction of Inspired Oxygen Intake/Output Intake/Output: Intake & Output 04/05/25 04/06/25 04/07/25 04/08/25 23:59 23:59 23:59 23:59 Intake Total 672.9 870 920 Output Total 400 700 625 350 Balance 272.9 170 295 -350 Meds/Results Medications: Active Medications Generic Name Dose Route Start Last Admin Trade Name Freq PRN Reason Stop Dose Admin Acetaminophen 650 mg 03/30/25 14:58 03/30/25 20:09 Acetaminophen 325 Mg Tablet PO 650 mg Q6H PRN Administration fever or pain 1-3 Hydrocodone Bitart/Acetaminophen 1 tab 04/04/25 07:39 04/04/25 08:00 Hydrocodone/Acetaminophen (*Crx) 5-325 Mg Tablet PO 1 tab Q4H PRN Administration Pain Rated 4-6 Hydrocodone Bitart/Acetaminophen 1 tab 04/04/25 07:39 Hydrocodone/Acetaminophen (*Crx) 10-325 Mg Tablet PO Q4H PRN Pain Rated 7-10 Albuterol/Ipratropium 3 ml 03/30/25 14:58 Ipratropium 0.5 Mg/Albuterol Sulfate 2.5 Mg (Base) Ampul.Neb 3 Ml INHALATION Q6H PRN Wheezing Apixaban 5 mg 04/01/25 17:00 04/08/25 09:03 Apixaban 5 Mg Tablet PO 5 mg Q12HR SHANNAN Administration Benzonatate 100 mg 03/30/25 14:58 Benzonatate 100 Mg Capsule PO TID PRN Cough Dextrose 12.5 gm 03/30/25 15:12 Dextrose 50% 25 Gm/50 Ml Syringe IV PUSH PRN PRN Hypoglycemia Protocol Glucagon 1 mg 03/30/25 15:12 Glucagon For Inj 1 Mg Vial IM PRN PRN Hypoglycemia Protocol Glucose 15 gm 03/30/25 15:12 Glucose Oral Gel 15 Gm Of Glucse In 37.5 Gm Tube PO PRN PRN Hypoglycemia Protocol Guaifenesin 600 mg 03/30/25 21:00 04/08/25 09:03 Guaifenesin 12 Hr 600 Mg Tabcr PO 600 mg Q12HR SHANNAN Administration Dextrose 1,000 mls @ 100 mls/hr 03/30/25 15:12 Dextrose 5% 1,000 Ml IVPB PRN PRN Hypoglycemia Protocol Insulin Aspart 2 - 5 units 03/30/25 17:00 04/08/25 08:08 Insulin Aspart (*Bkc) 100 Units/Ml SUB-Q Not Given TIDWM [facility] Protocol Labetalol HCl 20 mg 04/02/25 10:21 04/06/25 04:34 Labetalol Hcl Inj 100 Mg/20 Ml Vial IV PUSH 20 mg Q4H PRN Administration SBP > 160 and HR> 60 -1st choice Ondansetron HCl 4 mg 03/30/25 14:59 Ondansetron Inj 4 Mg/2 Ml Vial IV PUSH Q4H PRN Nausea Phenol 1 spray 03/31/25 10:16 Phenol/Sod Pheno [place] (*Bkc) MUCOUS MEM PRN PRN Sore Throat Potassium Chloride 10 meq 04/05/25 08:00 04/08/25 09:02 Potassium Chloride 10 Meq Er Tablet PO 10 meq DAILY@0800 SHANNAN Administration Quetiapine Fumarate 25 mg 04/03/25 21:00 04/07/25 20:19 Quetiapine Fumarate 25 Mg Tablet PO 25 mg HS SHANNAN Administration Rosuvastatin Calcium 5 mg 03/31/25 09:00 04/08/25 09:03 Rosuvastatin 5 Mg Tablet PO 5 mg DAILY SHANNAN Administration Sotalol HCl 80 mg 04/07/25 21:00 04/08/25 09:03 Sotalol Hcl 80 Mg Tablet PO 80 mg Q12HR SHANNAN Administration Radiology Results: ITS Impressions Chest CT 03/30/25 13:41 IMPRESSION: 1. Pneumonia involving right middle lobe and right lower lobe. Labs Labs: Laboratory Results - last 24 hr 04/07/25 04/07/25 04/07/25 11:38 16:43 20:26 WBC RBC Hgb Hct MCV MCH MCHC RDW Plt Count MPV Immature Gran % (Auto) Neut % (Auto) Lymph % (Auto) [place] % (Auto) Eos % (Auto) Baso % (Auto) Lymph # (Auto) [place] # (Auto) Eos # (Auto) Baso # (Auto) Abs Immat Gran (auto) Absolute Neuts (auto) Absolute Nucleated RBC Nucleated RBC % Sodium Potassium Chloride Carbon Dioxide Anion Gap BUN Creatinine Estim Creat Clear Calc Estimated GFR Glucose POC Capillary Glucose 158 H 144 H 156 H Calcium Magnesium Total Bilirubin AST ALT Alkaline Phosphatase Total Protein Albumin 04/08/25 04/08/25 03:30 07:37 WBC 8.9 RBC 3.31 L Hgb 9.4 L Hct 30.6 L MCV 92.4 MCH 28.4 MCHC 30.7 L RDW 13.9 Plt Count 291 MPV 10.0 Immature Gran % (Auto) 0.9 H Neut % (Auto) 64.9 Lymph % (Auto) 23.1 [place] % (Auto) 7.6 Eos % (Auto) 2.9 Baso % (Auto) 0.6 Lymph # (Auto) 2.05 [place] # (Auto) 0.7 H Eos # (Auto) 0.3 Baso # (Auto) 0.1 Abs Immat Gran (auto) 0.08 H Absolute Neuts (auto) 5.8 Absolute Nucleated RBC 0.000 Nucleated RBC % 0.0 Sodium 135 L Potassium 4.3 Chloride 108 H Carbon Dioxide 23 Anion Gap 4 BUN 36 H Creatinine 0.92 Estim Creat Clear Calc 36 Estimated GFR 58 L Glucose 132 H POC Capillary Glucose 114 H Calcium 8.2 L Magnesium 2.3 Total Bilirubin 0.5 AST 34 ALT 37 H Alkaline Phosphatase 90 Total Protein 5.7 L Albumin 2.7 L Quality VTE Prophylaxis VTE prophylaxis: pharmacologic ordered
[2025-04-08 09:59] LABS: Anion Gap 5 mmol/L (4-12); Blood Urea Nitrogen 34 mg/dL (7-17); Calcium 8.9 mg/dL (8.4-10.2); Carbon Dioxide 23 mmol/L (22-30); Chloride 107 mmol/L (98-107); Estimated CRCL calculation 36 ml/min; Estimated Glomerular Filt Rate 57; Glucose 124 mg/dL (65-110); Magnesium 2.4 mg/dL (1.6-2.3); Potassium 4.8 mmol/L (3.4-5.0); Sodium 135 mmol/L (137-145)
[2025-04-08 10:03] LABS: NT Pro B Type Natriuretic Pept 6390 pg/mL (19.9-100)
--- NOTE | 2025-04-08 11:00 | ECG_ITS ---
Test Date: 2025-04-08 11:25:28 Measurements Intervals [place] Rate: 99 P: 0 MD: 0 QRS: -13 QRSD: 122 T: -14 QT: 365 QTc: 470 Interpretive Statements ATRIAL FIBRILLATION RIGHT BUNDLE BRANCH BLOCK ABNORMAL ECG Compared to ECG 04/07/2025 22:17:05 HEART RATE HAS DECREASED Electronically Signed On 04-08-2025 11:28:40 CDT by Jay Rodriguez D.O.
--- NOTE | 2025-04-08 23:46 | ECG_ITS ---
Test Date: 2025-04-08 23:51:24 Measurements Intervals [place] Rate: 123 P: 0 NV: 0 QRS: -14 QRSD: 123 T: -10 QT: 366 QTc: 524 Interpretive Statements ATRIAL FIBRILLATION WITH RAPID VENTRICULAR RESPONSE RIGHT BUNDLE BRANCH BLOCK ABNORMAL ECG Compared to ECG 04/08/2025 11:25:28 HEART RATE HAS INCREASED Electronically Signed On 04-09-2025 06:06:06 CDT by Jay Rodriguez D.O.
[2025-04-09] VITALS (19 sets, daily range): BP systolic 110–149; BP diastolic 46–75; PULSE 54–105; RESP 12–16; TEMP 36.2–36.8; O2SAT 96–100
[2025-04-09 04:19] LABS: Hematocrit 30.9 % (37.0-47.0); Hemoglobin 9.6 g/dL (12.0-15.0); Mean Corpuscular HGB Conc 31.1 g/dl (32-36); Mean Corpuscular Hemoglobin 28.7 pg (26-34); Mean Corpuscular Volume 92.5 fl (80-100); Platelet Count Result 298 k/mm3 (150-375); Red Blood Count 3.34 M/mm3 (4.2-5.4); White Blood Count 9.4 K/mm3 (4.5-10.0)
[2025-04-09 04:32] LABS: Alanine Aminotransferase 30 U/L (6-35); Albumin Level 2.7 g/dL (3.5-5.1); Alkaline Phosphatase 91 U/L (38-126); Anion Gap 5 mmol/L (4-12); Aspartate Amino Transferase 29 U/L (14-36); Bilirubin,Total 0.3 mg/dL (0.2-1.3); Blood Urea Nitrogen 33 mg/dL (7-17); Calcium 8.2 mg/dL (8.4-10.2); Carbon Dioxide 24 mmol/L (22-30); Chloride 107 mmol/L (98-107); Estimated CRCL calculation 35 ml/min; Estimated Glomerular Filt Rate 56; Glucose 124 mg/dL (65-110); Magnesium 2.3 mg/dL (1.6-2.3); Potassium 4.1 mmol/L (3.4-5.0); Sodium 136 mmol/L (137-145); Total Protein 5.7 g/dL (6.3-8.2)
--- NOTE | 2025-04-09 05:05 | ECG_ITS ---
Test Date: 2025-04-09 05:09:55 Measurements Intervals [place] Rate: 53 P: 29 OK: 164 QRS: -3 QRSD: 129 T: 9 QT: 462 QTc: 435 Interpretive Statements SINUS BRADYCARDIA RIGHT BUNDLE BRANCH BLOCK ABNORMAL ECG Compared to ECG 04/08/2025 23:51:24 Atrial fibrillation no longer present Electronically Signed On 04-09-2025 06:06:20 CDT by Jay Rodriguez D.O.
[2025-04-09] MEDS: ROSUVASTATIN 5 MG TABLET PO (08:41)
[2025-04-09] MEDS: APIXABAN 5 MG TABLET PO ×2 (08:42→21:38)
[2025-04-09] MEDS: POTASSIUM CHLORIDE 10 MEQ ER TABLET PO (08:42)
[2025-04-09] MEDS: guaiFENesin 12 HR 600 MG TABCR PO ×2 (08:42→21:37)
[2025-04-09] MEDS: DOCUSATE SODIUM 100 MG CAPSULE PO ×2 (09:54→21:37)
--- NOTE | 2025-04-09 10:21 | P.PNIM_ITS ---
Progress Note: A&P Assessment and Plan (1) Atrial fibrillation with RVR: Code(s): I48.91 - Unspecified atrial fibrillation Status: Acute Assessment and Plan: Discontinue metoprolol 125 mg PO BID Decrease sotalol 80 mg p.o. b.i.d. to 40 mg p.o. b.i.d. Continue Eliquis 5mg PO BID Cardiology following (2) Sepsis: Qualifiers: Sepsis acute organ dysfunction status: without acute organ dysfunction Sepsis type: sepsis due to unspecified organism Qualified Code(s): A41.9 - Sepsis, unspecified organism Code(s): A41.9 - Sepsis, unspecified organism Status: Acute Assessment and Plan: Status post ceftriaxone and doxycycline Patient completed the course of Augmentin 04/07 (3) Pneumonia involving right lung: Qualifiers: Lung location: unspecified part of lung Pneumonia type: due to unsp ecified organism Qualified Code(s): J18.9 - Pneumonia, unspecified organism Code(s): J18.9 - Pneumonia, unspecified organism Status: Acute Assessment and Plan: On room air see above (4) Nausea and vomiting: Qualifiers: Vomiting type: unspecified Qualified Code(s): R11.2 - Nausea with vomiting, unspecified Code(s): R11.2 - Nausea with vomiting, unspecified Status: Acute Assessment and Plan: Resolved (5) Elevated brain natriuretic peptide (BNP) level: Code(s): R79.89 - Other specified abnormal findings of blood chemistry Status: Acute Assessment and Plan: -Echo performed, Left ventricular systolic function is normal, estimated at 55- 60. -order BNP (6) Diabetes: Qualifiers: Diabetes mellitus complication status: without complication Diabetes mellitus salvage determiner insulin use: without halfway use Diabetes mellitus type: type 2 Qualified Code(s): E11.9 - Type 2 diabetes mellitus without complications Code(s): E11.9 - Type 2 diabetes mellitus without complications Status: Chronic Assessment and Plan: Continue sliding scale (7) Hypertension: Qualifiers: Hypertension type: primary hypertension Qualified Code(s): I10 - Es sential (primary) hypertension Code(s): I10 - Essential (primary) hypertension Status: Chronic Assessment and Plan: Holding lisinopril due to TIESHA P.r.n. labetalol Continue metoprolol 125 mg p.o. b.i.d. (8) Hyperlipidemia: Qualifiers: Hyperlipidemia type: unspecified Qualified Code(s): E78.5 - Hyperlipidemia, unspecified Code(s): E78.5 - Hyperlipidemia, unspecified Status: Chronic Assessment and Plan: - continue rosuvastatin 03/31: -Lipid panel 08/2024 [facility] (9) Urinary retention: Code(s): R33.9 - Retention of urine, unspecified Status: Acute Assessment and Plan: Phillips in place (10) Hypokalemia: Code(s): E87.6 - Hypokalemia Status: Acute Assessment and Plan: Potassium has normalized, Will replace magnesium (11) Suicide ideation: Code(s): R45.851 - Suicidal ideations Status: Acute Assessment and Plan: Patient had episodes of delirium during the hospitalization. Continue to monitor (12) Delirium: Code(s): R41.0 - Disorientation, unspecified Status: Acute Assessment and Plan: Improved with Seroquel. Continue (13) Elevated serum creatinine: Code(s): R79.89 - Other specified abnormal findings of blood chemistry Status: Acute Assessment and Plan: Creatinine increased to 1.05 Hold Lasix and lisinopril S/p 250 mL 5% albumin bolus Monitor urine output electrolytes and creatinine -creatinine has normalized to 0.98 Plan Diet: Diabetic GI Prophylaxis: N/a DVT Prophylaxis: Eliquis IV fluids: N/A Lines/Tubes: Peripheral IV Code Status: Full code Subjective Date/time seen: 04/09/25 10:21 Interval history: Patient sotalol has been decreased from 80 mg to 40 mg p.o. b.i.d.. Possible discharge tomorrow Review of Systems Review of Systems: All systems reviewed & are unremarkable except as noted in HPI and below (HPI) Exam Narrative: General: Pt is alert awake and in NAD HEENT: Pupils are equal and reactive, sclera is clear, moist oral mucosa Lungs/Chest: Trachea central Clear BS B/L, No crackles or wheezing. Cardiac: RRR. Normal S1 S2. No murmurs Circulation: Pedal pulses are intact and symmetrical. Abdomen: Normal bowel sounds.. Soft. NT. ND. Extremities: No clubbing, cyanosis or edema. Warm : Phillips in place Neurologic: Patient is awake, alert, oriented x1, answers to questions and follows simple commands in all extremities Skin: Bruising noted upper extremity Const: General: comfortable and no acute distress Other: , female, elderly HENMT: Face/Nose/Sinus: Normal nares present Mouth: Yes moist mucous membranes Other: + PAIMIUT Eyes: General: appearance normal, both eyes and all related structures Scl era: sclerae normal Pupils: Equal, round and reactive pupils present EOM: EOMs intact bilaterally Resp: Effort & Inspection: normal respiratory effort Other: Faint crackles in the right lung base, no wheezing. Cardio: Rate: regular rate and tachycardic Rhythm: regular rhythm and abnormal rhythm regularly irregular Other: Intermittently tachycardic, TELE 90 GI: Other: Abdomen soft, nondistended, nontender. Normoactive bowel sounds in all quadrants. Skin: General skin exam: normal color and no rashes or lesions noted Wounds: no wounds Neuro: Cranial nerves: Yes Equal, round and reactive pupils present Speech: normal speech Motor exam (neuro): 5/5 motor strength present throughout Sensory Exam: normal sensation Other: Alert to person, place, situation. Extrem: Other: Tenderness to the BLE with trace non-pitting edema, symmetric. Psych: Mental Status: mental status grossly normal Affect: normal affect Other: Fair to poor insight and judgment at present. Objective Data Vital Signs Vital Signs: Vital Signs - 24 hr 04/08/25 11:47 04/08/25 12:00 04/08/25 14:00 Temperature 97.4 F L Pulse Rate 61 87 108 H Respiratory Rate 18 Blood Pressure 116/77 Pulse Oximetry 100 Oxygen Delivery 04/08/25 16:00 04/08/25 16:00 04/08/25 18:00 Temperature 98.4 F Pulse Rate 99 82 110 H Respiratory Rate 18 Blood Pressure 152/98 H Pulse Oximetry 100 Oxygen Delivery 04/08/25 20:00 04/08/25 20:00 04/08/25 20:12 Temperature 97.6 F Pulse Rate 99 90 Respiratory Rate 15 Blood Pressure 100/51 L Pulse Oximetry 97 Oxygen Delivery Room Air 04/08/25 20:26 04/08/25 20:31 04/08/25 22:00 Temperature Pulse Rate 89 110 H Respiratory Rate Blood Pressure 115/49 L Pulse Oximetry Oxygen Delivery 04/09/25 00:00 04/09/25 00:00 04/09/25 00:07 Temperature 97.7 F Pulse Rate 101 H 100 Respiratory Rate 16 Blood Pressure 110/67 Pulse Oximetry 99 Oxygen Delivery Room Air 04/09/25 02:00 04/09/25 04:00 04/09/25 04:00 Temperature Pulse Rate 105 H 92 Respiratory Rate Blood Pressure Pulse Oximetry Oxygen Delivery Room Air 04/09/25 04:32 04/09/25 06:00 04/09/25 07:31 Temperature 97.8 F 97.2 F L Pulse Rate 94 54 L 59 L Respiratory Rate 16 14 Blood Pressure 136/75 133/63 Pulse Oximetry 96 100 Oxygen Delivery Intake/Output Intake/Output: Intake & Output 04/06/25 04/07/25 04/08/25 04/09/25 23:59 23:59 23:59 23:59 Intake Total 124 018 6499 827 Output Total 303 620 8707 Balance 170 295 -150 827 Meds/Results Medications: Active Medications Generic Name Dose Route Start Last Admin Trade Name Freq PRN Reason Stop Dose Admin Acetaminophen 650 mg 03/30/25 14:58 03/30/25 20:09 Acetaminophen 325 Mg Tablet PO 650 mg Q6H PRN Administration fever or pain 1-3 Hydrocodone Bitart/Acetaminophen 1 tab 04/04/25 07:39 04/04/25 08:00 Hydrocodone/Acetaminophen (*Crx) 5-325 Mg Tablet PO 1 tab Q4H PRN Administration Pain Rated 4-6 Hydrocodone Bitart/Acetaminophen 1 tab 04/04/25 07:39 Hydrocodone/Acetaminophen (*Crx) 10-325 Mg Tablet PO Q4H PRN Pain Rated 7-10 Albuterol/Ipratropium 3 ml 03/30/25 14:58 Ipratropium 0.5 Mg/Albuterol Sulfate 2.5 Mg (Base) Ampul.Neb 3 Ml INHALATION Q6H PRN Wheezing Apixaban 5 mg 04/01/25 17:00 04/09/25 08:42 Apixaban 5 Mg Tablet PO 5 mg Q12HR SHANNAN Administration Benzonatate 100 mg 03/30/25 14:58 Benzonatate 100 Mg Capsule PO TID PRN Cough Dextrose 12.5 gm 03/30/25 15:12 Dextrose 50% 25 Gm/50 Ml Syringe IV PUSH PRN PRN Hypoglycemia Protocol Docusate Sodium 100 mg 04/09/25 09:30 04/09/25 09:54 Docusate Sodium 100 Mg Capsule PO 100 mg Q12HR SHANNAN Administration Glucagon 1 mg 03/30/25 15:12 Glucagon For Inj 1 Mg Vial IM PRN PRN Hypoglycemia Protocol Glucose 15 gm 03/30/25 15:12 Glucose Oral Gel 15 Gm Of Glucse In 37.5 Gm Tube PO PRN PRN Hypoglycemia Protocol Guaifenesin 600 mg 03/30/25 21:00 04/09/25 08:42 Guaifenesin 12 Hr 600 Mg Tabcr PO 600 mg Q12HR SHANNAN Administration Dextrose 1,000 mls @ 100 mls/hr 03/30/25 15:12 Dextrose 5% 1,000 Ml IVPB PRN PRN Hypoglycemia Protocol Insulin Aspart 2 - 5 units 03/30/25 17:00 04/09/25 08:42 Insulin Aspart (*Bkc) 100 Units/Ml SUB-Q Not Given TIDWM [facility] Protocol Labetalol HCl 20 mg 04/02/25 10:21 04/06/25 04:34 Labetalol Hcl Inj 100 Mg/20 Ml Vial IV PUSH 20 mg Q4H PRN Administration SBP > 160 and HR> 60 -1st choice Ondansetron HCl 4 mg 03/30/25 14:59 Ondansetron Inj 4 Mg/2 Ml Vial IV PUSH Q4H PRN Nausea Phenol 1 spray 03/31/25 10:16 Phenol/Sod Pheno [place] (*Bkc) MUCOUS MEM PRN PRN Sore Throat Polyethylene Glycol 17 gm 04/09/25 09:30 04/09/25 09:54 Polyethylene Glycol 3350 17 Gm Powd.Pack PO 17 gm QAM SHANNAN Administration Potassium Chloride 10 meq 04/05/25 08:00 04/09/25 08:42 Potassium Chloride 10 Meq Er Tablet PO 10 meq DAILY@0800 SHANNAN Administration Quetiapine Fumarate 25 mg 04/03/25 21:00 04/08/25 20:25 Quetiapine Fumarate 25 Mg Tablet PO 25 mg HS SHANNAN Administration Rosuvastatin Calcium 5 mg 03/31/25 09:00 04/09/25 08:41 Rosuvastatin 5 Mg Tablet PO 5 mg DAILY SHANNAN Administration Sotalol HCl 80 mg 04/07/25 21:00 04/08/25 20:26 Sotalol Hcl 80 Mg Tablet PO 80 mg On Hold: 04/09/25 00:21 Q12HR SHANNAN Administration Radiology Results: ITS Impressions Chest CT 03/30/25 13:41 IMPRESSION: 1. Pneumonia involving right middle lobe and right lower lobe. Labs Labs: Laboratory Results - last 24 hr 04/08/25 04/08/25 04/08/25 11:16 16:22 21:02 WBC RBC Hgb Hct MCV MCH MCHC RDW Plt Count MPV Sodium Potassium Chloride Carbon Dioxide Anion Gap BUN Creatinine Estim Creat Clear Calc Estimated GFR Glucose POC Capillary Glucose 132 H 106 H 184 H Calcium Magnesium Total Bilirubin AST ALT Alkaline Phosphatase Total Protein Albumin 04/09/25 04/09/25 03:39 07:01 WBC 9.4 RBC 3.34 L Hgb 9.6 L Hct 30.9 L MCV 92.5 MCH 28.7 MCHC 31.1 L RDW 13.8 Plt Count 298 MPV 9.8 Sodium 136 L Potassium 4.1 Chloride 107 Carbon Dioxide 24 Anion Gap 5 BUN 33 H Creatinine 0.95 Estim Creat Clear Calc 35 Estimated GFR 56 L Glucose 124 H POC Capillary Glucose 101 Calcium 8.2 L Magnesium 2.3 Total Bilirubin 0.3 AST 29 ALT 30 Alkaline Phosphatase 91 Total Protein 5.7 L Albumin 2.7 L Quality VTE Prophylaxis VTE prophylaxis: pharmacologic ordered Hospitalist MIPS Advance Care Plan I have confirmed that the patient's Advanced Care Plan is present, code status is documented, or surrogate decision maker is listed in patient medical record.: Yes Medication Reconciliation I have utilized all available resources to obtain, update and review the patients current medications (includes all prescriptions, OTC, herbals, cannabis, and nutritional supplements).: Yes
--- NOTE | 2025-04-09 10:28 | PCNFU ---
Nutrition Follow-Up Complete: Severe protein calorie malnutrition related to chronic loss of appetite as evidenced by weight loss 16%/5 months; intakes <75% needs >1 month; moderate muscle wasting and fat loss Intakes >75% Goal: Pt current nutrition is Diabetic consistent carbs. Glucerna TID (220 kcal, 10 g protein each) Nutrition recommendation: No new recommendations. Continue current nutrition care plan and orders. Last recorded weight is 67.5 kg. Bowel Motility: 0 BMs recorded. Bowel regimen in place. Labs Reviewed: Hgb 9.6, Hct 30.9, Alb 2.7, Na 136, BUN 33 Meds Noted: Eliquis, Miralax, Colace, Zofran Skin: No skin issues Additional Notes: Intakes improving 50-75%, 90% breakfast this morning. Supplements are on. Continue with current nutrition care plan and orders. Agree with orders. Monitoring intakes, weights, labs, supplement tolerance, plan of care Follow up in 5 days
--- NOTE | 2025-04-09 12:06 | PM.PNCARD ---
Progress Note: A&P Assessment and Plan (1) Atrial fibrillation with RVR: Code(s): I48.91 - Unspecified atrial fibrillation Status: Acute Assessment and Plan: This is a new diagnosis. Discussed the diagnosis of atrial fibrillation with the patient including pathophysiology, management strategies including rate versus rhythm control, and risks/complications of atrial fibrillation. Difficulty with rate control, if remained tachycardic with high dose of metoprolol. She has been started on sotalol Continue sotalol 80 mg twice daily QTC following last night's dose 524. Sotalol held. Resume sotalol at lower dose 40mg b.i.d. Repeat EKG 2 hours post sotalol dosing times 1st 5 doses Daily BMP and magnesium. K+ 4.1, Mag 2.3 [id number] (age, gender, HTN, diabetes)-continue anticoagulation with Eliquis 5 mg q.12 hours. (2) Aortic stenosis: Code(s): I35.0 - Nonrheumatic aortic (valve) stenosis Status: Acute Assessment and Plan: Mild. Outpatient surveillance (3) Renal artery stenosis: Code(s): I70.1 - Atherosclerosis of renal artery Status: Acute Assessment and Plan: Follows at [place] (4) Hyperlipidemia: Qualifiers: Hyperlipidemia type: unspecified Qualified Code(s): E78.5 - Hyperlipidemia, unspecified Code(s): E78.5 - Hyperlipidemia, unspecified Status: Chronic Assessment and Plan: Continue statin (5) Hypertension: Qualifiers: Hypertension type: primary hypertension Qualified Code(s): I10 - Essential (primary) hypertension Code(s): I10 - Essential (primary) hypertension Status: Chronic Assessment and Plan: At [facility] (6) Pneumonia involving right lung: Qualifiers: Lung location: unspecified part of lung Pneumonia type: due to unspecified organism Qualified Code(s): J18.9 - Pneumonia, unspecified organism Code(s): J18.9 - Pneumonia, unspecified organism Status: Acute Assessment and Plan: On abx. Management per hospitalist. Subjective Date/time seen: 04/09/25 12:06 Interval history: Cardiology follow up visit Date of service 04/02/2025: She feels well this morning and does not have any specific complaints. She was moved to ICU level of care because of suicidal and homicidal threats. She remains in atrial fibrillation heart rate generally 100- 120 beats per minute. She does not feel any palpitations, shortness of breath, chest pain. Date of service 04/05/2025: Feels okay. She is fatigued. She remains in atrial fibrillation with rapid ventricular response, rates variable but up to the 130s at times. She does not have any palpitations, chest pain, shortness of breath. Date of service 04/06/2025: Feeling about the same today. Complaining of pain on her backside. No palpitations, shortness of breath, chest pain. Date of service 04/07/2025: No specific complaints today, resting in bed, still in atrial fibrillation with heart rate between 90 and 110 Date of service 04/08/2025: Feeling very tired this morning but otherwise does not have any complaints. She remains in atrial fibrillation but her heart rate is much better controlled. She does not have any chest pain, palpitations, shortness of breath, swelling. Date of service 04/09/2025: Feeling better today. No active complaints. Converted to sinus rhythm. Review of Systems Review of Systems: All systems reviewed & are unremarkable except as noted in HPI and below Exam Const: General: comfortable, no acute distress, alert and awake Orientation/consciousness: patient oriented x3 HENMT: Head: normal to inspection Eyes: General: appearance normal, both eyes and all related structures Pupils: Equal, round and reactive pupils present Neck: Neck: normal visual inspection, supple and no JVD Carotids: normal carotid upstroke Resp: Effort & Inspection: normal respiratory effort Auscultation: clear to auscultation bilaterally Cardio: Rate: regular rate Rhythm: regular rhythm Heart sounds: S1 normal heart sound present, S2 normal heart sound present and Murmur heart sound present systolic GI: Auscultation: normal bowel sounds Skin: General skin exam: normal color Neuro: General: patient oriented x3 Cranial nerves: Yes Equal, round and reactive pupils present Extrem: General: normal to inspection Other: No edema Psych: Appearance: grossly normal Mental Status: mental status grossly normal Objective Data Vital Signs Vital Signs: Vital Signs - 24 hr 04/08/25 14:00 04/08/25 16:00 04/08/25 16:00 Temperature 36.9 C Pulse Rate 108 H 99 82 Respiratory Rate 18 Blood Pressure 152/98 H Pulse Oximetry 100 Oxygen Delivery 04/08/25 18:00 04/08/25 20:00 04/08/25 20:00 Temperature Pulse Rate 110 H 99 Respiratory Rate Blood Pressure Pulse Oximetry Oxygen Delivery Room Air 04/08/25 20:12 04/08/25 20:26 04/08/25 20:31 Temperature 36.4 C Pulse Rate 90 89 Respiratory Rate 15 Blood Pressure 100/51 L 115/49 L Pulse Oximetry 97 Oxygen Delivery 04/08/25 22:00 04/09/25 00:00 04/09/25 00:00 Temperature Pulse Rate 110 H 101 H Respiratory Rate Blood Pressure Pulse Oximetry Oxygen Delivery Room Air 04/09/25 00:07 04/09/25 02:00 04/09/25 04:00 Temperature 36.5 C Pulse Rate 100 105 H Respiratory Rate 16 Blood Pressure 110/67 Pulse Oximetry 99 Oxygen Delivery Room Air 04/09/25 04:00 04/09/25 04:32 04/09/25 06:00 Temperature 36.6 C Pulse Rate 92 94 54 L Respiratory Rate 16 Blood Pressure 136/75 Pulse Oximetry 96 Oxygen Delivery 04/09/25 07:31 04/09/25 11:41 04/09/25 11:46 Temperature 36.2 C L 36.6 C Pulse Rate 59 L 62 56 L Respiratory Rate 14 12 Blood Pressure 133/63 111/53 L Pulse Oximetry 100 99 Oxygen Delivery Intake/Output Intake/Output: Intake & Output 04/06/25 04/07/25 04/08/25 04/09/25 23:59 23:59 23:59 23:59 Intake Total 925 293 2454 827 Output Total 498 741 4057 Balance 170 295 -150 827 Meds/Results Medications: Active Medications Generic Name Dose Route Start Last Admin Trade Name Freq PRN Reason Stop Dose Admin Acetaminophen 650 mg 03/30/25 14:58 03/30/25 20:09 Acetaminophen 325 Mg Tablet PO 650 mg Q6H PRN Administration fever or pain 1-3 Hydrocodone Bitart/Acetaminophen 1 tab 04/04/25 07:39 04/04/25 08:00 Hydrocodone/Acetaminophen (*Crx) 5-325 Mg Tablet PO 1 tab Q4H PRN Administration Pain Rated 4-6 Hydrocodone Bitart/Acetaminophen 1 tab 04/04/25 07:39 Hydrocodone/Acetaminophen (*Crx) 10-325 Mg Tablet PO Q4H PRN Pain Rated 7-10 Albuterol/Ipratropium 3 ml 03/30/25 14:58 Ipratropium 0.5 Mg/Albuterol Sulfate 2.5 Mg (Base) Ampul.Neb 3 Ml INHALATION Q6H PRN Wheezing Apixaban 5 mg 04/01/25 17:00 04/09/25 08:42 Apixaban 5 Mg Tablet PO 5 mg Q12HR SHANNAN Administration Benzonatate 100 mg 03/30/25 14:58 Benzonatate 100 Mg Capsule PO TID PRN Cough Dextrose 12.5 gm 03/30/25 15:12 Dextrose 50% 25 Gm/50 Ml Syringe IV PUSH PRN PRN Hypoglycemia Protocol Docusate Sodium 100 mg 04/09/25 09:30 04/09/25 09:54 Docusate Sodium 100 Mg Capsule PO 100 mg Q12HR SHANNAN Administration Glucagon 1 mg 03/30/25 15:12 Glucagon For Inj 1 Mg Vial IM PRN PRN Hypoglycemia Protocol Glucose 15 gm 03/30/25 15:12 Glucose Oral Gel 15 Gm Of Glucse In 37.5 Gm Tube PO PRN PRN Hypoglycemia Protocol Guaifenesin 600 mg 03/30/25 21:00 04/09/25 08:42 Guaifenesin 12 Hr 600 Mg Tabcr PO 600 mg Q12HR SHANNAN Administration Dextrose 1,000 mls @ 100 mls/hr 03/30/25 15:12 Dextrose 5% 1,000 Ml IVPB PRN PRN Hypoglycemia Protocol Insulin Aspart 2 - 5 units 03/30/25 17:00 04/09/25 08:42 Insulin Aspart (*Bkc) 100 Units/Ml SUB-Q Not Given TIDWM [facility] Protocol Labetalol HCl 20 mg 04/02/25 10:21 04/06/25 04:34 Labetalol Hcl Inj 100 Mg/20 Ml Vial IV PUSH 20 mg Q4H PRN Administration SBP > 160 and HR> 60 -1st choice Ondansetron HCl 4 mg 03/30/25 14:59 Ondansetron Inj 4 Mg/2 Ml Vial IV PUSH Q4H PRN Nausea Phenol 1 spray 03/31/25 10:16 Phenol/Sod Pheno [place] (*Bkc) MUCOUS MEM PRN PRN Sore Throat Polyethylene Glycol 17 gm 04/09/25 09:30 04/09/25 09:54 Polyethylene Glycol 3350 17 Gm Powd.Pack PO 17 gm QAM SHANNAN Administration Potassium Chloride 10 meq 04/05/25 08:00 04/09/25 08:42 Potassium Chloride 10 Meq Er Tablet PO 10 meq DAILY@0800 SHANNAN Administration Quetiapine Fumarate 25 mg 04/03/25 21:00 04/08/25 20:25 Quetiapine Fumarate 25 Mg Tablet PO 25 mg HS SHANNAN Administration Rosuvastatin Calcium 5 mg 03/31/25 09:00 04/09/25 08:41 Rosuvastatin 5 Mg Tablet PO 5 mg DAILY SHANNAN Administration Sotalol HCl 40 mg 04/09/25 11:20 04/09/25 11:41 Sotalol Hcl 40 Mg Tablet PO 40 mg Q12HR SHANNAN Administration Radiology Results: ITS Impressions Chest CT 03/30/25 13:41 IMPRESSION: 1. Pneumonia involving right middle lobe and right lower lobe. Labs Labs: Laboratory Results - last 24 hr 04/08/25 04/08/25 04/08/25 11:16 16:22 21:02 WBC RBC Hgb Hct MCV MCH MCHC RDW Plt Count MPV Sodium Potassium Chloride Carbon Dioxide Anion Gap BUN Creatinine Estim Creat Clear Calc Estimated GFR Glucose POC Capillary Glucose 132 H 106 H 184 H Calcium Magnesium Total Bilirubin AST ALT Alkaline Phosphatase Total Protein Albumin 04/09/25 04/09/25 04/09/25 03:39 07:01 11:11 WBC 9.4 RBC 3.34 L Hgb 9.6 L Hct 30.9 L MCV 92.5 MCH 28.7 MCHC 31.1 L RDW 13.8 Plt Count 298 MPV 9.8 Sodium 136 L Potassium 4.1 Chloride 107 Carbon Dioxide 24 Anion Gap 5 BUN 33 H Creatinine 0.95 Estim Creat Clear Calc 35 Estimated GFR 56 L Glucose 124 H POC Capillary Glucose 101 123 H Calcium 8.2 L Magnesium 2.3 Total Bilirubin 0.3 AST 29 ALT 30 Alkaline Phosphatase 91 Total Protein 5.7 L Albumin 2.7 L Quality VTE Prophylaxis VTE prophylaxis: pharmacologic ordered
--- NOTE | 2025-04-09 13:45 | ECG_ITS ---
Test Date: 2025-04-09 13:55:04 Measurements Intervals [place] Rate: 59 P: 25 [place]: 170 QRS: -15 QRSD: 121 T: 4 QT: 448 QTc: 446 Interpretive Statements SINUS BRADYCARDIA RIGHT BUNDLE BRANCH BLOCK BASELINE ARTIFACT- I, II, V4-V5 ABNORMAL ECG Compared to ECG 04/09/2025 05:09:55 No significant changes Electronically Signed On 04-09-2025 14:03:55 CDT by Jay Rodriguez D.O.
[2025-04-10] VITALS (11 sets, daily range): BP systolic 126–151; BP diastolic 49–56; PULSE 52–62; RESP 14–18; TEMP 36.4–36.7; O2SAT 96–100
--- NOTE | 2025-04-10 00:08 | ECG_ITS ---
Test Date: 2025-04-10 00:08:23 Measurements Intervals [place] Rate: 57 P: 159 NM: 153 QRS: 188 QRSD: 129 T: 174 QT: 471 QTc: 460 Interpretive Statements SINUS BRADYCARDIA ARM LEADS REVERSED RIGHT BUNDLE BRANCH BLOCK ABNORMAL ECG Compared to ECG 04/09/2025 13:55:04 NO SIGNIFICANT CHANGE Electronically Signed On 04-10-2025 08:10:25 CDT by Jay Rodriguez D.O.
[2025-04-10 04:21] LABS: Hematocrit 28.2 % (37.0-47.0); Hemoglobin 8.8 g/dL (12.0-15.0); Mean Corpuscular HGB Conc 31.2 g/dl (32-36); Mean Corpuscular Hemoglobin 28.7 pg (26-34); Mean Corpuscular Volume 91.9 fl (80-100); Platelet Count Result 287 k/mm3 (150-375); Red Blood Count 3.07 M/mm3 (4.2-5.4); White Blood Count 9.7 K/mm3 (4.5-10.0)
[2025-04-10 04:41] LABS: Alanine Aminotransferase 25 U/L (6-35); Albumin Level 2.7 g/dL (3.5-5.1); Alkaline Phosphatase 95 U/L (38-126); Anion Gap 3 mmol/L (4-12); Aspartate Amino Transferase 30 U/L (14-36); Bilirubin,Total 0.4 mg/dL (0.2-1.3); Blood Urea Nitrogen 33 mg/dL (7-17); Calcium 8.3 mg/dL (8.4-10.2); Carbon Dioxide 24 mmol/L (22-30); Chloride 108 mmol/L (98-107); Estimated CRCL calculation 34 ml/min; Estimated Glomerular Filt Rate 54; Glucose 97 mg/dL (65-110); Magnesium 2.3 mg/dL (1.6-2.3); Potassium 4.4 mmol/L (3.4-5.0); Sodium 135 mmol/L (137-145); Total Protein 5.7 g/dL (6.3-8.2)
[2025-04-10] MEDS: POTASSIUM CHLORIDE 10 MEQ ER TABLET PO (08:05)
[2025-04-10] MEDS: ROSUVASTATIN 5 MG TABLET PO (08:06)
[2025-04-10] MEDS: DOCUSATE SODIUM 100 MG CAPSULE PO (08:06)
[2025-04-10] MEDS: guaiFENesin 12 HR 600 MG TABCR PO (08:06)
[2025-04-10] MEDS: APIXABAN 5 MG TABLET PO (08:06)
--- NOTE | 2025-04-10 09:36 | P.DS_ITS ---
DS: Admitting Diagnosis Discharge Date 04/10/2025 Admitting Diagnosis Palpitation DS: Discharge Diagnosis Discharge Diagnosis (1) Atrial fibrillation with RVR: Code(s): I48.91 - Unspecified atrial fibrillation Status: Acute Assessment and Plan: Please refer to hospital course for brief summary Discontinue metoprolol 125 mg PO BID Decrease sotalol 80 mg p.o. b.i.d. to 40 mg p.o. b.i.d. Continue Eliquis 5mg PO BID Cardiology following (2) Sepsis: Qualifiers: Sepsis acute organ dysfunction status: without acute organ dysfunction Sepsis type: sepsis due to unspecified organism Qualified Code(s): A41.9 - Sepsis, unspecified organism Code(s): A41.9 - Sepsis, unspecified organism Status: Acute Assessment and Plan: Status post ceftriaxone and doxycycline Patient completed the course of Augmentin 04/07 (3) Pneumonia involving right lung: Qualifiers: Lung location: unspecified part of lung Pneumonia type: due to unspecified organism Qualified Code(s): J18.9 - Pneumonia, unspecified organism Code(s): J18.9 - Pneumonia, unspecified organism Status: Acute Assessment and Plan: On room air see above (4) Nausea and vomiting: Qualifiers: Vomiting type: unspecified Qualified Code(s): R11.2 - Nausea with vomiting, unspecified Code(s): R11.2 - Nausea with vomiting, unspecified Status: Acute Assessment and Plan: Resolved (5) Elevated brain natriuretic peptide (BNP) level: Code(s): R79.89 - Other specified abnormal findings of blood chemistry Status: Acute Assessment and Plan: -Echo performed, Left ventricular systolic function is normal, estimated at 55- 60. -order BNP (6) Diabetes: Qualifiers: Diabetes mellitus complication status: without complication Diabetes mellitus jail insulin use: without jail use Diabetes mellitus type: type 2 Qualified Code(s): E11.9 - Type 2 diabetes mellitus without complications Code(s): E11.9 - Type 2 diabetes mellitus without complications Status: Chronic Assessment and Plan: Continue sliding scale (7) Hypertension: Qualifiers: Hypertension type: primary hypertension Qualified Code(s): I10 - Essential (primary) hypertension Code(s): I10 - Essential (primary) hypertension Status: Chronic Assessment and Plan: Holding lisinopril due to TIESHA P.r.n. labetalol Continue metoprolol 125 mg p.o. b.i.d. (8) Hyperlipidemia: Qualifiers: Hyperlipidemia type: unspecified Qualified Code(s): E78.5 - Hyperlipidemia, unspecified Code(s): E78.5 - Hyperlipidemia, unspecified Status: Chronic Assessment and Plan: - continue rosuvastatin 03/31: -Lipid panel 08/2024 WD (9) Urinary retention: Code(s): R33.9 - Retention of urine, unspecified Status: Acute Assessment and Plan: Phillips in place (10) Hypokalemia: Code(s): E87.6 - Hypokalemia Status: Acute Assessment and Plan: Potassium has normalized, Will replace magnesium (11) Suicide ideation: Code(s): R45.851 - Suicidal ideations Status: Acute Assessment and Plan: Patient had episodes of delirium during the hospitalization. Continue to monitor (12) Delirium: Code(s): R41.0 - Disorientation, unspecified Status: Acute Assessment and Plan: Improved with Seroquel. Continue (13) Elevated serum creatinine: Code(s): R79.89 - Other specified abnormal findings of blood chemistry Status: Acute Assessment and Plan: Creatinine increased to 1.05 Hold Lasix and lisinopril S/p 250 mL 5% albumin bolus Monitor urine output electrolytes and creatinine -creatinine has normalized to 0.98 DS: Summary Hospital Course Hospital Course: 84 y/o F with PMH of diabetes and hypertension presents here with nausea, vomiting, cough, and low-grade fever. The patient presents here from home via EMS on 03/30 for further evaluation of nausea, vomiting, cough, and low-grade fever. She reports her symptoms started approximately 4 days ago. She was initially evaluated at [facility] her on 03/29. At that time she reported productive cough, sore throat, and a postnasal drip. CXR showed no acute cardiopulmonary abnormality. She received a breathing treatment which she report improved her cough. She was diagnosed with a viral illness and was discharged home with an albuterol inhaler. Returning today as she developed new symptoms including nausea, vomiting, diarrhea x1, and low-grade fever. Max T at home unknown. She denies associated chest pain, shortness of breath, or abdominal pain. Patient found to be significantly hypertensive this evening with a systolic pressure in the 200s, she is unsure if she took her home antihypertensive medications this morning. Initial VS at presentation: 97.9? F, HR 79, RR 20, 166/63, and 97% on RA. HR now 112. ED workup showed: WBC 14.7, hemoglobin 11.0, no significant electrolyte derangements, creatinine 1.09 and GFR 48, glucose 199, BNP 5380, and UA had a cloudy appearance with 2+ protein/1+ glucose/1+ ketones/3-[address] showed pneumonia involving the right middle lobe and right lower lobe I assumed care on 04/07 Regarding pneumonia patient completed ceftriaxone and doxycycline and Augmentin on 04/07 Regarding AFib with the RVR patient was previously on metoprolol which was discontinued and started on sotalol 80 mg p.o. b.i.d. which was decreased to sotalol 40 mg p.o. b.i.d.. Patient can continue Eliquis 5 mg p.o. b.i.d..Advised to follow up with her PCP for Diabetes management and needs regular monitoring of kidney function due to Metformin intake. On the day of discharge, the patient was seen and examined. Vital signs were stable. Physical exam were stable and labs were reviewed at length. Discharge instructions, medications, and follow-up appointments were discussed with the patient at length and all day questions were answered. ER warnings were given. Status at Discharge Cognitive/behavioral status at discharge: Stable Time Spent with Patient Time attestation: Total time spent providing and/or coordinating discharge services: 45 minute Exam Narrative: General: Pt is alert awake and in NAD HEENT: Pupils are equal and reactive, sclera is clear, moist oral mucosa Lungs/Chest: Trachea central Clear BS B/L, No crackles or wheezing. Cardiac: RRR. Normal S1 S2. No murmurs Circulation: Pedal pulses are intact and symmetrical. Abdomen: Normal bowel sounds.. Soft. NT. ND. Extremities: No clubbing, cyanosis or edema. Warm : Phillips in place Neurologic: Patient is awake, alert, oriented x1, answers to questions and follows simple commands in all extremities Skin: Bruising noted upper extremity Const: General: comfortable and no acute distress Other: , female, elderly HENMT: Face/Nose/Sinus: Normal nares present Mouth: Yes moist mucous membranes Other: + [place] [place] Eyes: General: appearance normal, both eyes and all related structures Sclera: sclerae normal Pupils: Equal, round and reactive pupils present EOM: EOMs intact bilaterally Resp: Effort & Inspection: normal respiratory effort Other: Faint crackles in the right lung base, no wheezing. Cardio: Rate: regular rate and tachycardic Rhythm: regular rhythm and abnormal rhythm regularly irregular Other: Intermittently tachycardic, TELE 90 GI: Other: Abdomen soft, nondistended, nontender. Normoactive bowel sounds in all quadrants. Skin: General skin exam: normal color and no rashes or lesions noted Wounds: no wounds Neuro: Cranial nerves: Yes Equal, round and reactive pupils present Speech: normal speech Motor exam (neuro): 5/5 motor strength present throughout Sensory Exam: normal sensation Other: Alert to person, place, situation. Extrem: Other: Tenderness to the BLE with trace non-pitting edema, symmetric. Psych: Mental Status: mental status grossly normal Affect: normal affect Other: Fair to poor insight and judgment at present. DS: Data Data Completed and Pending Labs on day of discharge: Labs from last 24 hours 04/10/25 04/10/25 04/10/25 07:19 04:03 04:02 WBC 9.7 RBC 3.07 L Hgb 8.8 L Hct 28.2 L MCV 91.9 MCH 28.7 MCHC 31.2 L RDW 13.8 Plt Count 287 MPV 9.9 Sodium 135 L Potassium 4.4 Chloride 108 H Carbon Dioxide 24 Anion Gap 3 L BUN 33 H Creatinine 0.97 Estim Creat Clear Calc 34 Estimated GFR 54 L Glucose 97 POC Capillary Glucose 95 Calcium 8.3 L Magnesium 2.3 Total Bilirubin 0.4 AST 30 ALT 25 Alkaline Phosphatase 95 Total Protein 5.7 L Albumin 2.7 L 04/09/25 04/09/25 04/09/25 20:30 16:11 11:11 WBC RBC Hgb Hct MCV MCH MCHC RDW Plt Count MPV Sodium Potassium Chloride Carbon Dioxide Anion Gap BUN Creatinine Estim Creat Clear Calc Estimated GFR Glucose POC Capillary Glucose 144 H 133 H 123 H Calcium Magnesium Total Bilirubin AST ALT Alkaline Phosphatase Total Protein Albumin Discharge Plan Discharge Attending physician on discharge: Rajendra Schilling Consulting providers: [place] Zavaleta; Pedro Luis Santana Discharging Clinician: Rajendra Schilling Anticipated Discharge Date/Time: 04/10/25 09:54 Patient Disposition: Home with Home Health Service Activity: as tolerated Diet: as tolerated Discharge Instructions: Per Care Coordination: [facility] will contact you prior to their first visit. [facility] will follow for RN and PT/OT eval and treat. [facility] can be contacted at [phone]. Nursing please fax discharge paperwork to [phone]. Please follow up with your PCP for Diabetes management Patient needs regular monitoring of kidney function due to Metformin intake. Check blood pressure 1 to 2 times a day. Record and bring into your doctor for review. Call your doctor if your blood pressure is greater than 180/110 or less than 90/45. Walk with cane or other assist device. Take precautions to avoid falls. Rise slowly from a lying or sitting position. Pause before standing or walking. Contact your doctor or call 911 and come to the Emergency Room if you have any type of trauma, lightheadedness with standing or other worrisome symptoms. Avoid NSAIDs (ibuprofen, naproxen, Aleve). Tylenol is safe to take. Follow-up with your primary care provider in 1-2 weeks. Please call for elida ointment. Follow-up with Cardiology in 2-4 weeks. Please call for an appointment. Thank you for using [facility] for your health care needs. Patient Instructions: Antibiotic Form, Sotalol (By mouth), Community Acquired Pneumonia (DC) Patient Language: Belarusian Stand Alone Forms: General Discharge Information Follow-up/Referrals: Pedro Luis Santana MD [Physician, Interventional Cardiology] Sven Arias DO [Primary Care Provider, Internal Medicine] Discharge Medications: New docusate sodium 100 mg Capsule 100 mg PO Q12HR Qty: 30 0RF Eliquis 5 mg Tablet 5 mg PO Q12HR Qty: 60 0RF sotalol 80 mg tablet 40 mg PO BID Qty: 30 0RF Continued cholecalciferol (vitamin D3) 25 mcg (1,000 unit) capsule 25 mcg PO DAILY albuterol sulfate 90 mcg/actuation HFA aerosol inhaler 2 puff inhalation QID PRN (Reason: shortness of breath or wheezing) Qty: 8.5 0RF metformin 500 mg tablet 500 mg PO BID Qty: 180 3RF rosuvastatin 5 mg tablet 5 mg PO DAILY Qty: 90 3RF Discontinued clonidine HCl 0.1 mg tablet 0.1 mg PO BID Qty: 180 3RF Rx Instructions: Take one tablet twice a day felodipine 5 mg tablet extended release 24 hr 5 mg PO DAILY Qty: 90 3RF furosemide 20 mg tablet 20 mg PO QAM Qty: 90 1RF lisinopril 20 mg tablet 20 mg PO DAILY Qty: 90 3RF metoprolol succinate 100 mg tablet extended release 24 hr 100 mg PO DAILY Qty: 90 3RF Date of admission: 03/31/25 13:07 Primary Care Provider: Sven Arias Admitting Provider: Eriberto Clemens Attending physician on admission: Eriberto Clemens Condition: Stable
--- NOTE | 2025-04-10 10:10 | ECG_ITS ---
Test Date: 2025-04-10 10:19:37 Measurements Intervals [place] Rate: 57 P: 7 IA: 168 QRS: -6 QRSD: 120 T: -7 QT: 436 QTc: 426 Interpretive Statements SINUS BRADYCARDIA RIGHT BUNDLE BRANCH BLOCK BASELINE ARTIFACT- I, II, III, AVR, AVF ABNORMAL ECG Compared to ECG 04/10/2025 00:08:23 No significant changes Electronically Signed On 04-10-2025 10:45:48 CDT by Jay Rodriguez D.O.
--- NOTE | 2025-04-10 11:18 | PM.PNCARD ---
Progress Note: A&P Assessment and Plan (1) Atrial fibrillation with RVR: Code(s): I48.91 - Unspecified atrial fibrillation Status: Acute Plan 84-year-old lady with: Paroxysmal atrial fibrillation in the setting of pneumonia. The arrhythmia was persistent for the 4-5 days so she was placed on sotalol which medically converted her to sinus rhythm. She is stable for discharge today. Would continue sotalol upon discharge I will see her in the office and determine if we will be continuing medical antiarrhythmic therapy indefinitely. Hoang Vincent MD [facility] Subjective Date/time seen: Date of service: 04/10/25 11:18 Interval history: Cardiology follow up visit Date of service 04/02/2025: She feels well this morning and does not have any specific complaints. She was moved to ICU level of care because of suicidal and homicidal threats. She remains in atrial fibrillation heart rate generally 100- 120 beats per minute. She does not feel any palpitations, shortness of breath, chest pain. Date of service 04/05/2025: Feels okay. She is fatigued. She remains in atrial fibrillation with rapid ventricular response, rates variable but up to the 130s at times. She does not have any palpitations, chest pain, shortness of breath. Date of service 04/06/2025: Feeling about the same today. Complaining of pain on her backside. No palpitations, shortness of breath, chest pain. Date of service 04/07/2025: No specific complaints today, resting in bed, still in atrial fibrillation with heart rate between 90 and 110 Date of service 04/08/2025: Feeling very tired this morning but otherwise does not have any complaints. She remains in atrial fibrillation but her heart rate is much better controlled. She does not have any chest pain, palpitations, shortness of breath, swelling. Date of service 04/09/2025: Feeling better today. No active complaints. Converted to sinus rhythm. Date of service 04/10/2025: No complaints today telemetry shows stable sinus rhythm. No difficulty tolerating sotalol. Exam Const: General: comfortable, no acute distress, alert and awake Orientation/consciousness: patient oriented x3 HENMT: Head: normal to inspection Eyes: General: appearance normal, both eyes and all related structures Pupils: Equal, round and reactive pupils present Neck: Neck: normal visual inspection, supple and no JVD Carotids: normal carotid upstroke Resp: Effort & Inspection: normal respiratory effort Auscultation: clear to auscultation bilaterally Cardio: Rate: regular rate and tachycardic Rhythm: regular rhythm and abnormal rhythm regularly irregular Heart sounds: S1 normal heart sound present, S2 normal heart sound present and Murmur heart sound present systolic GI: Auscultation: normal bowel sounds Skin: General skin exam: normal color Neuro: General: patient oriented x3 Cranial nerves: Yes Equal, round and reactive pupils present Extrem: General: normal to inspection Other: No edema Psych: Appearance: grossly normal Mental Status: mental status grossly normal Objective Data Vital Signs Vital Signs: Vital Signs - 24 hr 04/09/25 11:41 04/09/25 11:46 04/09/25 12:00 Temperature 36.6 C Pulse Rate 62 56 L 60 Respiratory Rate 12 Blood Pressure 111/53 L Pulse Oximetry 99 Oxygen Delivery 04/09/25 14:00 04/09/25 15:52 04/09/25 16:00 Temperature 36.7 C Pulse Rate 60 63 58 L Respiratory Rate 12 Blood Pressure 149/59 H Pulse Oximetry 100 Oxygen Delivery 04/09/25 18:00 04/09/25 20:00 04/09/25 20:00 Temperature 36.8 C Pulse Rate 65 61 62 Respiratory Rate 14 Blood Pressure 134/46 L Pulse Oximetry 100 Oxygen Delivery 04/09/25 20:00 04/09/25 22:00 04/09/25 22:11 Temperature Pulse Rate 63 62 Respiratory Rate Blood Pressure Pulse Oximetry Oxygen Delivery Room Air 04/10/25 00:00 04/10/25 00:00 04/10/25 00:13 Temperature 36.5 C Pulse Rate 60 56 L Respiratory Rate 15 Blood Pressure 151/56 H Pulse Oximetry 98 Oxygen Delivery Room Air 04/10/25 02:00 04/10/25 03:36 04/10/25 04:00 Temperature 36.6 C Pulse Rate 55 L 62 Respiratory Rate 16 Blood Pressure 126/49 L Pulse Oximetry 96 Oxygen Delivery Room Air 04/10/25 04:00 04/10/25 06:00 04/10/25 07:49 Temperature 36.4 C L Pulse Rate 60 59 L 59 L Respiratory Rate 14 Blood Pressure 151/55 H Pulse Oximetry 100 Oxygen Delivery 04/10/25 08:00 04/10/25 08:00 04/10/25 08:06 Temperature Pulse Rate 59 L 59 L 59 L Respiratory Rate 14 Blood Pressure Pulse Oximetry 100 Oxygen Delivery Room Air 04/10/25 08:54 04/10/25 10:00 Temperature Pulse Rate 58 L Respiratory Rate Blood Pressure Pulse Oximetry Oxygen Delivery Room Air Intake/Output Intake/Output: Intake & Output 04/07/25 04/08/25 04/09/25 04/10/25 23:59 23:59 23:59 23:59 Intake Total 920 1800 1454 727 Output Total 625 1950 Balance 295 -150 1454 727 Meds/Results Medications: Active Medications Generic Name Dose Route Start Last Admin Trade Name Freq PRN Reason Stop Dose Admin Acetaminophen 650 mg 03/30/25 14:58 03/30/25 20:09 Acetaminophen 325 Mg Tablet PO 650 mg Q6H PRN Administration fever or pain 1-3 Hydrocodone Bitart/Acetaminophen 1 tab 04/04/25 07:39 04/04/25 08:00 Hydrocodone/Acetaminophen (*Crx) 5-325 Mg Tablet PO 1 tab Q4H PRN Administration Pain Rated 4-6 Hydrocodone Bitart/Acetaminophen 1 tab 04/04/25 07:39 Hydrocodone/Acetaminophen (*Crx) 10-325 Mg Tablet PO Q4H PRN Pain Rated 7-10 Albuterol/Ipratropium 3 ml 03/30/25 14:58 Ipratropium 0.5 Mg/Albuterol Sulfate 2.5 Mg (Base) Ampul.Neb 3 Ml INHALATION Q6H PRN Wheezing Apixaban 5 mg 04/01/25 17:00 04/10/25 08:06 Apixaban 5 Mg Tablet PO 5 mg Q12HR SHANNAN Administration Benzonatate 100 mg 03/30/25 14:58 Benzonatate 100 Mg Capsule PO TID PRN Cough Dextrose 12.5 gm 03/30/25 15:12 Dextrose 50% 25 Gm/50 Ml Syringe IV PUSH PRN PRN Hypoglycemia Protocol Docusate Sodium 100 mg 04/09/25 09:30 04/10/25 08:06 Docusate Sodium 100 Mg Capsule PO 100 mg Q12HR SHANNAN Administration Glucagon 1 mg 03/30/25 15:12 Glucagon For Inj 1 Mg Vial IM PRN PRN Hypoglycemia Protocol Glucose 15 gm 03/30/25 15:12 Glucose Oral Gel 15 Gm Of Glucse In 37.5 Gm Tube PO PRN PRN Hypoglycemia Protocol Guaifenesin 600 mg 03/30/25 21:00 04/10/25 08:06 Guaifenesin 12 Hr 600 Mg Tabcr PO 600 mg Q12HR SHANNAN Administration Dextrose 1,000 mls @ 100 mls/hr 03/30/25 15:12 Dextrose 5% 1,000 Ml IVPB PRN PRN Hypoglycemia Protocol Insulin Aspart 2 - 5 units 03/30/25 17:00 04/10/25 07:58 Insulin Aspart (*Bkc) 100 Units/Ml SUB-Q Not Given TIDWM SHANNAN Protocol Labetalol HCl 20 mg 04/02/25 10:21 04/06/25 04:34 Labetalol Hcl Inj 100 Mg/20 Ml Vial IV PUSH 20 mg Q4H PRN Administration SBP > 160 and HR> 60 -1st choice Ondansetron HCl 4 mg 03/30/25 14:59 Ondansetron Inj 4 Mg/2 Ml Vial IV PUSH Q4H PRN Nausea Phenol 1 spray 03/31/25 10:16 Phenol/Sod Pheno [place] (*Bkc) MUCOUS MEM PRN PRN Sore Throat Polyethylene Glycol 17 gm 04/09/25 09:30 04/09/25 09:54 Polyethylene Glycol 3350 17 Gm Powd.Pack PO 17 gm QAM SHANNAN Administration Potassium Chloride 10 meq 04/05/25 08:00 04/10/25 08:05 Potassium Chloride 10 Meq Er Tablet PO 10 meq DAILY@0800 SHANNAN Administration Quetiapine Fumarate 25 mg 04/03/25 21:00 04/09/25 21:38 Quetiapine Fumarate 25 Mg Tablet PO 25 mg HS SHANNAN Administration Rosuvastatin Calcium 5 mg 03/31/25 09:00 04/10/25 08:06 Rosuvastatin 5 Mg Tablet PO 5 mg DAILY SHANNAN Administration Sotalol HCl 40 mg 04/09/25 11:20 04/10/25 08:06 Sotalol Hcl 40 Mg Tablet PO 40 mg Q12HR SHANNAN Administration Radiology Results: ITS Impressions Chest CT 03/30/25 13:41 IMPRESSION: 1. Pneumonia involving right middle lobe and right lower lobe. Labs Labs: Laboratory Results - last 24 hr 04/09/25 04/09/25 04/10/25 16:11 20:30 04:02 WBC RBC Hgb Hct MCV MCH MCHC RDW Plt Count MPV Sodium 135 L Potassium 4.4 Chloride 108 H Carbon Dioxide 24 Anion Gap 3 L BUN 33 H Creatinine 0.97 Estim Creat Clear Calc 34 Estimated GFR 54 L Glucose 97 POC Capillary Glucose 133 H 144 H Calcium 8.3 L Magnesium 2.3 Total Bilirubin 0.4 AST 30 ALT 25 Alkaline Phosphatase 95 Total Protein 5.7 L Albumin 2.7 L 04/10/25 04/10/25 04:03 07:19 WBC 9.7 RBC 3.07 L Hgb 8.8 L Hct 28.2 L MCV 91.9 MCH 28.7 MCHC 31.2 L RDW 13.8 Plt Count 287 MPV 9.9 Sodium Potassium Chloride Carbon Dioxide Anion Gap BUN Creatinine Estim Creat Clear Calc Estimated GFR Glucose POC Capillary Glucose 95 Calcium Magnesium Total Bilirubin AST ALT Alkaline Phosphatase Total Protein Albumin
== END 2025-04-10 12:17 | disposition home health service (06) | DRG 871 ==
LOC: ANHED 14:59 → ANH3MEDSUR 15:35 → ANHIMU 03-31 07:42 → ANHICU 04-02 06:42 → ANHIMU 04-09 15:45 → ANHICU 04-12 09:39 → ANHIMU 04-12 09:39
PROVIDERS: Internal Medicine; Nurse Practitioner; Student in an Organized Health Care Education/Training Program; Admitting Provider Family Medicine; Emergency Provider Student in an Organized Health Care Education/Training Program; PCP Internal Medicine; Visit Provider General Practice
DX: A41.9 Sepsis, unspecified organism (principal); E43 Unspecified severe protein-calorie malnutrition; J18.9 Pneumonia, unspecified organism; R45.851 Suicidal ideations; R45.850 Homicidal ideations; E11.9 Type 2 diabetes mellitus without complications; E87.6 Hypokalemia; E78.5 Hyperlipidemia, unspecified; I48.91 Unspecified atrial fibrillation; I35.0 Nonrheumatic aortic (valve) stenosis; I70.1 Atherosclerosis of renal artery; I10 Essential (primary) hypertension; M17.0 Bilateral primary osteoarthritis of knee; R33.9 Retention of urine, unspecified; Z66 Do not resuscitate; Z68.23 Body mass index [BMI] 23.0-23.9, adult; Z20.822 Contact with and (suspected) exposure to COVID-19
CPT/HCPCS: 36415; 71260; 80048; 80053; 81001; 82948; 83036; 83605; 83690; 83735; 83880; 84100; 84145; 85025; 85027; 85610; 85730; 87040; 87070; 87186; 87205; 93005; 93306; 94640; 96361; 96365; 96375; 96376; 97110; 97161; 97166; 97530; 97535; 99285; A9270; G0378; J0360; J0616; J0696; J1160; J1163; J1596; J1630; J1644; J1938; J2359; J2405; J3475; J3480; J7040; P9041; Q9967